=== PATIENT | female | born 1975 | race Caucasian/White ===

== ENCOUNTER 2016-10-27 16:36 | Emergency (ER) | payer OTHER ==
[~2016-10-27] VITALS: Ht 167.6 cm; Wt 119.7 kg
[~2016-10-27 16:36] MED LIST: ALBU1AER9 INH; AMPH20TA2 PO; BUSP-8 PO; FLUV100T12 PO; HYDR25TA4 PO; LAMO150T32 PO; MOXI400T2 PO; MULT1CAP3 PO; PRED20TA2 PO; TRIATAB3 PO; VENL225T27 PO
[2016-10-27 16:51] VITALS: Ht 167.6 cm; Wt 119.7 kg
[2016-10-27] MEDS ORDERED: LISI-729 PO (17:57)
[2016-10-27] MEDS ORDERED: SODIUM CHLORIDE 0.9% 1000ML 1,000 ML IV STA (18:17)
--- NOTE | 2016-10-27 18:25 | EMERGENCY ROOM VISIT NOTE ---
History First contact with patient: 18:08 Chief Complaint: ABDOMINAL PAIN Stated Complaint: SEVERE LOWER ABDOMINAL PAIN Nursing Triage Summary: Pt presents with c/o "severe abd pain that started on Mon. I thought it was a UTI. I have pain and pressure. Today I have had the pain all day. The most recent bowel movement I had was diarrhea. I have an ache in my back that normally isn't there. I feel bloated. I feel like I could vomit." History of Present Illness The patient is a 41 year old female who presents to the Emergency Room with complaints of pelvic pressure. She reports it stayed 2 days ago, and was intermittent, but today became very severe. She reports her pain is an 8/10 now. She did not try taking anything to make it better. She report she felt somewhat better when she passed stool yesterday. She has not been nauseated. She denies fevers. She reports the pain radiates somewhat towards the back. Review of Systems See HPI for pertinent positives & negatives. A total of 10 systems reviewed and were otherwise negative. Past Medical/Surgical History Medical Problems: (1) Anxiety (2) Benign hypertension (3) Chronic pelvic pain of female (4) Depression (5) Dysmenorrhea (6) Hysterectomy (7) Morbid Obesity Surgical Problems: (1) H/O section (2) H/O hysterectomy with oophorectomy (3) Hx of tonsillectomy Family History No pertinent FHx Social History Smoking Status: Current Every Day Smoker Alcohol Use: none Drug Use: none Marital Status: Housing Status: lives with family Occupation Status: employed Current/Historical Medications Scheduled Amphetamine-Dextroamphetamine 20MG (Adderall 20MG), 20 MG PO BID Buspirone Hcl (Buspirone Hcl), 10 MG PO BID Fluvoxamine Maleate (Luvox), 150 MG PO QPM Lamotrigine (Lamictal), 150 MG PO QAM Lisinopril (Zestril), 1 TAB PO QAM Multiple Vitamins W/ Minerals (Womens Multi), 1 CAPSULE PO DAILY Triamterene/Hctz (Triamterene/Hctz 37.5-25MG), 1 TABLET PO DAILY Venlafaxine Hcl (Venlafaxine Hcl Er), 225 MG PO DAILY Allergies Coded Allergies: No Known Allergies (Unverified , 10/27/16) Physical Exam Vital Signs Date Time Temp Pulse Resp B/P Pulse Ox O2 Delivery O2 Flow Rate FiO2 10/27/16 21:41 36.9 82 18 124/74 98 Room Air 10/27/16 20:15 94 20 151/90 96 Room Air 10/27/16 18:34 109 20 143/82 96 Room Air 10/27/16 18:03 111 10/27/16 16:51 37.5 132 18 180/124 98 Room Air Physical Exam GENERAL: Awake, alert, well-appearing, in no acute distress HENT: Normocephalic, atraumatic. Oropharynx unremarkable. EYES: Normal conjunctiva. Sclera non-icteric. NECK: Supple. No nuchal rigidity. FROM. No JVD. RESPIRATORY: Clear to auscultation. CARDIAC: Regular rate, normal rhythm. Extremities warm and well perfused. Pulses equal. ABDOMEN: Soft, non-distended. No tenderness to palpation. No rebound or guarding. No masses. RECTAL: Deferred. MUSCULOSKELETAL: Chest examination reveals no tenderness. The back is symmetrical on inspection without obvious abnormality. There is no CVA tenderness to palpation. No joint edema. LOWER EXTREMITIES: Calves are equal size bilaterally and non-tender. No edema. No discoloration. NEURO: Normal sensorium. No sensory or motor deficits noted. SKIN: No rash or jaundice noted. Medical Decision & Procedures ER Provider Diagnostic Interpretation: US VAGINAL: IMPRESSION: 1. Unremarkable sonographic appearance of the ovaries. 2. Status post hysterectomy. 3. No free fluid CT ABDOMEN/PELVIS: 1. Normal appendix. 2. No bowel obstruction. 3. 1.9 x 0.9 cm hypodense abnormality along the superficial aspect of the left mid anterior abdominal wall with thin peripheral enhancement. This may been present on prior exam of October 15, 2007 and could reflect a small area fat necrosis. A tiny fluid collection is considered less likely. This is of doubtful significance. 4. Fatty liver. Laboratory Results 10/27/16 18:10 Red Blood Count 4.28, Mean Corpuscular Volume 90.4, Mean Corpuscular Hemoglobin 31.3, Mean Corpuscular Hemoglobin Concent 34.6, Mean Platelet Volume 10.6, Neutrophils (%) (Auto) 60.0, Lymphocytes (%) (Auto) 32.7, Monocytes (%) (Auto) 5.2, Eosinophils (%) (Auto) 1.4, Basophils (%) (Auto) 0.3, Neutrophils # (Auto) 7.70, Lymphocytes # (Auto) 4.20, Monocytes # (Auto) 0.67, Eosinophils # (Auto) 0.18, Basophils # (Auto) 0.04 10/27/16 18:10 Test 10/27/16 18:05 10/27/16 18:10 Urine Color YELLOW Urine Appearance CLEAR (CLEAR) Urine pH 7.0 (4.5-7.5) Urine Specific [place] 1.018 (1.000-1.030) Urine Protein NEG (NEG) Urine Glucose (UA) NEG (NEG) Urine Ketones NEG (NEG) Urine Occult Blood NEG (NEG) Urine Nitrite NEG (NEG) Urine Bilirubin NEG (NEG) Urine Urobilinogen NEG (NEG) Urine Leukocyte Esterase NEG (NEG) White Blood Count 12.84 K/uL (4.8-10.8) Red Blood Count 4.28 M/uL (4.2-5.4) Hemoglobin 13.4 g/dL (12.0-16.0) Hematocrit 38.7 % (37-47) Mean Corpuscular Volume 90.4 fL (80-100) Mean Corpuscular Hemoglobin 31.3 pg (25-34) Mean Corpuscular Hemoglobin Concent 34.6 g/dl (32-36) Platelet Count 244 K/uL (130-400) Mean Platelet Volume 10.6 fL (7.4-10.4) Neutrophils (%) (Auto) 60.0 % Lymphocytes (%) (Auto) 32.7 % Monocytes (%) (Auto) 5.2 % Eosinophils (%) (Auto) 1.4 % Basophils (%) (Auto) 0.3 % Neutrophils # (Auto) 7.70 K/uL (1.4-6.5) Lymphocytes # (Auto) 4.20 K/uL (1.2-3.4) Monocytes # (Auto) 0.67 K/uL (0.11-0.59) Eosinophils # (Auto) 0.18 K/uL (0-0.5) Basophils # (Auto) 0.04 K/uL (0-0.2) RDW Standard Deviation 43.9 fL (36.4-46.3) RDW Coefficient of Variation 13.3 % (11.5-14.5) Immature Granulocyte % (Auto) 0.4 % Immature Granulocyte # (Auto) 0.05 K/uL (0.00-0.02) Red Blood Cell Morphology Unremarkable Anion Gap 9.0 mmol/L (3-11) Est Creatinine Clear Calc Drug Dose 177.7 ml/min Estimated GFR () 136.1 Estimated GFR (Non- 117.5 BUN/Creatinine Ratio 22.1 (10-20) Calcium Level 9.2 mg/dl (8.5-10.1) Total Bilirubin 0.2 mg/dl (0.2-1) Aspartate Amino Transf (AST/SGOT) 14 U/L (15-37) Alanine Aminotransferase (ALT/SGPT) 26 U/L (12-78) Alkaline Phosphatase 148 U/L (45-117) Total Protein 7.5 gm/dl (6.4-8.2) Albumin 3.6 gm/dl (3.4-5.0) Globulin 3.9 gm/dl (2.5-4.0) Albumin/Globulin Ratio 0.9 (0.9-2) Lipase 88 U/L (73-393) Medications Administered Medications (Trade) Dose Ordered Sig/Kavita Route Start Time Stop Time Status Last Admin Dose Admin Sodium Chloride (Nss 1000ml) 1,000 ml @ 999 mls/hr Q1H1M STAT IV 10/27/16 18:17 10/27/16 19:17 DC 10/27/16 18:33 999 MLS/HR Morphine Sulfate (MoRPHine SULFATE INJ) 2 mg NOW STAT IV 10/27/16 18:36 10/27/16 18:40 DC 10/27/16 18:51 2 MG Acetaminophen (Tylenol Tab) 1,000 mg NOW STAT PO 10/27/16 20:26 10/27/16 20:27 DC 10/27/16 20:29 1,000 MG ED Course 1809: The patient was evaluated in room B3. A complete history and physical was performed. 1816: I prescribed NSS 1000 ml @ 999 mls/hr. 1835: I prescribed Morphine Sulfate 2 mg IV for pain. 1851: Previous medical records were reviewed. The patient was evaluated in room B3b. A complete history and physical examination was performed. 2025: Tylenol 1000 mg PO for pain. 2200: I discussed the results and treatment plan with her. She verbalized understanding and agreement. The patient is ready for discharge. Medical Decision 41 yo F with suprapubic pain and pressure. Differential includes: UTI, renal colic, diverticulitis, bowel obstruction, hernia. Her symptoms improved somewhat with a bowel movement. She had an IV placed and labs drawn. Her labwork was unremarkable. Her urinalysis was normal. Her Pelvic US and CT scan were both normal for acute disease. She was given IV fluids, IV morphine, PO tylenol, and IV Zofran. She felt better on reassessment, and her blood pressure improved. She was deemed stable for discharge and sent home in good condition. Impression Primary Impression: Suprapubic pain Additional Impression: Constipation Departure Information Referrals Man Stovall, D.O. (PCP) Patient Instructions [facility] Resident Tracking Resident Involvement: Resident Care Provided Care Provided: Adult ED Problem Qualifiers
[2016-10-27 18:29] LABS: HEMATOCRIT 38.7 % (37-47); MEAN CELL VOLUME 90.4 fL (80-100); MEAN CORPUSCULAR HEMOGLOBIN 31.3 pg (25-34); MEAN CORPUSCULAR HGB CONC 34.6 g/dl (32-36); MEAN PLATELET VOLUME 10.6 fL (7.4-10.4); PLATELET COUNT 244 K/uL (130-400); RED BLOOD COUNT 4.28 M/uL (4.2-5.4); WHITE BLOOD COUNT 12.84 K/uL (4.8-10.8)
[2016-10-27 18:32] LABS: URINE APPEARANCE CLEAR (CLEAR); URINE BILIRUBIN NEG (NEG); URINE COLOR YELLOW; URINE NITRITE NEG (NEG); URINE SPECIFIC GRAVITY 1.018 (1.000-1.030); UROBILINOGEN NEG (NEG); ZZUR CULT IF INDIC CLEAN CATCH NO
[2016-10-27 18:34] LABS: MANUAL MICROSCOPIC REQUIRED? NO; REVIEW REQ? NO
[2016-10-27] MEDS ORDERED: MoRPHine SULFATE 2 MG/ML CARP IV STA (18:36)
[2016-10-27 18:49] LABS: BUN/CREATININE RATIO 22.1 (10-20); CALCIUM 9.2 mg/dl (8.5-10.1); CREATININE 0.56 mg/dl (0.60-1.20); POTASSIUM 3.8 mmol/L (3.5-5.1)
[2016-10-27 18:53] LABS: ALB/GLOB RATIO 0.9 (0.9-2)
[2016-10-27 19:05] LABS: BASO % 0.3 %; BASO ABS # 0.04 K/uL (0-0.2); COMPLETE YES; EOS % 1.4 %; IG% 0.4 %; LYMPH % 32.7 %; MONO % 5.2 %
--- NOTE | 2016-10-27 20:19 | DIAGNOSTIC IMAGING REPORT ---
PELVIC ULTRASOUND CLINICAL HISTORY: Suprapubic pain and pressure. COMPARISON STUDY: Pelvic ultrasound October 11, 2007. TECHNIQUE: Transabdominal and transvaginal sonography of the pelvis was performed. FINDINGS: By report, the uterus is surgically absent. The ovaries were not visualized transvaginally but were shown transabdominally. The right measures 2.6 x 2.2 x 2.1 cm and the left measures 3.1 x 2.2 x 2.6 cm. Color flow is identified within each ovary. IMPRESSION: 1. Unremarkable sonographic appearance of the ovaries. 2. Status post hysterectomy. 3. No free fluid Electronically signed by: Daren Paredes M.D. 10/27/2016 8:17 PM Dictated Date/Time: 10/27/2016 8:16 PM
[2016-10-27] MEDS ORDERED: ACETAMINOPHEN 500 MG TAB PO STA (20:26)
[2016-10-27] MEDS ORDERED: OPTIRAY 320 IV PRN (21:30)
[2016-10-27 21:41] VITALS: BP 124/74; PULSE 82; TEMP 36.9; O2SAT 98
--- NOTE | 2016-10-27 21:57 | DIAGNOSTIC IMAGING REPORT ---
CT OF THE ABDOMEN AND PELVIS WITH CONTRAST CLINICAL HISTORY: Lower abdominal pain. COMPARISON STUDY: CT of the abdomen and pelvis October 15, 2007 and pelvic ultrasound performed earlier today. TECHNIQUE: Following IV administration of 116 mL of Optiray-320, axial images of the abdomen and pelvis were obtained from the lung bases to the proximal femurs. Images were reviewed in the axial, sagittal, and coronal planes. IV contrast was administered without complication. Oral contrast was administered. CT DOSE: 1944.63 mGy.cm FINDINGS: Fatty infiltration of the liver is noted. There is no biliary or pancreatic ductal dilatation. No peripancreatic or pericholecystic infiltration is present. The spleen, adrenal glands, kidneys and pancreas are normal. There is no hydronephrosis. No ureteral calculi are identified. The caliber and wall thickness of small and large bowel are normal. There is no evidence for a bowel obstruction. The appendix is normal. The uterus is surgically absent. The ovaries are not enlarged. Note is made of a small hypodense abnormality along the superficial aspect of the left mid anterior abdominal wall that measures 1.9 x 0.9 cm. This has mild peripheral enhancement and likely contains fat. No additional fluid collections are identified on this exam. There is no lymphadenopathy. No suspicious skeletal lesions are identified. IMPRESSION: 1. Normal appendix. 2. No bowel obstruction. 3. 1.9 x 0.9 cm hypodense abnormality along the superficial aspect of the left mid anterior abdominal wall with thin peripheral enhancement. This may been present on prior exam of October 15, 2007 and could reflect a small area fat necrosis. A tiny fluid collection is considered less likely. This is of doubtful significance. 4. Fatty liver. Electronically signed by: Daren Paredes M.D. 10/27/2016 9:56 PM Dictated Date/Time: 10/27/2016 9:43 PM
--- NOTE | 2016-10-27 22:16 | EMERGENCY ROOM VISIT NOTE ---
History Report prepared by [facility]: Jian Bradley Under the Supervision of: Dr. Vivek Wade D.O. First contact with patient: 18:08 Chief Complaint: ABDOMINAL PAIN Stated Complaint: SEVERE LOWER ABDOMINAL PAIN Nursing Triage Summary: Pt presents with c/o "severe abd pain that started on Mon. I thought it was a UTI. I have pain and pressure. Today I have had the pain all day. The most recent bowel movement I had was diarrhea. I have an ache in my back that normally isn't there. I feel bloated. I feel like I could vomit." History of Present Illness The patient is a 41 year old female who presents to the Emergency Room with complaints of waxing & waning suprapubic pressure for the past two days. The patient' rates her discomfort 8/10. She has felt similar pressure in the past with urinary tract infections. The patient's pain was not relieved after urinating. She does have some relief after bowel movements, but the pressure never completely resolved. She denies fevers, chills, nausea, or vomiting. She does also complain of some dull lower back pain. The patient has a history of PID. She is status-post x 2 and panniculectomy. She works at [employer] in [place]. Source of History: patient Onset: two days Position: abdomen (suprapubic) Symptom Intensity: 8/10 Quality: pressure Timing: waxes/wanes Associated Symptoms: + back pain, No chills, No fevers, No nausea, No vomiting Review of Systems See HPI for pertinent positives & negatives. A total of 10 systems reviewed and were otherwise negative. Past Medical & Surgical Medical Problems: (1) Anxiety (2) Benign hypertension (3) Chronic pelvic pain of female (4) Depression (5) Dysmenorrhea (6) Hysterectomy (7) Morbid Obesity Surgical Problems: (1) H/O section (2) H/O hysterectomy with oophorectomy (3) Hx of tonsillectomy Family History No pertinent family history Social History Smoking Status: Current Every Day Smoker Alcohol Use: none Drug Use: none Marital Status: Housing Status: lives with family Occupation Status: employed Current/Historical Medications Scheduled Amphetamine-Dextroamphetamine 20MG (Adderall 20MG), 20 MG PO BID Buspirone Hcl (Buspirone Hcl), 10 MG PO BID Fluvoxamine Maleate (Luvox), 150 MG PO QPM Lamotrigine (Lamictal), 150 MG PO QAM Lisinopril (Zestril), 1 TAB PO QAM Multiple Vitamins W/ Minerals (Womens Multi), 1 CAPSULE PO DAILY Triamterene/Hctz (Triamterene/Hctz 37.5-25MG), 1 TABLET PO DAILY Venlafaxine Hcl (Venlafaxine Hcl Er), 225 MG PO DAILY Allergies Coded Allergies: No Known Allergies (Unverified , 10/27/16) Physical Exam Vital Signs Date Time Temp Pulse Resp B/P Pulse Ox O2 Delivery O2 Flow Rate FiO2 10/27/16 21:41 36.9 82 18 124/74 98 Room Air 10/27/16 20:15 94 20 151/90 96 Room Air 10/27/16 18:34 109 20 143/82 96 Room Air 10/27/16 18:03 111 10/27/16 16:51 37.5 132 18 180/124 98 Room Air Physical Exam CONSTITUTIONAL/VITAL SIGNS: Reviewed / noted above. GENERAL: Non-toxic in appearance. INTEGUMENTARY: Warm, dry, and [place]. HEAD: Normocephalic. EYES: without scleral icterus or trauma. ENT/OROPHARYNX: clear and moist. LYMPHADENOPATHY/NECK: Is supple without lymphadenopathy or meningismus. RESPIRATORY: Lungs clear and equal. CARDIOVASCULAR: Regular rate and rhythm. GI/ABDOMEN: Soft. Some tenderness to the suprapubic area and left lower quadrant. No organomegaly or pulsatile mass. No rebound or guarding. Normal bowel sounds. EXTREMITIES: Warm and well perfused. BACK: No CVA tenderness. NEUROLOGICAL: Intact without focal deficits. PSYCHIATRIC: normal affect. MUSCULOSKELETAL: Normally developed with good muscle tone. Medical Decision & Procedures ER Provider Diagnostic Interpretation: Radiology results and stated below per my review and radiologist interpretation: PELVIC ULTRASOUND CLINICAL HISTORY: Suprapubic pain and pressure. COMPARISON STUDY: Pelvic ultrasound October 11, 2007. TECHNIQUE: Transabdominal and transvaginal sonography of the pelvis was performed. FINDINGS: By report, the uterus is surgically absent. The ovaries were not visualized transvaginally but were shown transabdominally. The right measures 2.6 x 2.2 x 2.1 cm and the left measures 3.1 x 2.2 x 2.6 cm. Color flow is identified within each ovary. IMPRESSION: 1. Unremarkable sonographic appearance of the ovaries. 2. Status post hysterectomy. 3. No free fluid Electronically signed by: Daren Paredes M.D. 10/27/2016 8:17 PM Dictated Date/Time: 10/27/2016 8:[address] OF THE ABDOMEN AND PELVIS WITH CONTRAST CLINICAL HISTORY: Lower abdominal pain. COMPARISON STUDY: CT of the abdomen and pelvis October 15, 2007 and pelvic ultrasound performed earlier today. TECHNIQUE: Following IV administration of 116 mL of Optiray-320, axial images of the abdomen and pelvis were obtained from the lung bases to the proximal femurs. Images were reviewed in the axial, sagittal, and coronal planes. IV contrast was administered without complication. Oral contrast was administered. CT DOSE: 1944.63 mGy.cm FINDINGS: Fatty infiltration of the liver is noted. There is no biliary or pancreatic ductal dilatation. No peripancreatic or pericholecystic infiltration is present. The spleen, adrenal glands, kidneys and pancreas are normal. There is no hydronephrosis. No ureteral calculi are identified. The caliber and wall thickness of small and large bowel are normal. There is no evidence for a bowel obstruction. The appendix is normal. The uterus is surgically absent. The ovaries are not enlarged. Note is made of a small hypodense abnormality along the superficial aspect of the left mid anterior abdominal wall that measures 1.9 x 0.9 cm. This has mild peripheral enhancement and likely contains fat. No additional fluid collections are identified on this exam. There is no lymphadenopathy. No suspicious skeletal lesions are identified. IMPRESSION: 1. Normal appendix. 2. No bowel obstruction. 3. 1.9 x 0.9 cm hypodense abnormality along the superficial aspect of the left mid anterior abdominal wall with thin peripheral enhancement. This may been present on prior exam of October 15, 2007 and could reflect a small area fat necrosis. A tiny fluid collection is considered less likely. This is of doubtful significance. 4. Fatty liver. Electronically signed by: Daren Paredes M.D. 10/27/2016 9:56 PM Dictated Date/Time: 10/27/2016 9:43 PM Laboratory Results 10/27/16 18:10 Red Blood Count 4.28, Mean Corpuscular Volume 90.4, Mean Corpuscular Hemoglobin 31.3, Mean Corpuscular Hemoglobin Concent 34.6, Mean Platelet Volume 10.6, Neutrophils (%) (Auto) 60.0, Lymphocytes (%) (Auto) 32.7, Monocytes (%) (Auto) 5.2, Eosinophils (%) (Auto) 1.4, Basophils (%) (Auto) 0.3, Neutrophils # (Auto) 7.70, Lymphocytes # (Auto) 4.20, Monocytes # (Auto) 0.67, Eosinophils # (Auto) 0.18, Basophils # (Auto) 0.04 10/27/16 18:10 Test 10/27/16 18:05 10/27/16 18:10 Urine Color YELLOW Urine Appearance CLEAR (CLEAR) Urine pH 7.0 (4.5-7.5) Urine Specific [employer] 1.018 (1.000-1.030) Urine Protein NEG (NEG) Urine Glucose (UA) NEG (NEG) Urine Ketones NEG (NEG) Urine Occult Blood NEG (NEG) Urine Nitrite NEG (NEG) Urine Bilirubin NEG (NEG) Urine Urobilinogen NEG (NEG) Urine Leukocyte Esterase NEG (NEG) White Blood Count 12.84 K/uL (4.8-10.8) Red Blood Count 4.28 M/uL (4.2-5.4) Hemoglobin 13.4 g/dL (12.0-16.0) Hematocrit 38.7 % (37-47) Mean Corpuscular Volume 90.4 fL (80-100) Mean Corpuscular Hemoglobin 31.3 pg (25-34) Mean Corpuscular Hemoglobin Concent 34.6 g/dl (32-36) Platelet Count 244 K/uL (130-400) Mean Platelet Volume 10.6 fL (7.4-10.4) Neutrophils (%) (Auto) 60.0 % Lymphocytes (%) (Auto) 32.7 % Monocytes (%) (Auto) 5.2 % Eosinophils (%) (Auto) 1.4 % Basophils (%) (Auto) 0.3 % Neutrophils # (Auto) 7.70 K/uL (1.4-6.5) Lymphocytes # (Auto) 4.20 K/uL (1.2-3.4) Monocytes # (Auto) 0.67 K/uL (0.11-0.59) Eosinophils # (Auto) 0.18 K/uL (0-0.5) Basophils # (Auto) 0.04 K/uL (0-0.2) RDW Standard Deviation 43.9 fL (36.4-46.3) RDW Coefficient of Variation 13.3 % (11.5-14.5) Immature Granulocyte % (Auto) 0.4 % Immature Granulocyte # (Auto) 0.05 K/uL (0.00-0.02) Red Blood Cell Morphology Unremarkable Anion Gap 9.0 mmol/L (3-11) Est Creatinine Clear Calc Drug Dose 177.7 ml/min Estimated GFR () 136.1 Estimated GFR (Non- 117.5 BUN/Creatinine Ratio 22.1 (10-20) Calcium Level 9.2 mg/dl (8.5-10.1) Total Bilirubin 0.2 mg/dl (0.2-1) Aspartate Amino Transf (AST/SGOT) 14 U/L (15-37) Alanine Aminotransferase (ALT/SGPT) 26 U/L (12-78) Alkaline Phosphatase 148 U/L (45-117) Total Protein 7.5 gm/dl (6.4-8.2) Albumin 3.6 gm/dl (3.4-5.0) Globulin 3.9 gm/dl (2.5-4.0) Albumin/Globulin Ratio 0.9 (0.9-2) Lipase 88 U/L (73-393) Laboratory results as stated above per my review. Medications Administered Medications (Trade) Dose Ordered Sig/Kavita Route Start Time Stop Time Status Last Admin Dose Admin Sodium Chloride (Nss 1000ml) 1,000 ml @ 999 mls/hr Q1H1M STAT IV 10/27/16 18:17 10/27/16 19:17 DC 10/27/16 18:33 999 MLS/HR Morphine Sulfate (MoRPHine SULFATE INJ) 2 mg NOW STAT IV 10/27/16 18:36 10/27/16 18:40 DC 10/27/16 18:51 2 MG Acetaminophen (Tylenol Tab) 1,000 mg NOW STAT PO 10/27/16 20:26 10/27/16 20:27 DC 10/27/16 20:29 1,000 MG ED Course 1810: The patient was evaluated by my resident. 1817: NSS 1000 ml @ 999 mls/hr. 1836: Morphine Sulfate 2 mg IV. 1851: Previous medical records were reviewed. The patient was evaluated in room B3b. A complete history and physical examination was performed. 2025: Tylenol 1000 mg PO. 2199: My resident discussed the results and treatment plan with her. She verbalized understanding and agreement. The patient is ready for discharge. Medical Decision Differential considered: pancreatitis, hepatitis, or acute cholecystitis, AAA, UTI, pyelonephritis, kidney stones, appendicitis, diverticulitis, shingles, bowel obstruction mesenteric ischemia, intussusception,hernia. This is a 41-year-old female who presents to the ED with a chief complaint of lower abdominal pressure for the past couple of days. The patient states that her symptoms seem to subside somewhat with bowel movement. She has no fevers or nausea or vomiting or no diarrhea. Vital signs revealed an initial tachycardia did improve. CBC and complete metabolic panel were unremarkable. Lipase is negative. Urine did not show infection. The patient reports previous hysterectomy. CT scan read and pelvis did not show acute disease. Pelvic ultrasound was negative for acute disease. She was treated with IV fluids, IV morphine, by mouth Tylenol and IV Zofran. On reassessment, she is feeling better. She was told the results. Her vital signs improved. She is felt to be stable for discharge. Impression Primary Impression: Lower abdominal pain Scribe Attestation The scribe's documentation has been prepared under my direction and personally reviewed by me in its entirety. I confirm that the note above accurately reflects all work, treatment, procedures, and medical decision making performed by me. Departure Information Dispostion Home / Self-Care Referrals Man Stovall DYonatanO. (PCP) Forms Call Back Authorization, HOME CARE DOCUMENTATION FORM, IMPORTANT VISIT INFORMATION Patient Instructions My [facility] Additional Instructions Follow up with your PCP within a week. If you develop worsening pain, shortness of breath, vomiting, diarrhea, or chest pain then please return to the ED.
== END 2016-10-27 22:10 | disposition home or self-care (01) ==
LOC: C.EDB 16:37
DX: R10.30 Lower abdominal pain, unspecified (principal); I10 Essential (primary) hypertension; F41.9 Anxiety disorder, unspecified; F32.9 Major depressive disorder, single episode, unspecified; Z90.710 Acquired absence of both cervix and uterus; Z98.890 Other specified postprocedural states; F17.200 Nicotine dependence, unspecified, uncomplicated; Z79.899 Other long term (current) drug therapy

== ENCOUNTER 2016-11-12 15:24 | Emergency (ER) | payer OTHER ==
[~2016-11-12] VITALS: Ht 170.2 cm; Wt 119.2 kg
[~2016-11-12 15:24] MED LIST changes: -ALBU1AER9 INH; -HYDR25TA4 PO; +LISI-729 PO; -MOXI400T2 PO; -PRED20TA2 PO
[2016-11-12 15:28] VITALS: TEMP 36.9; Ht 170.2 cm; Wt 119.2 kg
[2016-11-12] MEDS ORDERED: DICY10CA55 PO (15:50)
[2016-11-12] MEDS ORDERED: LSN20 PO (15:50)
[2016-11-12] MEDS ORDERED: GLC/500 PO (15:50)
[2016-11-12] MEDS ORDERED: ONDANSETRON INJ 2 MG/ML 2 ML VIAL IV STA (15:56)
[2016-11-12] MEDS ORDERED: MoRPHine SULFATE 4 MG/ML 1 ML CARP\\VIAL IV STA ×2 (15:56→18:23)
[2016-11-12] MEDS ORDERED: OPTIRAY 320 IV PRN (16:15)
[2016-11-12 16:42] LABS: URINE APPEARANCE CLEAR (CLEAR); URINE BILIRUBIN NEG (NEG); URINE COLOR DK YELLOW; URINE EPITHELIAL CELL AUTO >30 /lpf (0-5); URINE NITRITE NEG (NEG); UROBILINOGEN NEG (NEG)
[2016-11-12 16:43] LABS: MANUAL MICROSCOPIC REQUIRED? NO; REVIEW REQ? YES
[2016-11-12 17:35] LABS: BASO % 0.4 %; BASO ABS # 0.05 K/uL (0-0.2); COMPLETE YES; EOS % 1.4 %; HEMATOCRIT 41.5 % (37-47); IG% 0.2 %; LYMPH % 30.2 %; LYMPH ABS # 3.71 K/uL (1.2-3.4); MEAN CELL VOLUME 92.2 fL (80-100); MEAN CORPUSCULAR HEMOGLOBIN 31.8 pg (25-34); MEAN CORPUSCULAR HGB CONC 34.5 g/dl (32-36); MEAN PLATELET VOLUME 10.5 fL (7.4-10.4); MONO % 5.5 %; NEUT % 62.3 %; PLATELET COUNT 263 K/uL (130-400); WHITE BLOOD COUNT 12.27 K/uL (4.8-10.8)
[2016-11-12 17:52] LABS: ALT/SGPT 31 U/L (12-78); BLOOD UREA NITROGEN 13 mg/dl (7-18); BUN/CREATININE RATIO 20.5 (10-20); CALCIUM 9.5 mg/dl (8.5-10.1); CARBON DIOXIDE 28 mmol/L (21-32); CHLORIDE 103 mmol/L (98-107); CREATININE 0.61 mg/dl (0.60-1.20); GLUCOSE 103 mg/dl (70-99); POTASSIUM 4.2 mmol/L (3.5-5.1); SODIUM 138 mmol/L (136-145)
[2016-11-12 17:55] LABS: ALKALINE PHOSPHATASE 144 U/L (45-117); AST/SGOT 17 U/L (15-37)
--- NOTE | 2016-11-12 19:10 | DIAGNOSTIC IMAGING REPORT ---
ABDOMEN AND PELVIS CT WITH IV AND ORAL CONTRAST CT DOSE: 1464.25 mGy.cm HISTORY: Pain RLQ pain eval for tabby TECHNIQUE: Multiaxial CT images of the abdomen and pelvis were performed following the use of intravenous and oral contrast. COMPARISON STUDY: 10/27/2016 FINDINGS: No change in the prior study. Fatty infiltration of liver. Nonobstructive bowel pattern. Kidneys normal. Normal appendix. No free fluid within the pelvic cul-de-sac. IMPRESSION: No acute process. Fatty infiltration of liver. Normal appendix. Electronically signed by: Rufus Grady M.D. 11/12/2016 7:09 PM Dictated Date/Time: 11/12/2016 7:05 PM
[2016-11-12] MEDS ORDERED: NITROFURANTOIN MONOHYDRATE 100 MG CAP PO ONE (19:30)
[2016-11-12] MEDS ORDERED: NITR-5 PO (19:31)
[2016-11-12 19:45] VITALS: BP 152/91; PULSE 96; O2SAT 98
--- NOTE | 2016-11-12 22:20 | EMERGENCY ROOM VISIT NOTE ---
History Report prepared by Mayo: Jian Bradley Under the Supervision of: Dr. Guillermo Odom M.D. First contact with patient: 15:46 Chief Complaint: ABDOMINAL PAIN Stated Complaint: ON GOING ABDOMIN AND BACK PAIN Nursing Triage Summary: pt c/o abd/back pain for approx 3 weeks. feels nauseated. talked with pcp today , lab work done yesterday was worse than 3 weeks ago, sent here for further testing History of Present Illness The patient is a 41 year old female who presents to the Emergency Room with complaints of constant abdominal pain for the past three weeks. The pain was localized to the lower abdomen for the first two weeks. Over the past week the pain has become more diffuse. The pain also radiates to the lower back bilaterally. The pain is cramping in nature, and is worsened after eating and sometimes after going to the bathroom. The patient had a CT scan in the ED on October 27 as well as a Pelvic US, both of which were unremarkable. She was started on Bentyl by Dr. Stovall ([facility]). He did not perform a pelvic examination. The patient has been feeling nauseous. She had diarrhea for five days during the first week after the onset of her pain, and has had it intermittently since. The diarrhea does not contain blood. The patient notes that she had a low-grade fever of 99 yesterday. She denies any other fevers. She also denies vomiting, urinary symptoms, or abnormal vaginal bleeding or discharge. The patient has not been sexually active for 3 months. She does have a history of PID 9 years ago from chlamydia but notes that this pain is not similar. Source of History: patient Onset: three weeks ago Position: abdomen (diffuse) Quality: cramping Timing: constant Modifying Factors (Worsening): eating Associated Symptoms: + diarrhea, + fevers (low grade), + nausea, No hematochezia, No urinary symptoms, No vomiting Review of Systems See HPI for pertinent positives & negatives. A total of 10 systems reviewed and were otherwise negative. Past Medical & Surgical Medical Problems: (1) Anxiety (2) Benign hypertension (3) Chronic pelvic pain of female (4) Depression (5) Dysmenorrhea (6) Hysterectomy (7) Morbid Obesity Surgical Problems: (1) H/O section (2) H/O hysterectomy with oophorectomy (3) Hx of tonsillectomy Family History No pertinent family history Social History Smoking Status: Current Every Day Smoker Alcohol Use: none Drug Use: none Marital Status: Housing Status: lives with family Occupation Status: employed Current/Historical Medications Scheduled Amphetamine-Dextroamphetamine 20MG (Adderall 20MG), 20 MG PO BID Buspirone Hcl (Buspirone Hcl), 10 MG PO BID Fluvoxamine Maleate (Luvox), 150 MG PO QPM Lamotrigine (Lamictal), 150 MG PO QAM Lisinopril (Lisinopril), 20 MG PO QAM Metformin Hcl (Glucophage), 500 MG PO BID Multiple Vitamins W/ Minerals (Womens Multi), 1 CAPSULE PO DAILY Nitrofurantoin Monohyd Macrocr (Macrobid), 100 MG PO BID Triamterene/Hctz (Triamterene/Hctz 37.5-25MG), 1 TABLET PO DAILY Venlafaxine Hcl (Venlafaxine Hcl Er), 225 MG PO DAILY Scheduled PRN Dicyclomine Hcl (Bentyl), 10 MG PO QID PRN for PRN Allergies Coded Allergies: No Known Allergies (Unverified , 11/12/16) Physical Exam Vital Signs Date Time Temp Pulse Resp B/P Pulse Ox O2 Delivery O2 Flow Rate FiO2 11/12/16 19:45 96 16 152/91 98 11/12/16 18:08 95 17 141/93 97 Room Air 11/12/16 17:03 87 18 148/98 97 Room Air 11/12/16 15:28 36.9 109 18 161/96 99 Room Air Physical Exam Constitutional: Vital signs reviewed. Eyes: Pupils are equal round reactive to light. Conjunctiva are noninjected. ENT: Pharynx is clear without erythema or exudate. Mucous membranes are moist. Neck supple without meningeal signs. Respiratory: Clear to auscultation bilaterally. Breath sounds are equal bilaterally. Cardiovascular: Regular rate and rhythm. No rubs or gallops. GI: Soft, nondistended. Suprapubic and right lower quadrant tenderness, no guarding. Bowel sounds are present. : No erythema or inflammation to the vaginal vault. Cervix was not visualized. Normal vaginal discharge without purulence. No adnexal tenderness or fullness. Musculoskeletal: No peripheral edema. No CVA tenderness. Integumentary: No cyanosis. Neurological: The patient is awake and alert. No focal deficits. Psychiatric: Normal affect. Medical Decision & Procedures ER Provider Diagnostic Interpretation: CT results as stated below per my review and radiologist interpretation. ABDOMEN AND PELVIS CT WITH IV AND ORAL CONTRAST CT DOSE: 1464.25 mGy.cm HISTORY: Pain RLQ pain eval for tabby TECHNIQUE: Multiaxial CT images of the abdomen and pelvis were performed following the use of intravenous and oral contrast. COMPARISON STUDY: 10/27/2016 FINDINGS: No change in the prior study. Fatty infiltration of liver. Nonobstructive bowel pattern. Kidneys normal. Normal appendix. No free fluid within the pelvic cul-de-sac. IMPRESSION: No acute process. Fatty infiltration of liver. Normal appendix. Electronically signed by: Rufus Grady M.D. 11/12/2016 7:09 PM Dictated Date/Time: 11/12/2016 7:05 PM Laboratory Results 11/12/16 17:25 Red Blood Count 4.50, Mean Corpuscular Volume 92.2, Mean Corpuscular Hemoglobin 31.8, Mean Corpuscular Hemoglobin Concent 34.5, Mean Platelet Volume 10.5, Neutrophils (%) (Auto) 62.3, Lymphocytes (%) (Auto) 30.2, Monocytes (%) (Auto) 5.5, Eosinophils (%) (Auto) 1.4, Basophils (%) (Auto) 0.4, Neutrophils # (Auto) 7.64, Lymphocytes # (Auto) 3.71, Monocytes # (Auto) 0.68, Eosinophils # (Auto) 0.17, Basophils # (Auto) 0.05 11/12/16 17:25 Test 11/12/16 00:00 11/12/16 16:10 11/12/16 17:25 Urine Color DK YELLOW Urine Appearance CLEAR (CLEAR) Urine pH 6.0 (4.5-7.5) Urine Specific [place] 1.030 (1.000-1.030) Urine Protein NEG (NEG) Urine Glucose (UA) NEG (NEG) Urine Ketones NEG (NEG) Urine Occult Blood NEG (NEG) Urine Nitrite NEG (NEG) Urine Bilirubin NEG (NEG) Urine Urobilinogen NEG (NEG) Urine Leukocyte Esterase TRACE (NEG) Urine WBC (Auto) 5-10 /hpf (0-5) Urine RBC (Auto) 0-4 /hpf (0-4) Urine Hyaline Casts (Auto) 1-5 /lpf (0-5) Urine Epithelial Cells (Auto) >30 /lpf (0-5) Urine Bacteria (Auto) 1+ (NEG) Urine Test NEG (NEG) White Blood Count 12.27 K/uL (4.8-10.8) Red Blood Count 4.50 M/uL (4.2-5.4) Hemoglobin 14.3 g/dL (12.0-16.0) Hematocrit 41.5 % (37-47) Mean Corpuscular Volume 92.2 fL (80-100) Mean Corpuscular Hemoglobin 31.8 pg (25-34) Mean Corpuscular Hemoglobin Concent 34.5 g/dl (32-36) Platelet Count 263 K/uL (130-400) Mean Platelet Volume 10.5 fL (7.4-10.4) Neutrophils (%) (Auto) 62.3 % Lymphocytes (%) (Auto) 30.2 % Monocytes (%) (Auto) 5.5 % Eosinophils (%) (Auto) 1.4 % Basophils (%) (Auto) 0.4 % Neutrophils # (Auto) 7.64 K/uL (1.4-6.5) Lymphocytes # (Auto) 3.71 K/uL (1.2-3.4) Monocytes # (Auto) 0.68 K/uL (0.11-0.59) Eosinophils # (Auto) 0.17 K/uL (0-0.5) Basophils # (Auto) 0.05 K/uL (0-0.2) RDW Standard Deviation 45.5 fL (36.4-46.3) RDW Coefficient of Variation 13.5 % (11.5-14.5) Immature Granulocyte % (Auto) 0.2 % Immature Granulocyte # (Auto) 0.02 K/uL (0.00-0.02) Anion Gap 7.0 mmol/L (3-11) Est Creatinine Clear Calc Drug Dose 165.5 ml/min Estimated GFR () 132.4 Estimated GFR (Non- 114.2 BUN/Creatinine Ratio 20.5 (10-20) Calcium Level 9.5 mg/dl (8.5-10.1) Total Bilirubin 0.3 mg/dl (0.2-1) Direct Bilirubin < 0.1 mg/dl (0-0.2) Aspartate Amino Transf (AST/SGOT) 17 U/L (15-37) Alanine Aminotransferase (ALT/SGPT) 31 U/L (12-78) Alkaline Phosphatase 144 U/L (45-117) Total Protein 7.8 gm/dl (6.4-8.2) Albumin 3.7 gm/dl (3.4-5.0) Lipase 592 U/L (73-393) Laboratory results as reviewed by me. Medications Administered Medications (Trade) Dose Ordered Sig/Kavita Route Start Time Stop Time Status Last Admin Dose Admin Morphine Sulfate (MoRPHine SULFATE INJ) 4 mg ONE STAT IV 11/12/16 15:56 11/12/16 15:58 DC 11/12/16 16:54 4 MG Ondansetron HCl (Zofran Inj) 4 mg NOW STAT IV 11/12/16 15:56 11/12/16 15:58 DC 11/12/16 16:53 4 MG Morphine Sulfate (MoRPHine SULFATE INJ) 4 mg NOW STAT IV 11/12/16 18:23 11/12/16 18:24 DC 11/12/16 18:38 4 MG Nitrofurantoin Macrocrystals (Macrobid Cap) 100 mg ONE ONCE PO 11/12/16 19:30 11/12/16 19:31 DC 11/12/16 19:38 100 MG ED Course 1550: The patient was evaluated in room A3. A complete history and physical exam was performed. 1556: Zofran 4 mg IV, Morphine Sulfate 4 mg IV. 1700: Patient received medication (IV morphine and Zofran) pelvic exam performed. 1705: Pelvic examination performed. 1823: Morphine Sulfate 4 mg IV. 5: Discussed the results with her. I recommended a liquid diet and abstaining from alcohol. She will see her doctor early next week. 1930: Macrobid 100 mg PO. Medical Decision This is a 41-year-old female presents with abdominal pain. Differential diagnosis includes acute appendicitis, perforation, abscess, irritable bowel syndrome, inflammatory bowel disease, food intolerance, pelvic inflammatory disease. I did perform a limited focused review of portions of the patient's old chart on the electronic medical record. The patient was here on October 27 for suprapubic pain. She had a CT abdomen & pelvis which showed a 1.9 cm hypodense abnormality along the superficial aspect of the left anterior abdominal wall. The area seemed to be present on scan in 2007. She also had an unremarkable sonogram of the pelvis. [place] [address]. I did evaluate the patient as noted above. The patient is having abdominal pain for approximately 3 weeks. She states initially started in the lower abdomen and has now spread upwards. She is mostly tender in the lower abdomen. I did do a pelvic examination which was unremarkable. GC and genital cultures were sent. IV access was established. I did order and personally review the patient's urinalysis as described above. There are signs of infection. A urine culture was sent. I did order and review the patient's blood work as noted in the electronic medical record. Her white blood cell count is 12,000. Her lipase is slightly elevated. I did order a CT of the abdomen and pelvis. I did review the images myself as well as the radiology report as described above. There is no evidence of acute process. No appendicitis or pancreatitis. I did treat patient with IV morphine and Zofran. On reassessment the patient is feeling better. I did discuss the test results with her detail. There is no indication for further testing or admission to the hospital at this time. I did recommend that she stay on a liquid diet until she follows up with her doctor in 3-4 days. I did recommend that her doctor recheck her lipase level. She was given Macrobid for her UTI. She was discharged with a prescription for Macrobid. She was given return instructions as outlined below. Impression Primary Impression: Diffuse abdominal pain Additional Impressions: UTI (urinary tract infection) Elevated lipase Scribe Attestation The scribe's documentation has been prepared under my direct and personally reviewed by me in its entirety. I confirm that the note above accurately reflects all work, treatment, procedures, and medical decision making performed by me. Departure Information Dispostion Home / Self-Care Prescriptions Nitrofurantoin Monohyd Macrocr (Macrobid) 100 Mg Cap 100 MG PO BID, #14 CAP Prov: Guillermo Odom M.D. 11/12/16 Referrals No Doctor, Assigned (PCP) Forms Call Back Authorization, HOME CARE DOCUMENTATION FORM, IMPORTANT VISIT INFORMATION Patient Instructions ED Abd Pain Unkn Cause Fem, [facility] Additional Instructions You have been examined and treated today on an emergency basis only. This is not a substitute for, or an effort to provide, complete comprehensive medical care. It is impossible to recognize and treat all injuries or illnesses in a single emergency department visit. It is therefore important that you follow up closely with your physician in 3-4 days. Call as soon as possible for an appointment. Return for worsening symptoms or if you develop fever, vomiting, or any other concerning symptoms. Stay on a liquid diet for the next 3-4 days. Avoid any alcohol. Have your doctor repeat your lipase blood test to see if there is any change. Problem Qualifiers Additional Impressions: UTI (urinary tract infection) Urinary tract infection type: site unspecified Hematuria presence: without hematuria Qualified Codes: N39.0 - Urinary tract infection, site not specified
--- NOTE | 2016-11-15 12:09 | Pharmacy Progress Note ---
ED Pharmacist Culture FollowUp Date of Service: Nov 15, 2016. Gardnerella vaginalis grew in this patient's genital culture from 11/12/16. Patient had presented w/ c/o nausea and diarrhea as well as abdominal pain. This organism likely represents colonization rather than dx for bacterial vaginosis as provider's PE reportedly not consistent w/ bacterial vaginosis. Patient denied vaginal symptoms and discharge. There was no mention of fishy odor documented in the record. Gardnerella in cx by itself is not diagnostic of BV. No action required.
[2016-11-16 01:40] LABS: CHLAMYDIA TRACH RNA*** NOT DETECTED (NOT DETECTED); GC (NEIS GONORRHOEAE)RNA** NOT DETECTED (NOT DETECTED)
== END 2016-11-12 19:45 | disposition home or self-care (01) ==
LOC: C.EDB 15:25 → C.EDA 19:45
DX: R10.30 Lower abdominal pain, unspecified (principal); N39.0 Urinary tract infection, site not specified; R74.8 Abnormal levels of other serum enzymes; F41.9 Anxiety disorder, unspecified; I10 Essential (primary) hypertension; R10.2 Pelvic and perineal pain; G89.29 Other chronic pain; F32.9 Major depressive disorder, single episode, unspecified; N94.6 Dysmenorrhea, unspecified; E66.01 Morbid (severe) obesity due to excess calories; F17.210 Nicotine dependence, cigarettes, uncomplicated; Z79.899 Other long term (current) drug therapy

== ENCOUNTER 2020-05-04 10:16 | Inpatient (IN) ==
[2020-05-04] MEDS ORDERED: PIPERACILL/TAZOBAC CONSULT ACTIVE PRN (10:25)
[2020-05-04] MEDS ORDERED: PIPERACILLIN/TAZOBACTAM 4.5 GM/120 ML BAG IV ONE (10:25)
--- NOTE | 2020-05-04 11:02 | Emergency Department Note ---
Impression & Plan Gram-negative bacteremia, Pyelonephritis, Sepsis ED Provider Note NAME: BAO IRBY AGE: 45 SEX: F : 1975 ARRIVES VIA: Walk-In INFORMANT: Patient ED PROVIDER(S): Jeremiah Franco DO CHIEF COMPLAINT: Gram-negative bacteremia HPI: Patient is a 45-year-old female who presents the ER for symptoms that started this past . She notes that started with a headache, sore throat. Following this she has had diffuse myalgias and arthralgias. She has minimal abdominal discomfort. Denies any diarrhea or vomiting. Denies any dysuria urgency or frequency. She notes she notes that she has been having/feeling hot and cold at home. She was seen here in the ER and had blood work done. She was called back in for gram-negative blood cultures which came back positive. Urine also grew out gram-negative's. ROS: See above HPI for pertinent positives & negatives. A total of 10 systems reviewed and were otherwise negative. PAST MEDICAL HISTORY:See Below PAST SURGICAL HISTORY:See Below FAMILY HISTORY:See Below SOCIAL HISTORY:See Below HOME MEDICATIONS:See Below ALLERGIES:See Below VITALS:See Below PHYSICAL EXAMINATION: GENERAL: Sitting up in bed, alert, tearful, no acute distress EYE EXAM: normal conjunctiva. OROPHARYNX: no exudate, no erythema, lips, buccal mucosa, and tongue normal and mucous membranes are moist NECK: supple, no nuchal rigidity, no adenopathy, non-tender LUNGS: Clear to auscultation. Normal chest wall mechanics HEART: no murmurs, S1 normal and S2 normal ABDOMEN: abdomen soft, non-tender, normo-active bowel sounds, no masses, no rebound or guarding. BACK: Back is symmetrical on inspection and there is no deformity, no midline tenderness, no CVA tenderness. SKIN: no rashes and no bruising UPPER EXTREMITIES: upper extremities are grossly normal. LOWER EXTREMITIES: No pitting edema. NEURO EXAM: Normal sensorium, cranial nerves II-XII grossly intact, normal speech, no gross weakness of arms, no gross weakness of legs. MEDICAL DECISION MAKING: Patient is a 45-year-old female who presents the ER for diffuse myalgias and arthralgias. She was seen here within the past 48 hours had blood work done as well as blood cultures. Blood cultures resulted today with gram-negative's growing out in the urine was consistent with this. Based on this the patient was called back and I evaluated her. On presentation she was found to be tachycardic and borderline febrile. Sepsis work-up did ensue. Labs show leukocytosis 16,000. No significant anemia. INR was unremarkable. BMP was unremarkable as well as LFTs and bilirubin. Procalcitonin was 0.3. Urine did have nitrates white cells and leukocytes and bacteria. Patient was given IV Zosyn initially in case this was caused by other intra-abdominal pathology. I did CT her abdomen pelvis which showed/suggested pyelonephritis. Patient was updated at bedside and given IV fluids and IV Toradol. She was admitted to the hospital for gram-negative bacteremia likely secondary to UTI Triage Nursing notes reviewed. Prior medical records reviewed Vital Signs: reviewed and remarkable for tachycardia Differential diagnosis: Differential diagnosis includes etiologies such as sepsis, UTI, pneumonia, metabolic, electrolyte abnormalities, cardiac sources, intracerebral event, toxicologic, neurological, as well as others were entertained. ER treatment provided: See below Diagnostics interpreted by me: ECG: Sinus tachycardia rate of [address] wave changes in the high lateral leads No PVCs Normal QTC Cardiac Monitoring: An order was placed for continuous cardiac monitoring. The monitor shows a rate of 98 with sinus rhythm. Laboratory studies: As stated above and show below. Imaging studies: CT abdomen pelvis confirms pyelonephritis Consultation(s): Discussed with hospitalist for admission ED COURSE: Procedures: none Past Med/Surg History Medical History ADD (attention deficit disorder) Constipation Depression with anxiety Diabetes mellitus, type II Dyslipidemia HTN (hypertension) Tobacco use Surgical History (Updated 05/04/20 @ 13:15 by Kaitlin Harris PA-C) History of hysterectomy Hx of tonsillectomy Family History (Updated 05/04/20 @ 13:15 by Kaitlin Harris PA-C) Other Hypertension Social History (Updated 05/04/20 @ 13:16 by Kaitlin Harris PA-C) Smoking Status: Heavy tobacco smoker Cigarettes Per Day: 1/2-1 pdd; Do You Dip or Chew Tobacco: No; Hx Alcohol Use: No Hx Substance Use: No Preferred Language: Sami Communication Ability: Effective Beliefs That Will Affect Care: None Current Living Situation: Family Other Information That Helps Us Care for You: No Feels Safe at Home: Yes Safety Concerns: Feels Safe At This Time Allergies Allergies Allergy/AdvReac Type Severity Reaction Status Date / Time No Known Allergies Allergy Unverified 05/04/20 11:31 Home Meds Home Medications Medication Instructions Recorded Confirmed acetaminophen [Tylenol Extra 1,000 mg PO Q4 PRN 05/03/20 05/04/20 Strength] atorvastatin 20 mg PO DAILY 05/03/20 05/04/20 dextroamphetamine-amphetamine 10 mg PO QAM 05/03/20 05/04/20 docusate sodium [Stool Softener] 100 mg PO BID 05/03/20 05/04/20 empagliflozin [Jardiance] 25 mg PO QAM 05/03/20 05/04/20 ibuprofen [Motrin IB] 400 mg PO Q6H PRN 05/03/20 05/04/20 lamotrigine [Lamictal] 225 mg PO QAM 05/03/20 05/04/20 lisinopril 20 mg PO QAM 05/03/20 05/04/20 meloxicam 15 mg PO HS 05/03/20 05/04/20 metformin 500 mg PO BID 05/03/20 05/04/20 triamterene-hydrochlorothiazid 1 tab PO QAM 05/03/20 05/04/20 venlafaxine 75 mg PO QAM 05/03/20 05/04/20 venlafaxine 150 mg PO QAM 05/03/20 05/04/20 Results & Data (ED) Vital Signs Vital Signs - 24 hr 05/04/20 10:45 05/04/20 12:00 05/04/20 12:06 Temperature 37.7 C H Temperature Source Oral Pulse Rate 110 H 99 H 96 H Pulse Rate from SpO2 Sensor 99 H 96 H Pulse Rhythm Regular Pulse Strength Normal Respiratory Rate 20 18 24 Respiratory Effort / Characteristics Non-Labored Spontaneous Respiratory Depth Normal Respiratory Pattern Regular Blood Pressure 139/81 127/80 Blood Pressure Mean 100 100 Blood Pressure Position Sitting Pulse Oximetry 99 97 95 Oxygen Delivery Method Room Air Sepsis Recent Fever Within 48 Hours No Sepsis New/Unexplained Change in Mental Status N/A Sepsis Action Taken by Nursing No Action Required 05/04/20 12:30 05/04/20 12:31 Temperature Temperature Source Pulse Rate 98 H 97 H Pulse Rate from SpO2 Sensor 98 H 97 H Pulse Rhythm Pulse Strength Respiratory Rate 16 25 H Respiratory Effort / Characteristics Respiratory Depth Respiratory Pattern Blood Pressure 149/78 H Blood Pressure Mean 102 Blood Pressure Position Pulse Oximetry 96 94 Oxygen Delivery Method Sepsis Recent Fever Within 48 Hours Sepsis New/Unexplained Change in Mental Status Sepsis Action Taken by Nursing Laboratory Data Result diagrams: 05/04/20 11:10 05/04/20 11:10 Lab Results 05/04/20 05/04/20 05/04/20 Range/Units 11:10 11:10 11:10 WBC 16.25 H (4.8-10.8) K/uL RBC 4.47 (4.2-5.4) M/uL Hgb 14.1 (12.0-16.0) g/dL POC Hgb (12.0-16.0) g/dl Hct 41.5 (37-47) % POC Hct (37-47) % MCV 92.8 (80-100) fL MCH 31.5 (25-34) pg MCHC 34.0 (32-36) g/dL RDW Std Deviation 47.8 H (36.4-46.3) fL RDW Coeff of Daryl 14.1 (11.5-14.5) % Plt Count 210 (130-400) K/uL MPV 10.7 H (7.4-10.4) fL Immature Gran % (Auto) 0.2 % Neut % (Auto) 78.1 % Lymph % (Auto) 10.2 % [place] % (Auto) 10.7 % Eos % (Auto) 0.6 % Baso % (Auto) 0.2 % Neut # (Auto) 12.69 H (1.4-6.5) K/uL Lymph # (Auto) 1.65 (1.2-3.4) K/uL [place] # (Auto) 1.74 H (0.11-0.59) K/uL Eos # (Auto) 0.10 (0-0.5) K/uL Baso # (Auto) 0.03 (0-0.2) K/uL Immature Gran # (Auto) 0.04 H (0.00-0.02) K/uL PT 10.9 (9.0-12.0) Seconds INR 1.0 (0.9-1.1) APTT 34.5 H (21.0-31.0) Seconds PTT Ratio 1.2 POC Sodium (135-144) mmol/L Sodium 135 L (136-145) mmol/L POC Potassium (3.3-5.0) mmol/L Potassium 3.9 (3.5-5.1) mmol/L POC Chloride (101-112) mmol/L Chloride 101 (98-107) mmol/L Carbon Dioxide 25 (21-32) mmol/L POC Total CO2 (24-31) mmol/L Anion Gap 9.0 (3-11) POC Anion Gap (16-25) mmol/L POC BUN (7-18) mg/dl BUN 14 (7-18) mg/dl Creatinine 0.59 L (0.6-1.2) mg/dl POC Creatinine (0.6-1.3) mg/dl Est Cr Clr Drug Dosing 154.8 ml/min Est GFR ( Amer) 130.1 Est GFR (Non-Af Amer) 112.3 BUN/Creatinine Ratio 23.2 H (10-20) Glucose 133 H (70-99) mg/dl POC Glucose (other) (70-99) mg/dl Lactate (0.4-2.0) mmol/L Calcium 9.5 (8.5-10.1) mg/dl POC Ioniz Calcium Brandyn (1.12-1.32) mmol/l Magnesium 2.3 (1.8-2.4) mg/dl Total Bilirubin 0.6 (0.2-1) mg/dl AST 15 (15-37) U/L ALT 24 (12-78) U/L Alkaline Phosphatase 133 H (45-117) U/L Total Creatine Kinase (26-192) U/L Total Protein 7.9 (6.4-8.2) gm/dl Albumin 3.3 L (3.4-5.0) gm/dl Globulin 4.6 H (2.5-4.0) gm/dl Albumin/Globulin Ratio 0.7 L (0.9-2) Procalcitonin (0-0.5) ng/ml Urine Color Urine Appearance (Clear) Urine pH (4.5-7.5) Ur Specific [place] (1.000-1.030) Urine Protein (Negative) Urine Glucose (UA) (Negative) Urine Ketones (Negative) Urine Blood (Negative) Urine Nitrite (Negative) Urine Bilirubin (Negative) Urine Urobilinogen (Negative) Ur Leukocyte Esterase (Negative) Urine WBC (Auto) (0-5) /hpf Urine RBC (Auto) (0-4) /hpf U Hyaline Cast (Auto) (0-5) /lpf U Epithel Cells (Auto) (0-5) /lpf Urine Bacteria (Auto) (Negative) Urine Yeast 05/04/20 05/04/20 05/04/20 Range/Units 11:10 11:10 11:15 WBC (4.8-10.8) K/uL RBC (4.2-5.4) M/uL Hgb (12.0-16.0) g/dL POC Hgb 14.6 (12.0-16.0) g/dl Hct (37-47) % POC Hct 43 (37-47) % MCV (80-100) fL MCH (25-34) pg MCHC (32-36) g/dL RDW Std Deviation (36.4-46.3) fL RDW Coeff of Daryl (11.5-14.5) % Plt Count (130-400) K/uL MPV (7.4-10.4) fL Immature Gran % (Auto) % Neut % (Auto) % Lymph % (Auto) % [place] % (Auto) % Eos % (Auto) % Baso % (Auto) % Neut # (Auto) (1.4-6.5) K/uL Lymph # (Auto) (1.2-3.4) K/uL [place] # (Auto) (0.11-0.59) K/uL Eos # (Auto) (0-0.5) K/uL Baso # (Auto) (0-0.2) K/uL Immature Gran # (Auto) (0.00-0.02) K/uL PT (9.0-12.0) Seconds INR (0.9-1.1) APTT (21.0-31.0) Seconds PTT Ratio POC Sodium 135 (135-144) mmol/L Sodium (136-145) mmol/L POC Potassium 4.0 (3.3-5.0) mmol/L Potassium (3.5-5.1) mmol/L POC Chloride 100 L (101-112) mmol/L Chloride (98-107) mmol/L Carbon Dioxide (21-32) mmol/L POC Total CO2 25 (24-31) mmol/L Anion Gap (3-11) POC Anion Gap 16.0 (16-25) mmol/L POC BUN 13 (7-18) mg/dl BUN (7-18) mg/dl Creatinine (0.6-1.2) mg/dl POC Creatinine 0.6 (0.6-1.3) mg/dl Est Cr Clr Drug Dosing ml/min Est GFR ( Amer) Est GFR (Non-Af Amer) BUN/Creatinine Ratio (10-20) Glucose (70-99) mg/dl POC Glucose (other) 138 H (70-99) mg/dl Lactate (0.4-2.0) mmol/L Calcium (8.5-10.1) mg/dl POC Ioniz Calcium Brandyn 1.16 (1.12-1.32) mmol/l Magnesium (1.8-2.4) mg/dl Total Bilirubin (0.2-1) mg/dl AST (15-37) U/L ALT (12-78) U/L Alkaline Phosphatase (45-117) U/L Total Creatine Kinase 52 (26-192) U/L Total Protein (6.4-8.2) gm/dl Albumin (3.4-5.0) gm/dl Globulin (2.5-4.0) gm/dl Albumin/Globulin Ratio (0.9-2) Procalcitonin 0.31 (0-0.5) ng/ml Urine Color Urine Appearance (Clear) Urine pH (4.5-7.5) Ur Specific [place] (1.000-1.030) Urine Protein (Negative) Urine Glucose (UA) (Negative) Urine Ketones (Negative) Urine Blood (Negative) Urine Nitrite (Negative) Urine Bilirubin (Negative) Urine Urobilinogen (Negative) Ur Leukocyte Esterase (Negative) Urine WBC (Auto) (0-5) /hpf Urine RBC (Auto) (0-4) /hpf U Hyaline Cast (Auto) (0-5) /lpf U Epithel Cells (Auto) (0-5) /lpf Urine Bacteria (Auto) (Negative) Urine Yeast 05/04/20 05/04/20 Range/Units 11:23 11:46 WBC (4.8-10.8) K/uL RBC (4.2-5.4) M/uL Hgb (12.0-16.0) g/dL POC Hgb (12.0-16.0) g/dl Hct (37-47) % POC Hct (37-47) % MCV (80-100) fL MCH (25-34) pg MCHC (32-36) g/dL RDW Std Deviation (36.4-46.3) fL RDW Coeff of Daryl (11.5-14.5) % Plt Count (130-400) K/uL MPV (7.4-10.4) fL Immature Gran % (Auto) % Neut % (Auto) % Lymph % (Auto) % [place] % (Auto) % Eos % (Auto) % Baso % (Auto) % Neut # (Auto) (1.4-6.5) K/uL Lymph # (Auto) (1.2-3.4) K/uL [place] # (Auto) (0.11-0.59) K/uL Eos # (Auto) (0-0.5) K/uL Baso # (Auto) (0-0.2) K/uL Immature Gran # (Auto) (0.00-0.02) K/uL PT (9.0-12.0) Seconds INR (0.9-1.1) APTT (21.0-31.0) Seconds PTT Ratio POC Sodium (135-144) mmol/L Sodium (136-145) mmol/L POC Potassium (3.3-5.0) mmol/L Potassium (3.5-5.1) mmol/L POC Chloride (101-112) mmol/L Chloride (98-107) mmol/L Carbon Dioxide (21-32) mmol/L POC Total CO2 (24-31) mmol/L Anion Gap (3-11) POC Anion Gap (16-25) mmol/L POC BUN (7-18) mg/dl BUN (7-18) mg/dl Creatinine (0.6-1.2) mg/dl POC Creatinine (0.6-1.3) mg/dl Est Cr Clr Drug Dosing ml/min Est GFR ( Amer) Est GFR (Non-Af Amer) BUN/Creatinine Ratio (10-20) Glucose (70-99) mg/dl POC Glucose (other) (70-99) mg/dl Lactate 0.9 (0.4-2.0) mmol/L Calcium (8.5-10.1) mg/dl POC Ioniz Calcium Brandyn (1.12-1.32) mmol/l Magnesium (1.8-2.4) mg/dl Total Bilirubin (0.2-1) mg/dl AST (15-37) U/L ALT (12-78) U/L Alkaline Phosphatase (45-117) U/L Total Creatine Kinase (26-192) U/L Total Protein (6.4-8.2) gm/dl Albumin (3.4-5.0) gm/dl Globulin (2.5-4.0) gm/dl Albumin/Globulin Ratio (0.9-2) Procalcitonin (0-0.5) ng/ml Urine Color Yellow Urine Appearance Cloudy A (Clear) Urine pH 5.5 (4.5-7.5) Ur Specific [place] 1.029 (1.000-1.030) Urine Protein Negative (Negative) Urine Glucose (UA) 3+ H (Negative) Urine Ketones 1+ H (Negative) Urine Blood Trace H (Negative) Urine Nitrite Positive A (Negative) Urine Bilirubin Negative (Negative) Urine Urobilinogen Negative (Negative) Ur Leukocyte Esterase 1+ H (Negative) Urine WBC (Auto) >30 H (0-5) /hpf Urine RBC (Auto) 0-4 (0-4) /hpf U Hyaline Cast (Auto) 1-5 (0-5) /lpf U Epithel Cells (Auto) >30 H (0-5) /lpf Urine Bacteria (Auto) 4+ H (Negative) Urine Yeast Not Reportable Administered Medications Sodium Chloride (Nss 1000ml) 1,000 mls @ 100 mls/hr IV .Q10H [place] Stop: 05/05/20 10:59 Last Admin: 05/04/20 14:38 Dose: 100 mls/hr Documented by: [id number] Piperacillin Sod/Tazobactam (Sod 3.375 gm/ Dextrose) 115 mls @ 28.75 mls/hr IV Q8H [facility]; Protocol Stop: 05/18/20 15:59 Last Admin: 05/04/20 16:54 Dose: 28.8 mls/hr Documented by: [id number] Oxycodone HCl (Oxycodone Hcl Ir 5 Mg Tab (Immediate Release)) 5 mg PO Q6H PRN PRN Reason: Moderate Pain Stop: 05/18/20 14:12 Last Admin: 05/04/20 14:37 Dose: 5 mg Documented by: [id number] Discontinued Medications Piperacillin Sod/Tazobactam Sod (Zosyn) 4.5 gm in 120 mls @ 240 mls/hr IV NOW ONE Stop: 05/04/20 10:54 Last Infusion: 05/04/20 12:06 Dose: 0 mls/hr Documented by: [id number] Admin: 05/04/20 11:35 Dose: 240 mls/hr Documented by: [id number] Sodium Chloride (Nss 1000ml) 1,000 mls @ 999 mls/hr IV .Q1H1M ONE Stop: 05/04/20 14:15 Last Infusion: 05/04/20 16:46 Dose: 0 mls/hr Documented by: [id number] Admin: 05/04/20 13:15 Dose: 999 mls/hr Documented by: [id number] Ioversol (Ioversol 100ml) 94 ml IV ONCE ONE Stop: 05/04/20 11:42 Last Admin: 05/04/20 11:41 Dose: 94 ml Documented by: [id number] Ketorolac Tromethamine (Ketorolac Tromethamine 15 Mg/Ml Vial) 15 mg IV NOW ONE Stop: 05/04/20 12:00 Last Admin: 05/04/20 12:05 Dose: 15 mg Documented by: [id number] Discharge Plan Visit Data Chief Complaint: Fever Stated Complaint: BODYACHES,FEVER,POSSIBLE BLOOD INFECTION ED Provider: Jeremiah Franco Discharge Problem: Gram-negative bacteremia, Pyelonephritis, Sepsis Patient Disposition: Admitted As Inpatient Discharge Instructions Interventions: ED Discharge Assessment Last Done: 05/04/20 13:30 Discharge Problem: Sepsis Qualifiers: Sepsis type: sepsis due to unspecified organism Sepsis acute organ dysfunction status: unspecified Qualified Code(s): A41.9 - Sepsis, unspecified organism
[2020-05-04 11:27] LABS: iSTAT Creatinine 0.6 mg/dl (0.6-1.3); iSTAT Hemoglobin 14.6 g/dl (12.0-16.0); iSTAT Ionized Calcium 1.16 mmol/l (1.12-1.32)
[2020-05-04 11:34] LABS: Basophils # (auto) 0.03 K/uL (0-0.2); Basophils % (auto) 0.2 %; Eosinophils % (auto) 0.6 %; Hematocrit (blood only) 41.5 % (37-47); Hemoglobin 14.1 g/dL (12.0-16.0); Immature Granulocytes # (auto) 0.04 K/uL (0.00-0.02); Immature Granulocytes % (auto) 0.2 %; Lymphocytes # (auto) 1.65 K/uL (1.2-3.4); Lymphocytes % (auto) 10.2 %; Mean Corpuscular Hemoglobin 31.5 pg (25-34); Mean Corpuscular Volume 92.8 fL (80-100); Mean Platelet Volume 10.7 fL (7.4-10.4); Monocytes # (auto) 1.74 K/uL (0.11-0.59); Monocytes % (auto) 10.7 %; Neutrophils # (auto) 12.69 K/uL (1.4-6.5); Neutrophils % (auto) 78.1 %; Platelet Count 210 K/uL (130-400); RDW Coefficient of Variation 14.1 % (11.5-14.5); RDW Standard Deviation 47.8 fL (36.4-46.3); Red Blood Count 4.47 M/uL (4.2-5.4); White Blood Count 16.25 K/uL (4.8-10.8)
--- NOTE | 2020-05-04 11:40 | XRay Report ---
XR chest 1V portable HISTORY: 45 years-old Female SEPSIS acute sepsis COMPARISON: Chest radiograph 05/03/2020 TECHNIQUE: Portable AP view of the chest FINDINGS: Cardiomediastinal and hilar silhouettes are within normal limits. No pneumothorax, pleural effusion, airspace consolidation or overt pulmonary edema. Bones appear grossly intact. Probable right shoulder rotator cuff calcific tendinosis. IMPRESSION: No acute process. ACT 112: Negative or not required by law. The above report was generated using voice recognition software. It may contain grammatical, syntax o r spelling errors. Electronically signed by: Ori Childress M.D. 05/04/2020 11:39 AM
[2020-05-04] MEDS ORDERED: IOVERSOL 100ml IV ONE (11:41)
[2020-05-04 11:46] LABS: Partial Thromboplastin Ratio 1.2; Partial Thromboplastin Time 34.5 Seconds (21.0-31.0); Prothrombin Time 10.9 Seconds (9.0-12.0)
[2020-05-04 11:52] LABS: Albumin Level 3.3 gm/dl (3.4-5.0); BUN Creatinine Ratio 23.2 (10-20); Calcium 9.5 mg/dl (8.5-10.1); Creatinine Clr Calc Pharmacy 154.8 ml/min; Est GFR (African American) 130.1; Est GFR (Non-African American) 112.3; Magnesium 2.3 mg/dl (1.8-2.4); Potassium 3.9 mmol/L (3.5-5.1)
[2020-05-04 11:55] LABS: Albumin Globulin Ratio 0.7 (0.9-2); Bilirubin,Total 0.6 mg/dl (0.2-1); Globulin 4.6 gm/dl (2.5-4.0); Total Protein 7.9 gm/dl (6.4-8.2)
[2020-05-04] MEDS ORDERED: KETOROLAC TROMETHAMINE 15 MG/ML VIAL IV ONE (11:59)
[2020-05-04 12:00] LABS: Appearance Urine Cloudy (Clear); Bacteria Urine Automated 4+ (Negative); Bilirubin Urine Negative (Negative); Blood Urine Trace (Negative); Color Urine Yellow; Epithelial Cell Urine Auto >30 /lpf (0-5); Glucose Urine UA 3+ (Negative); Ketones Urine 1+ (Negative); Leukocyte Esterase Urine 1+ (Negative); Nitrite Urine Positive (Negative); Protein Urine Negative (Negative); RBC Urine Automated 0-4 /hpf (0-4); Specific Gravity Urine 1.029 (1.000-1.030); Urobilinogen Urine Negative (Negative); WBC Urine Automated >30 /hpf (0-5); pH Urine 5.5 (4.5-7.5)
--- NOTE | 2020-05-04 12:08 | CT Scan Report ---
ABDOMEN AND PELVIS CT WITH IV CONTRAST CT DOSE: 1503.38 mGy.cm HISTORY: Acute generalized abdominal pain with bacteremia abd pain gram neg bacteremia TECHNIQUE: Multiaxial CT images of the abdomen and pelvis were performed following the IV administrat ion of 94 cc of Optiray 320, A dose lowering technique was utilized adhering to the principles of [place]. COMPARISON STUDY: CT abdomen and pelvis 11/12/2016 FINDINGS: Clear lung bases. Mild right hemidiaphragmatic elevation. No pneumatosis or pneumoperitoneum. The dilia ged inferior cardiac chambers are unremarkable. The spleen is enlarged, 15.5 cm. Unremarkable pancrea s, adrenal glands and gallbladder. Hepatic steatosis. Patency of the hepatic and portal veins. No low iary ductal dilation. Mildly enlarged nonspecific periportal lymph nodes measure up to 1.2 cm. There is a focal ill-defined area of decreased enhancement involving the superior pole left kidney. M inimal perinephric inflammatory stranding on the left. No ureteral calculi or obstructive uropathy. N ormal right kidney. Unremarkable urinary bladder. Hysterectomy. Trace free pelvic fluid is likely phy siologic. Follicular changes of the ovaries. Aorta and IVC are unremarkable. No adenopathy. There is no bowel obstruction or bowel wall thickening. Moderate fecal retention. Noninflamed appendi x. Fluid-filled nondilated loops of small bowel, likely physiologic. Peripherally enhancing 1.9 x 1.3 cm fluid attenuating structure involves the deep subcutaneous anterior abdominal wall on image 344 s eries 3, previously measuring 1.8 x 0.7 cm. Unchanged sclerotic focus of the right iliac bone just of a benign etiology. Moderate disc space narrowing with posterior disc osteophyte complex at L5-S1. Misha tara appear intact. IMPRESSION: 1. No bowel obstruction or bowel wall thickening. Normal appendix. 2. Ill-defined decreased enhancement involving the superior pole left kidney is suggestive of pyelone phritis. Correlate with urinalysis. 3. Hepatic steatosis. 4. Splenomegaly. 5. Nonspecific peripherally enhancing fluid attenuating structure of the deep subcutaneous anterior a bdominal wall has slightly increased in size from 2017. ACT 112: Negative or not required by law. The above report was generated using voice recognition software. It may contain grammatical, syntax o r spelling errors. Electronically signed by: Ori Childress M.D. 05/04/2020 12:07 PM
--- NOTE | 2020-05-04 13:03 | History & Physical Report ---
Date of Service May 04, 2020 Assessment & Plan (1) Bacteremia: (2) Pyelonephritis: Pt is 45 y/o F with PMH DM II, HTN, depression, anxiety, ADD, h/o migraine headache presented to ER for fever/chills, nausea, myalgias, BARBOSA, low back pain, slight sore throat, nausea. No vomiting or diarrhea or abdominal pain. 05/02/2020: Negative COVID 19 testing 05/03/2020: [facility] ER. Today preliminary urine culture positive gram-negative bacilli and preliminary blood culture positive for gram-negative bacilli Today 05/04/2020 returned to ER. IN ER T: 37.7, P: 110, R: 20, BP: 139/81, 99% on RA. WBC: 16, BUN: 14, Cr: 0.59, GFR: 112, Lactate: 0.9. UA: +nitrite, 1+leuk est, >30 WBC, 4+bacteria CT ABD/PELVIS: No bowel obstruction or bowel wall thickening. Normal appendix. Ill-defined decreased enhancement involving the superior pole left kidney is suggestive of pyelonephritis. Correlate with urinalysis. CXR: no acute process In ER given Zosyn, Toradol Will give 1L NSS followed maintance IVF Continue Zosyn Repeat blood cultures pending Tylenol prn fever/pain. Oxycodone prn pain CBC, BMP in am (3) Abnormal CT scan: CT ABD/PELVIS: Hepatic steatosis. Splenomegaly. Nonspecific peripherally enhancing fluid attenuating structure of the deep subcutaneous anterior abdominal wall has slightly increased in size from 2017. (4) HTN (hypertension): Stable Continue lisinopril Hold Maxzide (5) Diabetes mellitus, type II: A1c: 7.0 on 03/11/2020 Hold metformin, Jardiance Follow-up sliding scale per protocol (6) Depression with anxiety: (7) ADD (attention deficit disorder): Continue lamotrigine, Effexor Hold Adderall for now. Patient states only usually needs 1 day she works (8) Tobacco use: Smoking cessation advised Nicotine patch as needed DVT Prophylaxis -SCDs Full Code as per discussion with pt Follows with Dr Man Stovall for routine care Pt was seen and care coordinated with Dr Red. See addendum History of Present Illness Chief Complaint: Fever Primary Care Provider: Man Stovall DO Pt is 45 y/o F with PMH DM II, HTN, depression, anxiety, ADD, h/o migraine headache presented to ER for fever. Patient reports several days ago started with fatigue. 05/02/2020 with diffuse myalgias, fever, BARBOSA, low back pain, slight sore throat. She called outpatient clinic and had COVID testing which was negative per outpatient chart review. Patient reports symptoms continued with addition of nausea without vomiting. Patient reports has chronic urinary incontinence. Denies any dysuria, hematuria, diarrhea, abdominal pain, cough, rhinorrhea, neck pain. She was seen in ER 05/03/2020 and was given IVF, Zofran, Dilaudid. Today preliminary urine culture positive gram-negative bacilli and preliminary blood culture positive for gram-negative bacilli and patient was called to return to ER as had continued symptoms. Denies ill contacts, denies recent travel. Denies dizziness, syncope, vision changes, neck pain, CP, SOB, orthopnea, palpitations, paresthesias, extremity weakness, extremity edema, rashes. Allergies Allergy/AdvReac Type Severity Reaction Status Date / Time No Known Allergies Allergy Unverified 05/04/20 11:31 Home Medications Home Medications Medication Instructions Recorded Confirmed Type acetaminophen [Tylenol Extra 1,000 mg PO Q4 PRN 05/03/20 05/04/20 History Strength] atorvastatin 20 mg PO DAILY 05/03/20 05/04/20 History dextroamphetamine-amphetamine 10 mg PO QAM 05/03/20 05/04/20 History docusate sodium [Stool Softener] 100 mg PO BID 05/03/20 05/04/20 History empagliflozin [Jardiance] 25 mg PO QAM 05/03/20 05/04/20 History ibuprofen [Motrin IB] 400 mg PO Q6H PRN 05/03/20 05/04/20 History lamotrigine [Lamictal] 225 mg PO QAM 05/03/20 05/04/20 History lisinopril 20 mg PO QAM 05/03/20 05/04/20 History meloxicam 15 mg PO HS 05/03/20 05/04/20 History metformin 500 mg PO BID 05/03/20 05/04/20 History triamterene-hydrochlorothiazid 1 tab PO QAM 05/03/20 05/04/20 History venlafaxine 75 mg PO QAM 05/03/20 05/04/20 History venlafaxine 150 mg PO QAM 05/03/20 05/04/20 History Past Med/Surg History Medical History ADD (attention deficit disorder) Constipation Depression with anxiety Diabetes mellitus, type II Dyslipidemia HTN (hypertension) Tobacco use Surgical History (Updated 05/04/20 @ 13:15 by Kaitlin Harris PA-C) History of hysterectomy Hx of tonsillectomy Family History (Updated 05/04/20 @ 13:15 by Kaitlin Harris PA-C) Other Hypertension Social History (Updated 05/04/20 @ 13:16 by Kaitlin Harris PA-C) Smoking Status: Heavy tobacco smoker Cigarettes Per Day: 1/2-1 pdd; Do You Dip or Chew Tobacco: No; Hx Alcohol Use: No Hx Substance Use: No Preferred Language: [place] Communication Ability: Effective Beliefs That Will Affect Care: None Current Living Situation: Family Other Information That Helps Us Care for You: No Feels Safe at Home: Yes Safety Concerns: Feels Safe At This Time Review of Systems Review of Systems: All systems reviewed & are unremarkable except as noted in HPI & below Physical Exam Physical Exam: General: no distress, ill but non-toxic appearing, obese female Head: normocephalic, atraumatic Eyes: PERRL, EOM's intact, conjunctiva non-injected, anicteric ENT: normal inspection external ears, nose, mucous membranes mild-moderately dry Neck: supple, trachea midline Lungs: clear, no respiratory distress, no wheezing/rhonchi/rales CV: RRR, no murmur, no JVD, no pretibial edema Abd: normal BS, soft, mild tenderness left lower abdomen/flank; no CVA tenderness to percussion Ext: no cyanosis, no calf tenderness Neuro: A&O x 3, no focal deficits noted, normal affect Skin: warm, dry Results & Data Results & Data ([facility]) Vital Signs (Past 12 Hours) Vital Signs Temp Pulse Resp BP Pulse Ox 05/04/20 12:31 97 H 25 H 94 05/04/20 12:30 98 H 16 149/78 H 96 05/04/20 12:06 96 H 24 95 05/04/20 12:00 99 H 18 127/80 97 05/04/20 10:45 37.7 C H 110 H 20 139/81 99 Laboratory Results Short CBC 05/04/20 Range/Units 11:10 WBC 16.25 H (4.8-10.8) K/uL Hgb 14.1 (12.0-16.0) g/dL Hct 41.5 (37-47) % Plt Count 210 (130-400) K/uL BMP 05/04/20 11:10 Sodium 135 L Potassium 3.9 Chloride 101 Carbon Dioxide 25 BUN 14 Creatinine 0.59 L Glucose 133 H Calcium 9.5 Cardiac Enzymes 05/04/20 Range/Units 11:10 Total Creatine Kinase 52 (26-192) U/L Liver Function 05/04/20 Range/Units 11:10 Total Bilirubin 0.6 (0.2-1) mg/dl AST 15 (15-37) U/L ALT 24 (12-78) U/L Alkaline Phosphatase 133 H (45-117) U/L Albumin 3.3 L (3.4-5.0) gm/dl Urine 05/04/20 Range/Units 11:46 Urine Color Yellow Urine Appearance Cloudy A (Clear) Urine pH 5.5 (4.5-7.5) Ur Specific [place] 1.029 (1.000-1.030) Urine Protein Negative (Negative) Urine Glucose (UA) 3+ H (Negative) Diagnostic Findings CT ABD/PELVIS: IMPRESSION: 1. No bowel obstruction or bowel wall thickening. Normal appendix. 2. Ill-defined decreased enhancement involving the superior pole left kidney is suggestive of pyelonephritis. Correlate with urinalysis. 3. Hepatic steatosis. 4. Splenomegaly. 5. Nonspecific peripherally enhancing fluid attenuating structure of the deep subcutaneous anterior abdominal wall has slightly increased in size from 2017. CXR: IMPRESSION: No acute process. Code Status & VTE Plan VTE Prophylaxis Plan VTE Prophylaxis will be ordered: Yes Supervising Physician Co-Signing Physician Notes I, Dr. Gilles Red, have seen and examined the patient Kathryn Evans with physician assistant softball coach On Physical Exam General: patient feels muscle aches but able to sit up for physical exam HEENT: EOMI, oral exam appears normal Heart: regular rate Lungs: clear to auscultation bilaterally Abdomen: soft, nontender, positive bowel sounds Extremities: no edema -patient has had negative COVID 19 screening as outpatient on 05/02/2020, initial presentation to [facility] on 05/03/2020, was discharged from ED in the same day but was told to return on 05/04/2020 because of the 05/03/2020 growing gram negative blood cultures. On this 05/04/[address] imaging concerning for Ill-defined decreased enhancement involving the superior pole left kidney is suggestive of pyelonephritis -other incidental findings of Hepatic steatosis, Splenomegaly, Nonspecific peripherally enhancing fluid attenuating structure of the deep subcutaneous anterior abdominal wall has slightly increased in size from 2017. -patient started on IV Zosyn in the ED. Continue the IV Zosyn. Follow the blood and urine cultures -give IV fluids, check CK levels -patient denies recent tick exposure or being in wooded areas -prn pain and anti-pyretic and nausea medications -management of blood pressure medications and statin as above -Type 2 diabetes mellitus without inside solar sales consultant current use of insulin. Hold home dose metformin and give sliding insulin as needed based on blood sugars -continue home medications for depression, anxiety, attention deficits disorder as above -agree with other assessment and plans as documented by physician assistant softball coach -My colleague hospitalist Dr. Maurer will be following the patient starting on 05/05/2020
[2020-05-04] MEDS ORDERED: SODIUM CHLORIDE 0.9% 1000ML 1,000 ML IV ONE (13:15)
[2020-05-04] MEDS ORDERED: ONDANSETRON INJ 2 MG/ML 2 ML VIAL IV PRN (14:13)
[2020-05-04] MEDS: OXYCODONE HCL IR 5 MG TAB (IMMEDIATE RELEASE) PO PRN ×2 (14:37→20:21)
[2020-05-04] MEDS ORDERED: GLUCAGON FOR INJ 1 MG VIAL SQ PRN (14:38)
[2020-05-04] MEDS: SODIUM CHLORIDE 0.9% 1000ML 1,000 ML IV SCH ×2 (14:38→23:21)
[2020-05-04] MEDS ORDERED: DEXTROSE 50% 50 ML SYRINGE IV PRN (14:38)
[2020-05-04] MEDS ORDERED: CARBOHYDRATES FOR HYPOGLYCEMIA PO PRN (14:38)
[2020-05-04] MEDS ORDERED: GLUCOSE 40% GEL 15 GM TUBE PO PRN (14:38)
[2020-05-04] MEDS ORDERED: GLUCOSE 10 TABS/TUBE PO PRN (14:38)
[2020-05-04] MEDS: PIPERACILLIN/TAZOBACTAM 3.375 GM in DEXTROSE 5% 100 ML IV SCH ×2 (16:54→23:18)
[2020-05-04] MEDS: INSULIN ASPART 100 UNITS/ML 3 ML PEN SC SCH ×2 (17:48→20:21)
[2020-05-04] MEDS: DOCUSATE SODIUM 100 MG CAP PO SCH (20:21)
[2020-05-04] MEDS: ACETAMINOPHEN 325 MG TAB PO PRN (22:01)
[2020-05-05] MEDS ORDERED: MELATONIN 3 MG TAB PO STA (02:45)
[2020-05-05] MEDS: OXYCODONE HCL IR 5 MG TAB (IMMEDIATE RELEASE) PO PRN ×2 (03:18→15:38)
[2020-05-05] MEDS ORDERED: KETOROLAC 30 MG/ML VIAL IV ONE (03:40)
[2020-05-05 06:33] LABS: Basophils # (auto) 0.03 K/uL (0-0.2); Basophils % (auto) 0.3 %; Eosinophils # (auto) 0.13 K/uL (0-0.5); Eosinophils % (auto) 1.3 %; Hematocrit (blood only) 36.8 % (37-47); Immature Granulocytes # (auto) 0.02 K/uL (0.00-0.02); Immature Granulocytes % (auto) 0.2 %; Lymphocytes # (auto) 2.41 K/uL (1.2-3.4); Lymphocytes % (auto) 23.2 %; Mean Corpuscular Hemoglobin 30.6 pg (25-34); Mean Corpuscular Hgb Conc 32.6 g/dL (32-36); Mean Corpuscular Volume 93.9 fL (80-100); Mean Platelet Volume 10.5 fL (7.4-10.4); Monocytes # (auto) 1.19 K/uL (0.11-0.59); Monocytes % (auto) 11.5 %; Neutrophils # (auto) 6.61 K/uL (1.4-6.5); Neutrophils % (auto) 63.5 %; Platelet Count 194 K/uL (130-400); RDW Coefficient of Variation 14.3 % (11.5-14.5); RDW Standard Deviation 48.8 fL (36.4-46.3); Red Blood Count 3.92 M/uL (4.2-5.4); White Blood Count 10.39 K/uL (4.8-10.8)
--- NOTE | 2020-05-05 06:49 | Electrocardiogram Report ---
Test Reason : Blood Pressure : / mmHG Vent. Rate : 101 BPM Atrial Rate : 101 BPM P-R Int : 192 ms QRS Dur : 092 ms QT Int : 352 ms P-R-T Axes : 031 -17 047 degrees QTc Int : 456 ms Sinus tachycardia Voltage criteria for left ventricular hypertrophy Abnormal ECG When compared with ECG of 03-MAY-2020 02:30, No significant change was found Confirmed by Reggie Boucher ([id number]) on 05/05/2020 6:48:58 AM Referred By: REFERRED SELF Confirmed By:Reggie Boucher
[2020-05-05 07:09] LABS: BUN Creatinine Ratio 26.3 (10-20); Calcium 8.2 mg/dl (8.5-10.1); Creatinine Clr Calc Pharmacy 159.9 ml/min; Est GFR (African American) 130.8; Est GFR (Non-African American) 112.9; Potassium 3.5 mmol/L (3.5-5.1)
[2020-05-05 07:13] LABS: RBC Morphology Unremarkable
[2020-05-05] MEDS ORDERED: SODIUM CHLORIDE 0.9% 1000ML 250 ML IV ONE (07:39)
--- NOTE | 2020-05-05 07:48 | Communication Note ---
Date of Service: May 05, 2020 AM LABS REVIEWED : 45 yo F admitted yesterday for gram negative bacteremia blood culture 05/03/20 , due to complicated UTI /left kidney pyelonephritis no evidence of sepsis on admission urine culture 05/03/20 ; E coli Pansenstive change IV abx to Rocephin per sensitivity follow repeat blood culture report BORDERLINE HYPOTENSION : SBP 97/62 m HR 65 possible due to dehydration , infection pt does not meet criteria for sepsis hold BP meds ( lisinopril ) ordered for NSS 250 ml bolus increase IVF to 125 ml/hr monitor in tele Hermila Ramirez MD
[2020-05-05] MEDS: VENLAFAXINE HCL XR 150 MG CAPXR PO SCH (08:16)
[2020-05-05] MEDS: NICOTINE 14 MG/24 HR PATCH TD SCH (08:16)
[2020-05-05] MEDS: cefTRIAXone SODIUM 2,000 MG in DEXTROSE 5% 50 ML IV SCH (08:16)
[2020-05-05] MEDS: ATORVASTATIN 20 MG TAB PO SCH (08:17)
[2020-05-05] MEDS: lamoTRIgine 100 MG TAB PO SCH (08:17)
[2020-05-05] MEDS: lamoTRIgine 25 MG TAB PO SCH (08:17)
[2020-05-05] MEDS: VENLAFAXINE HCL XR 75 MG CAPXR PO SCH (08:18)
[2020-05-05] MEDS: DOCUSATE SODIUM 100 MG CAP PO SCH ×2 (08:18→21:06)
[2020-05-05] MEDS: INSULIN ASPART 100 UNITS/ML 3 ML PEN SC SCH ×4 (08:22→20:58)
[2020-05-05] MEDS ORDERED: lisinopriL 20 MG TAB PO SCH (09:00)
[2020-05-05] MEDS ORDERED: LAMOTRIGINE PO SCH (09:00)
[2020-05-05] MEDS: KETOROLAC 30 MG/ML VIAL IV PRN ×3 (10:27→23:20)
--- NOTE | 2020-05-05 12:33 | Hospitalist Progress Note ---
Date of Service May 05, 2020 Assessment & Plan (1) Bacteremia: 45 yo F admitted for gram negative bacteremia blood culture 05/03/20 , due to complicated UTI /left kidney pyelonephritis no evidence of sepsis on admission urine culture 05/03/20 ; E coli Pansenstive change IV abx to Rocephin per sensitivity follow repeat blood culture report (2) Pyelonephritis: CT ABD/PELVIS: No bowel obstruction or bowel wall thickening. Normal appendix. I ll-defined decreased enhancement involving the superior pole left kidney is suggestive of pyelonephritis. Correlate with urinalysis. cont IV rocephin follow cultures (3) HTN (hypertension): BORDERLINE HYPOTENSION : SBP 97/62 m HR 65 possible due to dehydration , infection pt does not meet criteria for sepsis hold BP meds ( lisinopril ) ordered for NSS 250 ml bolus increase IVF to 125 ml/hr monitor in tele (4) Diabetes mellitus, type II: A1c: 7.0 on 03/11/2020 Hold metformin, Jardiance Follow-up sliding scale per protocol (5) Depression with anxiety: (6) ADD (attention deficit disorder): Continue lamotrigine, Effexor Hold Adderall for now. Patient states only usually needs 1 day she works (7) Tobacco use: Smoking cessation advised Nicotine patch as needed DVT Prophylaxis -SCDs Full Code as per discussion with pt Follows with Dr Man Stovall for routine care Admission and Anticipated Discharge Date Admission Date: May 04, 2020 Subjective pt had continued rt flank pain improved with pain meds no fever or chills no nausea or vomiting , no abdominal pain Review of Systems Review of Systems: All systems reviewed & are unremarkable except as noted in HPI & below Physical Exam Constitutional: WD/WN, vitals as above Eyes: PERRL, conjunctivae normal, anicteric sclerae ENMT: external ear and nose normal, oropharynx normal Neck: trachea midline, no thyromegaly Respiratory: normal respiratory effort, lungs clear to auscultation Cardiovascular: RRR, no murmur, no edema Gastrointestinal (Abdomen): Inspection/Auscultation: normal bowel sounds Percussion/Palpation: + abdomen tender (rt flanl pain ) and abdomen soft rt flank pain Musculoskeletal: no cyanosis or clubbing, extremities motor strength 5/5 Skin: no rashes, warm and dry Neurologic: PERRL, EOMI, accommodation nl, no face palsy, no dysarthria Psychiatric: A+Ox3, euthymic affect Results & Data Results & Data ([facility]) Vital Signs (Past 12 Hours) Vital Signs Temp Pulse Pulse Resp BP Pulse Ox 05/05/20 11:22 36.8 C 69 18 124/71 96 05/05/20 07:00 65 05/05/20 06:50 36.7 C 68 18 97/62 L 91 05/05/20 03:13 36.6 C 82 16 119/76 96
[2020-05-05] MEDS: SODIUM CHLORIDE 0.9% 1000ML 1,000 ML IV SCH ×2 (13:33→21:07)
[2020-05-05] MEDS: POLYETHYLENE (MIRALAX) 17 GM PACK PO PRN (21:06)
[2020-05-05] MEDS ORDERED: bisacodyL 10 MG SUPP PR STA (23:48)
[2020-05-05] MEDS ORDERED: LACTULOSE SYRUP 30 GM/45 ML UDP PO STA (23:48)
[2020-05-05] MEDS ORDERED: HYDROmorphone INJ 0.5 MG/0.5 ML SYR IV STA (23:48)
[2020-05-06] MEDS: SODIUM CHLORIDE 0.9% 1000ML 1,000 ML IV SCH ×2 (04:58→12:55)
[2020-05-06 06:59] LABS: Hematocrit (blood only) 34.6 % (37-47); Hemoglobin 11.2 g/dL (12.0-16.0); Mean Corpuscular Hemoglobin 30.9 pg (25-34); Mean Corpuscular Hgb Conc 32.4 g/dL (32-36); Mean Corpuscular Volume 95.6 fL (80-100); Mean Platelet Volume 10.5 fL (7.4-10.4); Platelet Count 200 K/uL (130-400); RDW Coefficient of Variation 14.1 % (11.5-14.5); RDW Standard Deviation 49.5 fL (36.4-46.3); Red Blood Count 3.62 M/uL (4.2-5.4); White Blood Count 9.34 K/uL (4.8-10.8)
[2020-05-06 07:08] LABS: Calcium 8.3 mg/dl (8.5-10.1); Creatinine Clr Calc Pharmacy 173.9 ml/min; Est GFR (Non-African American) 115.6
[2020-05-06] MEDS: lamoTRIgine 100 MG TAB PO SCH (08:19)
[2020-05-06] MEDS: lamoTRIgine 25 MG TAB PO SCH (08:19)
[2020-05-06] MEDS: VENLAFAXINE HCL XR 150 MG CAPXR PO SCH (08:19)
[2020-05-06] MEDS: DOCUSATE SODIUM 100 MG CAP PO SCH ×2 (08:19→20:45)
[2020-05-06] MEDS: ATORVASTATIN 20 MG TAB PO SCH (08:20)
[2020-05-06] MEDS: NICOTINE 14 MG/24 HR PATCH TD SCH (08:20)
[2020-05-06] MEDS: VENLAFAXINE HCL XR 75 MG CAPXR PO SCH (08:20)
[2020-05-06] MEDS: INSULIN ASPART 100 UNITS/ML 3 ML PEN SC SCH ×4 (08:22→20:32)
[2020-05-06] MEDS: POLYETHYLENE (MIRALAX) 17 GM PACK PO PRN (08:29)
[2020-05-06] MEDS: cefTRIAXone SODIUM 2,000 MG in DEXTROSE 5% 50 ML IV SCH (09:06)
[2020-05-06] MEDS: ACETAMINOPHEN 325 MG TAB PO PRN (10:39)
[2020-05-06] MEDS ORDERED: bisacodyL 10 MG SUPP PR PRN (12:45)
[2020-05-06] MEDS ORDERED: SOD PHOSPHATE/SOD BIPHOSPHATE ENEMA 132 ML BTL PR STA (16:25)
[2020-05-06] MEDS ORDERED: ACETAMINOPHEN 1,000 MG/100 ML VIAL IV STA (16:25)
--- NOTE | 2020-05-06 16:27 | Hospitalist Progress Note ---
Date of Service May 06, 2020 Assessment & Plan (1) Abdominal pain: Complains of abdominal distention, generalized pain, cramps, Possible secondary to constipation narcotic pain medication induced, P.o. oxycodone discontinued, Patient was given bowel regimen with p.o. MiraLAX, lactulose, Dulcolax with no improvement Ordered for Fleet enema if no result soapsuds enema can be tried History of KUB to rule out any obstruction Patient does not have any symptoms of nausea vomiting Able to pass gas (2) Bacteremia: Resolved, repeat blood culture shows no growth so far gram negative bacteremia noted in 1 bottle of blood culture 05/03/20 Source was thought to be from due to complicated UTI /left kidney pyelonephritis no evidence of sepsis on admission urine culture 05/03/20 ; E coli Pansensitive On IV Rocephin repeat urine culture no growth, patient was already on antibiotic Can be changed to p.o. Keflex on discharge, total 7 days of treatment should be adequate (3) Pyelonephritis: CT ABD/PELVIS: No bowel obstruction or bowel wall thickening. Normal appendix. Ill-defined decreased enhancement involving the superior pole left kidney is suggestive of pyelonephritis. Correlate with urinalysis. Treatment as outlined (4) HTN (hypertension): BP stable, continue on lisinopril Will DC IV fluids as patient noted on positive balance of 2.5 L, Lasix 20 mg 1 dose today (5) Diabetes mellitus, type II: A1c: 7.0 on 03/11/2020 Hold metformin, Jardiance Follow-up sliding scale per protocol (6) Depression with anxiety: Continue outpatient meds (7) ADD (attention deficit disorder): Continue lamotrigine, Effexor Hold Adderall for now. Patient states only uses it as needed, She usually takes it on day she works (8) Tobacco use: Smoking cessation advised Nicotine patch as needed DVT Prophylaxis -SCDs pt is encouraged to ambulate Full Code Follows with Dr Man Stovall for routine care Disposition: Discharge home in next 1 to 2 days with p.o. antibiotic for UTI when medically stable Admission and Anticipated Discharge Date Admission Date: May 04, 2020 Subjective Patient complains of abdominal pain and distention, Not had any bowel movement for the past 2-3 days No nausea or vomiting Was given p.o. Dulcolax, Colace, MiraLAX, feels ongoing cramps, able to pass gas, no bowel movement yet has throbbing headache, which has been since , Has improved but still feels uncomfortable, no visual change, no photophobia No fever or chills Flank pain has improved Review of Systems Review of Systems: All systems reviewed & are unremarkable except as noted in HPI & below Gastrointestinal: + abdominal pain and + constipation; no nausea and no vomiting Constipation Neurologic: + headache(s) Physical Exam Constitutional: WD/WN, vitals as above (Distress due to abdominal pain, discomfort) Eyes: PERRL, conjunctivae normal, anicteric sclerae ENMT: external ear and nose normal, oropharynx normal Neck: trachea midline, no thyromegaly Respiratory: normal respiratory effort, lungs clear to auscultation Cardiovascular: RRR, no murmur, no edema Gastrointestinal (Abdomen): Inspection/Auscultation: + abdomen distended and normal bowel sounds Percussion/Palpation: + abdomen tender (Generalized tenderness) and abdomen soft Musculoskeletal: no cyanosis or clubbing, extremities motor strength 5/5 Skin: no rashes, warm and dry Neurologic: PERRL, EOMI, accommodation nl, no face palsy, no dysarthria Psychiatric: A+Ox3, euthymic affect Results & Data Results & Data ([facility]) Vital Signs (Past 12 Hours) Vital Signs Temp Pulse Pulse Resp BP BP Pulse Ox 05/06/20 15:00 36.8 C 66 18 124/79 95 05/06/20 11:16 36.8 C 73 16 122/80 97 05/06/20 07:01 37.2 C 83 18 144/90 H 90 05/06/20 07:00 68
[2020-05-06] MEDS ORDERED: ACETAMINOPHEN 500 MG TAB PO PRN (16:47)
--- NOTE | 2020-05-06 16:51 | XRay Report ---
[facility] CLINICAL HISTORY: abdominal pain /eval for obstruction COMPARISON STUDY: CT of the abdomen and pelvis May 04, 2020. FINDINGS: There is a moderate to large amount of stool within the colon. There is no stool within the rectum. There is no evidence for a bowel obstruction. IMPRESSION: 1. No evidence for a bowel obstruction. 2. Moderate to large amount stool within the colon. ACT 112: Negative or not required by law. Electronically signed by: Daren Paredes M.D. 05/06/2020 4:50 PM
[2020-05-06] MEDS ORDERED: FUROSEMIDE 20 MG in SYRINGE 0 ML IV ONE (17:00)
--- NOTE | 2020-05-06 17:25 | Communication Note ---
Date of Service: May 06, 2020 X-ray of KUB reviewed: No evidence of bowel obstruction, moderate large amount of stool within the colon Ordered for bowel prep with GoLYTELY and MiraLAX Report of KUB updated patient Hermila Ramirez MD
[2020-05-06] MEDS ORDERED: POLYETHYLENE (MIRALAX) 17 GM PACK PO ONE (17:45)
[2020-05-06] MEDS ORDERED: MELOXICAM 7.5 MG TAB PO SCH (21:00)
[2020-05-06] MEDS ORDERED: POLYETHYLENE (MIRALAX) 17 GM PACK PO SCH (21:00)
[2020-05-06] MEDS: IBUPROFEN 200 MG TAB PO PRN (23:44)
[2020-05-07] MEDS: IBUPROFEN 200 MG TAB PO PRN (07:36)
[2020-05-07] MEDS: lamoTRIgine 25 MG TAB PO SCH (08:38)
[2020-05-07] MEDS: lamoTRIgine 100 MG TAB PO SCH (08:38)
[2020-05-07] MEDS: ATORVASTATIN 20 MG TAB PO SCH (08:38)
[2020-05-07] MEDS: VENLAFAXINE HCL XR 150 MG CAPXR PO SCH (08:38)
[2020-05-07] MEDS: VENLAFAXINE HCL XR 75 MG CAPXR PO SCH (08:38)
[2020-05-07] MEDS: DOCUSATE SODIUM 100 MG CAP PO SCH (08:38)
[2020-05-07] MEDS: NICOTINE 14 MG/24 HR PATCH TD SCH (08:39)
[2020-05-07] MEDS: INSULIN ASPART 100 UNITS/ML 3 ML PEN SC SCH ×2 (08:41→12:24)
[2020-05-07] MEDS: cefTRIAXone SODIUM 2,000 MG in DEXTROSE 5% 50 ML IV SCH (08:48)
[2020-05-07] MEDS ORDERED: TRIAMTERENE/HCTZ 37.5/25MG TAB PO SCH (09:00)
[2020-05-07] MEDS ORDERED: LAVAGE SOLUTION 4000ML PO ONE (09:00)
[2020-05-07] MEDS ORDERED: POLYETHYLENE (MIRALAX) 17 GM PACK PO SCH (09:00)
[2020-05-07] MEDS ORDERED: LAMOTRIGINE PO SCH (09:00)
--- NOTE | 2020-05-07 14:55 | Discharge Summary ---
Date of Service May 07, 2020 Admission HPI Per Admitting Provider Pt is 45 y/o F with PMH DM II, HTN, depression, anxiety, ADD, h/o migraine headache presented to ER for fever. Patient reports several days ago started with fatigue. 05/02/2020 with diffuse myalgias, fever, BARBOSA, low back pain, slight sore throat. She called outpatient clinic and had COVID testing which was negative per outpatient chart review. Patient reports symptoms continued with addition of nausea without vomiting. Patient reports has chronic urinary incontinence. Denies any dysuria, hematuria, diarrhea, abdominal pain, cough, rhinorrhea, neck pain. She was seen in ER 05/03/2020 and was given IVF, Zofran, Dilaudid. Today preliminary urine culture positive gram-negative bacilli and preliminary blood culture positive for gram-negative bacilli and patient was called to return to ER as had continued symptoms. Denies ill contacts, denies recent travel. Denies dizziness, syncope, vision changes, neck pain, CP, SOB, orthopnea, palpitations, paresthesias, extremity weakness, extremity edema, rashes. Admission Exam Per Admitting Provider General: no distress, ill but non-toxic appearing, obese female Head: normocephalic, atraumatic Eyes: PERRL, EOM's intact, conjunctiva non-injected, anicteric ENT: normal inspection external ears, nose, mucous membranes mild-moderately dry Neck: supple, trachea midline Lungs: clear, no respiratory distress, no wheezing/rhonchi/rales CV: RRR, no murmur, no JVD, no pretibial edema Abd: normal BS, soft, mild tenderness left lower abdomen/flank; no CVA tenderness to percussion Ext: no cyanosis, no calf tenderness Neuro: A&O x 3, no focal deficits noted, normal affect Skin: warm, dry Principal Diagnosis Urinary tract infection Pyelonephritis Tobacco Smoker Discharge Exam CONSTITUTIONAL: WNWD, vitals as above, generally well-appearing EYES: normal conjunctivae, no scleral icterus ENT: external ear and nose normal, MMM RESPIRATORY: clear to auscultation bilaterally, no crackles, rales or wheezes, normal respiratory effort CARDIOVASCULAR: regular rate and rhythm, S1 and 2 heard without murmurs, gallops or rubs, no JVD, no peripheral edema GASTROINTESTINAL: normal bowel sounds, soft, nontender, nondistended, no CVA tenderness. MUSCULOSKELETAL: strength 5/5 throughout, head is normocephalic and atraumatic SKIN: warm and dry NEUROLOGIC: no facial palsy, no dysarthria. CN 2-12 grossly intact, normal cognition, normal speech PSYCHIATRIC: alert cooperative and oriented to person, place and time. Discharge Data Allergies Allergy/AdvReac Type Severity Reaction Status Date / Time No Known Allergies Allergy Unverified 05/04/20 11:31 Consultations 05/04/20 12:11 ED Decision to Admit Stat 05/07/20 09:44 Consult Infectious Diseases Routine Ordered Studies 05/04/20 10:59 CT abd pelvis IV con only Stat Hospital Course (1) Bacteremia: (2) Pyelonephritis: (3) Tobacco use: Patient is a 45-year-old female began having upper respiratory tract symptoms approximately 5 days prior to arrival. She reported body aches and urinary urgency for weeks. She was seen in the ER on 05/03 and had a preliminary urine culture positive for gram-negative bacilli and a preliminary blood culture positive for gram-negative bacilli. On 05/04 she returned to the ER and a urinalysis revealed positive nitrates 1+ leuk esterase greater than 30 white blood cells and 4+ bacteria. A CT abdomen pelvis revealed no bowel obstruction or bowel wall thickening and she had a normal appendix. She had ill-defined decreased enhancement involving the superior left pole of the kidney suggestive of pyelonephritis. Chest x-ray revealed no acute process. In the ER she was given Zosyn and Toradol followed by IV fluids and there was no evidence of sepsis on admission. She was admitted to the hospitalist team for continued treatment of acute pyelonephritis. IV antibiotics was changed to Rocephin and based on updated culture results (E coli). The repeat blood culture, however, revealed Pantoea (entero) agglomerans that was pansensitive. [facility] infectious disease was consulted and recommended to continue the 14-day course with Cipro 500 twice daily. At time of discharge she was hemodynamically stable and afebrile and tolerating p.o. She was mentating and ambulating at baseline and was stable for discharge home. Of note, she did report significant constipation patient despite multiple treatments given. We discussed increasing her ambulation and using [id number] medications such as glycerin suppositories and MiraLAX as needed at home. Close follow-up with primary care doctor was recommended. Total Time Total Time Spent Total Time Spent (In Minutes): 60 Total Time Includes: Examination of the Patient, Discharge Planning, Medication Reconciliation and Communication With Other Providers Discharge Plan Discharge Items Patient Disposition: Home - Self-Care Reason For Visit: BACTEREMIA, PYELO Discharge Diagnosis: Urinary tract infection Pyelonephritis Tobacco Smoker Condition on Discharge: Good Health Concerns: Quit Smoking! Activity: Resume your previous activity Non-emergency contact: Primary Care Provider Call non-emergency contact if: you have any medication questions Follow-up/Referrals: Man Stovall DO [Primary Care Provider] - 05/09/20 2:00 pm (Date & Time 05/09/2020 2:00 PM Provider Luke Najera III, MD [facility] ) Diet: Carb Consistent or DM2 and Heart Healthy Addtl Attending Provider Instructions: Please take all medications as instructed on discharge list below. You have a hospital follow-up with your primary care physician (PCP) yesenia one week. See date/time above. For constipation, continue walking regularly. If this doesn't work, please use the Glycerin suppository. You may also use the over the counter (OTC) Miralax as we discussed. Please continue the prescribed antibiotics for the entire length of time given. If you have issues with this medication please notify your PCP immediately to receive a replacement medication. You have been given Nicotine patches to help you quit smoking altogether as this is very bad for your health! Please continue to work with your PCP regarding this effort to stay quit. It was a pleasure taking care of you! Please call if you have any questions or problems. You can reach a [facility] hospitalist on duty at [facility] 24 hours a day by calling [phone]. Take care of yourself. Makeda Michael DO [facility] Hospitalist Pending Studies at Discharge: No Stand-Alone Forms: My [facility], Smoking Cessation Medications and DC Order Prescriptions: New nicotine 7 mg/24 hr Patch 24 Hour 14 mg transdermal QAM Qty: 14 RF: 1 ciprofloxacin HCl [Cipro] 500 mg tablet 500 mg PO Q12H Qty: 18 RF: 0 glycerin (adult) Suppository 1 supp [place] DAILY PRN (Reason: constipation) Qty: 12 RF: 0 Continued atorvastatin 20 mg tablet 20 mg PO DAILY RF: 0 dextroamphetamine-amphetamine 10 mg capsule,extended release 24hr 10 mg PO QAM RF: 0 Jardiance 25 mg tablet 25 mg PO QAM RF: 0 lamotrigine [Lamictal] 150 mg tablet 225 mg PO QAM RF: 0 meloxicam 15 mg tablet 15 mg PO HS RF: 0 lisinopril 20 mg tablet 20 mg PO QAM RF: 0 venlafaxine 75 mg capsule,extended release 24hr 75 mg PO QAM RF: 0 venlafaxine 150 mg capsule,extended release 24hr 150 mg PO QAM RF: 0 docusate sodium [Stool Softener] 100 mg capsule 100 mg PO BID RF: 0 triamterene-hydrochlorothiazid 37.5-25 mg tablet 1 tab PO QAM RF: 0 metformin 500 mg tablet extended release 24 hr 500 mg PO BID RF: 0 acetaminophen [Tylenol Extra Strength] 500 mg Tablet 1,000 mg PO Q4 PRN (Reason: Fever Or Pain) RF: 0 ibuprofen [Motrin IB] 200 mg Tablet 400 mg PO Q6H PRN (Reason: Fever Or Pain) RF: 0 Discharge Orders: Discharge Order (Routine); Ordered 05/07/20 Ordered By: Makeda Michael Admission Data Admit Date/Time: 05/04/20 12:32 Attending Provider: Makeda Michael Admit Provider: Gilles Red Primary Care Provider: Man Stovall Other Providers: Gilles Red ; Brad Luong ; Ron Baldwin ; Jonh Curry I. ; Pawan Choudhury II ; Crystal Valentin ; Rufus Cleary
== END 2020-05-07 16:10 | disposition home or self-care (01) | DRG 690 ==
LOC: ED 10:16 → SUATTDRO 12:32 → 2N 12:32

== ENCOUNTER 2023-09-04 04:31 | Inpatient (IN) ==
--- OUTSIDE RECORDS SUMMARY | 2023-09-04 04:36 | External Medical Summary | Summary of Care ---
Author Name Unknown Organization [facility] Address [address] [place] [address] Phone [phone] Care Team Providers Care Motion Picture Equipment Machinist Name Role Phone Man Stovall DO Primary Care Provider [phone] Reason for Visit * Reason Onset Date Comments Hospital Follow-Up Hospital Follow-Up 08/30/2023 Encounter Details Date Type Department Care Team (Late st Contact Info) Description 08/30/2023 11:00 AM EST Office Visit Family Practice [facility] [address] [facility] [place] [address] Man Stovall DO [address] [place] [address] HTN, goal below 140/90*; Type 2 diabetes mellitus with hemoglobin A1c goal of less than 7.0% ([facility]); Hospital discharge follow-up; Pure hypercholesterolemia; Morbid obesity with BMI of 50.0-59.9, adult ([facility]) Allergies No known active allergiesdocumented as of this encounter (statuses as of 08/30/2023) Medications Medication Sig Dispensed Refills Start Date End Date Status EFFEXOR XR 150 MG PO [id number]:Depressi ve disorder, not elsewhere classified TAKE (1) CAPSULE BY MOUTH ONCE DAILY. 90 Cap 3 3 Active EFFEXOR XR 75 MG PO CP24 One pill by mouth once a day, do not cut, crush or chew- take along with 150 30 Cap 5 3 Active lamoTRIgine 150 MG Oral Tablet Take 1.5 Tablets by mouth in the morning. 0 7 Active amphetamine-dextroamphet ER (ADDERALL XR) 10 MG CP24 Take 1 Capsule by mouth in the morning. 0 8 Active Blood Glucose Monitoring Suppl (GLUCOCOM MONITOR) w/Device KITIndications:Type 2 diabetes mellitus with hemoglobin A1c goal of less than 7.0% ([facility]) Check blood sugar once daily 1 Kit 0 0 Active Lancets MISCIndications:Type 2 diabetes mellitus with hemoglobin A1c goal of less than 7.0% ([facility]) Check blood sugar once daily 100 Each 11 0 Active Glucose Blood STRPIndications:Type 2 diabetes mellitus with hemoglobin A1c goal of less than 7.0% ([facility]) Check blood sugar once daily 100 Strip 11 0 Active Urea 40 % External Cream Apply topically to affected area 2 times a day. Apply to toes 85 g 0 1 Active Sodium Hyaluronate 60 MG/3ML Intra-articular Prefilled Syringe (Durolane) Inject 1 syringe(3ml) intra-articul amarilis into right knee for 1 dose. 3 mL 0 3 Active Docusate Sodium 100 MG Oral Capsule (Stool Softener) Take 1 Capsule by mouth in the morning and 1 Capsule before bedtime. 180 Capsule 1 3 Active Rexulti 0.5 MG Oral Tablet 1 Tablet in the morning. 0 3 Active Omeprazole 40 MG Oral Capsule Delayed Release (PriLOSEC) Take 1 Capsule by mouth in the morning. 30 Capsule 0 3 Active Famotidine 20 MG Oral Tablet (Pepcid) Take 1 Tablet by mouth at bedtime. 30 Tablet 11 3 Active Ondansetron HCl 4 MG Oral Tablet Take 1 Tablet by mouth every 8 hours as needed for Nausea. 20 Tablet 0 3 Active Lisinopril 20 MG Oral Tablet (Prinivil)Indications:HT N, goal below 140/90 Take 1 Tablet by mouth in the morning. 90 Tablet 3 4 Active Atorvastatin Calcium 20 MG Oral Tablet (Lipitor)Indications:Pur e hypercholesterolemia Take 1 Tablet by mouth in the morning. 90 Tablet 3 4 Active Diclofenac Sodium 75 MG Oral Tablet Delayed Release (Voltaren) Take 1 Tablet by mouth in the morning. With food.. 90 Tablet 3 4 Active Dulaglutide 1.5 MG/0.5ML Subcutaneous Solution Pen-injector (Trulicity)Indications:T ype 2 diabetes mellitus with hemoglobin A1c goal of less than 7.0% (HCC),Morbid obesity with BMI of 50.0-59.9, adult (HCC) Inject 1.5 mg under the skin once a week. 6 mL 5 4 Active metFORMIN HCl ER 500 MG Oral Tablet Extended Release 24 Hour (Glucophage XR)Indications:Type 2 diabetes mellitus with hemoglobin A1c goal of less than 7.0% (HCC) Take 2 Tablets by mouth in the morning. 180 Tablet 4 Active Triamterene-HCTZ 37.5-25 MG Oral Tablet ((Maxzide-25))Indication s:HTN, goal below 140/90 Take 0.5 Tablets by mouth in the morning. 45 Tablet 3 4 Active Atorvastatin Calcium 20 MG Oral Tablet (Lipitor)Indications:Pur e hypercholesterolemia Take 1 Tablet by mouth in the morning. 90 Tablet 3 3 08/30/19 24 Discontinu ed(Refill) Diclofenac Sodium 75 MG Oral Tablet Delayed Release (Voltaren) Take 1 Tablet by mouth in the morning and 1 Tablet before bedtime. With food.. 60 Tablet 3 3 08/30/19 24 Discontinu ed(Refill) Dulaglutide 1.5 MG/0.5ML Subcutaneous Solution Pen-injector (Trulicity)Indications:T ype 2 diabetes mellitus with hemoglobin A1c goal of less than 7.0% (HCC),Morbid obesity with BMI of 50.0-59.9, adult (HCC) Inject 1.5 mg under the skin once a week. 2 mL 5 3 08/30/19 24 Discontinu ed(Refill) metFORMIN HCl ER 500 MG Oral Tablet Extended Release 24 Hour (Glucophage XR)Indications:Type 2 diabetes mellitus with hemoglobin A1c goal of less than 7.0% (HCC) Take 2 Tablets by mouth in the morning. 180 Tablet 3 3 08/30/19 24 Discontinu ed(Refill) Triamterene-HCTZ 37.5-25 MG Oral Tablet ((Maxzide-25))Indication s:HTN, goal below 140/90 Take 0.5 Tablet by mouth in the morning. 90 Tablet 3 3 08/30/19 24 Discontinu ed(Refill) Lisinopril 20 MG Oral Tablet (Prinivil)Indications:HT N, goal below 140/90 Take 0.5 Tablet by mouth in the morning. 90 Tablet 3 3 08/30/19 24 Discontinu ed(Refill) Lisinopril 20 MG Oral Tablet (Prinivil)Indications:HT N, goal below 140/90 Take 1 Tablet by mouth in the morning. 90 Tablet 3 4 08/30/19 24 Discontinu ed(Refill) documented as of this encounter (statuses as of 08/30/2023) Active Problems Problem Noted Date Diagnosed Date Partial small bowel obstruction 08/15/2023 DDD (degenerative disc disease), lumbar 01/01/20 Primary osteoarthritis of both knees 12/31/2022 Bilateral hip pain 12/31/2022 Diabetic polyneuropathy asso ciated with type 2 diabetes mellitus 12/01/2021 Attention-deficit hyperactivity disorder, unspec ified type 11/25/2020 Type 2 diabetes mellitus wit h hemoglobin A1c goal of less than 7.0% 03/30/2017 Morbid obesity with BMI of 50.0-59.9, adult 11/2012 HTN, goal below 140/90 03/21/2006 Migraine without aura, intractable 03/07/2006 No advance directive on file 04/30/2005 Overview: No, Advance Directive brochure offered , patient declined. Major depressive disorder, recurrent episode, mi ld 12/05/2003 documented as of this encounter (statuses as of 08/30/2023) Resolved Problems Problem Noted Date Diagnosed Date Resolved Date BMI 39.0-39.9,adult 05/24/2022 01/01/20 23 Overview: 249 Controlled substance agreement signed 01/25/2016 01/29/2019 Obesity, morbid (more than 1 00 lbs over ideal weight or BMI > 40) 02/10/2010 01/30/2013 Overview: Per Obesity Protocol, #19 ICD-10 update of inactive term ABDOMINAL PAIN, OTHER SPECIFIED SITE 10/17/2007 12/15/2015 PRESCRIP-ORAL CONTRACEPT 01/08/2004 documented as of this encounter (statuses as of 08/30/2023) Immunizations Name Administration Dates Next Due COVID-19 mRNA, LNP-s, No Pre serve, 2-Dose Series (Startpack) 10/18/2020,09/27/2020 Hepatitis B, 20+ yrs 12/01/2021,08/14/2019,07/13 Pneumococcal Conjugate Vacci ne, 20-valent (Iqlcaes25) 05/24/2022 Pneumococcal Polysaccharide PPV23 (Pneumovax) 01/13/2018 Seasonal Influenza, PF, 6 M & above, IM , (FluLaval or Fluzone) 05/24/2022,05/29/2021,09/17/2020,07/15 Seasonal Influenza, Quadriva lent, No Preserve, IM 07/07/2016,06/10/2015 Seasonal Influenza, Split, I IV3, With Preserve, Inj 06/22/2014,06/06/2012,06/27/2010,06/05 TD, Preservative Free 12/01/2021 TDAP (age 11 and older)(Adacel) 12/28/2010 documented as of this encounter Social History Tobacco Use Types Packs/Day Years Used Date Smoking Tobacco: Every Day Cigarettes 0.5 7 Smokeless Tobacco: Never Comments:had restarted in 18 05 Alcohol Use Standard Drinks/Week Comments Yes 0 (1 standard drink = 0.6 oz pure alcohol) occ wine when goes out twice a month PHQ-2 Answer Date Recorded PHQ-2 Score -1 06/29/2020 Hunger Vital Sign Answer Date Recorded Within the past 12 months, y ou worried that your food would run out before you got the money to buy more. Never true 11/27/19 23 Within the past 12 months, t he food you bought just didn't last and you didn't have money to get more. Never true 11/26/2022 Sex and Gender Information Value Date Recorded Sex Assigned at Female 06/02/2022 1:17 AM EDT Gender Identity Female 06/02/2022 1:17 AM EDT Sexual Orientation Straight 06/02/2022 1: 17 AM EDT Job Start Date Occupation Industry Not on file Not on file Not on file documented as of this encounter Last Filed Vital Signs Vital Sign Reading Time Taken Comments Blood Pressure 140/90 08/30/2023 11:10 AM EST Pulse 81 08/30/2023 11:10 AM EST Temperature 35.7 C (96.3 F) 08/30/2023 1 1:10 AM EST Respiratory Rate 16 08/30/2023 11:1 0 AM EST Oxygen Saturation 98% 08/30/2023 11: 10 AM EST Inhaled Oxygen Concentration - - Weight 119.4 kg (263 lb 3.2 oz) 024 11:10 AM EST Height - - Body Mass Index 41.22 08/15/2023 7:22 PM EST documented in this encounter Functional Status Functional Status Response Date of Assess ment Are you deaf or do you have serious difficulty h earing? No 08/15/2023 Are you blind or do you have serious difficulty seeing, even when wearing glasses? No 08/15/2023 Do you have serious difficul ty walking or climbing stairs? (5 years old or older) No 08/15/2023 Do you have difficulty dress ing or bathing? (5 years old or older) No 08/15/2023 Because of a physical, menta l, or emotional condition, do you have difficulty doing errands alone such as visiting a doctor s office or shopping? (15 years old or older) No 08/15/20 23 Cognitive Status Response Date of Assessm ent Because of a physical, menta l, or emotional condition, do you have serious difficulty concentrating, remembering, or making decisions? (5 years old or older) Yes 08/15/2023 documented as of this encounter Progress Notes * Man Stovall, - 08/30/2023 11:17 AM EST Subjective: Kathryn Evans is a 48 year old female. Chief Complaint Patient presents with Hospital Follow-Up Hospital Follow-Up HPI: Pt to [facility] ER on 08/15 with N/V/D and abdominal pain. She had been in [facility] Er and was given medications to help with symptoms earlier in the month. Ct scan showed a partial SBO. NG Tube was placed and surgery was consulted but did not recommend surgery. She was put on Fluids and over time improved. She was enentually able to tolerate a diet. She was sent home on 08/18 with Pepcid Omeprazole and Zofran. They cut both her HARSH and maxzide in half while in the hospital. NG Tube was miserable. She was able to get back to more of a normal diet afterwards. She still doesnot have regular BMs. She feels bloated and maybe a little constpated She has had 3 BMs since discharge. Stomach can hurt and low back hurts. She does feel a little better after a BM. Stools are stllall liquid. If she does not use it she does not go. Last BM was August 27. She has less belshing with sulfir feeling. She is taking Pepcid and Omeprazole. No throwing. Not needing zofran beyond once. We had changed her Trulicity in summer. PMHx, meds, and allergies reviewed Patient Active Problem List Diagnosis Code Major depressive disorder, recurrent episode, mild ([facility]) F33.0 No advance directive on file Z78.9 Migraine without aura, intractable G43.019 HTN, goal below 140/90 I10 Morbid obesity with BMI of 50.0-59.9, adult ([facility]) E66.01, Z68.43 Type 2 diabetes mellitus with hemoglobin A1c goal of less than 7.0% ([facility]) E11.9 Attention-deficit hyperactivity disorder, unspecified type F90.9 Diabetic polyneuropathy associated with type 2 diabetes mellitus ([facility]) E11.42 DDD (degenerative disc disease), lumbar M51.36 Primary osteoarthritis of both knees M17.0 Bilateral hip pain M25.551, M25.552 Partial small bowel obstruction ([facility]) K56.600 Current Outpatient Medications Medication Sig Dispense Refill EFFEXOR XR 150 MG PO CP24 TAKE (1) CAPSULE BY MOUTH ONCE DAILY. 90 Cap 3 EFFEXOR XR 75 MG PO CP24 One pill by mouth once a day, do not cut, crush or chew- take along with 150 30 Cap 5 lamoTRIgine 150 MG Oral Tablet Take 1.5 Tablets by mouth in the morning. amphetamine-dextroamphet ER (ADDERALL XR) 10 MG CP24 Take 1 Capsule by mouth in the morning. Blood Glucose Monitoring Suppl (GLUCOCOM MONITOR) w/Device KIT Check blood sugar once daily 1 Kit 0 Lancets MISC Check blood sugar once daily 100 Each 11 Glucose Blood STRP Check blood sugar once daily 100 Strip 11 Urea 40 % External Cream Apply topically to affected area 2 times a day. Apply to toes 85 g 0 Atorvastatin Calcium 20 MG Oral Tablet (Lipitor) Take 1 Tablet by mouth in the morning. 90 Tablet 3 Diclofenac Sodium 75 MG Oral Tablet Delayed Release (Voltaren) Take 1 Tablet by mouth in the morning and 1 Tablet before bedtime. With food.. 60 Tablet 3 Sodium Hyaluronate 60 MG/3ML Intra-articular Prefilled Syringe (TuneCore) Inject 1 syringe(3ml) intra-articularly into right knee for 1 dose. 3 mL 0 Dulaglutide 1.5 MG/0.5ML Subcutaneous Solution Pen-injector (HERCAMOSHOP) Inject 1.5 mg under the skin once a week. 2 mL 5 metFORMIN HCl ER 500 MG Oral Tablet Extended Release 24 Hour (Glucophage XR) Take 2 Tablets by mouth in the morning. 180 Tablet 3 Docusate Sodium 100 MG Oral Capsule (Stool Softener) Take 1 Capsule by mouth in the morning and 1 Capsule before bedtime. 180 Capsule 1 Rexulti 0.5 MG Oral Tablet 1 Tablet in the morning. Triamterene-HCTZ 37.5-25 MG Oral Tablet ((Maxzide-25)) Take 0.5 Tablet by mouth in the morning. 90 Tablet 3 Lisinopril 20 MG Oral Tablet (Prinivil) Take 0.5 Tablet by mouth in the morning. 90 Tablet 3 Omeprazole 40 MG Oral Capsule Delayed Release (PriLOSEC) Take 1 Capsule by mouth in the morning. 30Capsule 0 Famotidine 20 MG Oral Tablet (Pepcid) Take 1 Tablet by mouth at bedtime. 30 Tablet 11 Ondansetron HCl 4 MG Oral Tablet Take 1 Tablet by mouth every 8 hours as needed for Nausea. 20 Tablet 0 No current facility-administered medications for this visit. Review of patient's allergies indicates: No Known Allergies OBJECTIVE: BP 140/90 | Pulse 81 | Temp 35.7 C (96.3 F) (Tympanic) | Resp 16 | Wt 119.4 kg (263 lb 3.2 oz) | LMP 10/23/2010 | SpO2 98% | BMI 41.22 kg/m | BSA 2.38 m Estimated body mass index is 41.22 kg/m as calculated from the following: Height as of 08/15/23: 1.702 m (5' 7"). Weight as of this encounter: 119.4 kg (263 lb 3.2 oz). BP Readings from Last 3 Encounters: 08/30/23 140/90 08/18/23 146/86 12/31/22 130/79 Wt Readings from Last 3 Encounters: 08/30/23 119.4 kg (263 lb 3.2 oz) 08/18/23 117.4 kg (258 lb 12.8 oz) 12/31/22 113.9 kg (251 lb) ROS: Negative except for above PHYSICAL EXAM: General: alert, healthy, and no distress Head: Normocephalic, No masses, lesions, tenderness or abnormalities Heart: regular rate & rhythm, no murmur, and no gallops Lungs: chest symmetric with normal AP diameter, no chest deformities noted, no chest wall tenderness, lungs clear to auscultation Abdomen: abdomen soft, non-tender, normal bowel sounds, no masses or organomegaly, and lightly distended ASSESSMENT/Plan HTN, goal below 140/90 (Primary) - DISCH MED RECON CUR MED LIS - Lisinopril 20 MG Oral Tablet (Prinivil); Take 1 Tablet by mouth in the morning. - Triamterene-HCTZ 37.5-25 MG Oral Tablet ((Maxzide-25)); Take 0.5 Tablets by mouth in the morning. Type 2 diabetes mellitus with hemoglobin A1c goal of less than 7.0% (HCC) - DISCH MED RECON CUR MED LIS - Dulaglutide 1.5 MG/0.5ML Subcutaneous Solution Pen-injector ([employer]); Inject 1.5 mg under the skin once a week. - metFORMIN HCl ER 500 MG Oral Tablet Extended Release 24 Hour (Glucophage XR); Take 2 Tablets by mouth in the morning. Hospital discharge follow-up - DISCH MED RECON CUR MED LIS Pure hypercholesterolemia - Atorvastatin Calcium 20 MG Oral Tablet (Lipitor); Take 1 Tablet by mouth in the morning. Morbid obesity with BMI of 50.0-59.9, adult (HCC) - Dulaglutide 1.5 MG/0.5ML Subcutaneous Solution Pen-injector (Trulicity); Inject 1.5 mg under the skin once a week. Other orders - Diclofenac Sodium 75 MG Oral Tablet Delayed Release (Voltaren); Take 1 Tablet by mouth in the morning. With food.. Take Dulcolax 2 pills daily for the next 3 days. Will go back to former dose of Lisinopril but holdMaxzide where it is. If this issue becomes persistent we may want to cut back on Trulicity. The above was discussed and understanding was expressed. Man Stovall DO documented in this encounter Nursing Notes * Candida Low LPN - 08/30/2023 11:05 AM EST Kathryn Evans presents for hospital recheck. Medications & HM reviewed. Discuss hospital stay documented in this encounter Plan of Treatment Upcoming Encounters Date Type Department Care Team (Late st Contact Info) Description 02/28/2024 1:40 PM EDT Office Visit Family Practice [facility] [address] [facility] [place] [address] Man Stovall DO [address] [place] [address] Health Maintenance Due Date Last Done Comments DISCUSS TOBACCO CESSATION (REFER TO SMARTSET #5505) 1977 Hepatitis C Screening 1995 Depression Screening 06/29/2021 06/29/2020 Diabetic Eye Exam 12/22/2021 12/22/2020, , 04/06/2018 Fecal Occult Blood Test 2022 Sigmoidoscopy 2022 Diabetic Foot Exam 12/01/2022 12/01/2021, 0 03/11/2020, 07/25/2018, Additional history exists COVID-19 Vaccine (24 season) 2023 10/18/2020, 09/27/2020 Influenza Vaccine (FLU shot) (#1) 2023 05/24/2022, 05/29/2021, 09/17/2020, Additional history exists Mammogram 06/18/2023 06/18/2022, 11/2020, 03/14/2020, Additional history exists Albumin/Creatinine Ratio 09/23/2023 023, 05/24/2022, 05/29/2021, Additional history exists B-12 11/24/2023 11/23/2022, 1008/2020, 03/11/2020, Additional history exists HbA1c 01/03/2024 07/05/2023, 10/28, 05/24/2022, Additional history exists GFR 08/18/2024 08/18/2023, 07/30, 08/16/2023, Additional history exists Cologuard 12/27/2025 12/27/2022, 11/28, 12/17/2022 Lipid Panel 05/24/2027 05/24/2022, 02/26, 07/25/2018, Additional history exists DTaP,Tdap,and Td Vaccines (10 - Td or Tdap) 12/02/2031 12/01/2021, 12/28/2010, 03/05/2004, Additional history exists Colonoscopy 11/12/2032 11/12/2022, 10/27, 10/15/2022, Additional history exists Colorectal Cancer Screening 11/12/2032 Hepatitis B Completed 12/01/2021, 07/29, 07/13/2019 Pneumococcal Vaccine: Pediatrics (0 to 5 Years) and At-Risk Patients (6 to 64 Years) Completed 05/24/2022, 01/13/2018 GARDASIL-HPV IMMUNIZATION SERIES Aged Out No longer eligible based on patient's age to complete this topic MENINGOCOCCAL (MENACTRA/MENVEO) Aged Out No longer eligible based on patient's age to complete this topic documented as of this encounter Medical Devices Not on filedocumented as of this encounter Visit Diagnoses Diagnosis HTN, goal below 140/90- Primary Unspecified essential hypertension Type 2 diabetes mellitus with hemoglobin A1c goal of less than 7.0% (HCC) Hospital discharge follow-up Other follow-up examination Pure hypercholesterolemia Morbid obesity with BMI of 50.0-59.9, adult (HCC) Morbid obesity documented in this encounter Advance Directives Latest Code Status on File Code Status Date Activated Date Inactivated Comments Full Code 08/15/2023 6:48 PM 08/18/2023 5:31 PM Thi s order reflects the patients wishes and were consensually agreed upon. Question Answer Comments Discussion of Advance Directives occurred with: Patient Care Teams Motion Picture Equipment Machinist Relationship Specialty Start Date End Date Man Stovall DO [address] [place] [address] PCP - General Family Medicine 10/14/18 documented as of this encounter
--- OUTSIDE RECORDS SUMMARY | 2023-09-04 04:37 | External Medical Summary | Summary of Care ---
Author Name Unknown Organization [facility] Address [address] [place] [address] Phone [phone] Care Team Providers Care Sizing Sponger Name Role Phone Man Stovall DO Primary Care Provider Encounter Details Date Type Department Care Team (Late st Contact Info) Description 08/16/2023 Population Health External Data Unspecified Department Allergies No known active allergiesdocumented as of this encounter (statuses as of 08/16/2023) Medications Medication Sig Dispensed Refills Start Date End Date Status EFFEXOR XR 150 MG PO [id number]:Depressi ve disorder, not elsewhere classified TAKE (1) CAPSULE BY MOUTH ONCE DAILY. 90 Cap 3 10/18/19 13 Suspended Additional Information EFFEXOR XR 75 MG PO CP24 One pill by mouth once a day, do not cut, crush or chew- take along with 150 30 Cap 5 08/23/20 13 Suspended lamoTRIgine 150 MG Oral Tablet Take 1.5 Tablets by mouth in the morning. 0 08/04/20 17 Suspended amphetamine-dextroamphet ER (ADDERALL XR) 10 MG CP24 Take 1 Capsule by mouth in the morning. 0 01/12/20 18 Suspended Blood Glucose Monitoring Suppl (GLUCOCOM MONITOR) w/Device KITIndications:Type 2 diabetes mellitus with hemoglobin A1c goal of less than 7.0% ([facility]) Check blood sugar once daily 1 Kit 0 05/13/20 Suspended Additional Information Lancets MISCIndications:Type 2 diabetes mellitus with hemoglobin A1c goal of less than 7.0% ([facility]) Check blood sugar once daily 100 Each 05/13/20 Suspended Additional Information Glucose Blood STRPIndications:Type 2 diabetes mellitus with hemoglobin A1c goal of less than 7.0% ([facility]) Check blood sugar once daily 100 Strip 05/13/20 Suspended Additional Information Urea 40 % External Cream Apply topically to affected area 2 times a day. Apply to toes 85 g 0 12/12/19 Suspended Additional Information Atorvastatin Calcium 20 MG Oral Tablet (Lipitor)Indications:Pur e hypercholesterolemia Take 1 Tablet by mouth in the morning. 90 Tablet 3 09/07/19 Suspended Additional Information Triamterene-HCTZ 37.5-25 MG Oral Tablet ((Maxzide-25))Indication s:HTN, goal below 140/90 Take 1 Tablet by mouth in the morning. 90 Tablet 3 09/29/19 Suspended Additional Information Diclofenac Sodium 75 MG Oral Tablet Delayed Release (Voltaren) Take 1 Tablet by mouth in the morning and 1 Tablet before bedtime. With food.. 60 Tablet 3 01/01/20 Suspended Additional Information Sodium Hyaluronate 60 MG/3ML Intra-articular Prefilled Syringe (Durolane) Inject 1 syringe(3ml) intra-articular ly into right knee for 1 dose. 3 mL 0 02/16/20 Suspended Additional Information Dulaglutide 1.5 MG/0.5ML Subcutaneous Solution [facility]injector ([facility])Indications:T ype 2 diabetes mellitus with hemoglobin A1c goal of less than 7.0% ([facility]),Morbid obesity with BMI of 50.0-59.9, adult ([facility]) Inject 1.5 mg under the skin once a week. 2 mL 5 03/04/20 Suspended Additional Information Lisinopril 20 MG Oral Tablet (Prinivil)Indications:HT N, goal below 140/90 Take 1 Tablet by mouth in the morning. 90 Tablet 3 03/04/20 23 Suspended Additional Information metFORMIN HCl ER 500 MG Oral Tablet Extended Release 24 Hour (Glucophage XR)Indications:Type 2 diabetes mellitus with hemoglobin A1c goal of less than 7.0% ([facility]) Take 2 Tablets by mouth in the morning. 180 Tablet 3 03/04/20 23 Suspended Additional Information Docusate Sodium 100 MG Oral Capsule (Stool Softener) Take 1 Capsule by mouth in the morning and 1 Capsule before bedtime. 180 Capsule 1 06/27/20 23 Suspended Additional Information Rexulti 0.5 MG Oral Tablet 1 Tablet in the morning. 0 07/28/20 23 Suspended documented as of this encounter (statuses as of 08/16/2023) Active Problems Problem Noted Date Diagnosed Date [...] as of this encounter (statuses as of 08/16/2023) Resolved Problems Problem Noted Date Diagnosed Date [...] as of this encounter (statuses as of 08/16/2023) Immunizations Name Administration Dates Next Due COVID-19 mRNA, LNP-s, No Pre serve, 2-Dose Series (Pfizer) 10/18/2020,09/27/2020 Hepatitis B, 20+ yrs 12/01/2021,08/14/2019,07/13 Pneumococcal Conjugate Vacci ne, 20-valent ([id number]) 05/24/2022 Pneumococcal Polysaccharide PPV23 (Pneumovax) 01/13/2018 Seasonal [...] on file documented as of this encounter Functional Status Functional Status Response [...] (15 years old or older) No 08/15/20 Cognitive Status Response Date of Assessm ent Because of a physical, menta l, or emotional condition, do you have serious difficulty concentrating, remembering, or making decisions? (5 years old or older) Yes 08/15/2023 documented as of this encounter Plan of Treatment Upcoming Encounters Date Type Department Care Team (Late st Contact Info) Description 08/16/2023 4:20 PM EST Office Visit [facility] [address] [place] [id number] Staci Grimes MD [address] [facility] [place] [id number] 09/23/2023 2:40 PM EST Office Visit [facility] [address] [place] [id number] Kristina Bryant DO [address] [place] [id number] Health Maintenance Due Date Last Done Comments DISCUSS TOBACCO CESSATION (REFER TO SMARTSET #3291) 1975 Hepatitis C Screening 1995 Depression Screening 06/29/2021 06/29/2020 Diabetic Eye Exam 12/22/2021 12/22/2020, , 04/06/2018 Fecal Occult Blood Test 2022 Sigmoidoscopy 2022 Diabetic Foot Exam 12/01/2022 12/01/2021, 0 03/11/2020, 07/25/2018, Additional history exists COVID-19 Vaccine ( season) 2023 10/18/2020, 09/27/2020 Influenza Vaccine (FLU shot) (#1) 2023 05/24/2022, 05/29/2021, 09/17/2020, Additional history exists Mammogram 06/18/2023 06/18/2022, 100 11/2020, 03/14/2020, Additional history exists Albumin/Creatinine Ratio 09/23/2023 023, 05/24/2022, 05/29/2021, Additional history exists B-12 11/24/2023 11/23/2022, 100 08/2020, 03/11/2020, Additional history exists HbA1c 01/03/2024 07/05/2023, 10/28, 05/24/2022, Additional history exists GFR 08/16/2024 08/16/2023, 07/29, 07/05/2023, Additional history exists Cologuard 12/27/2025 12/27/2022, 11/28, [...] Not on filedocumented as of this encounter Additional Health Concerns Infection Onset Date Last Indicated Resolved Time Gastrointestinal Rule-Out 08/15/2023 08/15/2023 C. difficile Rule-Out 08/15/2023 08/15/2023 documented as of this encounter Advance Directives Latest Code Status on File Code Status Date Activated Date Inactivated Comments Full Code 08/15/2023 6:48 PM This orde r reflects the patients wishes and were consensually agreed upon. Question Answer Comments Discussion of Advance Directives occurred with: Patient Care Teams Sizing Sponger Relationship Specialty Start Date End Date Man Stovall DO [address] [place] [address] PCP - General Family Medicine 10/14/18 documented as of this encounter
--- OUTSIDE RECORDS SUMMARY | 2023-09-04 04:37 | External Medical Summary ---
Author Name Unknown Address Unknown Organization K1F:LABORATORY [facility] - [address] [place] [address] Laboratory Report Ordering Provider Test Date Status DMITRY ZELAYA 08/17/2023 14:10:00 Final hCG can serve as a screening assay for . However, early may not give a positive hCG test result. In addition, some non- women may have a hCG result slightly higher than the reference limit. Careful interpretation of the hCG with clinical history is required to determine whether the patient may be .
Postmenopausal women have higher hCG than premenopausal women. The reference interval for non- premenopausal women is <= 1 mIU/mL, and for postmenopausal women is <= 7 mIU/mL. Observation Date Value Abnormality Reference (Units ) Status Choriogonadotropin.intact +Beta subunit [Units/volume] in Serum or Plasma 08/17/2023 14:10:00 <0.1 <=1.0 (mIU/mL) Final Performing Location LAB[facility]ORY [facility] - [address] [place] [address]
--- OUTSIDE RECORDS SUMMARY | 2023-09-04 04:37 | External Medical Summary ---
Author Name Unknown Address Unknown Organization K1F:LABORATORY [facility] - [address] [place] [address] Laboratory Report Ordering Provider Test Date Status DMITRY ZELAYA 08/18/2023 04:45:00 Final Observation Date Value Abnormality Reference (Units ) Status WBC, Total 08/18/2023 04:45:00 8.20 4.00-10.80 (K/uL) Final RBC 08/18/2023 04:45:00 3.52 3.85-5.15 (M/uL) Final Hemoglobin 08/18/2023 04:45:00 11.5 Below low normal 12.0-15.3 (g/dL) Final HCT 08/18/2023 04:45:00 34.4 Below low normal 36.0-45.2 (%) Final MCV 08/18/2023 04:45:00 97.7 81.5-97.5 (fL) Final MCH 08/18/2023 04:45:00 32.7 27.0-34.0 (pg) Final MCHC 08/18/2023 04:45:00 33.4 32.0-36.0 (g/dL) Final RDW 08/18/2023 04:45:00 13.5 11.5-15.5 (%) Final Platelets 08/18/2023 04:45:00 203 140-400 (K/uL) Final MPV 08/18/2023 04:45:00 10.7 6.6-11.1 (fL) Final Nucleated erythrocytes/100 leukocytes [Ratio] in Blood by Automated count 08/18/2023 04:45:00 0 <=0 (/100 WBCs) Final Performing Location LABORATORY [facility] - [address] [place] [address]
--- OUTSIDE RECORDS SUMMARY | 2023-09-04 04:37 | External Medical Summary ---
Author Name Unknown Address Unknown Organization K1F:LABORATORY [facility] - [address] [place] [address] Laboratory Report Ordering Provider Test Date Status GIOVANNA DEL REAL 08/15/2023 13:16:00 Final Observation Date Value Abnormality Reference (Units ) Status WBC, Total 08/15/2023 13:16:00 14.46 Above high normal 4.00-10.80 (K/uL) Final RBC 08/15/2023 13:16:00 4.58 3.85-5.15 (M/uL) Final Hemoglobin 08/15/2023 13:16:00 14.9 12.0-15.3 (g/dL) Final HCT 08/15/2023 13:16:00 44.2 36.0-45.2 (%) Final MCV 08/15/2023 13:16:00 96.5 81.5-97.5 (fL) Final MCH 08/15/2023 13:16:00 32.5 27.0-34.0 (pg) Final MCHC 08/15/2023 13:16:00 33.7 32.0-36.0 (g/dL) Final RDW 08/15/2023 13:16:00 13.4 11.5-15.5 (%) Final Platelets 08/15/2023 13:16:00 320 140-400 (K/uL) Final MPV 08/15/2023 13:16:00 10.6 6.6-11.1 (fL) Final Nucleated erythrocytes/100 leukocytes [Ratio] in Blood by Automated count 08/15/2023 13:16:00 0 <=0 (/100 WBCs) Final Performing Location LABORATORY [facility] - [address] [place] [address]
--- OUTSIDE RECORDS SUMMARY | 2023-09-04 04:37 | External Medical Summary ---
Author Name Unknown Address Unknown Organization K1F:LABORATORY [facility] - [address] [place] [address] Laboratory Report Ordering Provider Test Date Status ANTONIO,MELANY 08/15/2023 13:16:00 Final Observation Date Value Abnormality Reference (Units ) Status Troponin T 08/15/2023 13:16:00 7 <=14 (ng/ L) Final Performing Location LABORATORY [facility] - [address] [place] [address]
--- OUTSIDE RECORDS SUMMARY | 2023-09-04 04:37 | External Medical Summary ---
Author Name Unknown Address Unknown Organization K1F:LABORATORY [facility] - [address] [address] Laboratory Report Ordering Provider Test Date Status LYRIC KAISER 08/15/2023 19:36:00 Final Observation Date Value Abnormality Reference (Units ) Status Troponin T 08/15/2023 19:36:00 <6 <=14 (ng/ L) Final Performing Location LABORATORY [facility] - [address] [place] [address]
--- OUTSIDE RECORDS SUMMARY | 2023-09-04 04:37 | External Medical Summary ---
Author Name Unknown Address Unknown Organization K1F:LABORATORY [facility] - [address] [address] Laboratory Report Ordering Provider Test Date Status VIGNESH GARCIA 08/17/2023 05:29:00 Final Observation Date Value Abnormality Reference (Units ) Status BUN 08/17/2023 05:29:00 10 6-20 (mg/dL) Final Creatinine 08/17/2023 05:29:00 0.5 0.5-1.0 (mg/dL) Final Glomerular filtration rate/1.73 sq M.predicted [Volume Rate/Area] in Serum, Plasma or Blood by Creatinine-based formula (CKD-EPI) 08/17/2023 05:29:00 >90 >=60 (mL/min) Final eGFR is calculated based on the CKD-EPI 2020 equation SODIUM 08/17/2023 05:29:00 139 135-146 (m mol/L) Final Potassium 08/17/2023 05:29:00 3.4 Below low normal 3.5 -5.1 (mmol/L) Final Cl 08/17/2023 05:29:00 105 98-107 (mm ol/L) Final CO2 08/17/2023 05:29:00 26 22-32 (mmo l/L) Final Anion gap 08/17/2023 05:29:00 8 7-15 (mmol /L) Final Glucose 08/17/2023 05:29:00 130 Above high normal 70 -120 (mg/dL) Final Calcium 08/17/2023 05:29:00 7.9 Below low normal 8.4 -10.2 (mg/dL) Final Performing Location LABORATORY [facility] - [address] [place] [id number]
--- OUTSIDE RECORDS SUMMARY | 2023-09-04 04:37 | External Medical Summary | Summary of Care ---
Author Name Unknown Organization [facility] Address [address] [place] [address] Phone [phone] Care Team Providers Care Lodging Facilities Manager Name Role Phone MackenzieMan fletcher Santa DIAS Primary Care Provider [phone] Reason for Visit * Reason Comments Abdominal Pain * Auth/Cert Specialty Diagnoses / Procedures Referred By Marques t Referred To Contact Referral ID Status Reason Start Date Expiration Date Visits Re quested Visits Authorized [id number] Encounter Details Date Type Department Care Team (Latest Contact Info) Description 08/15/2023 1:12 PM EST - 08/18/2023 1:31 PM EST Hospital Encounter 4B [facility] 4th Floor [address] [place] [address] Ze Castro MD [address], [place] [id number] Derek Meek MD [address] [place] [address]ist [place] [address] Arturo Mckeon MD [address] [place], [place] [address], [place] [address] Krystian Dukes MD [address] [place] [address] [place] [address] Various: EKG,KRAVS Discharge Disposition: Home - Self Care Allergies No known active allergiesdocumented as of this encounter (statuses as of 08/19/2023) Medications Medication Sig Dispensed Refills Start Date End Date Status EFFEXOR XR 150 MG PO [id number]:Depressi ve disorder, not elsewhere classified TAKE (1) [...] hemoglobin A1c goal of less than 7.0% ([facility]) Check blood sugar once daily 1 Kit 0 0 Active Lancets MISCIndications:Type 2 diabetes mellitus with hemoglobin A1c goal of less than 7.0% ([facility]) Check blood sugar once daily 100 Each 11 0 Active Glucose Blood STRPIndications:Type 2 diabetes mellitus with hemoglobin A1c goal of less than 7.0% ([facility]) Check blood sugar once daily 100 Strip 11 0 Active Urea 40 % External Cream Apply topically to affected area 2 times a day. Apply to toes 85 g 0 1 Active Atorvastatin Calcium 20 MG Oral Tablet (Lipitor)Indications:Pur e hypercholesterolemia Take 1 Tablet by mouth in the morning. 90 Tablet 3 3 Active Diclofenac Sodium 75 MG Oral Tablet Delayed Release (Voltaren) Take 1 Tablet by mouth in the morning and 1 Tablet before bedtime. With food.. 60 Tablet 3 3 Active Sodium Hyaluronate 60 MG/3ML Intra-articular Prefilled Syringe (Durolane) Inject 1 syringe(3ml) intra-articul amarilis into right knee for 1 dose. 3 mL 0 3 Active Dulaglutide 1.5 MG/0.5ML Subcutaneous Solution Pen-injector (Trulicity)Indications:T ype 2 diabetes mellitus with hemoglobin A1c goal of less than 7.0% ([facility]),Morbid obesity with BMI of 50.0-59.9, adult ([facility]) Inject 1.5 mg under the skin once a week. 2 mL 5 3 Active metFORMIN HCl ER 500 MG Oral Tablet Extended Release 24 Hour (Glucophage XR)Indications:Type 2 diabetes mellitus with hemoglobin A1c goal of less than 7.0% ([facility]) Take 2 Tablets by mouth in the morning. 180 Tablet 3 3 Active Docusate Sodium 100 MG Oral Capsule (Stool Softener) Take 1 Capsule by mouth in the morning and 1 Capsule before bedtime. 180 Capsule 1 3 Active Rexulti 0.5 MG Oral Tablet 1 Tablet in the morning. 0 3 Active Triamterene-HCTZ 37.5-25 MG Oral Tablet ((Maxzide-25))Indication s:HTN, goal below 140/90 Take 0.5 Tablet by mouth in the morning. 90 Tablet 3 3 Active Lisinopril 20 MG Oral Tablet (Prinivil)Indications:HT N, goal below 140/90 Take 0.5 Tablet by mouth in the morning. 90 Tablet 3 3 Active Omeprazole 40 MG Oral Capsule [...] for Nausea. 20 Tablet 0 3 Active Triamterene-HCTZ 37.5-25 MG Oral Tablet ((Maxzide-25))Indication s:HTN, goal below 140/90 Take 1 Tablet by mouth in the morning. 90 Tablet 3 3 08/18/20 23 Discontinu ed(Refill) Lisinopril 20 MG Oral Tablet (Prinivil)Indications:HT N, goal below 140/90 Take 1 Tablet by mouth in the morning. 90 Tablet 3 3 08/18/20 23 Discontinu ed(Refill) documented as of this encounter (statuses as of 08/19/2023) Active Problems Problem Noted Date Diagnosed Date [...] as of this encounter (statuses as of 08/19/2023) Resolved Problems Problem Noted Date Diagnosed Date [...] as of this encounter (statuses as of 08/19/2023) Immunizations Name Administration Dates Next Due COVID-19 mRNA, LNP-s, No Pre serve, 2-Dose Series (XOS Digital) 10/18/2020,09/27/2020 Hepatitis B, 20+ yrs 12/01/2021,08/14/2019,07/13 Pneumococcal Conjugate Vacci ne, 20-valent ([id number]) 05/24/2022 Pneumococcal Polysaccharide PPV23 (Pneumovax) 01/13/2018 Seasonal [...] Day Cigarettes 0.5 7 Smokeless Tobacco: Never Tobacco Cessation:Ready to Q uit: Not Asked; Counseling Given: Not Answered Comments:had restarted in 2008 Alcohol Use Standard Drinks/Week Comments Yes 0 [...] Sign Reading Time Taken Comments Blood Pressure 146/86 08/18/2023 10:43 AM EST Pulse 78 08/18/2023 10:43 AM EST Temperature 36.7 C (98.1 F) 08/18/2023 1 0:43 AM EST Respiratory Rate 16 08/18/2023 10:4 3 AM EST Oxygen Saturation 95% 08/18/2023 10: 43 AM EST Inhaled Oxygen Concentration - - Weight 117.4 kg (258 lb 12.8 oz) 08/18/2023 6:00 AM EST Height 170.2 cm (5' 7") 08/15/2023 7:22 PM EST Body Mass Index 40.53 08/15/2023 7:22 PM EST documented in this [...] Yes 08/15/2023 documented as of this encounter Discharge Summaries * Krystian Dukes MD - 08/18/2023 11:53 AM EST Images from the original note were not included. [facility] [address] Admission Date: 08/15/2023 Discharge Date: 08/18/2023 RECOMMENDED TO DO FOR NEXT PROVIDER(S): Reduce Lisinopril to 10 mg daily (half tablet) Reduce Maxzide to half tablet Follow up blood pressure control and adjust medications as needed Start Omeprazole daily on empty stomach Start Famotidine at bedtime Take Zofran as needed for nausea for the next 5 days REASON(S) FOR MEDICATION CHANGE(S): Per Dx below DISPOSITION ON DISCHARGE: home Active Hospital Problems Diagnosis *Principal Diagnosis - Partial small bowel obstruction (HCC) Type 2 diabetes mellitus with hemoglobin A1c goal of less than 7.0% (HCC) HTN, goal below 140/90 Migraine without aura, intractable Resolved Hospital Problems No resolved problems to display. ADMISSION HISTORY & PHYSICAL EXAM (focused): Per admission team PRESENTING PROBLEM: abdominal pain, N/V/D HPI: Patient with PMHX: HTN/HLD, DM2, obesity, migraines and as listed who presents to [facility] for ongoing, worsening abdominal pain, N/V/D since 08/10. On 08/10, when her symptoms started she presented [facility] and d/c from ED. She was given 3 different medications, not sure what they were-- upon chart chart looks like she was given Compazine and Zofran. She was feeling better and then after eating last night she started to feel nauseated. Today, having worsening abdominal pain. She vomited a few times. Having large volume diarrheal stools. She denies fever. + chills. Denies cough/cold sx.No sick contacts. States she had a similar episode of abdominal pain, N/V about one month ago but subsided without intervention. Hx of Csections x 3 and abdominoplasty in ? 2006 She smokes 1/2 ppd. Denies ETOH or illicit drug use. In the ED, she had CT abd/pelvis- read as mild gastric and small bowel distention with no transition point. Findings suggest partial small bowel obstruction vs ileus. Hepatic steatosis. Simple appearing 4 cm right ovarian cyst. She had NGT placed with clear, brownish tinged fluid. ED provider spoke with general surgery who advised no surgical intervention and admit to medicine. Labs remarkable for WBC 14-- appears chronically elevated. UA - appears contaminated with numerous squamous cells. Shewas given Pepcid, Morphine 4 mg IV x 2, and Dilaudid 0.5 mg IV, Zofran 4 mg IV. Patient admitted toHospital Medicine for further evaluation and management. Physical Exam Most Recent Vital Signs: BP: 158 mmHg/91 mmHg (08/15/23 1747) Pulse: 91 (08/15/23 1747) Temp: 36.22 C (08/15/23 1237) Resp: 16 (08/15/23 1747) SpO2: 99 % (08/15/23 1237) General: Pt in bed, alert, moderate distress. Head: Normocephalic, No masses, lesions, tenderness or abnormalities Eye Exam: PERRLA, EOMI, Conjunctiva are pink and non-injected, sclera clear Ears: External ears normal Oropharynx: mucous membranes moist without erythema or exudates Neck: supple, nontender, no cervical adenopathy palpable Heart: regular rate & rhythm and no murmur appreciated Lungs: no respiratory distress, CTA, without wheeze, rhonchi or crackles Abdomen: NGT in left nare. Patent and draining, clear, brownish tinged fluid. + hypoactive BS, soft, + slight generalized tenderness, nondistended, no rebound tenderness or guarding Lower Extremities: without pitting edema, no calf tenderness, no stasis changes noted HOSPITAL COURSE (focused): Kathryn Evans came to the hospital with: complaint of abdominal pain, nausea, vomit Her main diagnosis at discharge was: Partial small bowel obstruction She was rehydrated and monitored Her diet was advanced until tolerating Her blood pressure will need to be monitored. Her BP dose was decreased. She improved and was deemed stable enough for discharge Operations & Procedures performed: none Complications: none significant Inpatient test results that are pending at discharge: Stool Panel Significant Lab and Imaging Results: As mentioned above Results Pending at Discharge: Lab Results Pending at Discharge: None MEDICATION UPDATES AT DISCHARGE START taking these medications INSTRUCTIONS Famotidine 20 MG Tablet Commonly known as: Pepcid Notes to patient: For reflux Take 1 Tablet by mouth at bedtime. omeprazole 40 MG Cpdr Commonly known as: PriLOSEC Notes to patient: Used to treat or prevent GI (gastrointestinal) ulcers, gastroesophageal reflux (GERD, acid reflux), and heartburn Take 1 Capsule by mouth in the morning. ondansetron 4 MG Tablet Commonly known as: Zofran Notes to patient: Used to treat or prevent nausea/vomiting Take 1 Tablet by mouth every 8 hours as needed for Nausea. CHANGE how you take these medications INSTRUCTIONS Lisinopril 20 MG Tablet Commonly known as: Prinivil What changed: how much to take Take 0.5 Tablet by mouth in the morning. triamterene-hctz 37.5-25 mg per tab 37.5-25 MG per tablet Commonly known as: (Maxzide-25) What changed: how much to take Take 0.5 Tablet by mouth in the morning. CONTINUE taking these medications INSTRUCTIONS amphetamine-dextroamphet ER 10 MG Cp24 Commonly known as: Adderall XR Notes to patient: Used to treat attention deficit problems with hyperactivity and narcolepsy Take 1 Capsule by mouth in the morning. atorvaSTATin 20 MG Tablet Commonly known as: Lipitor Notes to patient: Used to lower bad cholesterol, lower triglycerides, raise good cholesterol (HDL),and slow the progression of heart disease Take 1 Tablet by mouth in the morning. Diclofenac Sodium 75 MG Tbec Commonly known as: Voltaren Notes to patient: Used to ease pain and treat some types of arthritis Take 1 Tablet by mouth in the morning and 1 Tablet before bedtime. With food.. Docusate Sodium 100 MG Capsule Commonly known as: Stool Softener Notes to patient: Used to ease constipation Take 1 Capsule by mouth in the morning and 1 Capsule before bedtime. Dulaglutide 1.5 MG/0.5ML Sopn Commonly known as: Trulicity Notes to patient: Used to lower blood sugar in patients with high blood sugar (diabetes) Inject 1.5 mg under the skin once a week. Durolane 60 MG/3ML Prsy Generic drug: Sodium Hyaluronate Notes to patient: hyaluronic acid injection therapy for hoxu-eq-qjyqcwxq osteoarthritis designed toprovide powerful and long-lasting pain relief. Inject 1 syringe(3ml) intra-articularly into right knee for 1 dose. * Effexor XR 150 MG Cp24 Generic drug: venlafaxine XR Notes to patient: Used to treat depression, anxiety, and panic attacks TAKE (1) CAPSULE BY MOUTH ONCE DAILY. * Effexor XR 75 MG Cp24 Generic drug: venlafaxine XR Notes to patient: Used to treat depression, anxiety, and panic attacks One pill by mouth once a day, do not cut, crush or chew- take along with 150 GlucoCom Monitor w/Device Kit Check blood sugar once daily Glucose Blood Strp Check blood sugar once daily lamoTRIgine 150 MG Tablet Commonly known as: LaMICtal Notes to patient: Used to help control certain kinds of seizures and treat bipolar disorder Take 1.5 Tablets by mouth in the morning. Lancets Misc Check blood sugar once daily metFORMIN ER 500 MG Tb24 Commonly known as: Glucophage XR Notes to patient: Used to lower blood sugar in patients with high blood sugar (diabetes) Take 2 Tablets by mouth in the morning. Rexulti 0.5 MG Tabs Generic drug: Brexpiprazole Notes to patient: Used to treat schizoprenia, depression, and agitation caused by dementia from Alzheimer's disease 1 Tablet in the morning. urea 40 % cream Notes to patient: Used to treat skin conditions Apply topically to affected area 2 times a day. Apply to toes * This list has 2 medication(s) that are the same as other medications prescribed for you. Read thedirections carefully, and ask your doctor or other care provider to review them with you. SCHEDULED FOLLOW-UP: Future Appointments Appt Date/Time Provider Department 08/30/2023 11:00 AM Man Stovall, [facility] 09/23/2023 2:40 PM Kristina Bryant, [facility] Other Information Indwelling Devices: LINES None Vital Signs (last recorded): Most Recent Systolic BP: 146 mmHg (08/18/23 1043) Most Recent Diastolic BP: 86 mmHg (08/18/23 1043) Pulse: 78 (08/18/23 1043) Resp: 16 (08/18/23 1043) Most Recent Temperature: 36.72 C (08/18/23 1043) Weight: 117.4 kg (258 lb 12.8 oz) (08/18/23 0600) SpO2: 95 % (08/18/23 1043) Allergies: Patient has no known allergies. Activity: as tolerated Diet: Soft diet on day of discharge. Advance diet to prior as tolerated Code status (this admission): Full Code Discussion of adv directives occurred with - adult: Patient Condition on Discharge: stable Isolation status: Contact Cognition: normal HOSPITAL CONSULTS ORDERED: GENERAL SURGERY CONSULT IP REFERRING PHYSICIAN: Ref: [id number]] NO STREET ADDRESS AVAILABLE None (office) None (fax) PRIMARY CARE PROVIDER: PCP: Man Stovall DO [address] [place] [address] / [place] [address] (office) [phone] (fax) Note: To contact a physician responsible for this patients hospital care, please call [facility] [phone]. I spent a total of 45 minutes coordinating, documenting, and providing care for this patient excluding time spent in the performance of separately billed services. documented in this encounter Discharge Instructions * Discharge Instr - AVS* Krystian Dukes MD - 08/18/2023 11:34 AM EST Discharge Date: 08/18/2023 The information below provides you with the instructions and the list of medications you need to betaking following discharge from the hospital. If you have any questions, please ask before leaving. If you have questions after leaving, you can reach us at the numbers below. YOUR HOSPITAL PROVIDERS: Discharging Provider: Krystian Dukes MD Provider Department: Hospital Medicine To reach this Provider Tuesday through Tuesday (8:00 AM to 4:30 PM) for any questions or test results: Call [phone] For after-hours concerns: Call [phone] and have your provider paged, or the provider mainframe consultant for the Department of Hospital Medicine paged. Please note, the discharging provider will not be able to provide you with any medications refills.Please discuss these with your primary care provider. Worsening Symptoms: If you have new symptoms, or your symptoms get worse, please contact your Discharge Provider or Primary Care Provider (PCP). If these providers are not available, you can go to your local [facility] or [facility] Clinic during their business hours. In an EMERGENCY situation: Call [phone] or go to the nearest emergency room. A BRIEF SUMMARY OF YOUR HOSPITAL STAY: You came to the hospital with: complaint of abdominal pain, nausea, vomit Your main diagnosis at discharge was: Partial small bowel obstruction Operations & Procedures performed: none Complications: none significant Inpatient test results that are pending at discharge: Stool Panel Advance Directive Documented: Advance Directive Does the Patient have an Advance Directive? No YOUR FOLLOW UP APPOINTMENTS: Primary Care Provider Information: PCP: Man Stovall DO [address] / [place] [id number] (office) [phone] (fax) An appointment was requested with your PCP (Man Stovall DO) within 7 days. (Please take this form to this visit with your primary care physician.) You need the following studies in the future: CBC, CMP, Follow up stool panel results INSTRUCTIONS: Diet: Soft diet on day of discharge. Advance diet to prior as tolerated Activity: As tolerated Reduce Lisinopril to 10 mg daily (half tablet) Reduce Maxzide to half tablet Follow with primary care provider to see blood pressure medications need to be adjusted Start Omeprazole daily on empty stomach Start Famotidine at bedtime Take Zofran as needed for nausea for the next 5 days documented in this encounter Progress Notes * Viral Cantrell [facility] - 08/18/2023 11:59 AM EST PHARMACY DISCHARGE MEDICATION RECONCILIATION REVIEW [address] [address] Name: Kathryn Evans Location: [facility] W Date: 08/18/2023 Time: 11:59 AM This discharge medication reconciliation was reviewed by a pharmacist and no corrections or interventions were required. * Krystian Dukes MD - 08/17/2023 1:48 PM EST Images from the original note were not included. [facility] -4[facility]/W 48 y/o M patient with hx of , abdominoplasty, DM 2, HTN, HLD, obesity, ADHD who was admitted with abdominal pain , nausea, vomiting; high volume diarrhea and CT abd pelvis findings concerning for partial SBO vs ileus and or enteritis. INTERVAL HISTORY: Over all feels better; however today with a headache. She usually takes caffeine and has not done so in here. She also has some slight epigastric discomfort. She was to get stool studies yet her diarrhea stopped since she was admitted to the hospital. Objective Physical Exam Most Recent Vital Signs: BP: 153 mmHg/88 mmHg (08/17/23 1105) Pulse: 71 (08/17/23 1105) Temp: 37.22 C (08/17/23 1105) Resp: 16 (08/17/23 1105) SpO2: 96 % (12/20/23 1105) Physical Exam Vitals reviewed. Constitutional: Appearance: She is not ill-appearing or toxic-appearing. Cardiovascular: Rate and Rhythm: Normal rate. Heart sounds: No friction rub. No gallop. Pulmonary: Effort: Pulmonary effort is normal. No respiratory distress. Breath sounds: No stridor. No wheezing or rales. Abdominal: General: There is no distension. Palpations: Abdomen is soft. Tenderness: There is abdominal tenderness. There is no guarding. Musculoskeletal: Right lower leg: No edema. Left lower leg: No edema. Neurological: Mental Status: She is alert. Peripheral Line Right Hand 22 Gauge (Active) Number of days: 1 STUDIES: Encounter Orders Labs and other studies reviewed with pertinent findings noted below: Lab results within last 7 days (see chart for full results) Units 08/17/23 0529 08/16/23 0538 08/15/23 1316 HGB g/dL 11.1* 12.1 14.9 HCT % 35.6* 38.5 44.2 WBC K/uL 7.99 8.89 14.46* PLT K/uL 210 241 320 Lab results within last 7 days (see chart for full results) Units 08/17/23 0529 08/16/23 0538 08/15/23 1316 Sodium mmol/L 139 139 137 Potassium mmol/L 3.4* 3.7 4.6 Chloride mmol/L 105 103 101 CO2 mmol/L 26 27 24 BUN mg/dL 10 14 13 Creatinine mg/dL 0.5 0.5 0.5 Lab results within last 7 days (see chart for full results) Units 08/16/23 0538 Magnesium mg/dL 1.7 ] Lab results within last 7 days (see chart for full results) Units 08/16/23 0538 08/15/23 1316 Protein g/dL 5.2* 7.0 Bilirubin, Total mg/dL 0.2 0.2 Alkaline Phosphatase U/L 86 116 AST U/L 13 16 ALT U/L 17 24 Lab results within last 7 days (see chart for full results) Units 08/15/23 1936 08/15/23 1316 Troponin T, High Sensitivity ng/L <6 7 Recent Cultures (2 Weeks) 08/15/2023 10/09/2021 04/01/2018 07/12/2012 5:50 PM 7:15 PM 9:49 AM 3:30 PM SPECIMEN DESCRIPTION -- -- CLEAN CATCH URINE URINE CULTURE -- -- LESS THAN 10,000 COLONIES/ML MIXED NORMAL OKSANA LESS THAN 10,000 COLONIES/ML MIXED OKSANA QUANT URINE CULTURE GROWTH No significant growth 10,000 to 100,000 colonies/mL Beta Streptococcus group B -- -- XR ABDOMEN OBSTRUCT SERIES W CHEST 1 VIEW Result Date: 08/16/2023 IMPRESSION: 1. The NG tube tip is in the stomach. 2. No acute cardiopulmonary process. 3. Nonspecific bowel gas pattern. No dilated loops of small bowel are visualized. THIS DOCUMENT HAS BEEN ELECTRONICALLY SIGNED BY ONDINA RUIZ, XR ABDOMEN 1 VIEW Result Date: 08/15/2023 IMPRESSION: Satisfactory placement of nasogastric tube. THIS DOCUMENT HAS BEEN ELECTRONICALLY SIGNED BY DANIELLE MUELLER MD CT ABD/PELVIS W IV CONTRAST - WO ORAL CONTRAST Result Date: 08/15/2023 IMPRESSION: 1. Mild gastric and small bowel distention with no transition point identified. Findings suggest partial small bowel obstruction versus ileus. Consider continued radiographic monitoring as clinically warranted. 2. Hepatic steatosis. 3. Simple appearing 4 cm right ovarian cyst. No further imaging is recommended. (Reference: Pritesh) REFERENCES: Jonas et al. Management of Incidental Adnexal Findings on CT and MRI: A White Paper of the ACR Incidental Findings Committee, J Am Silvio Radiol.2019;17(2):248-254. THIS DOCUMENT HAS BEEN ELECTRONICALLY SIGNED BY DONAL PENA MD US ABDOMEN LIMITED Result Date: 08/15/2023 IMPRESSION: 1. No acute findings. 2. Echogenic liver suggestive of hepatic steatosis. THIS DOCUMENTHAS BEEN ELECTRONICALLY SIGNED BY DONAL PENA MD XR CHEST 1 VIEW Result Date: 08/15/2023 IMPRESSION: No acute findings. THIS DOCUMENT HAS BEEN ELECTRONICALLY SIGNED BY DONAL PENA MD Assessment and Plan IMPRESSION : Principal Problem: Partial small bowel obstruction (HCC) Active Problems: Migraine without aura, intractable HTN, goal below 140/90 Type 2 diabetes mellitus with hemoglobin A1c goal of less than 7.0% (HCC) Resolved Problems: * No resolved hospital problems. * DIFFERENTIAL AND PLAN: Appreciate surgery input. Will advance diet. Gen surgery consult appreciated Follow stool studies if possible to obtain today. R/o bacterial enteritis UNIT SUPERVISOR meds Follow AM labs. Monitor hgb drop and electrolytes. Will get beta Hcg Replenish electrolytes as needed Transition to PO PPI/H2i tomorrow Tylenol for headache Orders Placed This Encounter Procedures Adult Complex Diet : Easy to Chew --- Heart Healthy PHARMACOLOGIC VTE PROPHYLAXIS: Enoxaparin CODE STATUS: Full Code EXPECTED DISCHARGE DATE: 08/18/2023 I spent a total of 35 minutes coordinating, documenting, and providing care for this patient excluding time spent in the performance of separately billed services. * Meron Ontiveros MD - 08/17/2023 7:49 AM EST Images from the original note were not included. GENERAL SURGERY PROGRESS NOTE [facility]-[address] [address] Date: 08/17/2023 Time: 7:49 AM DIAGNOSIS: Ileus, ?Enteritis INTERVAL HISTORY: No events overnight. Afebrile, HDS, on room air. Tolerated clamp trial last night. NGT removed and clears started. She tolerated PO intake without nausea or vomiting. Abdominal pain resolved. Main complaint is a headache. Physical Exam Most Recent Vital Signs: BP: 123 mmHg/78 mmHg (08/17/23726) Pulse: 65 (08/17/[address]26) Temp: 36.5 C (08/17/[address]26) Resp: 16 (08/17/23726) SpO2: 93 % (08/17/23726) CONSTITUTIONAL: no acute distress CV: distally perfused, normal heart rate RESP/CHEST: normal respiratory effort ABDOMEN: soft, non-tender, non-distended EXTREMITIES: no edema SKIN: warm, dry NEURO: awake, alert, oriented LABS: Lab results within last 7 days (see chart for full results) Units 08/17/23 0529 08/16/23 0538 08/15/23 1316 WBC K/uL 7.99 8.89 14.46* HGB g/dL 11.1* 12.1 14.9 PLT K/uL 210 241 320 Lab results within last 7 days (see chart for full results) Units 08/17/23 0529 08/16/23 0538 08/15/23 1316 Sodium mmol/L 139 139 137 Potassium mmol/L 3.4* 3.7 4.6 Chloride mmol/L 105 103 101 CO2 mmol/L 26 27 24 BUN mg/dL 10 14 13 Creatinine mg/dL 0.5 0.5 0.5 Glucose mg/dL 130* 145* 149* Calcium mg/dL 7.9* 8.0* 9.9 Magnesium mg/dL -- 1.7 -- Phosphorus mg/dL -- 3.2 -- Lab results within last 7 days (see chart for full results) Units 08/16/23 0538 08/15/23 1316 Protein g/dL 5.2* 7.0 Bilirubin, Total mg/dL 0.2 0.2 Alkaline Phosphatase U/L 86 116 AST U/L 13 16 ALT U/L 17 24 No results in the last 7 days - inpatent use only Lab results within last 7 days (see chart for full results) Units 08/16/23 0538 INR 1.1 IMAGING: None new Assessment and Plan IMPRESSION: Principal Problem: Partial small bowel obstruction (HCC) Active Problems: Migraine without aura, intractable HTN, goal below 140/90 Type 2 diabetes mellitus with hemoglobin A1c goal of less than 7.0% (HCC) Resolved Problems: * No resolved hospital problems. * Kathryn Evans is a 48 year old female presenting with abdominal pain, N/V/D and imaging concerning for SBO v ileus. Presentation more consistent with an enteritis which can mimic these on imaging. PLAN: Advance diet as tolerated Surgery service will sign off, call with questions or concerns. Can f/u with PCP after discharge. Discussed with Dr. Hernandez. Meron Ontiveros MD General Surgery PGY-5 Associated attestation - Jacinta Hernandez DO - 08/17/2023 8:55 AM EST I saw and evaluated the patient today. I have reviewed the trainee note and agree. * Arturo Mckeon MD - 08/16/2023 3:52 PM EST PROGRESS NOTE - Hospitalist [facility] Name:Kathryn Evans SEX: female AGE: [id number] year old Date: 08/16/2023 48 y/o M patient with hx of , abdominoplasty, DM 2, HTN, HLD, obesity, ADHD presented to the ER with abdominal pain , nausea, vomiting; high volume diarrhea CT abd pelvis concerning for partial SBO vs ileus Labs showed leukocytosis SUBJECTIVE: Patient feels uncomfortable having the NG tube in. She denies nausea this morning. She denies abdoinal pain. She passed gas earlier this morning . No BM today OBJECTIVE: VITALS: BP 157/93 | Pulse 75 | Temp 36.4 C (97.5 F) (Tympanic) | Resp 16 | Ht 1.702 m (5' 7") | Wt 116.1 kg (255 lb 15.3 oz) | LMP 10/23/2010 | SpO2 93% | BMI 40.09 kg/m | BSA 2.34 m Intake/Output Summary (Last 24 hours) at 08/16/2023 1552 Last data filed at 08/16/2023 1200 Gross per 24 hour Intake 0 ml Output 200 ml Net -200 ml PHYSICAL EXAMINATION: Constitutional: Alert, awake, no acute distress. HEENT: normocephalic, atraumatic; no masses, tenderness, or adenopathy ; ng tube in place Eyes: PERRLA, conjunctiva no pallor, sclera anicteric. Neck: supple, no mass, JVD or thyromegaly CV: normal rate and rhythm, no murmur, gallops or rub. Peripheral pulses normal. Lungs: Clear to auscultate bilateral, no wheezing, rhonchi, crackles. Abdomen: Soft, non tender + distended, BS- sluggish No organomegaly. Extremities: no edema, otherwise grossly normal, warm, and dry. Skin: warm, dry, No rash or Ulcer. Neuro: alert, oriented x3, cranial nerves intact, sensory/motor within normal range. Psych: normal mood and affect. LABS: Recent Results (from the past 24 hour(s)) URINALYSIS, REFLEX TO MICROSCOPIC Collection Time: 08/15/23 4:05 PM Result Value Ref Range Color, Urine Yellow Light Yellow, Yellow, Dark Yellow Clarity, Urine Clear Clear Glucose, Urine Negative Negative mg/dL Bilirubin, Urine Negative Negative Ketone, Urine Negative Negative mg/dL Specific [place], Urine 1.014 1.003 - 1.030 Blood, Urine Negative Negative pH, Urine 6.0 5.0 - 7.5 Units Protein, Urine Negative Negative mg/dL Urobilinogen, Urine 0.2 0.2, 1.0 mg/dL Nitrite, Urine Negative Negative Esterase, Urine Moderate (A) Negative MICROSCOPIC EXAM, URINE Collection Time: 08/15/23 4:05 PM Result Value Ref Range RBC, Urine 0-2 0 - 2 /HPF WBC, Urine 20-29 (A) 0 - 2 /HPF Bacteria, Urine >200 (A) 0 - 25 /HPF Squamous Epithelial Cells, Urine Many (A) None /HPF CULTURE, URINE, QUANTITATIVE Collection Time: 08/15/23 5:50 PM Specimen: Urine, Clean Catch Result Value Ref Range Culture Growth No significant growth TROPONIN T, HIGH SENSITIVITY Collection Time: 08/15/23 7:36 PM Result Value Ref Range Troponin T, High Sensitivity <6 <=14 ng/L GLUCOSE METER, POINT OF CARE Collection Time: 08/15/23 8:02 PM Result Value Ref Range Glucose Meter 170 (H) 70 - 120 mg/dL GLUCOSE METER, POINT OF CARE Collection Time: 08/16/23 12:02 AM Result Value Ref Range Glucose Meter 153 (H) 70 - 120 mg/dL CBC Collection Time: 08/16/23 5:38 AM Result Value Ref Range WBC 8.89 4.00 - 10.80 K/uL RBC 3.92 3.85 - 5.15 M/uL HGB 12.1 12.0 - 15.3 g/dL HCT 38.5 36.0 - 45.2 % MCV 98.2 81.5 - 97.5 fL MCH 30.9 27.0 - 34.0 pg MCHC 31.4 32.0 - 36.0 g/dL RDW 13.6 11.5 - 15.5 % PLT 241 140 - 400 K/uL MPV 10.9 6.6 - 11.1 fL nRBCs 0 <=0 /100 WBCs MAGNESIUM Collection Time: 08/16/23 5:38 AM Result Value Ref Range Magnesium 1.7 1.5 - 2.6 mg/dL PHOSPHORUS Collection Time: 08/16/23 5:38 AM Result Value Ref Range Phosphorus 3.2 2.5 - 4.8 mg/dL PT INR Collection Time: 08/16/23 5:38 AM Result Value Ref Range Prothrombin Time 14.5 11.6 - 15.2 seconds INR 1.1 0.8 - 1.2 COMPREHENSIVE METABOLIC PANEL Collection Time: 08/16/23 5:38 AM Result Value Ref Range BUN 14 6 - 20 mg/dL Creatinine 0.5 0.5 - 1.0 mg/dL Estimated Glomerular Filtration Rate >90 >=60 mL/min Sodium 139 135 - 146 mmol/L Potassium 3.7 3.5 - 5.1 mmol/L Chloride 103 98 - 107 mmol/L CO2 27 22 - 32 mmol/L Anion Gap 9 7 - 15 mmol/L Glucose 145 (H) 70 - 120 mg/dL Albumin 3.0 (L) 3.8 - 5.0 g/dL AST 13 10 - 35 U/L Alkaline Phosphatase 86 35 - 130 U/L Bilirubin, Total 0.2 <=1.2 mg/dL Calcium 8.0 (L) 8.4 - 10.2 mg/dL Protein 5.2 (L) 6.0 - 8.3 g/dL ALT 17 10 - 35 U/L GLUCOSE METER, POINT OF CARE Collection Time: 08/16/23 6:22 AM Result Value Ref Range Glucose Meter 133 (H) 70 - 120 mg/dL GLUCOSE METER, POINT OF CARE Collection Time: 08/16/23 11:33 AM Result Value Ref Range Glucose Meter 154 (H) 70 - 120 mg/dL IMPRESSION AND PLAN: Principal Problem: Partial small bowel obstruction (HCC) Active Problems: Migraine without aura, intractable HTN, goal below 140/90 Type 2 diabetes mellitus with hemoglobin A1c goal of less than 7.0% (HCC) Resolved Problems: * No resolved hospital problems. * Plan: - Gen surgery consult appreciated - Plan to clamp NGT for 4 hours. If tolerates without nausea, pain NG tube can be removed - Follow stool studies - Continue iv fluids - Encourage ambulation Diet : NPO Activity :OOB DVT Prophylaxis: heparin 55 minutes were spent in the care of this patient. More than half of my time was spent counseling the patient or family, coordinating care for the patient on the floor, and chart review . This chart was completed in part utilizing [employer] Voice [employer]ognition Software. Grammatical errors, random word insertions, prounoun erros, and incomplete sentences are an occasional consequence of this system due to software limitations, ambient noise, and hardware issues. Any formal questions or concerns about the content, text, or information contained within the body of this dictation should be directly addressed to the provider for clarification. Note: To contact a physician responsible for this patients hospital care, please call [employer] [phone]. documented in this encounter H&P Notes * Lola Gambino CRNP - 08/15/2023 6:53 PM EST Images from the original note were not included. [facility] PRESENTING PROBLEM: abdominal pain, N/V/D HPI: Patient with PMHX: HTN/HLD, DM2, obesity, migraines and as listed who presents to [facility]ED for ongoing, worsening abdominal pain, N/V/D since 08/10. On 08/10, when her symptoms started she presented [facility] and d/c from ED. She was given 3 different medications, not sure what they were-- upon chart chart looks like she was given Compazine and Zofran. She was feeling better and then after eating last night she started to feel nauseated. Today, having worsening abdominal pain. She vomited a few times. Having large volume diarrheal stools. She denies fever. + chills. Denies cough/cold sx.No sick contacts. States she had a similar episode of abdominal pain, N/V about one month ago but subsided without intervention. Hx of Csections x 3 and abdominoplasty in ? 2006 She smokes 1/2 ppd. Denies ETOH or illicit drug use. In the ED, she had CT abd/pelvis- read as mild gastric and small bowel distention with no transition point. Findings suggest partial small bowel obstruction vs ileus. Hepatic steatosis. Simple appearing 4 cm right ovarian cyst. She had NGT placed with clear, brownish tinged fluid. ED provider spoke with general surgery who advised no surgical intervention and admit to medicine. Labs remarkable for WBC 14-- appears chronically elevated. UA - appears contaminated with numerous squamous cells. Shewas given Pepcid, Morphine 4 mg IV x 2, and Dilaudid 0.5 mg IV, Zofran 4 mg IV. [facility] Subjective Patient's past history, medications, and allergies were reviewed. Objective Physical Exam Most Recent Vital Signs: BP: 158 mmHg/91 mmHg (08/15/231746) Pulse: 91 (08/15/231746) Temp: 36.22 C (08/15/23 1237) Resp: 16 (08/15/231746) SpO2: 99 % (08/15/23 123) General: Pt in bed, alert, moderate distress. Head: Normocephalic, No masses, lesions, tenderness or abnormalities Eye Exam: PERRLA, EOMI, Conjunctiva are pink and non-injected, sclera clear Ears: External ears normal Oropharynx: mucous membranes moist without erythema or exudates Neck: supple, nontender, no cervical adenopathy palpable Heart: regular rate & rhythm and no murmur appreciated Lungs: no respiratory distress, CTA, without wheeze, rhonchi or crackles Abdomen: NGT in left nare. Patent and draining, clear, brownish tinged fluid. + hypoactive BS, soft, + slight generalized tenderness, nondistended, no rebound tenderness or guarding Lower Extremities: without pitting edema, no calf tenderness, no stasis changes noted STUDIES: Encounter Orders Labs and other studies reviewed with pertinent findings noted below: XR ABDOMEN 1 VIEW Final Result PROCEDURE INFORMATION: Exam: XR Abdomen Exam date and time: 08/15/2023 6:26 PM Age: 48 years old Clinical indication: Other: Ng tube placement; Additional info: Gastric tube placement verification TECHNIQUE: Imaging protocol: Radiologic exam of the abdomen. Views: Frontal supine view of the abdomen. 1 View. COMPARISON: CT ABD/PELVIS W IV CONTRAST - WO ORAL CONTRAST 08/15/2023 5:20 PM FINDINGS: Tubes, catheters and devices: Nasogastric tube is placed with the side hole overlying the body of the stomach. Gastrointestinal tract: Normal. No bowel dilation. Bones/joints: Unremarkable. IMPRESSION IMPRESSION: Satisfactory placement of nasogastric tube. THIS DOCUMENT HAS BEEN ELECTRONICALLY SIGNED BY DANIELLE MUELLER MD CT ABD/PELVIS W IV CONTRAST - WO ORAL CONTRAST Final Result PROCEDURE INFORMATION: Exam: CT Abdomen And Pelvis With Contrast Exam date and time: 08/15/2023 5:20 PM Age: 48 years old Clinical indication: Nausea and vomiting; Additional info: Abdominal discomfort with nausea and vomiting. TECHNIQUE: Imaging protocol: Computed tomography of the abdomen and pelvis with contrast. Radiation optimization: All CT scans at this facility use at least one of these dose optimization techniques: automated exposure control; mA and/or kV adjustment per patient size (includes targeted exams where dose is matched to clinical indication); or iterative reconstruction. Contrast material: OPTIRAY 320; Contrast volume: 100 ml; Contrast route: INTRAVENOUS (IV); REPORTING DATA: Count of CT and Cardiac NM exams in prior 12 months: This patient has received 0 known CTs and 0 known cardiac nuclear medicine studies in the 12 months prior to the current study. COMPARISON: CT ABDOMEN /PELVIS WITH IV CONTRAST WITHOUT ORAL 11/15/2016 12:10 AM FINDINGS: Liver: There is a diffuse decrease in hepatic parenchymal density, suggestive of fatty infiltration. Gallbladder and bile ducts: Normal. No calcified stones. No ductal dilation. Pancreas: Normal. No ductal dilation. Spleen: Normal. No splenomegaly. Adrenal glands: Normal. No mass. Kidneys and ureters: Normal. No hydronephrosis. Stomach and bowel: The stomach is mildly distended with air and fluid. Mildly distended scattered loops of small bowel with no discrete transition point. Some small bowel feces are seen suggesting slowed intestinal transit. Distal small bowel is not completely decompressed. The proximal and mid colon are filled with air, stool and fluid. Decompressed distal colon. Appendix: No evidence of appendicitis. Intraperitoneal space: Unremarkable. No free air. No significant fluid collection. Vasculature: Mild atherosclerotic calcification of the aorta. Lymph nodes: Unremarkable. No enlarged lymph nodes. Urinary bladder: Unremarkable as visualized. Reproductive: The uterus is surgically absent. 4 cm right ovarian cyst. No left adnexal mass. Bones/joints: Severe L5-S1 disc degeneration with endplate sclerosis. Soft tissues: 1.8 cm fluid attenuating density along the lower anterior abdominal wall, similar to prior in 2017. IMPRESSION IMPRESSION: 1. Mild gastric and small bowel distention with no transition point identified. Findings suggest partial small bowel obstruction versus ileus. Consider continued radiographic monitoring as clinically warranted. 2. Hepatic steatosis. 3. Simple appearing 4 cm right ovarian cyst. No further imaging is recommended. (Reference: Pritesh) REFERENCES: Pritesh et al. Management of Incidental Adnexal Findings on CT and MRI: A White Paper of the ACR Incidental Findings Committee, J Am Silvio Radiol. 2020 Feb;17(2):248-254. THIS DOCUMENT HAS BEEN ELECTRONICALLY SIGNED BY DONAL PENA MD US ABDOMEN LIMITED Final Result PROCEDURE INFORMATION: Exam: US Abdomen, Limited; Right Upper Quadrant Exam date and time: 08/15/2023 1:49 PM Age: 48 years old Clinical indication: Abdominal pain; Localized; Right upper quadrant (ruq); Additional info: Epigastric and ruq pain TECHNIQUE: Imaging protocol: Real time ultrasound of the abdomen with image documentation. Limited exam focused on the right upper quadrant. COMPARISON: US ABDOMEN LIMITED 08/01/2018 9:40 AM FINDINGS: Liver: Diffusely echogenic liver. No mass identified. Patent main portal vein. Gallbladder: Normal. No gallstones. There is no gallbladder wall thickening. Biliary ducts: Normal. No stones. No dilation. Pancreas: Visualized pancreas is unremarkable. Right kidney: Normal. No mass. No hydronephrosis. IMPRESSION IMPRESSION: 1. No acute findings. 2. Echogenic liver suggestive of hepatic steatosis. THIS DOCUMENT HAS BEEN ELECTRONICALLY SIGNED BY DONAL PENA MD XR CHEST 1 VIEW Final Result PROCEDURE INFORMATION: Exam: XR Chest Exam date and time: 08/15/2023 1:44 PM Age: 48 years old Clinical indication: Other: Abdominal cramping and burning with nausea, diarrhea and belching; Additional info: Epigastric pain TECHNIQUE: Imaging protocol: Radiologic exam of the chest. Views: 1 view. COMPARISON: DX ABDOMEN SINGLE AP VIEW 11/22/2016 11:26 AM FINDINGS: Lungs: Unremarkable. No consolidation. Pleural spaces: Unremarkable. No pleural effusion. No pneumothorax. Heart/Mediastinum: Unremarkable. No cardiomegaly. Bones/joints: Unremarkable. IMPRESSION IMPRESSION: No acute findings. THIS DOCUMENT HAS BEEN ELECTRONICALLY SIGNED BY DONAL PENA MD XR ABDOMEN OBSTRUCT SERIES W CHEST 1 VIEW (Results Pending) Results for orders placed or performed during the hospital encounter of 08/15/23 COMPREHENSIVE METABOLIC PANEL Result Value Ref Range BUN 13 6 - 20 mg/dL Creatinine 0.5 0.5 - 1.0 mg/dL Estimated Glomerular Filtration Rate >90 >=60 mL/min Sodium 137 135 - 146 mmol/L Potassium 4.6 3.5 - 5.1 mmol/L Chloride 101 98 - 107 mmol/L CO2 24 22 - 32 mmol/L Anion Gap 12 7 - 15 mmol/L Glucose 149 (H) 70 - 120 mg/dL Albumin 4.0 3.8 - 5.0 g/dL AST 16 10 - 35 U/L Alkaline Phosphatase 116 35 - 130 U/L Bilirubin, Total 0.2 <=1.2 mg/dL Calcium 9.9 8.4 - 10.2 mg/dL Protein 7.0 6.0 - 8.3 g/dL ALT 24 10 - 35 U/L LIPASE Result Value Ref Range Lipase 17 13 - 60 U/L URINALYSIS, REFLEX TO MICROSCOPIC Result Value Ref Range Color, Urine Yellow Light Yellow, Yellow, Dark Yellow Clarity, Urine Clear Clear Glucose, Urine Negative Negative mg/dL Bilirubin, Urine Negative Negative Ketone, Urine Negative Negative mg/dL Specific [place], Urine 1.014 1.003 - 1.030 Blood, Urine Negative Negative pH, Urine 6.0 5.0 - 7.5 Units Protein, Urine Negative Negative mg/dL Urobilinogen, Urine 0.2 0.2, 1.0 mg/dL Nitrite, Urine Negative Negative Esterase, Urine Moderate (A) Negative CBC Result Value Ref Range WBC 14.46 (H) 4.00 - 10.80 K/uL RBC 4.58 3.85 - 5.15 M/uL HGB 14.9 12.0 - 15.3 g/dL HCT 44.2 36.0 - 45.2 % MCV 96.5 81.5 - 97.5 fL MCH 32.5 27.0 - 34.0 pg MCHC 33.7 32.0 - 36.0 g/dL RDW 13.4 11.5 - 15.5 % PLT 320 140 - 400 K/uL MPV 10.6 6.6 - 11.1 fL nRBCs 0 <=0 /100 WBCs DIFFERENTIAL, AUTOMATED Result Value Ref Range WBC 14.46 (H) 4.00 - 10.80 K/uL Neutrophils % 67.2 40.0 - 75.0 % Lymphocytes % 25.2 18.0 - 42.0 % Monocytes % 6.4 1.0 - 11.0 % Eosinophils % 0.6 0.0 - 6.0 % Basophils % 0.3 0.0 - 2.0 % Immature Granulocytes % 0.3 0.0 - 2.0 % Absolute Neutrophils 9.72 (H) 1.80 - 7.70 K/uL Absolute Lymphocytes 3.64 1.00 - 4.80 K/ul Absolute Monocytes 0.92 0.00 - 1.10 K/uL Absolute Eosinophils 0.09 0.00 - 0.70 K/uL Absolute Basophils 0.04 0.00 - 0.20 K/uL Absolute Immature Granulocytes 0.05 0.00 - 0.20 K/uL TROPONIN T, HIGH SENSITIVITY Result Value Ref Range Troponin T, High Sensitivity 7 <=14 ng/L MICROSCOPIC EXAM, URINE Result Value Ref Range RBC, Urine 0-2 0 - 2 /HPF WBC, Urine 20-29 (A) 0 - 2 /HPF Bacteria, Urine >200 (A) 0 - 25 /HPF Squamous Epithelial Cells, Urine Many (A) None /HPF Assessment and Plan IMPRESSION: Principal Problem: Partial small bowel obstruction (HCC) Active Problems: Migraine without aura, intractable HTN, goal below 140/90 Type 2 diabetes mellitus with hemoglobin A1c goal of less than 7.0% (HCC) Resolved Problems: * No resolved hospital problems. * Patient with PMHX: HTN/HLD, DM2, obesity, migraines and as listed p/w ongoing, worsening abdominal pain, N/V/D since 08/10. Found to have partial SBO vs ileus on CT abd/pelvis imaging. Patient admitted for the above. IVF IV PPI Pain control NGT to suction I&O's Morning abd xray General Surgery consult Hold [employer] medications and re-evaluate need in AM Q6 hr glucose monitoring. Insulin SS PHARMACOLOGIC VTE PROPHYLAXIS:Enoxaparin CODE STATUS: Full Code EXPECTED DISCHARGE DATE: 2-3 days I spent a total of 75 minutes coordinating, documenting, and providing care for this patient excluding time spent in the performance of separately billed services. Patient seen and examined along with my attending, Dr. Meek. Associated attestation - Derek Meek MD - 08/15/2023 7:22 PM EST I have reviewed the advanced practitioner documentation and agree. I saw and evaluated the patient on date of service referenced in note and have performed the following medically appropriate historyand/or exam: 48 yo F hx of , hysterectomy, DM 2, HTN, HLD, obesity, ADHD , smoking half a pack a day p/w N/V/abdominal pain , diarrhea since 08/10 and worsening last night. Imaging showed SBO Vs.ileus NG tube was placed in ED with LIS . No evidence of coffee ground liquid in suction. Abdominal exam is soft, mildly distended, mild tender on palpation, no BS Keep NPO and will hold off PO med's PPI, H2 jeancarlos to reduce acid secretion. Send for stools studies to rule out infectious diarrhea. Do not start antibiotics at this time. General surgeon consult documented in this encounter Procedure Notes * Abdi Robbins DO - 08/15/2023 12:42 PM ESTAssociated Order(s): EKG REASON FOR STUDY: ABD PAIN CONCLUSIONS: Normal sinus rhythm Left ventricular hypertrophy Abnormal ECG When compared with ECG of 14-OCT-2018 11:54, No significant change was found Ventricular Rate: 90 Atrial Rate: 90 SD Interval: 194 QRS Duration: 84 QT/QTc: 350/429 ms P-R-T [place]: 28 : -18 : 59 degrees documented in this encounter Consult Notes * Meron Ontiveros MD - 08/16/2023 3:22 PM EST CONSULTATION - General Surgery [facility] [id number] Name: Kathryn Evans Location: [facility] [id number] Date: 08/16/2023 Time: 3:22 PM CONSULTING SERVICE: Hospitalists REASON FOR CONSULT: "Ileus v SBO" HISTORY OF PRESENT ILLNESS: Kathryn Evans is a 48 year old female who presents for evaluation of ileus vs partial SBO. Patient was admitted to [facility] yesterday after presenting to the ED with abdominal pain, nausea/vomiting, and diarrhea. She has had these symptoms since 08/10. She went to the ED at [facility] and was discharged. Patient endorses chills but denies fever. She describes th pain as cramping and says it is diffuse. Patient's last BM was in the ED but has not had one since. An NGT was placed - no output recorded. She denies nausea at this time. Pain is overall improved but it comes and goes. She has continued to pass flatus since admission. PMH: Depression, HTN, Obesity, DM PSH: x3, Partial hysterectomy (2011), Abdominoplasty Pertinent Medications: None Patient's past history, medications, and allergies were reviewed. PHYSICAL EXAMINATION: Most Recent Vital Signs: BP: 157 mmHg/93 mmHg (08/16/23 1446) Pulse: 75 (08/16/23 1446) Temp: 36.39 C (08/16/23 1446) Resp: 16 (08/16/23 1446) SpO2: 93 % (08/16/23 1446) CONSTITUTIONAL: no acute distress CV: distally perfused, normal heart rate RESP/CHEST: normal respiratory effort ABDOMEN: soft, non-distended, mildly tender diffusely without rebound or guarding EXTREMITIES: no edema SKIN: warm, dry NEURO: awake, alert, oriented LABS: Lab results within last 7 days (see chart for full results) Units 08/16/23 0538 08/15/23 1316 WBC K/uL 8.89 14.46* HGB g/dL 12.1 14.9 PLT K/uL 241 320 Lab results within last 7 days (see chart for full results) Units 08/16/23 0538 08/15/23 1316 Sodium mmol/L 139 137 Potassium mmol/L 3.7 4.6 Chloride mmol/L 103 101 CO2 mmol/L 27 24 BUN mg/dL 14 13 Creatinine mg/dL 0.5 0.5 Glucose mg/dL 145* 149* Calcium mg/dL 8.0* 9.9 Magnesium mg/dL 1.7 -- Phosphorus mg/dL 3.2 -- Lab results within last 7 days (see chart for full results) Units 08/16/23 0538 08/15/23 1316 Protein g/dL 5.2* 7.0 Bilirubin, Total mg/dL 0.2 0.2 Alkaline Phosphatase U/L 86 116 AST U/L 13 16 ALT U/L 17 24 Lab results within last 7 days (see chart for full results) Units 08/16/23 0538 INR 1.1 IMAGING: CT A/P, 08/15/23: 1. Mild gastric and small bowel distention with no transition point identified. Findings suggest partial small bowel obstruction versus ileus. Consider continued radiographic monitoring as clinically warranted. 2. Hepatic steatosis. 3. Simple appearing 4 cm right ovarian cyst. No further imaging is recommended. (Reference: Pritesh) US ABD, 08/15/23: 1. No acute findings. 2. Echogenic liver suggestive of hepatic steatosis. XR OBSTRUCTIVE SERIES, 08/16/23: 1. The NG tube tip is in the stomach. 2. No acute cardiopulmonary process. 3. Nonspecific bowel gas pattern. No dilated loops of small bowel are visualized. ASSESSMENT & PLAN: Kathryn Evans is a 48 year old female presenting with abdominal pain, N/V/D and imaging concerning for SBO v ileus. Presentation more consistent with an enteritis which can mimic these on imaging. - Supportive care - Agree with stool pathogen panel - NGT to LCS. Consider clamp trial x 4-6 hours. If tolerates without nausea, worsening pain can remove - Remainder of care per primary team Discussed with Dr. Hernandez. Meron Ontiveros MD General Surgery PGY-5 Associated attestation - Jacinta Hernandez DO - 08/17/2023 8:55 AM EST I saw and evaluated the patient 08/16/23. I have reviewed the trainee note and agree. documented in this encounter Nursing Notes * Arie Pittman RN - 08/18/2023 1:30 PM EST 1300 PT DC with all belongings. * Sruthi Newman RN - 08/17/2023 9:32 PM EST 2042- Pt AOx4. Denies pain. No N/V. Pt denies having BM since 08/15, passing gas, abd soft, nontender. Assessment completed. Medicated per OCT. Call cornelius within reach. 0005- Pt c/o 03/07 headache, tylenol given per OCT. * Nubia Grover RN - 08/17/2023 11:32 AM EST 0930: Assessment completed by this RN. Pt is AOx4 laying in bed. Pt stated that she has a headache and felt nauseous after walking in the hallway. No emesis. Pt stated she does drink caffeine daily. See flowsheets for additional info. Call cornelius within reach. Bed at low level. 0937: Fluids stopped per verbal order from Dr. Dukes. Pt switched to ACHS now that she is eating. 1139: Dr. Dukes made aware that the pt still has a headache and is asking if she could have her diet advanced. PRN tylenol administered for headache. Coffee provided. 1341: Pt ambulated multiple laps independently in the hallway without difficulties. * Marily Valentin RN - 08/16/2023 8:35 PM EST Pt voiced to this RN a headache rated 6/10 that tylenol administered earlier did not help. IV site red and warm to touch and IV fluids stopped. No blood return noted and new access retrieved. Will administer PRN pain medication and monitor pain. Assessment charted by this RN. Pt notes no nausea andhas positive hypoactive bowel sounds. Pt notes she is passing gas. No further needs voiced. Call cornelius in reach 2100 Pt voices nausea after pain medication and PRN nausea medication administered. Ice pack also given for headache. IV fluids restarted after new IV site started. 0300 Pt continues to voice a headache 7/10. [place] text sent to Vivek Hedrick requesting a tylenol order to attempt to avoid administering too many narcotics and further affect motility. Tylenol administered and ice pack also given to pt. Will monitor. * Leonor Fischer RN - 08/16/2023 7:30 AM EST 0730 Pt resting in bed. Complaining of abdominal cramping. NT remains to LIS. Brown drainage noted.Placement checked with auscultation. Remains at 60.5cm at nare. No nausea at this time. IVF continues D5NSS at 100/hour. Assessment complete. See flow sheet for documentation. 1714 Pt tolerated NGT being clamped for 5 hours. NGT removed with out difficulty. Dr Mckeon updated.Pt advanced to clear liquid diet. * Ilana Ayoub RN - 08/15/2023 10:21 PM EST 1913: pt arrived to the floor via ED stretcher. Pt oriented to room, call cornelius within reach. Nursing assessment complete. Pt AAO x4, pt reports being drowsy. +1 edema noted to BLE. Lungs clearon RA. 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 Pt c/o abdominal pain / at this time. PRN morphine IVP administered at 2008. Bowel sounds hypoactive. NGT intact, measuring at 60.5 cm externally, hooked up to LIS. Draining yellow/brown drainage. 20g PIV in right arm, flushes. D5NSS initiated at 100 mL/hr at this time. Pt resting in bed, call cornelius within reach at this time. Dual Licensed Skin Assessment completed by CK Preciado and LISA Schumacher. The patient is/has a N/A Skin Breakdown (includes non blanchable erythema): No documented in this encounter ED Notes * Ze Castro MD - 08/15/2023 1:22 PM EST HISTORY OF PRESENT ILLNESS Kathryn Evans is a 48 year old female who presents to the ED for evaluation of Abdominal Pain. The patient was seen at 08/15/23 1320. 48-year-old female with past medical history significant for ADD, dyslipidemia, diabetes, tobacco use disorder, migraine headaches presents to the ER complaining of abdominal pain that began on 08/09/23 Location: epigastric and RUQ Onset: 08/09/23. Resolved and started again yesterday after eating dinner Treatments rendered prior to ER visit: Seen at [facility]. Negative CT on 08/10/23 Quality: cramping Severity: 7/10 Timing: constant Context: patient retains her GB and appendix Modifying factors: eating, drinking Associated Signs and Symptoms: Pain, nausea, vomiting, diarrhea. Denies chest pain, shortness for breath, fever, chills. No associated melena, hematochezia, hematemesis, coffee-ground emesis. Review of Systems Constitutional: Positive for appetite change, chills and diaphoresis. Negative for activity change,fatigue and fever. Respiratory: Negative for cough and shortness of breath. Cardiovascular: Negative for chest pain and palpitations. Gastrointestinal: Positive for abdominal pain, diarrhea, nausea and vomiting. Skin: Negative for rash. Neurological: Negative for dizziness, light-headedness and headaches. All other systems reviewed and are negative. The patient's allergies, past history, and medications were reviewed. PHYSICAL EXAM Initial Vitals (see all): BP 158/99 | Pulse 104 | Resp 18 | Temp 97.2 | O2 99 %, Room Air, None | Weight 116.1 kg | Height 170.2 cm | BMI 40.09 kg/m2 Initial Pain Assessment (see all): 7 (severe pain)/10, Cramps, location: abdomen ([facility] Adult Scale 0-10) Physical Exam Vitals and nursing note reviewed. Constitutional: General: She is awake. She is in acute distress (visibly uncomfortable female.). Appearance: Normal appearance. She is well-developed. She is obese. She is not ill-appearing, toxic-appearing or diaphoretic. HENT: Head: Normocephalic and atraumatic. Jaw: There is normal jaw occlusion. Mouth/Throat: Lips: [place]. Mouth: Mucous membranes are moist. Pharynx: Oropharynx is clear. Uvula midline. Cardiovascular: Rate and Rhythm: Normal rate and regular rhythm. Heart sounds: Normal heart sounds. Pulmonary: Effort: Pulmonary effort is normal. Breath sounds: Normal breath sounds and air entry. Abdominal: General: Bowel sounds are decreased. Palpations: Abdomen is soft. Tenderness: There is abdominal tenderness in the right upper quadrant, epigastric area and left upper quadrant. There is guarding. There is no right CVA tenderness, left CVA tenderness or rebound. Positive signs include Coto's sign. Skin: General: Skin is warm and dry. Capillary Refill: Capillary refill takes less than 2 seconds. Neurological: Mental Status: She is alert and oriented to person, place, and time. Psychiatric: Behavior: Behavior is cooperative. PROCEDURES AND TREATMENTS ED Orders | ED Results MEDICAL DECISION MAKING Nursing notes and vital signs were reviewed. ED consults were placed. ED Course as of 08/16/23 1239 Mon Aug 15, 2023 1331 Episodic RUQ pain [RO] 1332 Adult female with right upper quadrant pain, so degree episodic, had recent CT scan of abdomenat outside hospital ([facility]), I can not find that result at this time. Plan is to get ultrasound of gallbladder and other testing to clarify situation and control symptoms and make a determination regarding next steps [RO] 1403 EKG: NSR Rate: 90 bpm SD interval: 194 ms QRS duration: 84 ms QT/QTC: 390/477 ms Interpretation: no signs of acute ischemia/STEMI reviewed with attedning [JT] 1440 US: IMPRESSION: 1. No acute findings. 2. Echogenic liver suggestive of hepatic steatosis. [JT] 1442 Reviewed results with the patient. Will allow for IV fluids to infused reassess patient. Agreeable to a dose of Pepcid and Maalox while in the ER. [JT] 1526 Findings this visit included evidence of a degree of hepatic steatosis. Patient is notified ofboth the presence and intensity of the hepatic steatosis changes, and to what degree the liver function tests are currently elevated, and the degree to which those lab values could be related to the hepatic steatosis issue. I discussed with patient that suppression of dietary risks, particularly sugars, alcohol and fats, and avoidance of certain medications where possible, would likely at least significantly delay the progression of the hepatic steatosis toward cirrhosis, hopefully avoiding theendpoint of cirrhosis completely. Patient is considering making these dietary changes and is going to discuss this issue with their doctor and whether any of their medications could be part of the problem and if any medication changes could help prevent the progression of this disease process. [RO] 1551 Patient states that her pain is increasing again. Agreeable to a CT scan. [JT] 1632 Report given to attending who will assume full care of the patient at this time. [JT] 1643 Patient requesting additional medication for pain. Second dose of Morphine ordered [JT] 1648 Not much improvement p meds, CT pending [RO] 1649 Getting repeat troponin [RO] 1810 CT suggests small bowel obstruction versus ileus, stomach is very large, I feel NG tube is indicated in short term [RO] 1828 Dr. Hernandez: likely nonoperative, please discuss with hospitalist. Dr. Meek: after review, accepts for further care in the hospital. [RO] ED Course User Index [JT] Rufina Junior PA-C [RO] Ze Castro MD Differential Diagnoses Based on my history, physical exam, and evaluation, the differential includes, but is not limited, to the following diagnoses: Cholecystitis, choledocholithiasis, pancreatitis, cholelithiasis, ACS, GERD, peptic ulcer. Amount and/or Complexity of Data Reviewed Labs: ordered. Radiology: ordered. ECG/medicine tests: ordered. Risk OTC drugs. Prescription drug management. Decision regarding hospitalization. Clinical Impressions Hepatic steatosis Ileus (HCC) - vs partial small bowel obstruction Chest pain Disposition Admitted. I discussed the management of this patient with the admitting provider and I made a decision to admit the patient. Admission Order Ordered Status . 08/15/23 1831 Admit for Inpatient Services (incl ZPO) ONCE Completed Ze Castro was the attending physician who supervised the care of this patient. Rufina Junior PA-C Supervisory Addendum-PA I participated in the following activities of this patients care: the medical history, the physicalexam, medical decision making. Results interpretation: I agree with the study interpretation in this patient's care. Notes: Patient personally interviewed and examined and care coordinated in conjunction with Physician Knock Up Assembler. I agree with the assessment, treatment plan and disposition of the patient as recordedby the Physician Knock Up Assembler. My independent Hx/Exam/MDM includes the following: See my supervising attending physician attestation in the ED course section above. * Ariel, Sruthi Blue RN - 08/15/2023 12:37 PM EST Abdominal cramping and burning with nausea, diarrhea and belching. States she was seen at [facility] on August 10 for the same, did have improvement but woke this morning with similar symptoms. Reports sulfur taste with belching. Does retain appendix and gall bladder. Denies urinary symptoms. documented in this encounter Miscellaneous Notes * Pt Handout (on AVS) - Jaz Greene RN - 08/18/2023 12:04 PM EST Images from the original note were not included. [address]00 Small Bowel Obstruction A small bowel obstruction occurs when part or all of the small intestine (bowel) is blocked. As a result, digestive contents can?t move through the bowel and out of the body correctly. Treatment is needed right away to remove the blockage. This can ease painful symptoms. It can also prevent seriousproblems, such as tissue or bursting (rupture) of the small bowel. Without treatment, a smallbowel obstruction can be fatal. Small bowel obstruction can lead to tissue damage and even tissue . Causes of small bowel obstruction A small bowel obstruction can be caused by: Scar tissue (adhesions). These may form after belly (abdominal) surgery or an infection. Hernia. A hernia is when an organ pushes through a weak spot or tear in the abdomen wall. Part of the small bowel can push out and be seen as a bulge under the belly. Hernias can also occur internally. Certain health problems. These include when part of the bowel slides inside another part (intussusception). Other causes include irritable bowel disease such as Crohn?s disease, and inflammation and sores in the intestine (ulcerative colitis). Abnormal tissue growths (tumors). These can form on the inside or outside of the small bowel. They are usually due to cancer. Symptoms of small bowel obstruction Common symptoms include: Belly cramping and pain Belly swelling and bloating Upset stomach (nausea) and vomiting Can't pass gas Can't pass stool (constipation) Diarrhea Diagnosing small bowel obstruction Your provider will ask about your symptoms and health history. You?ll also have a physical exam. Tests may also be done to confirm the problem. These can include: Imaging tests. These provide pictures of the small bowel. Common tests include X-rays and a CT scan. Blood tests. These check for infection and other problems, such as excess fluid loss (dehydration). Upper GI (gastrointestinal) series with a small bowel follow-through. This test takes X-rays of the upper digestive tract from the mouth through the small bowel. An X-ray dye (contrast fluid) is used. The dye coats the inside of your upper digestive tract so it will show up clearly on X-rays. Treating small bowel obstruction Treatment takes place in a hospital. As part of your care, the following may be done: No food or drink is given by mouth. This allows your bowels to rest. An IV (intravenous) line is placed in a vein in your arm or hand. The IV line is used to give fluids and medicines. These may be needed to ease pain, nausea, and other symptoms. They may also be needed to treat or prevent infections. A soft, thin, flexible tube (nasogastric tube) is inserted through your nose and into your stomach. The tube is used to remove extra gas and fluid in your stomach so that the bowels can rest. Thishelps ease symptoms such as pain and swelling. In some cases, surgery is done. This may be needed if the small bowel is almost or totally blocked, if symptoms continue even after treatment, or if there is a hole in the bowel (bowel perforation). During surgery, the blockage is removed. Parts of the bowel may also be removed if there is tissue . Other repair may be done as well, depending on what caused the blockage. Your healthcare provider will give you more information about surgery, if needed. You?ll be watched closely in the hospital until your symptoms improve. Your provider will tell you when you can go home. Long-term concerns After treatment, most people recover with no lasting effects. If a long part of the bowel is removed, there is a greater chance for lifelong digestive problems. Bowel movements may become irregular. Work with your provider to learn the best ways to manage any symptoms you may have, and to protect your health. When to call your healthcare provider Call your provider right away or seek immediate medical care if you have any of the following: Severe pain (call 911) Belly swelling or cramping that won?t go away Can?t pass stool or gas Nausea or vomiting (especially if the vomit looks or smells like stool) Last Reviewed Date: 10/27/202119993728-6861 [employer]. All rights reserved. This information is not intended as a substitute for professional medical care. Always follow your healthcare professional's instructions. * Pt Handout (on AVS) - Jaz Greene RN - 08/18/2023 12:02 PM EST Images from the original note were not included. [id number] Ondansetron Oral Tablet Brands: Zofran Uses For nausea or vomiting. Instructions Keep the medicine at room temperature. Avoid heat and direct light. Tell your doctor if you have severe or persistent sweating, diarrhea or vomiting. These can increase your risk of a serious side effect. If you are using this medicine regularly, it is important to take each dose of medicine on time. Keep taking the medicine even if you feel well. If you forget to take a dose on time, take it as soon as you remember. If it is almost time for thenext dose, do not take the missed dose. Return to your normal schedule. Do not take 2 doses at one time. Drug interactions can change how medicines work or increase risk for side effects. Tell your healthcare providers about all medicines taken. Include prescription and brnj-uca-fngxyoa medicines, vitamins, and herbal medicines. Speak with your doctor or pharmacist before starting or stopping any medicine. Tell your doctor if symptoms do not get better or if they get worse. Keep all appointments for medical exams and tests while on this medicine. Cautions Tell your doctor and pharmacist if you ever had an allergic reaction to a medicine. Some patients taking this medicine have experienced serious side effects. Please speak with your doctor to understand the risks and benefits associated with this medicine. Do not use the medication any more than instructed. This medicine may cause dizziness or fainting. Do not stand or sit up quickly. Your ability to stay alert or to react quickly may be impaired by this medicine. Do not drive or operate machinery until you know how this medicine will affect you. Please check with your doctor before drinking alcohol while on this medicine. Call the doctor if there are any signs of confusion or unusual changes in behavior. It is unknown if this medicine passes into breast milk. Ask your doctor before . During , this medicine should be used only when clearly needed. Talk to your doctor about the risks and benefits. Do not take Vantage's wort while on this medicine. Do not share this medicine with anyone who has not been prescribed this medicine. Side Effects The following is a list of some common side effects from this medicine. Please speak with your doctor about what you should do if you experience these or other side effects. constipation dizziness or drowsiness lack of energy and tiredness headaches lightheadedness Call your doctor or get medical help right away if you notice any of these more serious side effects: agitated feeling or trouble sleeping loss of balance chest pain diarrhea fainting hallucinations (unusual thoughts, seeing or hearing things that are not real) fast, irregular, or slow heartbeat muscle aches, spasms or abnormal movements muscle trembling restlessness stomach pain blurring or changes of vision severe or persistent vomiting A few people may have an allergic reaction to this medicine. Symptoms can include difficulty breathing, skin rash, itching, swelling, or severe dizziness. If you notice any of these symptoms, seek medical help quickly. Extra Please speak with your doctor, nurse, or pharmacist if you have any questions about this medicine. [email or web address] IMPORTANT NOTE: This document tells you briefly how to take your medicine, but it does not tell youall there is to know about it. Your doctor or pharmacist may give you other documents about your medicine. Please talk to them if you have any questions. Always follow their advice. There is a more complete description of this medicine available in [place]. Scan this code on your smartphone or tablet or use the web address below. You can also ask your pharmacist for a printout. If you have any questions, please ask your pharmacist. The display and use of this drug information is subject to Terms of Use. Copyright(c) 2022 [employer]. 4451-0145 [employer]. All rights reserved. This information is not intended as a substitute for professional medical care. Always follow your healthcare professional's instructions. * Pt Handout (on AVS) - Jaz Greene RN - 08/18/2023 12:02 PM EST Images from the original note were not included. [id number] Omeprazole Delayed Release Oral Capsule Brands: Prilosec Uses This medicine is used for the following purposes: indigestion inflammation of stomach inflammation of the esophagus stomach acid stomach acid reflux ulcers in stomach or intestines ulcers in stomach or intestines Instructions Swallow the medicine without crushing or chewing it. Take the medicine before eating. This medicine will work best if you take it at about the same time every day. Store at room temperature away from heat, light, and moisture. Do not keep in the bathroom. This medicine can reduce the absorption of other medicines. Talk to your doctor or pharmacist aboutthe best times to use this product. If you forget to take a dose on time, take it as soon as you remember. If it is almost time for thenext dose, do not take the missed dose. Return to your normal schedule. Do not take 2 doses at one time. Drug interactions can change how medicines work or increase risk for side effects. Tell your healthcare providers about all medicines taken. Include prescription and auew-doj-cctycnc medicines, vitamins, and herbal medicines. Speak with your doctor or pharmacist before starting or stopping any medicine. Tell your doctor if symptoms do not get better or if they get worse. This medicine may affect the strength of your bones. If you have or are at increased risk for osteoporosis (weakening of the bones), your doctor may recommend foods with calcium and vitamin D. Cautions Tell your doctor and pharmacist if you ever had an allergic reaction to a medicine. Do not use the medication any more than instructed. Please tell your doctor if you have moderate to severe diarrhea while on this medicine. Do not treat the diarrhea with [id number]-gcj-[id number] diarrhea medicine. This medicine passes into breast milk. Ask your doctor before . During , this medicine should be used only when clearly needed. Talk to your doctor about the risks and benefits. Do not share this medicine with anyone who has not been prescribed this medicine. Some patients have serious side effects from this medicine. Ask your pharmacist to show you the information from the Food and Drug Administration (FDA) and discuss it with you. Side Effects The following is a list of some common side effects from this medicine. Please speak with your doctor about what you should do if you experience these or other side effects. headaches stomach upset or abdominal pain Call your doctor or get medical help right away if you notice any of these more serious side effects: severe or persistent abdominal pain severe, watery or bloody diarrhea fever swelling in the neck or throat numbness or tingling in hands and feet fast or irregular heart beats pain in the joints signs of kidney damage (such as change in urine color or bubbly urine) muscle aches, spasms or abnormal movements butterfly-shaped rash on nose and cheeks seizures blood in stool A few people may have an allergic reaction to this medicine. Symptoms can include difficulty breathing, skin rash, itching, swelling, or severe dizziness. If you notice any of these symptoms, seek medical help quickly. Extra Please speak with your doctor, nurse, or pharmacist if you have any questions about this medicine. [email or web address] IMPORTANT NOTE: This document tells you briefly how to take your medicine, but it does not tell youall there is to know about it. Your doctor or pharmacist may give you other documents about your medicine. Please talk to them if you have any questions. Always follow their advice. There is a more complete description of this medicine available in [place]i. Scan this code on your smartphone or tablet or use the web address below. You can also ask your pharmacist for a printout. If you have any questions, please ask your pharmacist. The display and use of this drug information is subject to Terms of Use. Copyright(c) 2022 [employer]. [employer]. All rights reserved. This information is not intended as a substitute for professional medical care. Always follow your healthcare professional's instructions. * Care Plan - Marily Valentin RN - 08/17/2023 6:52 AM EST Clinical Goal(s): Pt will have no emesis this shift (08/16/23 2300) Possible barriers to meeting goal(s)/advancing plan of care: SBO Stability of the patient: Moderately stable - low risk of patient condition declining or worsening Summary regarding today's goal(s): Met: Recommendations: Monitor for nausea, encourage ambulation * Care Plan - Saranya Figueroa RN - 08/16/2023 5:06 AM EST Clinical Goal(s): pt will have no vomiting this shift (08/15/23 2300) Possible barriers to meeting goal(s)/advancing plan of care: SBO Stability of the patient: Moderately stable - low risk of patient condition declining or worsening Summary regarding today's goal(s): Met: Pt remained free of vomiting through the night Recommendations: continue with current POC * ED Aboriginal Ceremonial Celebrant Note - Sonia Muhammad RN - 08/15/2023 6:35 PM EST NG tube successfully placed. 600 mL of light brown output into canister. Xray @ the bedside to confirm the placement. * Medical Necessity - Jame Pathak, Utilization Review Staff - 08/15/2023 6:13 PM EST AdmissionCare Guideline: Abdominal Pain, Undiagnosed, Inpatient Based on the indications selected for the patient, the bed status of Admit to Inpatient was determined to be MET The following indications were selected as present at the time of evaluation of the patient: Hemodynamic instability, as indicated by 1 or more of the following: - Vital sign abnormality not readily corrected by appropriate treatment, as indicated by 1 or more ofthe following: - Tachycardia that persists despite appropriate treatment (eg, volume repletion, treatment of pain, treatment of underlying cause) - - Identification of etiology or finding that requires inpatient care (eg, aortic dissection, bowel perforation, bowel ischemia, visceral organ torsion, intestinal obstruction) Additional Information: Epigastric pain Hepatic steatosis moderate esterase AdmissionCare documentation entered by: Jame Pathak [facility] CME, 27th edition, Copyright 2022 [facility] [employer] All Rights Reserved. [id number] Solely for purpose of utilization review and payment; not a diagnostic tool * ED Aboriginal Ceremonial Celebrant Note - Sonia Muhammad RN - 08/15/2023 5:54 PM EST Pt pulse ox dropped to 88 % after dilaudid administration. 2 L NC applied to patient @ this time. * ED Aboriginal Ceremonial Celebrant Note - Sonia Muhammad RN - 08/15/2023 3:56 PM EST Patient up and walking to the ed bathroom @ this time. Strong and steady independent gait. * ED Aboriginal Ceremonial Celebrant Note - Prisca Silvestre RN - 08/15/2023 1:44 PM EST Pt taken to US at this time. documented in this encounter Plan of Treatment Upcoming Encounters Date Type Department Care Team (Late st Contact Info) Description 08/30/2023 11:00 AM EST Office Visit [facility] [address] [place], [place] [address] Man Stovall, DO [address] [place], [place] [address] 09/23/2023 2:40 PM EST Office Visit [facility] [address] [place], [place] [address] Kristina Bryant, DO [address] [place] [address] Health Maintenance Due Date Last Done Comments [...] Not on filedocumented as of this encounter Procedures Procedure Name Priority Date/Time Associated Diagnosis Comments GLUCOSE METER, POINT OF CARE DELVIS 08/18/2023 11:09 AM EST GLUCOSE METER, POINT OF CARE DELVIS 08/18/2023 7:35 AM EST BASIC METABOLIC PANEL Routine 08/18/2023 4:45 AM EST CBC Routine 08/18/2023 4:45 AM EST GLUCOSE METER, POINT OF CARE DELVIS 08/17/2023 9:35 PM EST GLUCOSE METER, POINT OF CARE DELVIS 08/17/2023 4:56 PM EST BETA-HCG, QUANTITATIVE Routine 2:10 PM EST GLUCOSE METER, POINT OF CARE DELVIS 08/17/2023 11:08 AM EST BASIC METABOLIC PANEL Routine 08/17/2023 5:29 AM EST CBC Routine 08/17/2023 5:29 AM EST GLUCOSE METER, POINT OF CARE DELVIS 08/17/2023 12:06 AM EST GLUCOSE METER, POINT OF CARE DELVIS 08/16/2023 6:12 PM EST GLUCOSE METER, POINT OF CARE DELVIS 08/16/2023 11:33 AM EST XR ABDOMEN OBSTRUCT SERIES W CHEST 1 VIEW Routine 08/16/2023 6:58 AM EST GLUCOSE METER, POINT OF CARE DELVIS 08/16/2023 6:22 AM EST COMPREHENSIVE METABOLIC PANEL Routine 08/16/2023 5:38 AM EST PT INR Routine 08/16/2023 5:38 AM EST PHOSPHORUS Routine 08/16/2023 5:38 AM EST CBC Routine 08/16/2023 5:38 AM EST MAGNESIUM Routine 08/16/2023 5:38 AM EST GLUCOSE METER, POINT OF CARE DELVIS 08/16/2023 12:02 AM EST GLUCOSE METER, POINT OF CARE DELVIS 08/15/2023 8:02 PM EST TROPONIN T, HIGH SENSITIVITY STAT 08/15/2023 7:36 PM EST XR ABDOMEN 1 VIEW STAT 08/15/2023 6:3 4 PM EST CULTURE, URINE, QUANTITATIVE STAT 08/15/2023 5:[address] ABD/PELVIS W IV CONTRAST - WO ORAL CONTRAST STAT 08/15/2023 5:25 PM EST MICROSCOPIC EXAM, URINE STAT 08/15/2023 4:05 PM EST URINALYSIS, REFLEX TO MICROSCOPIC STAT 08/15/2023 4:05 PM EST US ABDOMEN LIMITED STAT 08/15/2023 2: 21 PM EST XR CHEST 1 VIEW STAT 08/15/2023 2:01 PM EST EXTRA LIGHT BLUE TOP STAT 08/15/2023 1:16 PM EST DIFFERENTIAL, AUTOMATED STAT 08/15/2023 1:16 PM EST TROPONIN T, HIGH SENSITIVITY Add-on 08/15/2023 1:16 PM EST COMPREHENSIVE METABOLIC PANEL STAT 08/15/2023 1:16 PM EST CBC STAT 08/15/2023 1:16 PM EST LIPASE STAT 08/15/2023 1:16 PM EST CBC STAT 08/15/2023 1:16 PM EST HC ECG TRACING ONLY STAT 08/15/2023 1 2:42 PM EST Abdominal pain documented in this encounter Results * (ABNORMAL) GLUCOSE METER, POINT OF CARE (08/18/2023 11:09 AM EST) Glucose Meter 150(H) 70 - 120 mg/dL 08/18/2023 12:09 PM EST [facility] Blood Whole blood specimen / Unknown 08/18/2023 11:09 AM EST 08/18/2023 12:09 PM EST Krystian Dukes MD LAB POINT OF CARE TE ST DOCKED DEVICE UNSOLICITED RESULTS [facility] [address] [place] [address] * (ABNORMAL) GLUCOSE METER, POINT OF CARE (08/18/2023 7:35 AM EST) Glucose Meter 121(H) 70 - 120 mg/dL 08/18/2023 7:38 AM EST [facility] Blood Whole blood specimen / Unknown 08/18/2023 7:35 AM EST 08/18/2023 7:38 AM EST Krystian Dukes MD LAB POINT OF CARE TE ST DOCKED DEVICE UNSOLICITED RESULTS [facility] [address] [place] [address] * (ABNORMAL) BASIC METABOLIC PANEL (08/18/2023 4:45 AM EST) BUN 10 6 - 20 mg/dL 08/18/2023 5:40 AM EST LABORATORY [facility] Creatinine 0.5 0.5 - 1.0 mg/dL 08/18/2023 5:40 AM EST LABORATORY [facility] Estimated Glomerular Filtration Rate >90 >=60 mL/min 08/18/2023 5:40 AM EST LABORATORY [facility] Comment:eGFR is calculated b ased on the CKD-EPI 2020 equation Sodium 139 135 - 146 mmol/L 08/18/2023 5:40 AM EST LABORATORY [facility] Potassium 3.4(L) 3.5 - 5.1 mmol/L 08/18/2023 5:40 AM EST LABORATORY [facility] Chloride 106 98 - 107 mmol/L 08/18/2023 5:40 AM EST LAB[facility]ATORY [facility] CO2 26 22 - 32 mmol/L 08/18/2023 5:40 AM EST LABORATORY [facility] Anion Gap 7 7 - 15 mmol/L 08/18/2023 5:40 AM EST LAB[facility]ATORY [facility] Glucose 113 70 - 120 mg/dL 08/18/2023 5:40 AM EST LAB[facility]ATORY [facility] Calcium 8.4 8.4 - 10.2 mg/dL 08/18/2023 5:40 AM EST LAB[facility]ATORY [facility] Blood Venous blood specimen / Unknown Venipuncture / Unknown 08/18/2023 4:45 AM EST 08/18/2023 5:17 AM EST Krystian Dukes MD LAB BLOOD ORDERABLES LABORATORY [address] [address] * (ABNORMAL) CBC (08/18/2023 4:45 AM EST) WBC 8.20 4.00 - 10.80 K/uL 08/18/2023 5:24 AM EST LABORATORY [facility] RBC 3.52 3.85 - 5.15 M/uL 08/18/2023 5:24 AM EST LAB[facility]ATORY [facility] HGB 11.5(L) 12.0 - 15.3 g/dL 08/18/2023 5:24 AM EST LABORATORY [facility] HCT 34.4(L) 36.0 - 45.2 % 08/18/2023 5:24 AM EST LABORATORY [facility] MCV 97.7 81.5 - 97.5 fL 08/18/2023 5:24 AM EST LABORATORY [facility] MCH 32.7 27.0 - 34.0 pg 08/18/2023 5:24 AM EST LABORATORY [facility] MCHC 33.4 32.0 - 36.0 g/dL 08/18/2023 5:24 AM EST LABORATORY [facility] RDW 13.5 11.5 - 15.5 % 08/18/2023 5:24 AM EST LABORATORY [facility] PLT 203 140 - 400 K/uL 08/18/2023 5:24 AM EST LABORATORY [facility] MPV 10.7 6.6 - 11.1 fL 08/18/2023 5:24 AM EST LABORATORY [facility] nRBCs 0 <=0 /100 WBCs 08/18/2023 5:24 AM EST LABORATORY [facility] Blood Venous blood specimen / Unknown Venipuncture / Unknown 08/18/2023 4:45 AM EST 08/18/2023 5:17 AM EST Krystian Dukes MD LAB BLOOD ORDERABLES LABORATORY [address] [address] * GLUCOSE METER, POINT OF CARE (08/17/2023 9:35 PM EST) Glucose Meter 102 70 - 120 mg/dL 08/17/2023 9:44 PM EST [facility] Blood Whole blood specimen / Unknown 08/17/2023 9:35 PM EST 08/17/2023 9:44 PM EST Krystian Dukes MD LAB POINT OF CARE TE ST DOCKED DEVICE UNSOLICITED RESULTS Performing Organization Address City/[facility]/ZIP Co de Phone Number [facility] [address] [place] [phone] * GLUCOSE METER, POINT OF CARE (08/17/2023 4:56 PM EST) Glucose Meter 104 70 - 120 mg/dL 08/17/2023 4:58 PM EST [facility] Blood Whole blood specimen / Unknown 08/17/2023 4:56 PM EST 08/17/2023 4:58 PM EST Krystian Dukes MD LAB POINT OF CARE TE ST DOCKED DEVICE UNSOLICITED RESULTS Performing Organization Address [facility]/ZIP Co de Phone Number [facility] [address] [place] [address] * BETA-HCG, QUANTITATIVE (08/17/2023 2:10 PM EST) Beta-HCG, Quantitative <0.1 <=1.0 mIU/mL 08/17/2023 2:59 PM EST LABORATORY [facility] Blood Venous blood specimen / Unknown Venipuncture / Unknown 08/17/2023 2:10 PM EST 08/17/2023 2:14 PM EST Narrative LABORATORY [facility] - 08/17/2023 2:59 PM EST hCG can serve as a screening assay [...] for postmenopausal women is <= 7 mIU/mL. Krystian Dukes MD LAB BLOOD ORDERABLES Performing Organization Address [facility] Co de Phone Number LABORATORY [address] [phone] * GLUCOSE METER, POINT OF CARE (08/17/2023 11:08 AM EST) Glucose Meter 117 70 - 120 mg/dL 08/17/2023 12:35 PM EST [facility] Blood Whole blood specimen / Unknown 08/17/2023 11:08 AM EST 08/17/2023 12:35 PM EST Krystian Dukes MD LAB POINT OF CARE TE ST DOCKED DEVICE UNSOLICITED RESULTS Performing Organization Address City/[facility]/ZIP Co de Phone Number [facility] [address] [facility] [place] [address] * (ABNORMAL) BASIC METABOLIC PANEL (08/17/2023 5:29 AM EST) BUN 10 6 - 20 mg/dL 08/17/2023 6:13 AM EST LABORATORY [facility] Creatinine 0.5 0.5 - 1.0 mg/dL 08/17/2023 6:13 AM EST LABORATORY [facility] Estimated Glomerular Filtration Rate >90 >=60 mL/min 08/17/2023 6:13 AM EST LABORATORY [facility] Comment:eGFR is calculated b ased on the CKD-EPI 2020 equation Sodium 139 135 - 146 mmol/L 08/17/2023 6:13 AM EST LABORATORY [facility] Potassium 3.4(L) 3.5 - 5.1 mmol/L 08/17/2023 6:13 AM EST LABORATORY [facility] Chloride 105 98 - 107 mmol/L 08/17/2023 6:13 AM EST LAB[facility]ATORY [facility] CO2 26 22 - 32 mmol/L 08/17/2023 6:13 AM EST LAB[facility]ATORY [facility] Anion Gap 8 7 - 15 mmol/L 08/17/2023 6:13 AM EST LAB[facility]ATORY [facility] Glucose 130(H) 70 - 120 mg/dL 08/17/2023 6:13 AM EST LAB[facility]ATORY [facility] Calcium 7.9(L) 8.4 - 10.2 mg/dL 08/17/2023 6:13 AM EST LAB[facility]ATORY [facility] Blood Venous blood specimen / Unknown Venipuncture / Unknown 08/17/2023 5:29 AM EST 08/17/2023 5:52 AM EST Arturo Mckeon MD LAB BLOOD ORDERABLE S LABORATORY GL [address] [facility] [place] [address] * (ABNORMAL) CBC (08/17/2023 5:29 AM EST) WBC 7.99 4.00 - 10.80 K/uL 08/17/2023 6:03 AM EST LABORATORY [facility] RBC 3.58 3.85 - 5.15 M/uL 08/17/2023 6:03 AM EST LABORATORY [facility] HGB 11.1(L) 12.0 - 15.3 g/dL 08/17/2023 6:03 AM EST LABORATORY [facility] HCT 35.6(L) 36.0 - 45.2 % 08/17/2023 6:03 AM EST LABORATORY [facility] MCV 99.4 81.5 - 97.5 fL 08/17/2023 6:03 AM EST LABORATORY [facility] MCH 31.0 27.0 - 34.0 pg 08/17/2023 6:03 AM EST LABORATORY [facility] MCHC 31.2 32.0 - 36.0 g/dL 08/17/2023 6:03 AM EST LABORATORY [facility] RDW 13.6 11.5 - 15.5 % 08/17/2023 6:03 AM EST LABORATORY [facility] PLT 210 140 - 400 K/uL 08/17/2023 6:03 AM EST LABORATORY [facility] MPV 10.5 6.6 - 11.1 fL 08/17/2023 6:03 AM EST LABORATORY [facility] nRBCs 0 <=0 /100 WBCs 08/17/2023 6:03 AM EST LABORATORY [facility] Blood Venous blood specimen / Unknown Venipuncture / Unknown 08/17/2023 5:29 AM EST 08/17/2023 5:52 AM EST Arturo Mckeon MD LAB BLOOD ORDERABLE S LABORATORY [address] [address] * (ABNORMAL) GLUCOSE METER, POINT OF CARE (08/17/2023 12:06 AM EST) Glucose Meter 124(H) 70 - 120 mg/dL 08/17/2023 8:00 AM EST [facility] Blood Whole blood specimen / Unknown 08/17/2023 12:06 AM EST 08/17/2023 8:00 AM EST Krystian Dukes MD LAB POINT OF CARE TE ST DOCKED DEVICE UNSOLICITED RESULTS [facility] [address] [place] [address] * (ABNORMAL) GLUCOSE METER, POINT OF CARE (08/16/2023 6:12 PM EST) Glucose Meter 139(H) 70 - 120 mg/dL 08/16/2023 6:17 PM EST [facility] Blood Whole blood specimen / Unknown 08/16/2023 6:12 PM EST 08/16/2023 6:17 PM EST Arturo Mckeon MD LAB POINT OF CARE T EST DOCKED DEVICE UNSOLICITED RESULTS Performing Organization Address City/[facility] Co de Phone Number [facility] [address] [place] [address] * (ABNORMAL) GLUCOSE METER, POINT OF CARE (08/16/2023 11:33 AM EST) Glucose Meter 154(H) 70 - 120 mg/dL 08/16/2023 12:15 PM EST [facility] Blood Whole blood specimen / Unknown 08/16/2023 11:33 AM EST 08/16/2023 12:15 PM EST Arturo Mckeon MD LAB POINT OF CARE T EST DOCKED DEVICE UNSOLICITED RESULTS Performing Organization Address City/[facility] Co de Phone Number [facility] [address] [place] [address] * XR ABDOMEN OBSTRUCT SERIES W CHEST 1 VIEW (08/16/2023 6:58 AM EST) Anatomical Region Laterality Modality Abdomen, Pelvis Digital Radiogra phy 08/16/2023 6:45 AM EST Impressions 08/16/2023 8:32 AM EST IMPRESSION: 1. The NG tube tip is in the stomach. 2. No acute cardiopulmonary process. 3. Nonspecific bowel gas pattern. No dilated loops of small bowel are visualized. THIS DOCUMENT HAS BEEN ELECTRONICALLY SIGNED BY ONDINA RUIZ, Narrative 08/16/2023 8:32 AM EST PROCEDURE INFORMATION: Exam: XR Complete Acute Abdomen Series Including Chest Exam date and time: 08/16/2023 6:45 AM Age: 48 years old Clinical indication: Other: Partial sbo vs ileus, has ngt TECHNIQUE: Imaging protocol: Radiologic exam. Complete acute abdomen series, including 2 or more views of the abdomen and a single view chest. COMPARISON: DX XR ABDOMEN 1 VIEW 08/15/2023 6:26 PM FINDINGS: Lines, tubes, and devices: The NG tube tip and side hole are within the stomach. Lungs: No focal consolidation. A horizontal streaky density in the left lung bases compatible with atelectasis. Pleural spaces: No significant effusion or pneumothorax. Heart/Mediastinum: No cardiomegaly. Gastrointestinal tract: The bowel gas pattern is nonspecific. No dilated loops of small bowel are visualized. Intraperitoneal space: No free intraperitoneal air. Bones/joints: Unremarkable. Soft tissues: Normal. Procedure Note Ondina Ruiz DO - 08/16/2023 PROCEDURE INFORMATION: Exam: XR Complete Acute Abdomen Series Including Chest Exam date and time: 08/16/2023 6:45 AM Age: 48 years old Clinical indication: Other: Partial sbo vs ileus, has ngt TECHNIQUE: Imaging protocol: Radiologic exam. Complete acute abdomen series,including 2 or more views of the abdomen and a single view chest. COMPARISON: DX XR ABDOMEN 1 VIEW 08/15/2023 6:26 PM FINDINGS: Lines, tubes, and devices: The NG tube tip and side hole are within the stomach. Lungs: No focal consolidation. A horizontal streaky density in the leftlung bases compatible with atelectasis. Pleural spaces: No significant effusion or pneumothorax. Heart/Mediastinum: No cardiomegaly. Gastrointestinal tract: The bowel gas pattern is nonspecific. No dilated loops of small bowel are visualized. Intraperitoneal space: No free intraperitoneal air. Bones/joints: Unremarkable. Soft tissues: Normal. IMPRESSION IMPRESSION: 1. The NG tube tip is in the stomach. 2. No acute cardiopulmonary process. 3. Nonspecific bowel gas pattern. No dilated loops of small bowel are visualized. THIS DOCUMENT HAS BEEN ELECTRONICALLY SIGNED BY ONDINA RUIZ DO [facility] ([facility]) * (ABNORMAL) GLUCOSE METER, POINT OF CARE (08/16/2023 6:22 AM EST) Glucose Meter 133(H) 70 - 120 mg/dL 08/16/2023 7:12 AM EST [facility] Blood Whole blood specimen / Unknown 08/16/2023 6:22 AM EST 08/16/2023 7:12 AM EST Arturo Mckeon MD LAB POINT OF CARE T EST DOCKED DEVICE UNSOLICITED RESULTS [facility] [address] [place] [address] * (ABNORMAL) COMPREHENSIVE METABOLIC PANEL (08/16/2023 5:38 AM EST) BUN 14 6 - 20 mg/dL 08/16/2023 6:59 AM EST LABORATORY [facility] Creatinine 0.5 0.5 - 1.0 mg/dL 08/16/2023 6:59 AM EST LABORATORY [facility] Estimated Glomerular Filtration Rate >90 >=60 mL/min 08/16/2023 6:59 AM EST LABORATORY [facility] Comment:eGFR is calculated b ased on the CKD-EPI 2020 equation Sodium 139 135 - 146 mmol/L 08/16/2023 6:59 AM EST LABORATORY [facility] Potassium 3.7 3.5 - 5.1 mmol/L 08/16/2023 6:59 AM EST LAB[facility]ATORY [facility] Chloride 103 98 - 107 mmol/L 08/16/2023 6:59 AM EST LABORATORY [facility] CO2 27 22 - 32 mmol/L 08/16/2023 6:59 AM EST LABORATORY [facility] Anion Gap 9 7 - 15 mmol/L 08/16/2023 6:59 AM EST LABORATORY [facility] Glucose 145(H) 70 - 120 mg/dL 08/16/2023 6:59 AM EST LABORATORY [facility] Albumin 3.0(L) 3.8 - 5.0 g/dL 08/16/2023 6:59 AM EST LABORATORY [facility] AST 13 10 - 35 U/L 08/16/2023 6:59 AM EST LABORATORY [facility] Alkaline Phosphatase 86 35 - 130 U/L 08/16/2023 6:59 AM EST LABORATORY [facility] Bilirubin, Total 0.2 <=1.2 mg/dL 08/16/2023 6:59 AM EST LABORATORY [facility] Calcium 8.0(L) 8.4 - 10.2 mg/dL 08/16/2023 6:59 AM EST LABORATORY [facility] Protein 5.2(L) 6.0 - 8.3 g/dL 08/16/2023 6:59 AM EST LABORATORY [facility] ALT 17 10 - 35 U/L 08/16/2023 6:59 AM EST LABORATORY [facility] Blood Venous blood specimen / Unknown Venipuncture / Unknown 08/16/2023 5:38 AM EST 08/16/2023 6:35 AM EST [facility] LAB BLOOD OR DERABLES Performing Organization Address City/[facility] Co de Phone Number LABORATORY [address] [address] * PT INR (08/16/2023 5:38 AM EST) Prothrombin Time 14.5 11.6 - 15.2 seconds 08/16/2023 6:35 AM EST LABORATORY GL INR 1.1 0.8 - 1.2 08/16/2023 6:35 AM EST LABORATORY GL Blood Venous blood specimen / Unknown Venipuncture / Unknown 08/16/2023 5:38 AM EST 08/16/2023 6:09 AM EST Narrative LABORATORY [facility] - 08/16/2023 6:35 AM EST Warfarin Therapy INR: 2.0-3.0 conventional anticoagulation INR: 2.5-3.5 high intensity anticoagulation [facility] LAB BLOOD OR DERABLES LABORATORY [address] [address] * PHOSPHORUS (08/16/2023 5:38 AM EST) Phosphorus 3.2 2.5 - 4.8 mg/dL 08/16/2023 6:59 AM EST LABORATORY GL Blood Venous blood specimen / Unknown Venipuncture / Unknown 08/16/2023 5:38 AM EST 08/16/2023 6:35 AM EST Lola Gambino [facility] LAB BLOOD OR DERABLES Performing Organization Address City/[facility]/ZIP Co de Phone Number LABORATORY [facility] [address] [place], [place] [phone] * MAGNESIUM (08/16/2023 5:38 AM EST) Magnesium 1.7 1.5 - 2.6 mg/dL 08/16/2023 6:59 AM EST LABORATORY GL Blood Venous blood specimen / Unknown Venipuncture / Unknown 08/16/2023 5:38 AM EST 08/16/2023 6:35 AM EST [facility] Performing Organization Address [facility] Co de Phone Number LABORATORY [facility] [address] [place], [place] [phone] * CBC (08/16/2023 5:38 AM EST) WBC 8.89 4.00 - 10.80 K/uL 08/16/2023 6:25 AM EST LABORATORY GL RBC 3.92 3.85 - 5.15 M/uL 08/16/2023 6:25 AM EST LABORATORY GL HGB 12.1 12.0 - 15.3 g/dL 08/16/2023 6:25 AM EST LABORATORY GL HCT 38.5 36.0 - 45.2 % 08/16/2023 6:25 AM EST LABORATORY GL MCV 98.2 81.5 - 97.5 fL 08/16/2023 6:25 AM EST LABORATORY GL MCH 30.9 27.0 - 34.0 pg 08/16/2023 6:25 AM EST LABORATORY GL MCHC 31.4 32.0 - 36.0 g/dL 08/16/2023 6:25 AM EST LABORATORY GL RDW 13.6 11.5 - 15.5 % 08/16/2023 6:25 AM EST LABORATORY GL PLT 241 140 - 400 K/uL 08/16/2023 6:25 AM EST LABORATORY [facility] MPV 10.9 6.6 - 11.1 fL 08/16/2023 6:25 AM EST LABORATORY [facility] nRBCs 0 <=0 /100 WBCs 08/16/2023 6:25 AM EST LABORATORY [facility] Blood Venous blood specimen / Unknown Venipuncture / Unknown 08/16/2023 5:38 AM EST 08/16/2023 6:09 AM EST [facility] LAB BLOOD OR DERABLES LABORATORY [facility] [address] [place] [address] * (ABNORMAL) GLUCOSE METER, POINT OF CARE (08/16/2023 12:02 AM EST) Glucose Meter 153(H) 70 - 120 mg/dL 08/16/2023 7:11 AM EST [facility] Blood Whole blood specimen / Unknown 08/16/2023 12:02 AM EST 08/16/2023 7:11 AM EST Arturo Mckeon MD LAB POINT OF CARE T EST DOCKED DEVICE UNSOLICITED RESULTS Performing Organization Address [facility] de Phone Number [facility] [address] [place] [id number] * (ABNORMAL) GLUCOSE METER, POINT OF CARE (08/15/2023 8:02 PM EST) Glucose Meter 170(H) 70 - 120 mg/dL 08/16/2023 7:11 AM EST [facility] Blood Whole blood specimen / Unknown 08/15/2023 8:02 PM EST 08/16/2023 7:11 AM EST Arturo Mckeon MD LAB POINT OF CARE T EST DOCKED DEVICE UNSOLICITED RESULTS Performing Organization Address City/[facility] Co de Phone Number [facility] [address] [place] [address] * TROPONIN T, HIGH SENSITIVITY (08/15/2023 7:36 PM EST) Troponin T, High Sensitivity <6 <=14 ng/L 08/15/2023 8:20 PM EST LABORATORY GL Blood Venous blood specimen / Unknown Venipuncture / Unknown 08/15/2023 7:36 PM EST 08/15/2023 7:58 PM EST Ze Castro MD LAB BLOOD ORDER OMAR LABORATORY [facility] [address] [facility] [place] [address] * XR ABDOMEN 1 VIEW (08/15/2023 6:34 PM EST) Anatomical Region Laterality Modality Abdomen, Pelvis Digital Radiogra phy 08/15/2023 6:26 PM EST Impressions 08/15/2023 6:48 PM EST IMPRESSION: Satisfactory placement of nasogastric tube. THIS DOCUMENT HAS BEEN ELECTRONICALLY SIGNED BY DANIELLE MUELLER MD Narrative 08/15/2023 6:48 PM EST PROCEDURE INFORMATION: Exam: XR Abdomen Exam date and time: 08/15/2023 6:26 PM Age: 48 years old Clinical indication: Other: Ng tube placement; Additional info: Gastric tube placement verification TECHNIQUE: Imaging protocol: Radiologic exam of the abdomen. Views: Frontal supine view of the abdomen. 1 View. COMPARISON: CT ABD/PELVIS W IV CONTRAST - WO ORAL CONTRAST 08/15/2023 5:20 PM FINDINGS: Tubes, catheters and devices: Nasogastric tube is placed with the side hole overlying the body of the stomach. Gastrointestinal tract: Normal. No bowel dilation. Bones/joints: Unremarkable. Procedure Note Danielle Mueller MD - 08/15/2023 PROCEDURE INFORMATION: Exam: XR Abdomen Exam date and time: 08/15/2023 6:26 PM Age: 48 years old Clinical indication: Other: Ng tube placement; Additional info: Gastrictube placement verification TECHNIQUE: Imaging protocol: Radiologic exam of the abdomen. Views: Frontal supine view of the abdomen. 1 View. COMPARISON: CT ABD/PELVIS W IV CONTRAST - WO ORAL CONTRAST 08/15/2023 5:20 PM FINDINGS: Tubes, catheters and devices: Nasogastric tube is placed with the sidehole overlying the body of the stomach. Gastrointestinal tract: Normal. No bowel dilation. Bones/joints: Unremarkable. IMPRESSION IMPRESSION: Satisfactory placement of nasogastric tube. THIS DOCUMENT HAS BEEN ELECTRONICALLY SIGNED BY DANIELLE MUELLER MD Ze Castro MD RADIOLOGY ([facility]) * CULTURE, URINE, QUANTITATIVE (08/15/2023 5:50 PM EST) Culture Growth No significant growth 08/16/2023 3:33 PM EST [facility] [place]rine Urine specimen obtained by clean catch procedure / Unknown Non-blood Collection / Unknown 08/15/2023 5:50 PM EST 08/15/2023 5:58 PM EST Ze Castro MD LAB MICRO - GEN ERAL ORDERABLES [facility] [place] [address] [place] [address] * CT ABD/PELVIS W IV CONTRAST - WO ORAL CONTRAST (08/15/2023 5:25 PM EST) Anatomical Region Laterality Modality Body, Abdomen, Pelvis Computed T omography 08/15/2023 5:20 PM EST Impressions 08/15/2023 5:55 PM EST IMPRESSION: 1. Mild gastric and small bowel distention with no transition point identified. Findings suggest partial small bowel obstruction versus ileus. Consider continued radiographic monitoring as clinically warranted. 2. Hepatic steatosis. 3. Simple appearing 4 cm right ovarian cyst. No further imaging is recommended. (Reference: Pritesh) REFERENCES: Jonas et al. Management of Incidental Adnexal Findings on CT and MRI: A White Paper of the ACR Incidental Findings Committee, J Am Silvio Radiol. 2020 Sep;17(2):248-254. THIS DOCUMENT HAS BEEN ELECTRONICALLY SIGNED BY DONAL PENA MD Narrative 08/15/2023 5:55 PM EST PROCEDURE INFORMATION: Exam: CT Abdomen And Pelvis With Contrast Exam date and time: 08/15/2023 5:20 PM Age: 48 years old Clinical indication: Nausea and vomiting; Additional info: Abdominal discomfort with nausea and vomiting. TECHNIQUE: Imaging protocol: Computed tomography of the abdomen and pelvis with contrast. Radiation optimization: All CT scans at this facility use at least one of these dose optimization techniques: automated exposure control; mA and/or kV adjustment per patient size (includes targeted exams where dose is matched to clinical indication); or iterative reconstruction. Contrast material: OPTIRAY 320; Contrast volume: 100 ml; Contrast route: INTRAVENOUS (IV); REPORTING DATA: Count of CT and Cardiac NM exams in prior 12 months: This patient has received 0 known CTs and 0 known cardiac nuclear medicine studies in the 12 months prior to the current study. COMPARISON: CT ABDOMEN /PELVIS WITH IV CONTRAST WITHOUT ORAL 11/15/2016 12:10 AM FINDINGS: Liver: There is a diffuse decrease in hepatic parenchymal density, suggestive of fatty infiltration. Gallbladder and bile ducts: Normal. No calcified stones. No ductal dilation. Pancreas: Normal. No ductal dilation. Spleen: Normal. No splenomegaly. Adrenal glands: Normal. No mass. Kidneys and ureters: Normal. No hydronephrosis. Stomach and bowel: The stomach is mildly distended with air and fluid. Mildly distended scattered loops of small bowel with no discrete transition point. Some small bowel feces are seen suggesting slowed intestinal transit. Distal small bowel is not completely decompressed. The proximal and mid colon are filled with air, stool and fluid. Decompressed distal colon. Appendix: No evidence of appendicitis. Intraperitoneal space: Unremarkable. No free air. No significant fluid collection. Vasculature: Mild atherosclerotic calcification of the aorta. Lymph nodes: Unremarkable. No enlarged lymph nodes. Urinary bladder: Unremarkable as visualized. Reproductive: The uterus is surgically absent. 4 cm right ovarian cyst. No left adnexal mass. Bones/joints: Severe L5-S1 disc degeneration with endplate sclerosis. Soft tissues: 1.8 cm fluid attenuating density along the lower anterior abdominal wall, similar to prior in 2017. Procedure Note Donal Pena MD - 08/15/2023 PROCEDURE INFORMATION: Exam: CT Abdomen And Pelvis With Contrast Exam date and time: 08/15/2023 5:20 PM Age: 48 years old Clinical indication: Nausea and vomiting; Additional info: Abdominaldiscomfort with nausea and vomiting. TECHNIQUE: Imaging protocol: Computed tomography of the abdomen and pelvis withcontrast. Radiation optimization: All CT scans at this facility use at least one ofthese dose optimization techniques: automated exposure control; mA and/or kV adjustment per patient size (includes targeted exams where dose is matchedto clinical indication); or iterative reconstruction. Contrast material: OPTIRAY 320; Contrast volume: 100 ml; Contrast route: INTRAVENOUS (IV); REPORTING DATA: Count of CT and Cardiac NM exams in prior 12 months: This patient hasreceived 0 known CTs and 0 known cardiac nuclear medicine studies in the 12 monthsprior to the current study. COMPARISON: CT ABDOMEN /PELVIS WITH IV CONTRAST WITHOUT ORAL 11/15/2016 12:10 AM FINDINGS: Liver: There is a diffuse decrease in hepatic parenchymal density,suggestive of fatty infiltration. Gallbladder and bile ducts: Normal. No calcified stones. No ductaldilation. Pancreas: Normal. No ductal dilation. Spleen: Normal. No splenomegaly. Adrenal glands: Normal. No mass. Kidneys and ureters: Normal. No hydronephrosis. Stomach and bowel: The stomach is mildly distended with air and fluid.Mildly distended scattered loops of small bowel with no discrete transitionpoint. Some small bowel feces are seen suggesting slowed intestinal transit.Distal small bowel is not completely decompressed. The proximal and mid colon are filled with air, stool and fluid. Decompressed distal colon. Appendix: No evidence of appendicitis. Intraperitoneal space: Unremarkable. No free air. No significant fluid collection. Vasculature: Mild atherosclerotic calcification of the aorta. Lymph nodes: Unremarkable. No enlarged lymph nodes. Urinary bladder: Unremarkable as visualized. Reproductive: The uterus is surgically absent. 4 cm right ovarian cyst. Noleft adnexal mass. Bones/joints: Severe L5-S1 disc degeneration with endplate sclerosis. Soft tissues: 1.8 cm fluid attenuating density along the lower anterior abdominal wall, similar to prior in 2017. IMPRESSION IMPRESSION: 1. Mild gastric and small bowel distention with no transition point identified. Findings suggest partial small bowel obstruction versus ileus. Consider continued radiographic monitoring as clinically warranted. 2. Hepatic steatosis. 3. Simple appearing 4 cm right ovarian cyst. No further imaging is recommended. (Reference: Pritesh) REFERENCES: Pritesh et al. Management of Incidental Adnexal Findings on CT and MRI: AWhite Paper of the ACR Incidental Findings Committee, J Am Silvio Radiol. 2019;17(2):248-254. THIS DOCUMENT HAS BEEN ELECTRONICALLY SIGNED BY DONAL PENA MD Rufina Dayna Sandi PAEdinsonC RAD CT * (ABNORMAL) MICROSCOPIC EXAM, URINE (08/15/2023 4:05 PM EST) RBC, Urine 0-2 0 - 2 /HPF 08/15/2023 5:03 PM EST LABORATORY GL WBC, Urine 20-29(A) 0 - 2 /HPF 08/15/2023 5:03 PM EST LABORATORY GL Bacteria, Urine >200(A) 0 - 25 /HPF 08/15/2023 5:03 PM EST LABORATORY GL Squamous Epithelial Cells, Urine Many(A) None /HPF 08/15/2023 5:03 PM EST LABORATORY GL Urine Urine specimen obtained by clean catch procedure / Unknown Non-blood Collection / Unknown 08/15/2023 4:05 PM EST 08/15/2023 4:10 PM EST Shmuel Lion MD LAB URINE ORDERABLES Performing Organization Address City/State/[facility] Co de Phone Number LABORATORY [address] [address] * (ABNORMAL) URINALYSIS, REFLEX TO MICROSCOPIC (08/15/2023 4:05 PM EST) Color, Urine Yellow Light Yellow, Yellow, Dark Yellow 08/15/2023 4:22 PM EST LABORATORY GL Clarity, Urine Clear Clear 08/15/2023 4:22 PM EST LABORATORY GL Glucose, Urine Negative Negative mg/dL 08/15/2023 4:22 PM EST LABORATORY GL Bilirubin, Urine Negative Negative 08/15/2023 4:22 PM EST LABORATORY GL Ketone, Urine Negative Negative mg/dL 08/15/2023 4:22 PM EST LABORATORY GL Specific [place], Urine 1.014 1.003 - 1.030 08/15/2023 4:22 PM EST LABORATORY GL Blood, Urine Negative Negative 08/15/2023 4:22 PM EST LABORATORY GL pH, Urine 6.0 5.0 - 7.5 Units 08/15/2023 4:22 PM EST LABORATORY GL Protein, Urine Negative Negative mg/dL 08/15/2023 4:22 PM EST LABORATORY GL Urobilinogen, Urine 0.2 0.2, 1.0 mg/dL 08/15/2023 4:22 PM EST LABORATORY [facility] Nitrite, Urine Negative Negative 08/15/2023 4:22 PM EST LABORATORY [facility] Esterase, Urine Moderate(A) Negative 08/15/2023 4:22 PM EST LABORATORY GL[facility] Urine Urine specimen obtained by clean catch procedure / Unknown Non-blood Collection / Unknown 08/15/2023 4:05 PM EST 08/15/2023 4:10 PM EST Shmuel Lion MD LAB URINE ORDERABLES LABORATORY GL [address] [place] [address] * US ABDOMEN LIMITED (08/15/2023 2:21 PM EST) Anatomical Region Laterality Modality Abdomen, Body Ultrasound 08/15/2023 1:49 PM EST Impressions 08/15/2023 2:37 PM EST IMPRESSION: 1. No acute findings. 2. Echogenic liver suggestive of hepatic steatosis. THIS DOCUMENT HAS BEEN ELECTRONICALLY SIGNED BY DONAL PENA MD Narrative 08/15/2023 2:37 PM EST PROCEDURE INFORMATION: Exam: US Abdomen, Limited; Right Upper Quadrant Exam date and time: 08/15/2023 1:49 PM Age: 48 years old Clinical indication: Abdominal pain; Localized; Right upper quadrant (ruq); Additional info: Epigastric and ruq pain TECHNIQUE: Imaging protocol: Real time ultrasound of the abdomen with image documentation. Limited exam focused on the right upper quadrant. COMPARISON: US ABDOMEN LIMITED 08/01/2018 9:40 AM FINDINGS: Liver: Diffusely echogenic liver. No mass identified. Patent main portal vein. Gallbladder: Normal. No gallstones. There is no gallbladder wall thickening. Biliary ducts: Normal. No stones. No dilation. Pancreas: Visualized pancreas is unremarkable. Right kidney: Normal. No mass. No hydronephrosis. Procedure Note Donal Pena MD - 08/15/2023 PROCEDURE INFORMATION: Exam: US Abdomen, Limited; Right Upper Quadrant Exam date and time: 08/15/2023 1:49 PM Age: 48 years old Clinical indication: Abdominal pain; Localized; Right upper quadrant(ruq); Additional info: Epigastric and ruq pain TECHNIQUE: Imaging protocol: Real time ultrasound of the abdomen with imagedocumentation. Limited exam focused on the right upper quadrant. COMPARISON: US ABDOMEN LIMITED 08/01/2018 9:40 AM FINDINGS: Liver: Diffusely echogenic liver. No mass identified. Patent main portalvein. Gallbladder: Normal. No gallstones. There is no gallbladder wallthickening. Biliary ducts: Normal. No stones. No dilation. Pancreas: Visualized pancreas is unremarkable. Right kidney: Normal. No mass. No hydronephrosis. IMPRESSION IMPRESSION: 1. No acute findings. 2. Echogenic liver suggestive of hepatic steatosis. THIS DOCUMENT HAS BEEN ELECTRONICALLY SIGNED BY DONAL PENA MD Rufina Junior PA-C RAD ULTRASOUND * XR CHEST 1 VIEW (08/15/2023 2:01 PM EST) Anatomical Region Laterality Modality Chest Digital Radiogra phy 08/15/2023 1:44 PM EST Impressions 08/15/2023 2:35 PM EST IMPRESSION: No acute findings. THIS DOCUMENT HAS BEEN ELECTRONICALLY SIGNED BY DONAL PENA MD Narrative 08/15/2023 2:35 PM EST PROCEDURE INFORMATION: Exam: XR Chest Exam date and time: 08/15/2023 1:44 PM Age: 48 years old Clinical indication: Other: Abdominal cramping and burning with nausea, diarrhea and belching; Additional info: Epigastric pain TECHNIQUE: Imaging protocol: Radiologic exam of the chest. Views: 1 view. COMPARISON: DX ABDOMEN SINGLE AP VIEW 11/22/2016 11:26 AM FINDINGS: Lungs: Unremarkable. No consolidation. Pleural spaces: Unremarkable. No pleural effusion. No pneumothorax. Heart/Mediastinum: Unremarkable. No cardiomegaly. Bones/joints: Unremarkable. Procedure Note Donal Pena MD - 08/15/2023 PROCEDURE INFORMATION: Exam: XR Chest Exam date and time: 08/15/2023 1:44 PM Age: 48 years old Clinical indication: Other: Abdominal cramping and burning with nausea, diarrhea and belching; Additional info: Epigastric pain TECHNIQUE: Imaging protocol: Radiologic exam of the chest. Views: 1 view. COMPARISON: DX ABDOMEN SINGLE AP VIEW 11/22/2016 11:26 AM FINDINGS: Lungs: Unremarkable. No consolidation. Pleural spaces: Unremarkable. No pleural effusion. No pneumothorax. Heart/Mediastinum: Unremarkable. No cardiomegaly. Bones/joints: Unremarkable. IMPRESSION IMPRESSION: No acute findings. THIS DOCUMENT HAS BEEN ELECTRONICALLY SIGNED BY DONAL PENA MD Rufina Junior PA-C RADIOLOGY (RAD GENERAL) * TROPONIN T, HIGH SENSITIVITY (08/15/2023 1:16 PM EST) Troponin T, High Sensitivity 7 <=14 ng/L 08/15/2023 2:32 PM EST LABORATORY [facility] Blood Venous blood specimen / Unknown Venipuncture / Unknown 08/15/2023 1:16 PM EST 08/15/2023 1:21 PM EST Rufina Junior PA-C LAB BLOOD ORDER OMAR Performing Organization Address City/State/[facility] Co de Phone Number LABORATORY [address] [address] * (ABNORMAL) DIFFERENTIAL, AUTOMATED (08/15/2023 1:16 PM EST) WBC 14.46(H) 4.00 - 10.80 K/uL 08/15/2023 1:25 PM EST LABORATORY GL Neutrophils % 67.2 40.0 - 75.0 % 08/15/2023 1:25 PM EST LABORATORY GL[facility] Lymphocytes % 25.2 18.0 - 42.0 % 08/15/2023 1:25 PM EST LABORATORY [facility] Monocytes % 6.4 1.0 - 11.0 % 08/15/2023 1:25 PM EST LABORATORY [facility] Eosinophils % 0.6 0.0 - 6.0 % 08/15/2023 1:25 PM EST LABORATORY [facility] Basophils % 0.3 0.0 - 2.0 % 08/15/2023 1:25 PM EST LABORATORY [facility] Immature Granulocytes % 0.3 0.0 - 2.0 % 08/15/2023 1:25 PM EST LABORATORY GL Absolute Neutrophils 9.72(H) 1.80 - 7.70 K/uL 08/15/2023 1:25 PM EST LABORATORY GL Absolute Lymphocytes 3.64 1.00 - 4.80 K/ul 08/15/2023 1:25 PM EST LABORATORY [facility] Absolute Monocytes 0.92 0.00 - 1.10 K/uL 08/15/2023 1:25 PM EST LABORATORY [facility] Absolute Eosinophils 0.09 0.00 - 0.70 K/uL 08/15/2023 1:25 PM EST LABORATORY [facility] Absolute Basophils 0.04 0.00 - 0.20 K/uL 08/15/2023 1:25 PM EST LABORATORY GL[facility] Absolute Immature Granulocytes 0.05 0.00 - 0.20 K/uL 08/15/2023 1:25 PM EST LABORATORY GL Blood Venous blood specimen / Unknown Venipuncture / Unknown 08/15/2023 1:16 PM EST 08/15/2023 1:20 PM EST Shmuel Lion MD LAB BLOOD ORDERABLES Performing Organization Address City/State/[facility] Co de Phone Number LABORATORY [address] [address] * (ABNORMAL) CBC (08/15/2023 1:16 PM EST) WBC 14.46(H) 4.00 - 10.80 K/uL 08/15/2023 1:25 PM EST LABORATORY GL RBC 4.58 3.85 - 5.15 M/uL 08/15/2023 1:25 PM EST LABORATORY GL HGB 14.9 12.0 - 15.3 g/dL 08/15/2023 1:25 PM EST LABORATORY GL HCT 44.2 36.0 - 45.2 % 08/15/2023 1:25 PM EST LABORATORY GL MCV 96.5 81.5 - 97.5 fL 08/15/2023 1:25 PM EST LABORATORY GL MCH 32.5 27.0 - 34.0 pg 08/15/2023 1:25 PM EST LABORATORY GL MCHC 33.7 32.0 - 36.0 g/dL 08/15/2023 1:25 PM EST LABORATORY GL RDW 13.4 11.5 - 15.5 % 08/15/2023 1:25 PM EST LABORATORY [facility] PLT 320 140 - 400 K/uL 08/15/2023 1:25 PM EST LABORATORY [facility] MPV 10.6 6.6 - 11.1 fL 08/15/2023 1:25 PM EST LABORATORY [facility] nRBCs 0 <=0 /100 WBCs 08/15/2023 1:25 PM EST LABORATORY [facility] Blood Venous blood specimen / Unknown Venipuncture / Unknown 08/15/2023 1:16 PM EST 08/15/2023 1:20 PM EST Shmuel Lion MD LAB BLOOD ORDERABLES Performing Organization Address City/[facility]/ZIP Co de Phone Number LABORATORY [address] [address] * EXTRA LIGHT BLUE TOP (08/15/2023 1:16 PM EST) Blood Venous blood specimen / Unknown Venipuncture / Unknown 08/15/2023 1:16 PM EST 08/15/2023 1:20 PM EST Shmuel Lion MD LAB BLOOD ORDERABLES Performing Organization Address City/[facility]/ZIP Co de Phone Number LABORATORY [address] [address] * LIPASE (08/15/2023 1:16 PM EST) Lipase 17 13 - 60 U/L 08/15/2023 1:41 PM EST LABORATORY [facility] Blood Venous blood specimen / Unknown Venipuncture / Unknown 08/15/2023 1:16 PM EST 08/15/2023 1:21 PM EST Shmuel Lion MD LAB BLOOD ORDERABLES Performing Organization Address [facility] Co de Phone Number LABORATORY [address] [address] * (ABNORMAL) COMPREHENSIVE METABOLIC PANEL (08/15/2023 1:16 PM EST) BUN 13 6 - 20 mg/dL 08/15/2023 1:41 PM EST LABORATORY GL[facility] Creatinine 0.5 0.5 - 1.0 mg/dL 08/15/2023 1:41 PM EST LABORATORY [facility] Estimated Glomerular Filtration Rate >90 >=60 mL/min 08/15/2023 1:41 PM EST LABORATORY GL[facility] Comment:eGFR is calculated b ased on the CKD-EPI 2020 equation Sodium 137 135 - 146 mmol/L 08/15/2023 1:41 PM EST LABORATORY GL[facility] Potassium 4.6 3.5 - 5.1 mmol/L 08/15/2023 1:41 PM EST LABORATORY [facility] Chloride 101 98 - 107 mmol/L 08/15/2023 1:41 PM EST LABORATORY GL[facility] CO2 24 22 - 32 mmol/L 08/15/2023 1:41 PM EST LABORATORY GL[facility] Anion Gap 12 7 - 15 mmol/L 08/15/2023 1:41 PM EST LABORATORY GL[facility] Glucose 149(H) 70 - 120 mg/dL 08/15/2023 1:41 PM EST LABORATORY [facility] Albumin 4.0 3.8 - 5.0 g/dL 08/15/2023 1:41 PM EST LABORATORY GL[facility] AST 16 10 - 35 U/L 08/15/2023 1:41 PM EST LABORATORY GL[facility] Alkaline Phosphatase 116 35 - 130 U/L 08/15/2023 1:41 PM EST LABORATORY GL[facility] Bilirubin, Total 0.2 <=1.2 mg/dL 08/15/2023 1:41 PM EST LABORATORY GL[facility] Calcium 9.9 8.4 - 10.2 mg/dL 08/15/2023 1:41 PM EST LABORATORY GL[facility] Protein 7.0 6.0 - 8.3 g/dL 08/15/2023 1:41 PM EST LABORATORY GL[facility] ALT 24 10 - 35 U/L 08/15/2023 1:41 PM EST LABORATORY GL[facility] Blood Venous blood specimen / Unknown Venipuncture / Unknown 08/15/2023 1:16 PM EST 08/15/2023 1:21 PM EST Shmuel Lion MD LAB BLOOD ORDERABLES LABORATORY [facility] [address] [place] [address] * EKG (08/15/2023 12:42 PM EST) 08/15/2023 12:4 2 PM EST Narrative Procedure Note Abdi Robbins DO - 08/15/2023 12:42 PM EST REASON FOR STUDY: ABD PAIN CONCLUSIONS: Normal sinus rhythm Left ventricular hypertrophy Abnormal ECG When compared with ECG of 14-OCT-2018 11:54, No significant change was found Ventricular Rate: 90 Atrial Rate: 90 SD Interval: 194 QRS Duration: 84 QT/QTc: 350/429 ms P-R-T [place]: 28 : -18 : 59 degrees Shmuel Lion MD EKG [facility] documented in this encounter Visit Diagnoses Diagnosis Partial small bowel obstruction (HCC)- Primary Unspecified intestinal obstruction Abdominal pain Abdominal pain, unspecified site Hepatic steatosis Other chronic nonalcoholic liver disease Ileus (HCC) Paralytic ileus Chest pain Chest pain, unspecified HTN, goal below 140/90 Unspecified essential hypertension Type 2 diabetes mellitus with hemoglobin A1c goal of less than 7.0% (HCC) HTN, goal below 140/90 Unspecified essential hypertension Migraine without aura, intractable Migraine without aura, with intractable migraine, so stated, without mention of status migrainosus documented in this encounter Administered Medications Inactive Administered Medications - up to 3 most recent administrations Medication Order MAR Action Action Date Dose Rate Site Acetaminophen (Ofirmev) inj 1,000 mg 1,000 mg, Intravenous, Q6H PRN, Starting on 08/15/23 at 1849, Until Tu08/16/23 at 1848, Administer over 15 Minutes, Administer undiluted over 15 minutes! NOTE: Maximum of 4000 mg per 24 hours of acetaminophen from all acetaminophen containing products., Indication: Patient is strictly NPO New Bag 08/16/2023 3:46 PM EST 1,000 mg 400 mL/hr Acetaminophen (Tylenol) tab 650 mg 650 mg, Oral, Q6H PRN Pain, Mild, Fever >38C(100.5F), Starting on 08/17/23 at 0256, Until Liz 08/18/23 at 1731, Maximum of 4 grams (4000 mg) per day. Given 08/18/2023 12:05 AM EST 650 mg Given 08/17/2023 11:43 AM EST 650 mg Given 08/17/2023 3:01 AM EST 650 mg [id number] infusion Intravenous, at 100 mL/hr, CONTINUOUS, Starting on Tue08/15/23 at 1930, Until Tue08/17/23 at 0938 Rate Verify 08/17/2023 6:51 AM EST 100 mL/hr New Bag 08/17/2023 5:39 AM EST 100 mL/hr Rate Change 08/17/2023 4:56 AM EST 5 mL/hr dextrose 50 % inj 25 mL 25 mL, IV Push, PRN Hypoglycemia, Other, For blood glucose 54 - 69 mg/dL or 70 - 100 mg/dL with symptoms AND patient is unresponsive, NPO, OR unable to swallow, Starting on Tue08/15/23 at 1846, Until Liz 08/18/23 at 1731, Administer IV. Recheck blood glucose after 15 minutes. Notify provider. dextrose 50 % inj 50 mL 50 mL, IV Push, PRN Hypoglycemia, Other, For blood glucose below 54 mg/dL AND patient unresponsive, NPO, OR unable to swallow, Starting on Tue08/15/23 at 1846, Until Liz 08/18/23 at 1731, Administer IV. Recheck blood glucose in 15 minutes. Notify provider. Enoxaparin (Lovenox) inj 40 mg 40 mg, Subcutaneous, Q12H (1000,2200), First dose on Tue08/16/23 at 1000, Until Discontinued, If patient is on warfarin, inform provider if daily INR value is 2 or greater! Given 08/18/2023 9:09 AM EST 40 mg Abdom en Left Lower Given 08/17/2023 8:35 PM EST 40 mg Ab domen Left Upper Given 08/17/2023 9:28 AM EST 40 mg Ab domen Right Lower Famotidine (Pepcid) inj 20 mg 20 mg, IV Push, Q12H, First dose on Tue08/15/23 at 2100, Until Discontinued, Give IV push over 2 minutes. Given 08/17/2023 8:35 PM EST 20 mg Given 08/17/2023 9:28 AM EST 20 mg Given 08/16/2023 8:53 PM EST 20 mg Famotidine (Pepcid) tab 20 mg 20 mg, Oral, ONCE, On Tue08/15/23 at 1515, For 1 dose Given 08/15/2023 3:28 PM EST 20 mg glucagon (Glucagen) inj 1 mg 1 mg, Intramuscular, PRN Hypoglycemia, Other, If patient is unresponsive, or NPO and has no IV access, Starting on Tue08/15/23 at 1846, Until Liz 08/18/23 at 1731, NPO and no IV access with either 1) blood glucose less than 100 mg/dL and symptomatic OR 2) blood glucose less than 70 mg/dL and asymptomatic Glucose (Glutose 15) 40 % gel 15 g of glucose 15 g of glucose, Oral, PRN Hypoglycemia (low sugar), Other, For blood glucose 54 - 69 mg/dL or 70 - 100 mg/dL with symptoms AND patient alert WITH difficulty chewing/swallowing, Starting on Tue08/15/23 at 1846, Until Tue08/18/23 at 1731, Administer gel. Recheck blood glucose after 15 minutes. Notify provider. 37.5 gram tube = 15 grams glucose = 1 each Glucose (Glutose 15) 40 % gel 30 g of glucose 30 g of glucose, Oral, PRN Hypoglycemia (low sugar), Other, For blood glucose below 54 mg/dL AND patient alert WITH difficulty chewing/swallowing, Starting on Tue08/15/23 at 1846, Until Tue08/18/23 at 1731, Administer gel. Recheck blood glucose after 15 minutes. Notify provider. 37.5 gram tube = 15 grams glucose = 1 each glucose chew tab 16 g 16 g, Oral, PRN Hypoglycemia, Other, For blood glucose 54 - 69 mg/dL or 70 - 100 mg/dL with symptoms and patient alert without difficulty chewing/swallowing., Starting on Tue08/15/23 at 1846, Until Tue08/18/23 at 1731 house antacid (Mi-Acid II) oral susp 30 mL 30 mL, Oral, ONCE, On Tue08/15/23 at 1515, For 1 dose, SHAKE WELL Given 08/15/2023 3:29 PM EST 30 mL HYDROmorphone (Dilaudid) inj 0.5 mg 0.5 mg, IV Push, ONCE, On Tue08/15/23 at 1815, For 1 dose Given 08/15/2023 5:46 PM EST 0.5 mg insulin aspart (NovoLOG) inj Subcutaneous, Q6H, First dose (after last modification) on Tue08/15/23 at 1930, Until Discontinued, LOW DOSE, Insulin sensitivity factor (ISF) = 50 (Elderly insulin sensitive patient) Serum blood sugar less than 70 mg/dl or symptomatic (obtain lab blood sugar and notify provider); 151 - 200 mg/dl (1 units); 201 - 250 mg/dl (2 units); 251 - 300 mg/dl (3 units); 301 - 350 mg/dl (4 units); 351 - 400 mg/dl (5 units); greater than 400 mg/dl (call provider) Correctional insulin may be given if the patient is NPO. Given 08/16/2023 12:29 PM EST 2 Units Deltoid Right Upper Given 08/16/2023 12:14 AM EST 1 Units A rm Left Upper Given 08/15/2023 8:35 PM EST 1 Units Ar m Right Upper insulin aspart (NovoLOG) inj Subcutaneous, W/MEALS AND HS, First dose (after last modification) on Tue08/18/23 at 0800, Until Discontinued, LOW DOSE, Insulin sensitivity factor (ISF) = 50 (Elderly insulin sensitive patient) Serum blood sugar less than 70 mg/dl or symptomatic (obtain lab blood sugar and notify provider); 151 - 200 mg/dl (1 units); 201 - 250 mg/dl (2 units); 251 - 300 mg/dl (3 units); 301 - 350 mg/dl (4 units); 351 - 400 mg/dl (5 units); greater than 400 mg/dl (call provider) Correctional insulin may be given if the patient is NPO. Ioversol (Optiray 320) inj 100 mL 100 mL, Intravenous, ONCE, On Tue08/15/23 at 1800, For 1 dose, Radiology Medication Routing (Non-IR) Given 08/15/2023 6:00 PM EST 100 mL labetalol (Trandate) inj 10 mg 10 mg, Intravenous, QID PRN Hypertension, SBP >180 mmHg and or DBP >110 mmHg, Starting on Tue08/15/23 at 1853, Until Liz 08/18/23 at 1731 Morphine Sulfate (PF) inj 4 mg 4 mg, Intravenous, ONCE, On Tue08/15/23 at 1415, For 1 dose Given 08/15/2023 2:36 PM EST 4 mg Morphine Sulfate (PF) inj 4 mg 4 mg, Intravenous, ONCE, On Tue08/15/23 at 1715, For 1 dose Given 08/15/2023 5:06 PM EST 4 mg morphine sulfate inj 2 mg 2 mg, IV Push, Q3H PRN Pain, Moderate, Starting on Tue08/15/23 at 1849, Until Liz 08/18/23 at 1731 Given 08/17/2023 5:42 AM EST 2 mg Given 08/16/2023 8:53 PM EST 2 mg Given 08/15/2023 8:09 PM EST 2 mg NSS 0.9% 1,000 mL bolus infusion IV Piggyback, at 1,000 mL/hr Administer over 60 Minutes, Administer entire volume within 60 minutes or less., ONCE, 1 dose, On Tue08/15/23 at 1415 New Bag 08/15/2023 2:31 PM EST 1,000 mL 1000 mL/hr ondansetron (Zofran) inj 4 mg 4 mg, IV Push, ONCE, On Tue08/15/23 at 1415, For 1 dose Given 08/15/2023 2:34 PM EST 4 mg ondansetron (Zofran) inj 4 mg 4 mg, IV Push, Q6H PRN Nausea, Starting on Tue08/15/23 at 1848, Until Liz 08/18/23 at 1731 Given 08/16/2023 8:59 PM EST 4 mg Pantoprazole (Protonix) inj 40 mg 40 mg, IV Push, Daily(AM), First dose on Tue08/15/23 at 1915, Until Discontinued, IV push instructions: Flush I.V. Line before and after administration. In-line filter not required. 2-minute infusion: The volume of reconstituted solution (4mg/ml) to be injected may be administered intravenously over at least 2 minutes. ( Dilute each vial with 10 ml of 0.9% saline PF) Given 08/17/2023 9:28 AM EST 40 mg Given 08/16/2023 8:46 AM EST 40 mg Given 08/15/2023 8:09 PM EST 40 mg phenol (chlorASEPTIC) spray 3 Garfield 3 Garfield, Oral, Q4H PRN Sore throat, Starting on Tue08/16/23 at 1125, Until Liz 21/23 at 1731, See nursing care plan Given 08/16/2023 3:14 PM EST 3 Sp rays sodium chloride 0.9 % flush/inj 3 mL 3 mL, IV Push, PRN Other, Line Patency, Starting on Tue08/15/23 at 1847, Until Tue08/18/23 at 1731, Do not flush if lock, PICC, or central line not in place, IV infusing or unable to flush documented in this encounter Active and Recently Administered Medications Times are shown in EST. Scheduled Medication Order 08/16/2023 08/17/2023 08/18/2023 Enoxaparin (Lovenox) inj 40 mg 40 mg, Subcutaneous, Q12H (1000,2200), First dose on Tue08/16/23 at 1000, Until Discontinued, If patient is on warfarin, inform provider if daily INR value is 2 or greater! 1102 (Given - Provider: Leonor Fischer, CK)2053 (Given - Provider: Marily Valentin, CK) 0928 (Given - Provider: Nubia Grover, CK)2034 (Given - Provider: Sruthi Newman, RN) 0909 (Given - Provider: Arie Pittman, CK) Famotidine (Pepcid) inj 20 mg 20 mg, IV Push, Q12H, First dose on Tue08/15/23 at 2100, Until Discontinued, Give IV push over 2 minutes. 0846 (Given - Provider: Leonor Fischer RN)2052 (Given - Provider: Marily Valentin RN) 0928 (Given - Provider: Nubia Grover, CK)2034 (Given - Provider: Sruthi Newman, RN) 0900 (Not Given - Provider: Arie Pittman, CK - Reason: Clinician Judgement-Notify Provider - Comment: switching to PO today per Ernst Hernandez) insulin aspart (NovoLOG) inj (CANCELED) Subcutaneous, Q6H, First dose (after last modification) on Tue08/15/23 at 1930, Until Discontinued, LOW DOSE, Insulin sensitivity factor (ISF) = 50 (Elderly insulin sensitive patient) Serum blood sugar less than 70 mg/dl or symptomatic (obtain lab blood sugar and notify provider); 151 - 200 mg/dl (1 units); 201 - 250 mg/dl (2 units); 251 - 300 mg/dl (3 units); 301 - 350 mg/dl (4 units); 351 - 400 mg/dl (5 units); greater than 400 mg/dl (call provider) Correctional insulin may be given if the patient is NPO. 0014 (Given - Provider: Saranya Figueroa RN)0600 (Not Given - Provider: Saranya Figueroa RN - Reason: Parameter(s) Not Met)1229 (Given - Provider: Leonor Fischer, CK)1800 (Not Given - Provider: Leonor Fischer RN - Reason: Parameter(s) Not Met) 0000 (Not Given - Provider: Marily Valentin RN - Reason: Parameter(s) Not Met)0600 (Not Given - Provider: Marily Valentin RN - Reason: Parameter(s) Not Met)1200 (No Insulin - Provider: Nubia Grover RN - Reason: Parameter(s) Not Met)1800 (No Insulin - Provider: Nubia Grover RN - Reason: Parameter(s) Not Met)2145 (No Insulin - Provider: Sruthi Newman RN - Reason: Parameter(s) Not Met) insulin aspart (NovoLOG) inj Subcutaneous, W/MEALS AND HS, First dose (after last modification) on Tue08/18/23 at 0800, Until Discontinued, LOW DOSE, Insulin sensitivity factor (ISF) = 50 (Elderly insulin sensitive patient) Serum blood sugar less than 70 mg/dl or symptomatic (obtain lab blood sugar and notify provider); 151 - 200 mg/dl (1 units); 201 - 250 mg/dl (2 units); 251 - 300 mg/dl (3 units); 301 - 350 mg/dl (4 units); 351 - 400 mg/dl (5 units); greater than 400 mg/dl (call provider) Correctional insulin may be given if the patient is NPO. 0800 (Not Given - Provider: Arie Pittman RN - Reason: Parameter(s) Not Met)1200 (Not Given - Provider: Arie Pittman RN - Reason: Parameter(s) Not Met) Pantoprazole (Protonix) inj 40 mg 40 mg, IV Push, Daily(AM), First dose on Tue08/15/23 at 1915, Until Discontinued, IV push instructions: Flush I.V. Line before and after administration. In-line filter not required. 2-minute infusion: The volume of reconstituted solution (4mg/ml) to be injected may be administered intravenously over at least 2 minutes. ( Dilute each vial with 10 ml of 0.9% saline PF) 0846 (Given - Provider: Leonor Fischer RN) 0928 (Given - Provider: Nubia Grover RN) 0900 (Not Given - Provider: Arie Pittman RN - Reason: Clinician Judgement-Notify Provider - Comment: switching to PO today per Ernst Hernandez) Continuous Medication Order 08/16/2023 08/17/2023 08/18/2023 D5NSS infusion (CANCELED) Intravenous, at 100 mL/hr, CONTINUOUS, Starting on Tue08/15/23 at 1930, Until Tue08/17/23 at 0938 0636 (Rate Change - Provider: Leonor Fischer RN)0646 (Stopped - Provider: Leonor Fischer RN)0752 (New Bag - Provider: Leonor Fischer RN)1546 (Paused - Provider: Leonor Fischer RN)1602 (Restarted - Provider: Leonor Fischer RN)1735 (New Bag - Provider: Leonor Fischer RN)1736 (Rate Verify - Provider: Leonor Fischer RN)1939 (Paused - Provider: Marily Valentin RN)2024 (Restarted - Provider: Marily Valentin RN)2025 (Rate Verify - Provider: Marily Valentin RN)2026 (Paused - Provider: Marily Valentin RN)2101 (Restarted - Provider: Marily Valentin RN) 0456 (Rate Change - Provider: Marily Valentin RN)0535 (Stopped - Provider: Marily Valentin RN)0539 (New Bag - Provider: Marily Valentin RN)0651 (Rate Verify - Provider: Marily Valentin RN)0937 (Stopped - Provider: Nubia Grover RN - Comment: verbal order to stop by Dr. Dukes.) PRN Medication Order 08/16/2023 08/17/2023 08/18/2023 Acetaminophen (Ofirmev) inj 1,000 mg () 1,000 mg, Intravenous, Q6H PRN, Starting on Tue08/15/23 at 1849, Until Tu08/16/23 at 1848, Administer over 15 Minutes, Administer undiluted over 15 minutes! NOTE: Maximum of 4000 mg per 24 hours of acetaminophen from all acetaminophen containing products., Indication: Patient is strictly NPO 1546 (New Bag - Provider: Leonor Fischer, RN)1601 (Stopped - Provider: Leonor Fischer, RN) Acetaminophen (Tylenol) tab 650 mg 650 mg, Oral, Q6H PRN Pain, Mild, Fever >38C(100.5F), Starting on Tue08/17/23 at 0256, Until Liz 08/18/23 at 1731, Maximum of 4 grams (4000 mg) per day. 0301 (Given - Provider: Marily Valentin RN)1143 (Given - Provider: Nubia Grover, CK) 0005 (Given - Provider: Sruthi Newman, CK) dextrose 50 % inj 25 mL 25 mL, IV Push, PRN Hypoglycemia, Other, For blood glucose 54 - 69 mg/dL or 70 - 100 mg/dL with symptoms AND patient is unresponsive, NPO, OR unable to swallow, Starting on Tue08/15/23 at 1846, Until Liz 08/18/23 at 1731, Administer IV. Recheck blood glucose after 15 minutes. Notify provider. dextrose 50 % inj 50 mL 50 mL, IV Push, PRN Hypoglycemia, Other, For blood glucose below 54 mg/dL AND patient unresponsive, NPO, OR unable to swallow, Starting on Tue08/15/23 at 1846, Until Liz 08/18/23 at 1731, Administer IV. Recheck blood glucose in 15 minutes. Notify provider. glucagon (Glucagen) inj 1 mg 1 mg, Intramuscular, PRN Hypoglycemia, Other, If patient is unresponsive, or NPO and has no IV access, Starting on Tue08/15/23 at 1846, Until Liz 08/18/23 at 1731, NPO and no IV access with either 1) blood glucose less than 100 mg/dL and symptomatic OR 2) blood glucose less than 70 mg/dL and asymptomatic Glucose (Glutose 15) 40 % gel 15 g of glucose 15 g of glucose, Oral, PRN Hypoglycemia (low sugar), Other, For blood glucose 54 - 69 mg/dL or 70 - 100 mg/dL with symptoms AND patient alert WITH difficulty chewing/swallowing, Starting on Tue08/15/23 at 1846, Until Liz 08/18/23 at 173, Administer gel. Recheck blood glucose after 15 minutes. Notify provider. 37.5 gram tube = 15 grams glucose = 1 each Glucose (Glutose 15) 40 % gel 30 g of glucose 30 g of glucose, Oral, PRN Hypoglycemia (low sugar), Other, For blood glucose below 54 mg/dL AND patient alert WITH difficulty chewing/swallowing, Starting on Tue08/15/23 at 1846, Until Tue08/18/23 at 173, Administer gel. Recheck blood glucose after 15 minutes. Notify provider. 37.5 gram tube = 15 grams glucose = 1 each glucose chew tab 16 g 16 g, Oral, PRN Hypoglycemia, Other, For blood glucose 54 - 69 mg/dL or 70 - 100 mg/dL with symptoms and patient alert without difficulty chewing/swallowing., Starting on Tue08/15/23 at 1846, Until Liz 08/18/23 at 173 labetalol (Trandate) inj 10 mg 10 mg, Intravenous, QID PRN Hypertension, SBP >180 mmHg and or DBP >110 mmHg, Starting on Tue08/15/23 at 1853, Until Liz 08/18/23 at 173 morphine sulfate inj 2 mg 2 mg, IV Push, Q3H PRN Pain, Moderate, Starting on Tue08/15/23 at 1849, Until Liz 08/18/23 at [id number] (Given - Provider: Marily Valentin RN) 0542 (Given - Provider: Marily Valentin RN) ondansetron (Zofran) inj 4 mg 4 mg, IV Push, Q6H PRN Nausea, Starting on Tue08/15/23 at 1848, Until Liz 08/18/23 at [id number] (Given - Provider: Marily Valentin, CK) phenol (chlorASEPTIC) spray 3 Garfield 3 Garfield, Oral, Q4H PRN Sore throat, Starting on 08/16/23 at 1125, Until Liz 08/18/23 at 1731, See nursing care plan 1514 (Given - Provider: Leonor Fischer, RN) sodium chloride 0.9 % flush/inj 3 mL 3 mL, IV Push, PRN Other, Line Patency, Starting on 08/15/23 at 1847, Until Liz 08/18/23 at 1731, Do not flush if lock, PICC, or central line not in place, IV infusing or unable to flush documented in this encounter Additional Health Concerns Infection Onset Date Last Indicated Resolved Time Gastrointestinal Rule-Out 08/15/2023 08/15/2023 9:31 AM EST C. difficile Rule-Out 08/15/2023 08/15/20232022 9:31 AM EST documented as of this encounter Advance Directives Latest Code Status on File Code Status Date Activated Date Inactivated Comments Full Code 08/15/2023 6:48 PM 08/18/2023 5:31 PM Thi s order reflects the patients wishes and were consensually agreed upon. Question Answer Comments Discussion of Advance Directives occurred with: Patient Care Teams Lodging Facilities Manager Relationship Specialty Start Date End Date Man Stovall DO [address] [place] [address] PCP - General Family Medicine 10/14/18 documented as of this encounter
--- OUTSIDE RECORDS SUMMARY | 2023-09-04 04:37 | External Medical Summary ---
Author Name Unknown Address Unknown Organization : Laboratory Report Ordering Provider Test Date Status DMITRY ZELAYA 08/17/2023 21:35:08 Final Observation Date Value Abnormality Reference (Units ) Status Glucose Point of Care 08/17/2023 21:35:08 102 70-120 (mg/dL) Final Performing Location
--- OUTSIDE RECORDS SUMMARY | 2023-09-04 04:37 | External Medical Summary ---
Author Name Unknown Address Unknown Organization : Laboratory Report Ordering Provider Test Date Status VIGNESH GARCIA 08/15/2023 20:02:39 Final Observation Date Value Abnormality Reference (Units ) Status Glucose Point of Care 08/15/2023 20:02:39 170 Above high normal 70-120 (mg/dL) Final Performing Location
--- OUTSIDE RECORDS SUMMARY | 2023-09-04 04:37 | External Medical Summary ---
Author Name Unknown Address Unknown Organization K1F:LABORATORY [facility] - [address] [place] [address] Laboratory Report Ordering Provider Test Date Status GIOVANNA DEL REAL 08/15/2023 13:16:00 Final Observation Date Value Abnormality Reference (Units ) Status Lipase 08/15/2023 13:16:00 17 13-60 (U/L ) Final Performing Location LABORATORY [facility] - [address] [place] [address]
--- OUTSIDE RECORDS SUMMARY | 2023-09-04 04:37 | External Medical Summary ---
Author Name Unknown Address Unknown Organization K01:LABORATORY [facility] - [address] [place] [id number] Laboratory Report Ordering Provider Test Date Status AWILDALYRIC 08/15/2023 17:50:38 Final May use existing specimen Observation Date Value Abnormality Reference (Units) Status Bacteria identified in Specimen by Culture 08/15/2023 17:50:38 No significant growth Final Test: Culture, Urine, Quanti tative
Specimen Source: Urine, Clean Catch
Specimen Type: Urine
Specimen Date: 08/15/2023 5:50 PM
Result Date: 08/16/2023 3:33 PM
Result Status: Final result
Resulting Lab: LABORATORY [facility]
[address]
[facility] [address]

CULTURE

No significant growth

null Performing Location LABORATORY [facility] - [address] [facility] [address]
--- OUTSIDE RECORDS SUMMARY | 2023-09-04 04:37 | External Medical Summary ---
Author Name Unknown Address Unknown Organization : Laboratory Report Ordering Provider Test Date Status VIGNESH GARCIA 08/16/2023 00:02:41 Final Observation Date Value Abnormality Reference (Units ) Status Glucose Point of Care 08/16/2023 00:02:41 153 Above high normal 70-120 (mg/dL) Final Performing Location
--- OUTSIDE RECORDS SUMMARY | 2023-09-04 04:37 | External Medical Summary ---
Author Name Unknown Address Unknown Organization : Laboratory Report Ordering Provider Test Date Status VIGNESH GARCIA 08/16/2023 11:33:51 Final Observation Date Value Abnormality Reference (Units ) Status Glucose Point of Care 08/16/2023 11:33:51 154 Above high normal 70-120 (mg/dL) Final Performing Location
--- OUTSIDE RECORDS SUMMARY | 2023-09-04 04:37 | External Medical Summary ---
Author Name Unknown Address Unknown Organization K1F:LABORATORY [facility] - [address] [place] [address] Laboratory Report Ordering Provider Test Date Status JEAN PIERRE REILLY 08/16/2023 05:38:00 Final Observation Date Value Abnormality Reference (Units ) Status Magnesium 08/16/2023 05:38:00 1.7 1.5-2.6 (m g/dL) Final Performing Location LABORATORY [facility] - [address] [place] [address]
--- OUTSIDE RECORDS SUMMARY | 2023-09-04 04:37 | External Medical Summary ---
Author Name Unknown Address Unknown Organization : Laboratory Report Ordering Provider Test Date Status DMITRY ZELAYA 08/17/2023 00:06:32 Final Observation Date Value Abnormality Reference (Units ) Status Glucose Point of Care 08/17/2023 00:06:32 124 Above high normal 70-120 (mg/dL) Final Performing Location
--- OUTSIDE RECORDS SUMMARY | 2023-09-04 04:37 | External Medical Summary ---
Author Name Unknown Address Unknown Organization : Laboratory Report Ordering Provider Test Date Status DMITRY ZELAYA 08/17/2023 11:08:42 Final Observation Date Value Abnormality Reference (Units ) Status Glucose Point of Care 08/17/2023 11:08:42 117 70-120 (mg/dL) Final Performing Location
--- OUTSIDE RECORDS SUMMARY | 2023-09-04 04:37 | External Medical Summary ---
Author Name Unknown Address Unknown Organization K1F:LABORATORY [facility] - [address] [place] [address] Laboratory Report Ordering Provider Test Date Status GIOVANNA DEL REAL 08/15/2023 13:16:00 Final Observation Date Value Abnormality Reference (Units ) Status BUN 08/15/2023 13:16:00 13 6-20 (mg/dL) Final Creatinine 08/15/2023 13:16:00 0.5 0.5-1.0 (mg/dL) Final Glomerular filtration rate/1.73 sq M.predicted [Volume Rate/Area] in Serum, Plasma or Blood by Creatinine-based formula (CKD-EPI) 08/15/2023 13:16:00 >90 >=60 (mL/min) Final eGFR is calculated based on the CKD-EPI 2020 equation SODIUM 08/15/2023 13:16:00 137 135-146 (m mol/L) Final Potassium 08/15/2023 13:16:00 4.6 3.5-5.1 (m mol/L) Final Cl 08/15/2023 13:16:00 101 98-107 (mm ol/L) Final CO2 08/15/2023 13:16:00 24 22-32 (mmo l/L) Final Anion gap 08/15/2023 13:16:00 12 7-15 (mmol /L) Final Glucose 08/15/2023 13:16:00 149 Above high normal 70 -120 (mg/dL) Final Albumin 08/15/2023 13:16:00 4.0 3.8-5.0 (g /dL) Final AST (Aspartate aminotransferase) 08/15/2023 13:16:00 16 10-35 (U/L) Fin al Alk Phos 08/15/2023 13:16:00 116 35-130 (U/ L) Final Bilirubin, Total 08/15/2023 13:16:00 0.2 <=1 .2 (mg/dL) Final Calcium 08/15/2023 13:16:00 9.9 8.4-10.2 ( mg/dL) Final Protein 08/15/2023 13:16:00 7.0 6.0-8.3 (g /dL) Final ALT (Alanine aminotransferase) 08/15/2023 13:16:00 24 10-35 (U/L) Don johnson Performing Location LABORATORY [facility] - [address] [place], [place] [address] [place] [address]
--- OUTSIDE RECORDS SUMMARY | 2023-09-04 04:37 | External Medical Summary ---
Author Name Unknown Address Unknown Organization K1F:LABORATORY [facility] - [address] [place] [address] Laboratory Report Ordering Provider Test Date Status JEAN PIERRE REILLY 08/16/2023 05:38:00 Final Observation Date Value Abnormality Reference (Units ) Status Phosphate 08/16/2023 05:38:00 3.2 2.5-4.8 (m g/dL) Final Performing Location LABORATORY [facility] - [address] [place] [address]
--- OUTSIDE RECORDS SUMMARY | 2023-09-04 04:37 | External Medical Summary ---
Author Name Unknown Address Unknown Organization : Laboratory Report Ordering Provider Test Date Status VIGNESH GARCIA 08/16/2023 18:12:14 Final Observation Date Value Abnormality Reference (Units ) Status Glucose Point of Care 08/16/2023 18:12:14 139 Above high normal 70-120 (mg/dL) Final Performing Location
--- OUTSIDE RECORDS SUMMARY | 2023-09-04 04:37 | External Medical Summary ---
Author Name Unknown Address Unknown Organization : Laboratory Report Ordering Provider Test Date Status DMITRY ZELAYA 08/18/2023 07:35:21 Final Observation Date Value Abnormality Reference (Units ) Status Glucose Point of Care 08/18/2023 07:35:21 121 Above high normal 70-120 (mg/dL) Final Performing Location
--- OUTSIDE RECORDS SUMMARY | 2023-09-04 04:37 | External Medical Summary ---
Author Name Unknown Address Unknown Organization : Laboratory Report Ordering Provider Test Date Status DMITRY ZELAYA 08/17/2023 16:56:25 Final Observation Date Value Abnormality Reference (Units ) Status Glucose Point of Care 08/17/2023 16:56:25 104 70-120 (mg/dL) Final Performing Location
--- OUTSIDE RECORDS SUMMARY | 2023-09-04 04:37 | External Medical Summary ---
Author Name Unknown Address Unknown Organization K1F:LABORATORY [facility] - [address] [place] [address] Laboratory Report Ordering Provider Test Date Status JEAN PIERRE REILLY 08/16/2023 05:38:00 Final Warfarin Therapy
INR: 2 .0-3.0 conventional anticoagulation
INR: 2.5- 3.5 high intensity anticoagulation Observation Date Value Abnormality Reference (Units ) Status PT 08/16/2023 05:38:00 14.5 11.6-15.2 (seconds) Final INR 08/16/2023 05:38:00 1.1 0.8-1.2 Final Performing Location LABORATORY [facility] - [address] [place] [address]
--- OUTSIDE RECORDS SUMMARY | 2023-09-04 04:37 | External Medical Summary ---
Author Name Unknown Address Unknown Organization K1F:LABORATORY [facility] - [address] [place] [address] Laboratory Report Ordering Provider Test Date Status GIOVANNA DEL REAL 08/15/2023 16:05:18 Final Observation Date Value Abnormality Reference (Units ) Status Color of Urine by Auto 08/15/2023 16:05:18 Yellow Light Yellow, Yellow, Dark Yellow Final Clarity, Urine 08/15/2023 16:05:18 Clear Clear Final Glucose [Mass/volume] in Urine by Automated test strip 08/15/2023 16:05:18 Negative Negative (mg/dL) Final Bilirubin.total [Presence] in Urine by Automated test strip 08/15/2023 16:05:18 Negative Negative Final Ketones [Mass/volume] in Urine by Automated test strip 08/15/2023 16:05:18 Negative Negative (mg/dL) Final Specific gravity, Urine 08/15/2023 16:05:18 1.014 1.003-1.030 Final Hemoglobin [Presence] in Urine by Automated test strip 08/15/2023 16:05:18 Negative Negative Final pH, Urine 08/15/2023 16:05:18 6.0 5.0-7.5 (Units) Final Protein [Mass/volume] in Urine by Automated test strip 08/15/2023 16:05:18 Negative Negative (mg/dL) Final Urobilinogen [Mass/volume] in Urine by Automated test strip 08/15/2023 16:05:18 0.2 0.2, 1.0 (mg/dL) Final Nitrite [Presence] in Urine by Automated test strip 08/15/2023 16:05:18 Negative Negative Final Leukocyte esterase [Presence] in Urine by Automated test strip 08/15/2023 16:05:18 Moderate Abnormal Negative Final Performing Location LABORATORY [facility] - [address] [place] [address]
--- OUTSIDE RECORDS SUMMARY | 2023-09-04 04:37 | External Medical Summary ---
Author Name Unknown Address Unknown Organization : Laboratory Report Ordering Provider Test Date Status DMITRY ZELAYA 08/18/2023 11:09:02 Final Observation Date Value Abnormality Reference (Units ) Status Glucose Point of Care 08/18/2023 11:09:02 150 Above high normal 70-120 (mg/dL) Final Performing Location
--- OUTSIDE RECORDS SUMMARY | 2023-09-04 04:37 | External Medical Summary ---
Author Name Unknown Address Unknown Organization K1F:LAB[facility]ORY [facility] - [address] [facility] [place] [address] Laboratory Report Ordering Provider Test Date Status GIOVANNA DEL REAL 08/15/2023 13:16:00 Final Observation Date Value Abnormality Reference (Units ) Status SYNC LEUKOCYTES IN BLOOD BY AUTOMATED COUNT 08/15/2023 13:16:00 14.46 Above high normal 4.00-10.80 (K/uL) Final Segs 08/15/2023 13:16:00 67.2 40.0-75.0 (%) Final Lymphs % 08/15/2023 13:16:00 25.2 18.0-42.0 (%) Final Monos 08/15/2023 13:16:00 6.4 1.0-11.0 (%) Final Eosinophils 08/15/2023 13:16:00 0.6 0.0-6.0 (%) Final Basos 08/15/2023 13:16:00 0.3 0.0-2.0 (%) Final Immature Granulocyte, Percent 08/15/2023 13:16:00 0.3 0.0-2.0 (%) Final Absolute Segs 08/15/2023 13:16:00 9.72 Above high normal 1.80-7.70 (K/uL) Final Lymphs, absolute 08/15/2023 13:16:00 3.64 1.00-4.80 (K/ul) Final Monos, Abs 08/15/2023 13:16:00 0.92 0.00-1.10 (K/uL) Final Eos, Abs 08/15/2023 13:16:00 0.09 0.00-0.70 (K/uL) Final Basos, Abs 08/15/2023 13:16:00 0.04 0.00-0.20 (K/uL) Final Immature Granulocytes, Number 08/15/2023 13:16:00 0.05 0.00-0.20 (K/uL) Final Performing Location LABORATORY [facility] [address] [facility] [place] [address]
[2023-09-04] MEDS ORDERED: ONDANSETRON INJ 2 MG/ML 2 ML VIAL IV STA (04:58)
[2023-09-04] MEDS ORDERED: KETOROLAC 30 MG/ML VIAL IV STA (04:58)
[2023-09-04] MEDS ORDERED: ACETAMINOPHEN 1,000 MG/100 ML VIAL IV STA (04:58)
[2023-09-04 05:11] LABS: Basophils # (auto) 0.15 K/uL (0.00-0.20); Basophils % (auto) 0.6 %; Eosinophils # (auto) 0.34 K/uL (0.00-0.50); Eosinophils % (auto) 1.4 %; Hematocrit (blood only) 46.1 % (37.0-47.0); Hemoglobin 15.1 g/dl (12.0-16.0); Immature Granulocytes # (auto) 0.16 K/uL (0.01-0.20); Immature Granulocytes % (auto) 0.7 %; Lymphocytes # (auto) 3.37 K/uL (1.20-3.40); Lymphocytes % (auto) 14.3 %; Mean Corpuscular Hemoglobin 31.5 pg (25.0-34.0); Mean Corpuscular Hgb Conc 32.8 g/dL (32.0-36.0); Mean Corpuscular Volume 96.2 fL (80.0-100.0); Mean Platelet Volume 10.8 fL (9.4-12.4); Monocytes # (auto) 1.57 K/uL (0.11-0.59); Monocytes % (auto) 6.7 %; Neutrophils # (auto) 17.99 K/uL (1.40-6.50); Neutrophils % (auto) 76.3 %; Platelet Count 311 K/uL (130-400); RDW Coefficient of Variation 13.1 % (11.5-14.5); RDW Standard Deviation 46.4 fL (36.4-46.3); Red Blood Count 4.79 M/uL (4.20-5.40); White Blood Count 23.58 K/ul (4.8-10.8)
[2023-09-04 05:20] LABS: Pregnancy Test, Serum Negative (Negative)
[2023-09-04 05:23] LABS: Alanine Aminotransferase 26 U/L (7-52); Albumin Globulin Ratio 1.4 (0.9-2); Albumin Level 4.4 gm/dl (3.4-5.0); Alkaline Phosphatase 109 U/L (34-104); Anion Gap 11 (3-11); Aspartate Aminotransferase 14 U/L (13-39); BUN Creatinine Ratio 37.5 (10-20); Bilirubin,Total 0.4 mg/dl (0.2-1.0); Blood Urea Nitrogen 21 mg/dl (6-23); Calcium 9.6 mg/dl (8.6-10.3); Carbon Dioxide 22 mmol/L (21-32); Chloride 101 mmol/L (98-107); Est GFR (African American) 129.6 ml/min; Est GFR (Non-African American) 111.8 ml/min; Globulin 3.1 gm/dl (2.5-4.0); Glucose 225 mg/dl (70-99(Fasting)); Lipase 32 U/L (11-82); Potassium 3.8 mmol/L (3.5-5.1); Sodium 134 mmol/L (136-145); Total Protein 7.5 gm/dl (6.0-8.3)
[2023-09-04] MEDS: SODIUM CHLORIDE 0.9% 1,000 ML IV SCH ×6 (05:23→21:57)
[2023-09-04 05:29] LABS: Troponin I High Sensitivity 7.1 pg/ml (0-14)
[2023-09-04] MEDS ORDERED: OPTIRAY 320 500ml IV ONE (06:02)
--- NOTE | 2023-09-04 06:18 | Emergency Department Note ---
History of Present Illness General Chief complaint: Illness Stated complaint: CONSTIPATION/VOMITING Time Seen by Provider: 09/04/23 04:41 History of Present Illness Maximum Pain Intensity: 8 This is a 48-year-old female presenting to the emergency department for evaluation of lower abdominal pain, nausea, vomiting, and constipation. Patient has had abdominal discomfort for several days. The patient reached out to her family doctor and was instructed to take laxatives, which she did, and now she has diarrhea. Patient continues with lower abdominal discomfort. Her nausea and vomiting symptoms began about 2 hours prior to arrival, around 2 AM. She has not had fevers or chills. Patient was admitted to [facility] 3 weeks ago for partial small bowel obstruction. She does not believe that she is . She rates her discomfort an 8/10 and has not taken anything [id number] for symptoms. Home Medications Medication Instructions Recorded Confirmed Type acetaminophen 500 mg tablet 1,000 mg PO Q6H PRN Fever Or Pain 05/03/20 09/04/23 History (Tylenol Extra Strength) atorvastatin 20 mg tablet 20 mg PO QAM 05/03/20 09/04/23 History dextroamphetamine-amphetamine ER 10 mg PO QAM 05/03/20 09/04/23 History 10 mg 24hr capsule,extend release docusate sodium 100 mg capsule 100 mg PO BID PRN Constipation 05/03/20 09/04/23 History (Stool Softener) lamotrigine 150 mg tablet 225 mg PO QAM 05/03/20 09/04/23 History (Lamictal) lisinopril 20 mg tablet 20 mg PO QAM 05/03/20 09/04/23 History metformin 500 mg tablet,extended 500 mg PO BID 05/03/20 09/04/23 History release 24 hr venlafaxine 150 mg 150 mg PO DAILY 05/03/20 09/04/23 History capsule,extended release 24 hr venlafaxine 75 mg capsule,extended 75 mg PO DAILY 05/03/20 09/04/23 History release 24 hr ondansetron 4 mg disintegrating 4 mg PO Q6H PRN nausea and 06/23/23 09/04/23 Rx tablet vomiting #10 tabs brexpiprazole 0.5 mg tablet 0.5 mg PO QAM 08/10/23 09/04/23 History (Rexulti) diclofenac sodium 75 mg 75 mg PO QAM 08/10/23 09/04/23 History tablet,delayed release dulaglutide 1.5 mg/0.5 mL 1.5 mg subcut WK 08/10/23 09/04/23 History subcutaneous pen injector (Trulicity) triamterene 37.5 0.5 tab PO QAM 08/10/23 09/04/23 History mg-hydrochlorothiazide 25 mg tablet famotidine 20 mg tablet 20 mg PO DAILY 09/04/23 09/04/23 History omeprazole 40 mg capsule,delayed 40 mg PO DAILY 09/04/23 09/04/23 History release Allergies Allergy/AdvReac Type Severity Reaction Status Date / Time No Known Allergies Allergy Verified 08/10/23 16:04 Past Med/Surg History Medical History (Updated 09/04/23 @ 21:48 by Emanuel Swenson PA-C) Tobacco use ADD (attention deficit disorder) Depression with anxiety Diabetes mellitus, type II Dyslipidemia HTN (hypertension) Constipation Surgical History Hx of tonsillectomy History of hysterectomy Family History Other Depression Hypertension Social History Smoking Status: Current every day smoker Tobacco Type: Cigarettes Cigarettes Per Day: 1/2-1 pdd; Do You Dip or Chew Tobacco: No; Hx Alcohol Use: No Hx Substance Use: No Preferred Language: Polish Communication Ability: Effective Food Service Order Clerk Required: No Beliefs That Will Affect Care: None Current Living Situation: Family Current Living Situation Comment: lives with adolescent children Feels Safe at Home: Yes Safety Concerns: Feels Safe At This Time Assistive Devices: Glasses Review of Systems A total of 10 systems reviewed and were otherwise negative Physical Exam Vital Signs Vital Signs - 24 hr 09/04/23 04:34 09/04/23 04:34 09/04/23 06:31 Temperature Temperature Source Pulse Rate 106 H 89 Pulse Rate [Right Finger] 106 H Pulse Rate from SpO2 Sensor Pulse Rhythm [Right Finger] Regular Pulse Strength [Right Finger] Normal Respiratory Rate 20 16 Respiratory Effort / Characteristics Non-Labored Spontaneous Non-Labored Spontaneous Respiratory Depth Normal Normal Respiratory Pattern Regular Regular Blood Pressure 153/97 H Blood Pressure [Right Arm] 153/97 H Blood Pressure Mean 115 Blood Pressure Mean [Right Arm] 115 Blood Pressure Position Lying Blood Pressure Position [Right Arm] Lying Pulse Oximetry 94 94 Oxygen Delivery Method Room Air Room Air Sepsis Recent Fever Within 48 Hours No Sepsis New/Unexplained Change in Mental Status No Sepsis Action Taken by Nursing No Action Required 09/04/23 06:34 09/04/23 07:24 09/04/23 08:00 Temperature 36.7 C Temperature Source Oral Pulse Rate 79 Pulse Rate [Right Finger] 94 H Pulse Rate from SpO2 Sensor 79 Pulse Rhythm [Right Finger] Regular Pulse Strength [Right Finger] Normal Respiratory Rate 17 21 Respiratory Effort / Characteristics Non-Labored Spontaneous Respiratory Depth Normal Respiratory Pattern Regular Blood Pressure 132/78 Blood Pressure [Right Arm] 134/83 Blood Pressure Mean 96 Blood Pressure Mean [Right Arm] 100 Blood Pressure Position Blood Pressure Position [Right Arm] Lying Pulse Oximetry 91 94 Oxygen Delivery Method Room Air Sepsis Recent Fever Within 48 Hours Sepsis New/Unexplained Change in Mental Status Sepsis Action Taken by Nursing VITALS: Vitals are noted on the nurse's note and reviewed by myself. Vital signs with tachycardia GENERAL: Well-developed, well-nourished, white female, who is in no acute distress and resting comfortably. Patient is cooperative with the examination. HEAD: Normocephalic atraumatic. NECK: Supple without nuchal rigidity. No lymphadenopathy. No thyromegaly. Cervical spine is nontender. HEART: Tachycardic rate with regular rhythm LUNGS: Clear to auscultation bilaterally without wheezes, rales or rhonchi. No retractions or accessory muscle use. ABDOMEN: Positive normal bowel sounds x 4. Soft, nontender, without masses or organomegaly. No guarding or rebound tenderness. MUSCULOSKELETAL: No muscle atrophy, erythema, or edema noted. Full range of motion in all extremities. Course Administered Medications Enoxaparin Sodium (Enoxaparin Inj 40 Mg/0.4 Ml Syr) 40 mg SQ Q24H [facility] Stop: 10/04/23 13:59 Last Admin: 09/04/23 14:47 Dose: 40 mg Documented By: SAMRA Sodium Chloride (Nss) 1,000 mls @ 100 mls/hr IV .Q10H [facility] Stop: 09/05/23 09:41 Last Admin: 09/04/23 14:47 Dose: 100 mls/hr Documented By: SAMRA Piperacillin Sod/Tazobactam (Sod 4.5 gm/ Dextrose) 100 mls @ 25 mls/hr IV Q8H [facility]; Protocol Stop: 09/06/23 15:29 Last Admin: 09/04/23 17:43 Dose: 25 mls/hr Documented By: SOTO Insulin Aspart (Insulin Aspart Per Unit Charge) 0 units SC ACHS [facility] Stop: 10/04/23 13:41 Last Admin: 09/04/23 16:56 Dose: Not Given Documented By: Admin: 09/04/23 14:38 Dose: Not Given Documented By: SAMRA Co-signed By: GERMAINE Discontinued Medications Sodium Chloride (Nss) 1,000 mls @ 999 mls/hr IV .Q1H1M [facility] Stop: 09/04/23 06:00 Last Infusion: 09/04/23 09:12 Dose: Infused Documented By: Admin: 09/04/23 07:30 Dose: 999 mls/hr Documented By: SAMRA Acetaminophen (Ofirmev) 1,000 mg in 100 mls @ 400 mls/hr IV NOW STA Stop: 09/04/23 05:12 Last Infusion: 09/04/23 06:00 Dose: Infused Documented By: Admin: 09/04/23 05:26 Dose: 400 mls/hr Documented By: CAROLYN Sodium Chloride (Nss) 1,000 mls @ 999 mls/hr IV .Q1H1M [facility] Stop: 09/04/23 06:30 Last Infusion: 09/04/23 09:13 Dose: Infused Documented By: Admin: 09/04/23 07:30 Dose: 999 mls/hr Documented By: SAMRA Piperacillin Sod/Tazobactam Sod (Zosyn) 4.5 gm in 100 mls @ 200 mls/hr IV NOW ONE Stop: 09/04/23 10:03 Last Infusion: 09/04/23 11:08 Dose: Infused Documented By: Admin: 09/04/23 10:28 Dose: 200 mls/hr Documented By: SAMRA Sodium Chloride (Nss) 1,000 mls @ 999 mls/hr IV .Q1H1M ONE Stop: 09/04/23 11:04 Last Infusion: 09/04/23 12:05 Dose: Infused Documented By: Admin: 09/04/23 10:28 Dose: 999 mls/hr Documented By: SAMRA Ioversol (Optiray 320 500ml) 88 ml IV ONCE ONE Stop: 09/04/23 06:03 Last Admin: 09/04/23 06:03 Dose: 88 ml Documented By: RAYMUNDO Ketorolac Tromethamine (Ketorolac 30 Mg/Ml Vial) 30 mg IV NOW STA Stop: 09/04/23 04:59 Last Admin: 09/04/23 05:24 Dose: 30 mg Documented By: CAROLYN Metoclopramide HCl (Metoclopramide Hcl Inj 5 Mg/Ml 2 Ml Vial) 10 mg IV NOW STA Stop: 09/04/23 10:13 Last Admin: 09/04/23 10:28 Dose: 10 mg Documented By: SAMRA Morphine Sulfate (Morphine Sulfate 4 Mg/Ml 1 Ml Carp\Vial) 3 mg IV NOW STA Stop: 09/04/23 13:16 Last Admin: 09/04/23 13:49 Dose: 3 mg Documented By: SAMRA Ondansetron HCl (Ondansetron Inj 2 Mg/Ml 2 Ml Vial) 4 mg IV NOW STA Stop: 09/04/23 04:59 Last Admin: 09/04/23 05:23 Dose: 4 mg Documented By: CAROLYN Medical Decision Making Differential Diagnosis Differential diagnosis: Etiologies such as biliary colic, cholecystitis, hepatitis, pancreatitis, cardiac disease, pancreatitis, gastritis, peptic ulcer disease, appendicitis, cystitis, diverticulitis, mesenteric ischemia, inflammatory bowel disease, ileus, bowel obstruction, testicular/adnexal torsion, aortic pathology, shingles, as well as others were considered Laboratory Data 09/04/23 04:50 09/04/23 04:50 Lab Results 09/04/23 09/04/23 09/04/23 Range/Units 04:50 05:30 05:35 WBC 23.58 H (4.8-10.8) K/ul RBC 4.79 (4.20-5.40) M/uL Hgb 15.1 (12.0-16.0) g/dl Hct 46.1 (37.0-47.0) % MCV 96.2 (80.0-100.0) fL MCH 31.5 (25.0-34.0) pg MCHC 32.8 (32.0-36.0) g/dL RDW Std Deviation 46.4 H (36.4-46.3) fL RDW Coeff of Daryl 13.1 (11.5-14.5) % Plt Count 311 (130-400) K/uL MPV 10.8 (9.4-12.4) fL Immature Gran % (Auto) 0.7 % Neut % (Auto) 76.3 % Lymph % (Auto) 14.3 % Ida % (Auto) 6.7 % Eos % (Auto) 1.4 % Baso % (Auto) 0.6 % Neut # (Auto) 17.99 H (1.40-6.50) K/uL Lymph # (Auto) 3.37 (1.20-3.40) K/uL Ida # (Auto) 1.57 H (0.11-0.59) K/uL Eos # (Auto) 0.34 (0.00-0.50) K/uL Baso # (Auto) 0.15 (0.00-0.20) K/uL Immature Gran # (Auto) 0.16 (0.01-0.20) K/uL Sodium 134 L (136-145) mmol/L Potassium 3.8 (3.5-5.1) mmol/L Chloride 101 (98-107) mmol/L Carbon Dioxide 22 (21-32) mmol/L Anion Gap 11 (3-11) BUN 21 (6-23) mg/dl Creatinine 0.56 L (0.6-1.2) mg/dl Est Cr Clr Drug Dosing Not Reportable Est GFR ( Amer) 129.6 ml/min Est GFR (Non-Af Amer) 111.8 ml/min BUN/Creatinine Ratio 37.5 H (10-20) Glucose 225 H (70-99(Fasting)) mg/dl Lactate 2.1 H* (0.4-2.0) mmol/L Calcium 9.6 (8.6-10.3) mg/dl Total Bilirubin 0.4 (0.2-1.0) mg/dl AST 14 (13-39) U/L ALT 26 (7-52) U/L Alkaline Phosphatase 109 H (34-104) U/L Troponin I High Sens 7.1 (0-14) pg/ml Total Protein 7.5 (6.0-8.3) gm/dl Albumin 4.4 (3.4-5.0) gm/dl Globulin 3.1 (2.5-4.0) gm/dl Albumin/Globulin Ratio 1.4 (0.9-2) Lipase 32 (11-82) U/L HCG, Qual Negative (Negative) Urine Color Urine Appearance (Clear) Urine pH (4.5-7.5) Ur Specific [place] (1.000-1.030) Urine Protein (Negative) Urine Glucose (UA) (Negative) Urine Ketones (Negative) Urine Blood (Negative) Urine Nitrite (Negative) Urine Bilirubin (Negative) Urine Urobilinogen (Negative) Ur Leukocyte Esterase (Negative) Urine Opiates Screen (Neg) Ur Methadone, Qual (Neg) Urine Barbiturates (Neg) Ur Phencyclidine (PCP) (Neg) U Amphetamin/Meth Scrn (Neg) MDMA (Ecstasy) Screen (Neg) U Benzodiazepines Scrn (Neg) Ur Cocaine Metabolite (Neg) U Marijuana (THC) Screen (Neg) Ethyl Alcohol mg/dL < 10.0 (<10.0) mg/dl Adenovirus (PCR) Not Detected (NotDetected) B. pertussis DNA (PCR) Not Detected (NotDetected) B.parapertussis DNA PCR Not Detected (NotDetected) C. pneumoniae DNA (PCR) Not Detected (NotDetected) Coronavirus OC43 (PCR) Not Detected (NotDetected) Coronavirus HKU1 (PCR) Not Detected (NotDetected) Coronavirus 229E (PCR) Not Detected (NotDetected) SARS-CoV-2 (PCR) Not Detected (NotDetected) Coronavirus NL63 (PCR) Not Detected (NotDetected) Human Metapneumovir PCR Not Detected (NotDetected) Influenza Type A (PCR) Not Detected (NotDetected) Influenza Type B (PCR) Not Detected (NotDetected) M. pneumoniae (PCR) Not Detected (NotDetected) Parainfluenza 1 (PCR) Not Detected (NotDetected) Parainfluenza 2 (PCR) Not Detected (NotDetected) Parainfluenza 3 (PCR) Not Detected (NotDetected) Parainfluenza 4 (PCR) Not Detected (NotDetected) RSV (PCR) Not Detected (NotDetected) Entero/Rhino (PCR) Not Detected (NotDetected) 09/04/23 09/04/23 Range/Units 07:30 09:00 WBC (4.8-10.8) K/ul RBC (4.20-5.40) M/uL Hgb (12.0-16.0) g/dl Hct (37.0-47.0) % MCV (80.0-100.0) fL MCH (25.0-34.0) pg MCHC (32.0-36.0) g/dL RDW Std Deviation (36.4-46.3) fL RDW Coeff of Daryl (11.5-14.5) % Plt Count (130-400) K/uL MPV (9.4-12.4) fL Immature Gran % (Auto) % Neut % (Auto) % Lymph % (Auto) % Ida % (Auto) % Eos % (Auto) % Baso % (Auto) % Neut # (Auto) (1.40-6.50) K/uL Lymph # (Auto) (1.20-3.40) K/uL Ida # (Auto) (0.11-0.59) K/uL Eos # (Auto) (0.00-0.50) K/uL Baso # (Auto) (0.00-0.20) K/uL Immature Gran # (Auto) (0.01-0.20) K/uL Sodium (136-145) mmol/L Potassium (3.5-5.1) mmol/L Chloride (98-107) mmol/L Carbon Dioxide (21-32) mmol/L Anion Gap (3-11) BUN (6-23) mg/dl Creatinine (0.6-1.2) mg/dl Est Cr Clr Drug Dosing Est GFR ( Amer) ml/min Est GFR (Non-Af Amer) ml/min BUN/Creatinine Ratio (10-20) Glucose (70-99(Fasting)) mg/dl Lactate 2.6 H* (0.4-2.0) mmol/L Calcium (8.6-10.3) mg/dl Total Bilirubin (0.2-1.0) mg/dl AST (13-39) U/L ALT (7-52) U/L Alkaline Phosphatase (34-104) U/L Troponin I High Sens (0-14) pg/ml Total Protein (6.0-8.3) gm/dl Albumin (3.4-5.0) gm/dl Globulin (2.5-4.0) gm/dl Albumin/Globulin Ratio (0.9-2) Lipase (11-82) U/L HCG, Qual (Negative) Urine Color Yellow Urine Appearance Clear (Clear) Urine pH 5.0 (4.5-7.5) Ur Specific [place] > 1.045 H (1.000-1.030) Urine Protein Negative (Negative) Urine Glucose (UA) Negative (Negative) Urine Ketones Negative (Negative) Urine Blood Negative (Negative) Urine Nitrite Negative (Negative) Urine Bilirubin Negative (Negative) Urine Urobilinogen Negative (Negative) Ur Leukocyte Esterase Negative (Negative) Urine Opiates Screen Neg (Neg) Ur Methadone, Qual Neg (Neg) Urine Barbiturates Neg (Neg) Ur Phencyclidine (PCP) Neg (Neg) U Amphetamin/Meth Scrn Neg (Neg) MDMA (Ecstasy) Screen Neg (Neg) U Benzodiazepines Scrn Neg (Neg) Ur Cocaine Metabolite Neg (Neg) U Marijuana (THC) Screen Neg (Neg) Ethyl Alcohol mg/dL (<10.0) mg/dl Adenovirus (PCR) (NotDetected) B. pertussis DNA (PCR) (NotDetected) B.parapertussis DNA PCR (NotDetected) C. pneumoniae DNA (PCR) (NotDetected) Coronavirus OC43 (PCR) (NotDetected) Coronavirus HKU1 (PCR) (NotDetected) Coronavirus 229E (PCR) (NotDetected) SARS-CoV-2 (PCR) (NotDetected) Coronavirus NL63 (PCR) (NotDetected) Human Metapneumovir PCR (NotDetected) Influenza Type A (PCR) (NotDetected) Influenza Type B (PCR) (NotDetected) M. pneumoniae (PCR) (NotDetected) Parainfluenza 1 (PCR) (NotDetected) Parainfluenza 2 (PCR) (NotDetected) Parainfluenza 3 (PCR) (NotDetected) Parainfluenza 4 (PCR) (NotDetected) RSV (PCR) (NotDetected) Entero/Rhino (PCR) (NotDetected) Imaging Data Radiologist's Impression: KUB X-Ray 09/04/23 10:25 KUB HISTORY: Assess NG tube placement COMPARISON: [facility] 05/06/2020. Abdomen and pelvis CT 09/04/2023. FINDINGS: A nasogastric tube terminates in the stomach. A few borderline gas- filled loops of small and large bowel seen throughout the abdomen. This suggests a borderline ileus. No evidence for a bowel obstruction. Contrast within the bladder from the recent CT examination. No renal calculi. No ureteral calculi. No pneumoperitoneum or pneumatosis. IMPRESSION: 1. A nasogastric tube terminates in the stomach. 2. Borderline ileus. ACT 112: Negative or not required by law. Electronically signed by: Nuno León M.D. 09/04/2023 11:29 AM Abdomen/Pelvis CT 09/04/23 04:[address] WITH IV CONTRAST CT DOSE: 1479.25 mGy.cm HISTORY: Lower abdominal pain. TECHNIQUE: Multiaxial CT images of the abdomen and pelvis were performed following the use of intravenous contrast. A dose lowering technique was utilized adhering to the principles of ALARA. COMPARISON STUDY: Abdomen and pelvis CT 08/10/2023. FINDINGS: The lung bases are clear. No pneumoperitoneum. No pneumatosis. No acute fractures identified. Stable 2 cm ovoid cystic focus with the ventral abdominal wall superficial to the abdominal wall musculature on image 265 remains unchanged. This may represent a small seroma. Hepatic steatosis again noted. The gallbladder, pancreas, spleen, adrenal glands, and kidneys are unremarkable. No hydronephrosis. The main portal vein is patent. Mild calcified plaque within the normal caliber abdominal aorta. No retroperitoneal or pelvic lymphadenopathy. No pelvic free fluid. Normal bladder. Prior hysterectomy. Fluid-filled nondilated loops of large and small bowel seen throughout the abdomen. This likely corresponds to the patient's history of a diarrheal state. No bowel wall thickening or obstruction. Normal appendix. IMPRESSION: 1. No bowel wall thickening or obstruction. 2. Hepatic steatosis. 3. Fluid-filled nondilated loops of large and small bowel likely corresponding to the patient's history of a diarrheal state. ACT 112: Negative or not required by law. Electronically signed by: Nuno León M.D. 09/04/2023 7:48 AM KUB X-Ray 09/04/23 10:25 KUB HISTORY: Assess NG tube placement COMPARISON: [facility] 05/06/2020. Abdomen and pelvis CT 09/04/2023. FINDINGS: A nasogastric tube terminates in the stomach. A few borderline gas- filled loops of small and large bowel seen throughout the abdomen. This suggests a borderline ileus. No evidence for a bowel obstruction. Contrast within the bladder from the recent CT examination. No renal calculi. No ureteral calculi. No pneumoperitoneum or pneumatosis. IMPRESSION: 1. A nasogastric tube terminates in the stomach. 2. Borderline ileus. ACT 112: Negative or not required by law. Electronically signed by: Nuno León M.D. 09/04/2023 11:29 AM MDM Narrative Physical exam and history were performed. Nursing notes, EMR, and Medication List were personally reviewed. No social concerns were identified as barriers to patients care. Patient appears to have multiple symptoms bringing her to the ER. She does have abdominal pain and was recently admitted to another facility for a partial small bowel obstruction. She is now with vomiting for about 2 hours. IV access was established and labs were obtained. She was hydrated and medicated as above. She was sent to CT scan for imaging of her abdomen and pelvis. Patient's blood work is as above and was reviewed. Her white blood cell count is significantly elevated at 23,000. She does not have significant anemia or gross electrolyte imbalance. Glucose is elevated at 225. Initial lactic is elevated at 2.1, and she was given 2 L normal saline based on ideal body weight. Troponin x 1 is negative. She is not . Patient remained in stable condition until the time of shift change. At the time of shift change we are awaiting repeat lactic acid, urinalysis, and results of CT scan of her abdomen and pelvis. She does not appear in severe sepsis, and urinalysis/CT scan may affect treatment. Case was discussed with Dr. Berrios who will assume care at this time. Please see Dr. Berrios's dictation for further patient course, plan, and disposition. The chart was completed utilizing [employer] Speech Voice Recognition Software. Grammatical errors, random word insertions, pronoun errors, and incomplete sentences are an occasional consequence of this system due to software limitations, ambient noise, and hardware issues. Any formal questions or concerns about the content, text, or information contained within the body of this dictation should be directly addressed to the provider for clarification. . Impression & Plan Abdominal discomfort, Elevated lactic acid level, Diarrhea Discharge Plan Visit Data Chief Complaint: Illness Stated Complaint: CONSTIPATION/VOMITING ED Provider: Rick Berrios ED Midlevel Provider: Noel Stanton Discharge Problem: Abdominal discomfort, Elevated lactic acid level, Diarrhea Patient Disposition: Admitted As Inpatient Discharge Instructions Interventions: ED Discharge Assessment Last Done: 09/04/23 13:45
[2023-09-04 06:25] LABS: Adenovirus PCR Not Detected (NotDetected); Bordetella parapertussis PCR Not Detected (NotDetected); Bordetella pertussis PCR Not Detected (NotDetected); Chlamydia pneumoniae PCR Not Detected (NotDetected); Coronavirus 229E PCR Not Detected (NotDetected); Coronavirus CoV-2 (COVID19)PCR Not Detected (NotDetected); Coronavirus HKU1 PCR Not Detected (NotDetected); Coronavirus NL63 PCR Not Detected (NotDetected); Coronavirus OC43PCR Not Detected (NotDetected); Human Metapneumovirus PCR Not Detected (NotDetected); Influenza A PCR Not Detected (NotDetected); Influenza B PCR Not Detected (NotDetected); Mycoplasma pneumoniae PCR Not Detected (NotDetected); Parainfluenza Virus 1 PCR Not Detected (NotDetected); Parainfluenza Virus 2 PCR Not Detected (NotDetected); Parainfluenza Virus 3 PCR Not Detected (NotDetected); Parainfluenza Virus 4 PCR Not Detected (NotDetected); Respiratory Syncytial VirusPCR Not Detected (NotDetected); Rhinovirus/Enterovirus PCR Not Detected (NotDetected)
--- NOTE | 2023-09-04 07:50 | CT Scan Report ---
ABDOMEN AND PELVIS CT WITH IV CONTRAST CT DOSE: 1479.25 mGy.cm HISTORY: Lower abdominal pain. TECHNIQUE: Multiaxial CT images of the abdomen and pelvis were performed following the use of intrave nous contrast. A dose lowering technique was utilized adhering to the principles of ALARA. COMPARISON STUDY: Abdomen and pelvis CT 08/10/2023. FINDINGS: The lung bases are clear. No pneumoperitoneum. No pneumatosis. No acute fractures identifie d. Stable 2 cm ovoid cystic focus with the ventral abdominal wall superficial to the abdominal wall m usculature on image 265 remains unchanged. This may represent a small seroma. Hepatic steatosis again noted. The gallbladder, pancreas, spleen, adrenal glands, and kidneys are unremarkable. No hydroneph rosis. The main portal vein is patent. Mild calcified plaque within the normal caliber abdominal aort a. No retroperitoneal or pelvic lymphadenopathy. No pelvic free fluid. Normal bladder. Prior hysterec fazal. Fluid-filled nondilated loops of large and small bowel seen throughout the abdomen. This likely corresponds to the patient's history of a diarrheal state. No bowel wall thickening or obstruction. Normal appendix. IMPRESSION: 1. No bowel wall thickening or obstruction. 2. Hepatic steatosis. 3. Fluid-filled nondilated loops of large and small bowel likely corresponding to the patient's histo ry of a diarrheal state. ACT 112: Negative or not required by law. Electronically signed by: Nuno León M.D. 09/04/2023 7:48 AM
[2023-09-04 09:23] LABS: Appearance Urine Clear (Clear); Bilirubin Urine Negative (Negative); Blood Urine Negative (Negative); Color Urine Yellow; Glucose Urine UA Negative (Negative); Ketones Urine Negative (Negative); Leukocyte Esterase Urine Negative (Negative); Nitrite Urine Negative (Negative); Protein Urine Negative (Negative); Specific Gravity Urine > 1.045 (1.000-1.030); Urobilinogen Urine Negative (Negative)
[2023-09-04] MEDS ORDERED: PIPERACILLIN/TAZOBACTAM 4.5 GM/100 ML BAG IV ONE (09:34)
--- NOTE | 2023-09-04 09:35 | Emergency Department Note ---
ED Visit Note ED Physician Sign Out Note: 48-year-old female signed out to me by overnight team. She has been awaiting repeat lactate. Lactate reported elevated. Patient evaluated. She is denying any significant abdominal pain other than just some bloating and discomfort. States mildly nauseous still but not actively vomiting last few hours. Patient with a history of hysterectomy 10 years ago as well as panniculectomy. No previous bowel obstructions until about a week ago at which point she was admitted in [facility] for a bowel obstruction without need for surgical intervention. States she is really not had much bowel movement since then has had gradual worsening of her nausea. Periodic vomiting in the last few days. On examination she has a distended somewhat tympanic abdomen though it is not peritonitic. She is denying any severe pain. Vital signs relatively stable with heart rate in the 90s. Of note she has received 2 L normal saline bolus already yet lactate remains elevated. She furthermore has a significantly elevated white blood cell count. Will proceed with some IV antibiotics given the elevated white count elevated lactate could persist. That said I do not find any clear evidence of sepsis. Suspect lactic acidosis and white count elevation are more dehydration & stress response at this point. Urinalysis is unremarkable and other labs are relatively benign. At time of hospitalization at 10:05 AM I do not feel patient is in severe sepsis or septic shock. Consultants Dr. Andrade of general surgery has evaluated patient agrees with plan for NG tube & Monitoring as inpatient. Did review CT findings with Dr. León as well. [facility] for further management. Rick Berrios MD
[2023-09-04 09:41] LABS: Amphetamines+Metham, Urine Neg (Neg); Barbiturates, Urine Neg (Neg); Benzodiazepine, Urine Neg (Neg); Cocaine, Urine Neg (Neg); MDMA (Ecstacy), Urine Neg (Neg); Marijuana, Urine Neg (Neg); Methadone, Urine Neg (Neg); Opiate, Urine Neg (Neg); Phencyclidine, Urine Neg (Neg)
[2023-09-04] MEDS ORDERED: SODIUM CHLORIDE 0.9% 1,000 ML IV ONE (10:04)
--- NOTE | 2023-09-04 10:09 | Surgery Consultation ---
Date of Consultation September 04, 2023 Assessment & Plan (1) Diabetes mellitus, type II: (2) Abdominal bloating: (3) Gaseous abdominal distention: (4) Diarrhea: Plan 48 y/o F with abdominal bloating, N/V gaseous distention, intermittent diarrhea. HD stable and afebrile. No peritonitis on exam. CT findings nonspecific for etiology causing patient's acute symptoms. With personal review of CT images, notable change in caliber of small bowel with fluid-filled loops present as well as collapsed small bowel loops. Stomach contains retained contents. No acute surgical intervention. Admission for conservative management and supportive care. NPO with resuscitative IVF Measure strict I/O. Record urine outputs F/U lactic acid 4 hours NG tube insertion to low intermittent wall suction Obtain stool studies if diarrhea persists Provide antiemetics and analgesics as needed The patient may have chemical DVT prophylaxis, high risk for DVT The patient may be out of bed, ambulate with assistance Surgery will follow History of Present Illness History of Present Illness Kathryn is a very pleasant 48y/o F with a PMHx DM on Trulicity, HTN, hyperlipidemia, depression and anxiety presents to the ED with mild abdominal pain and significant bloating, N/V dark bilious. She started with mild abdominal pain last night which became more severe by the middle of the night. She started vomiting early this am around 0200 then started with diarrhea as well. She denies fevers but have had sweats. In the emergency department she was found to be afebrile with mild intermittent tachycardia with a distended abdomen, active nausea and vomiting, leukocytosis to over 23,000 and an elevated lactic acid to 2.1. Fluid resuscitation was initiated and a lactic acid was repeated. Follow-up lactic acid was 2.6. CT of the abdomen pelvis with IV contrast was obtained as per radiology read revealing no evidence for bowel obstruction with fluid-filled loops of small bowel correlating to diarrheal state and hepatic steatosis which was also noted on prior imaging. No acute etiology for her current symptoms appeared evident per radiologist. Admission for conservative management to the medicine service has been initiated and a surgical consult is recommended. In the ED with me, the patient is feeling mildly nauseous with a bloated abdomen. Denies abdominal pain unless she is actively vomiting. She last vomited here a few hours ago dark bile. C/o recent very smelly gas with belching. Patient states she had a mild form of these same symptoms back in May with nausea and abdominal pain. She was seen in the ED an sent home with no further issues until July. She was admitted to [facility] and recently discharged on 08/15/2023 with similar symptoms that were more severe than in May. She was treated conservatively with an NGT. Since she has been home Kathryn says that she was eating and drinking without symptoms until symptoms started surrounding this presentation as described above. She states she has been on Trulicity for quite some time. Allergies Allergy/AdvReac Type Severity Reaction Status Date / Time No Known Allergies Allergy Verified 08/10/23 16:04 Home Medications Medication Instructions Recorded Confirmed Type acetaminophen 500 mg tablet 1,000 mg PO Q6H PRN Fever Or Pain 05/03/20 08/10/23 History (Tylenol Extra Strength) atorvastatin 20 mg tablet 20 mg PO QAM 05/03/20 08/10/23 History dextroamphetamine-amphetamine ER 10 mg PO QAM 05/03/20 08/10/23 History 10 mg 24hr capsule,extend release docusate sodium 100 mg capsule 100 mg PO BID PRN Constipation 05/03/20 08/10/23 History (Stool Softener) ibuprofen 200 mg tablet (Motrin IB) 400 mg PO Q6H PRN Fever Or Pain 05/03/20 08/10/23 History lamotrigine 150 mg tablet 225 mg PO QAM 05/03/20 08/10/23 History (Lamictal) lisinopril 20 mg tablet 20 mg PO QAM 05/03/20 08/10/23 History metformin 500 mg tablet,extended 500 mg PO BID 05/03/20 08/10/23 History release 24 hr venlafaxine 150 mg See Rx Instructions .Route .COMPLEX 05/03/20 08/10/23 History capsule,extended release 24 hr venlafaxine 75 mg capsule,extended See Rx Instructions .Route .COMPLEX 05/03/20 08/10/23 History release 24 hr albuterol sulfate 90 mcg/actuation 2 inh inhalation Q4H PRN shortness 06/11/21 08/10/23 Rx aerosol inhaler of breath or wheezing #6.7 grams ondansetron 4 mg disintegrating 4 mg PO Q6H PRN nausea and 10/26/23 12/13/23 Rx tablet vomiting #10 tabs brexpiprazole 0.5 mg tablet 0.5 mg PO QAM 08/10/23 08/10/23 History (Rexulti) diclofenac sodium 75 mg 75 mg PO QAM 08/10/23 08/10/23 History tablet,delayed release dicyclomine 20 mg tablet 20 mg PO TID PRN abdominal 08/10/23 Rx cramping #15 tabs dulaglutide 1.5 mg/0.5 mL 1.5 mg subcut WK 08/10/23 08/10/23 History subcutaneous pen injector (Trulicity) triamterene 37.5 1 tab PO QAM 08/10/23 08/10/23 History mg-hydrochlorothiazide 25 mg tablet Patient History Medical History Tobacco use ADD (attention deficit disorder) Depression with anxiety Diabetes mellitus, type II Dyslipidemia HTN (hypertension) Constipation Surgical History Hx of tonsillectomy History of hysterectomy Family History Other Hypertension Social History Smoking Status: Current every day smoker Tobacco Type: Cigarettes Cigarettes Per Day: 1/2-1 pdd; Do You Dip or Chew Tobacco: No; Hx Alcohol Use: No Hx Substance Use: No Preferred Language: Scottish Communication Ability: Effective Beliefs That Will Affect Care: None Current Living Situation: Family Feels Safe at Home: Yes Assistive Devices: None Review of Systems Respiratory: no cough, no chest congestion, no dyspnea and no wheezing Cardiovascular: no chest pain, no orthopnea, no palpitations and no syncope Gastrointestinal: + bloating, + nausea and + vomiting; no abdominal pain Genitourinary: no dysuria, no urinary frequency, no flank pain and no pelvic pain Physical Exam Constitutional: + obese and cooperative; not diaphoretic Afebrile, NAD Respiratory: normal respiratory effort; no respiratory distress, no labored breathing and does not use accessory muscles Cardiovascular: Rate/Rhythm: regular rate; not tachycardic Extremities well-perfused, no orthopnea Gastrointestinal (Abdomen): Abdomen is softly distended. Expresses mild diffuse discomfort to deep palpation. There is no peritonitis, rebound/guarding Results & Data Vital Signs (Past 12 Hours) Vital Signs Temp Pulse Pulse Resp BP BP Pulse Ox 09/04/23 07:24 36.7 C 09/04/23 06:34 94 H 17 134/83 91 09/04/23 06:31 89 09/04/23 04:34 106 H 16 153/97 H 94 09/04/23 04:34 106 H 20 153/97 H 94 O2 Del Method 09/04/23 07:24 09/04/23 06:34 Room Air 09/04/23 06:31 09/04/23 04:34 Room Air 09/04/23 04:34 Room Air Laboratory Results Lactic acid: 2.6 at 07 30 WBC 23.[address] A/P with IV contrast: FINDINGS: The lung bases are clear. No pneumoperitoneum. No pneumatosis. No acute fractures identified. Stable 2 cm ovoid cystic focus with the ventral abdominal wall superficial to the abdominal wall musculature on image 265 remains unchanged. This may represent a small seroma. Hepatic steatosis again noted. The gallbladder, pancreas, spleen, adrenal glands, and kidneys are unremarkable. No hydronephrosis. The main portal vein is patent. Mild calcified plaque within the normal caliber abdominal aorta. No retroperitoneal or pelvic lymphadenopathy. No pelvic free fluid. Normal bladder. Prior hysterectomy. Fluid-filled nondilated loops of large and small bowel seen throughout the abdomen. This likely corresponds to the patient's history of a diarrheal state. No bowel wall thickening or obstruction. Normal appendix. IMPRESSION: 1. No bowel wall thickening or obstruction. 2. Hepatic steatosis. 3. Fluid-filled nondilated loops of large and small bowel likely corresponding to the patient's history of a diarrheal state. ACT 112: Negative or not required by law. Electronically signed by: Nuno León M.D. 09/04/2023 7:48 AM PG Care Time/CCT Total # of Minutes Spent Total Time Spent with Patient: Total time spent is greater than 50% in coordination of care (as documented) at patient's floor/unit and/or counseling patient: [place] [address] OFFICE CONSULT LVL 40M Patient Type New History Detailed Exam Detailed Medical Decision Making Low Complexity Diagnoses Diabetes mellitus, type II E11.9 Abdominal bloating R14.0 Gaseous abdominal distention R14.0 Diarrhea R19.7
[2023-09-04] MEDS ORDERED: METOCLOPRAMIDE HCL INJ 5 MG/ML 2 ML VIAL IV STA (10:12)
--- NOTE | 2023-09-04 10:21 | History & Physical Report ---
Date of Service September 04, 2023 Assessment & Plan (1) Abdominal bloating: (2) Abdominal discomfort: (3) Elevated lactic acid level: (4) Leukocytosis: Plan: Possible ileus Patient is a 48-year-old female with PMH DM II, HTN, HLD, history migraine, depression, ADHD, obesity presented to ER with complaint of abdominal pain, abdominal distension, vomiting, loose BMs and constipation. Recent admission at [facility] on 08/15/23-08/18/22 admitted at [facility] for partial small bowel obstruction treated conservatively with NG tube, IVF. Today in ER patient afebrile, initial P: 106 down to 94, RR: 20, BP 153/97, 94% on room air Initial lactate: 2.1. WBC: 23 CT abdomen pelvis: No bowel wall thickening or obstruction. Hepatic steatosis. Fluid-filled nondilated loops of large and small bowel likely corresponding to the patient's history of a diarrheal state. In ER given 2 L NSS, IV Toradol, IV Tylenol, Zofran Repeat lactate: 2.3. Given additional 1 L NSS In ER given Zosyn Blood cultures pending Continue Zosyn empirically for now NPO Trend lactate IV PPI IV Tylenol, IV Toradol as needed pain Antiemetics as needed General surgery consult. Suggest NG tube and conservative management for now NG tube to be placed in ER Obtain KUB after NG tube placement KUB in a.m. CBC, CMP in a.m. (5) Diabetes mellitus, type II: Plan: A1c: 6.8 on 07/05/2023 Hold home metformin, Trulicity NovoLog sliding scale correction only while NPO Monitor BSG's Trulicity may be contributing to patient's GI symptoms. May need to consider discontinuing an alternative agent outpatient (6) HTN (hypertension): Plan: Stable at 134/83 Hold home lisinopril and Maxide currently while n.p.o. Monitor BP (7) Dyslipidemia: Plan: Hold atorvastatin while n.p.o. (8) Depression with anxiety: (9) ADD (attention deficit disorder): Plan: Hold home Adderall, Effexor, lamotrigine, Rexulti at this time (10) Tobacco use: Plan: Smokes half pack per day Denies nicotine patch at this time Smoking cessation encouraged (11) Obesity, morbid, BMI 40.0-49.9: Plan: BMI: 41 DVT Prophylaxis Lovenox SQ Full Code as per discussion with pt Follows with Dr Man Stovall for routine care Pt was seen and care coordinated with Dr Altamirano. See addendum History of Present Illness Chief Complaint: Abdominal pain Primary Care Provider: Man Stovall DO Patient is a 48-year-old female with PMH DM II, HTN, HLD, history migraine, depression, ADHD, obesity presented to ER with complaint of abdominal pain. History obtained from patient as well as outpatient chart review. On 08/15/23- 08/18/22 admitted at [facility] for partial small bowel obstruction treated conservatively with NG tube, IVF, her diet was advanced and was tolerating and was discharged. Upon discharge her lisinopril was decreased to 10 mg daily, Maxide to 0.5 tablet daily, omeprazole and Pepcid were started. Had follow-up with PCP on 08/30/2023 and was still reporting some bloating and decreased frequency of BMs. It was suggested patient take laxatives and lisinopril was resumed at 20 mg daily and Maxide continued at 0.5 tablet daily. Patient states has continued to have abdominal bloating. Reports constipation. States will go several days without BM then will have increased abdominal bloating, nausea and vomiting. She states only having BMs if takes laxatives. Patient states then when takes laxatives has loose stools. She reports her Trulicity was increased approximately 6 months ago and has not had any further titration of this med ication. Patient states last night had chicken and steamed vegetables for dinner. States later developed increased abdominal bloating, nausea, vomiting, multiple loose bowel movements and abdominal discomfort. Reports felt cold and had sweats however denies any fever. Denies fever/chills, diaphoresis, hematemesis, hematochezia, melena, BARBOSA, dizziness, syncope, vision changes, neck pain, CP, SOB, palpitations, cough, sore throat, rhinorrhea, weakness, increased extremity edema, rashes, urinary symptoms. Allergies Allergy/AdvReac Type Severity Reaction Status Date / Time No Known Allergies Allergy Verified 08/10/23 16:04 Home Medications Medication Instructions Recorded Confirmed Type acetaminophen 500 mg tablet 1,000 mg PO Q6H PRN Fever Or Pain 05/03/20 09/04/23 History (Tylenol Extra Strength) atorvastatin 20 mg tablet 20 mg PO QAM 05/03/20 09/04/23 History dextroamphetamine-amphetamine ER 10 mg PO QAM 05/03/20 09/04/23 History 10 mg 24hr capsule,extend release docusate sodium 100 mg capsule 100 mg PO BID PRN Constipation 05/03/20 09/04/23 History (Stool Softener) lamotrigine 150 mg tablet 225 mg PO QAM 05/03/20 09/04/23 History (Lamictal) lisinopril 20 mg tablet 20 mg PO QAM 05/03/20 09/04/23 History metformin 500 mg tablet,extended 500 mg PO BID 05/03/20 09/04/23 History release 24 hr venlafaxine 150 mg 150 mg PO DAILY 05/03/20 09/04/23 History capsule,extended release 24 hr venlafaxine 75 mg capsule,extended 75 mg PO DAILY 05/03/20 09/04/23 History release 24 hr ondansetron 4 mg disintegrating 4 mg PO Q6H PRN nausea and 06/23/23 09/04/23 Rx tablet vomiting #10 tabs brexpiprazole 0.5 mg tablet 0.5 mg PO QAM 08/10/23 09/04/23 History (Rexulti) diclofenac sodium 75 mg 75 mg PO QAM 08/10/23 09/04/23 History tablet,delayed release dulaglutide 1.5 mg/0.5 mL 1.5 mg subcut WK 08/10/23 09/04/23 History subcutaneous pen injector (Trulicity) triamterene 37.5 0.5 tab PO QAM 08/10/23 09/04/23 History mg-hydrochlorothiazide 25 mg tablet famotidine 20 mg tablet 20 mg PO DAILY 09/04/23 09/04/23 History omeprazole 40 mg capsule,delayed 40 mg PO DAILY 09/04/23 09/04/23 History release Past Med/Surg History Medical History (Updated 09/04/23 @ 11:20 by Kaitlin Harris PA-C) Tobacco use ADD (attention deficit disorder) Depression with anxiety Diabetes mellitus, type II Dyslipidemia HTN (hypertension) Constipation Surgical History Hx of tonsillectomy History of hysterectomy Family History Other Depression Hypertension Social History Smoking Status: Current every day smoker Tobacco Type: Cigarettes Cigarettes Per Day: 1/2-1 pdd; Do You Dip or Chew Tobacco: No; Hx Alcohol Use: No Hx Substance Use: No Preferred Language: Khmer Communication Ability: Effective Beliefs That Will Affect Care: None Current Living Situation: Family Feels Safe at Home: Yes Assistive Devices: None Review of Systems Review of Systems: All systems reviewed & are unremarkable except as noted in HPI & below Physical Exam Physical Exam: General: Appears uncomfortable, obese Head: normocephalic, atraumatic Eyes: conjunctiva non-injected, anicteric ENT: normal inspection external ears, nose, mucous membranes mildly dry Neck: supple, trachea midline Lungs: clear, no respiratory distress, no wheezing/rhonchi/rales CV: RRR, no murmur, no pretibial edema Abd: protuberant, +distended, normal BS, soft, slight diffuse tenderness to palpation without guarding or rebound Ext: no cyanosis, no calf tenderness Neuro: A&O x 3, no focal deficits noted, normal affect Skin: warm, dry Results & Data Results & Data Vital Signs (Past 12 Hours) Vital Signs Temp Pulse Pulse Resp BP BP Pulse Ox 09/04/23 07:24 36.7 C 09/04/23 06:34 94 H 17 134/83 91 09/04/23 06:31 89 09/04/23 04:34 106 H 16 153/97 H 94 09/04/23 04:34 106 H 20 153/97 H 94 O2 Del Method 09/04/23 07:24 09/04/23 06:34 Room Air 09/04/23 06:31 09/04/23 04:34 Room Air 09/04/23 04:34 Room Air Laboratory Results Short CBC 09/04/23 Range/Units 04:50 WBC 23.58 H (4.8-10.8) K/ul Hgb 15.1 (12.0-16.0) g/dl Hct 46.1 (37.0-47.0) % Plt Count 311 (130-400) K/uL BMP 09/04/23 04:50 Sodium 134 L Potassium 3.8 Chloride 101 Carbon Dioxide 22 BUN 21 Creatinine 0.56 L Glucose 225 H Calcium 9.6 Liver Function 09/04/23 Range/Units 04:50 Total Bilirubin 0.4 (0.2-1.0) mg/dl AST 14 (13-39) U/L ALT 26 (7-52) U/L Alkaline Phosphatase 109 H (34-104) U/L Albumin 4.4 (3.4-5.0) gm/dl Urine 09/04/23 Range/Units 09:00 Urine Color Yellow Urine Appearance Clear (Clear) Urine pH 5.0 (4.5-7.5) Ur Specific [place] > 1.045 H (1.000-1.030) Urine Protein Negative (Negative) Urine Glucose (UA) Negative (Negative) Diagnostic Findings Abdomen/Pelvis CT 09/04/23 04:[address] WITH IV CONTRAST CT DOSE: 1479.25 mGy.cm HISTORY: Lower abdominal pain. TECHNIQUE: Multiaxial CT images of the abdomen and pelvis were performed following the use of intravenous contrast. A dose lowering technique was utilized adhering to the principles of ALARA. COMPARISON STUDY: Abdomen and pelvis CT 08/10/2023. FINDINGS: The lung bases are clear. No pneumoperitoneum. No pneumatosis. No acute fractures identified. Stable 2 cm ovoid cystic focus with the ventral abdominal wall superficial to the abdominal wall musculature on image 265 remains unchanged. This may represent a small seroma. Hepatic steatosis again noted. The gallbladder, pancreas, spleen, adrenal glands, and kidneys are unremarkable. No hydronephrosis. The main portal vein is patent. Mild calcified plaque within the normal caliber abdominal aorta. No retroperitoneal or pelvic lymphadenopathy. No pelvic free fluid. Normal bladder. Prior hysterectomy. Fluid-filled nondilated loops of large and small bowel seen throughout the abdomen. This likely corresponds to the patient's history of a diarrheal state. No bowel wall thickening or obstruction. Normal appendix. IMPRESSION: 1. No bowel wall thickening or obstruction. 2. Hepatic steatosis. 3. Fluid-filled nondilated loops of large and small bowel likely corresponding to the patient's history of a diarrheal state. ACT 112: Negative or not required by law. Electronically signed by: Nuno León M.D. 09/04/2023 7:48 AM Supervising Physician Co-Signing Physician Notes 48yoF admitted with N/V, abdominal pain and possible ileus noted on imaging. Pt has Hx of DMII, uses trulicity at home. Lactic acid elevated, receiving IV fluid resuscitation. Follow until normalized. General Surgery consult-recommending conservative measures at this time. Pt NPO, continue IV fluids, IV Zosyn, antiemetics, pain control. Holding home meds at this time. Otherwise as above.
--- NOTE | 2023-09-04 11:30 | XRay Report ---
KUB HISTORY: Assess NG tube placement COMPARISON: KUB 05/06/2020. Abdomen and pelvis CT 09/04/2023. FINDINGS: A nasogastric tube terminates in the stomach. A few borderline gas-filled loops of small an d large bowel seen throughout the abdomen. This suggests a borderline ileus. No evidence for a bowel obstruction. Contrast within the bladder from the recent CT examination. No renal calculi. No ureter al calculi. No pneumoperitoneum or pneumatosis. IMPRESSION: 1. A nasogastric tube terminates in the stomach. 2. Borderline ileus. ACT 112: Negative or not required by law. Electronically signed by: Nuno León M.D. 09/04/2023 11:29 AM
[2023-09-04] MEDS ORDERED: MoRPHine SULFATE 4 MG/ML 1 ML CARP\\VIAL IV STA (13:15)
[2023-09-04] MEDS ORDERED: CARBOHYDRATES FOR HYPOGLYCEMIA PO PRN (13:42)
[2023-09-04] MEDS ORDERED: GLUCOSE 10 TAB/TUBE PO PRN (13:42)
[2023-09-04] MEDS ORDERED: GLUCOSE 40% GEL 15 GM TUBE PO PRN (13:42)
[2023-09-04] MEDS ORDERED: DEXTROSE 50% 50 ML SYRINGE IV PRN (13:42)
[2023-09-04] MEDS ORDERED: GLUCAGON FOR INJ 1 MG VIAL SQ PRN (13:42)
[2023-09-04] MEDS: INSULIN ASPART PER UNIT CHARGE SC SCH ×3 (14:38→21:56)
[2023-09-04] MEDS: ENOXAPARIN INJ 40 MG/0.4 ML SYR SQ SCH (14:47)
[2023-09-04] MEDS: PIPERACILLIN/TAZOBACTAM 4.5 GM in DEXTROSE 5% MINI-B 100 ML IV SCH ×2 (17:43→21:47)
--- NOTE | 2023-09-04 21:12 | Electrocardiogram Report ---
Test Reason : Blood Pressure : / mmHG Vent. Rate : 107 BPM Atrial Rate : 107 BPM P-R Int : 200 ms QRS Dur : 084 ms QT Int : 352 ms P-R-T Axes : 057 -21 064 degrees QTc Int : 469 ms Sinus tachycardia Possible Left atrial enlargement Left ventricular hypertrophy ( R in aVL , [place] product ) Cannot rule out Septal infarct , age undetermined Abnormal ECG When compared with ECG of 04-MAY-2020 11:29, Minimal criteria for Septal infarct are now Present Confirmed by Reggie Boucher ([id number]) on 09/04/2023 9:12:19 PM Referred By: REFERRED SELF Confirmed By:Reggie Boucher
[2023-09-04] MEDS: ACETAMINOPHEN 1,000 MG/100 ML VIAL IV PRN (21:46)
[2023-09-04] MEDS: PANTOprazole 40 MG in SYRINGE 0 ML IV SCH (21:47)
[2023-09-04] MEDS: ONDANSETRON INJ 2 MG/ML 2 ML VIAL IV PRN (21:47)
--- NOTE | 2023-09-04 21:50 | Emergency Department Note ---
History of Present Illness General Chief complaint: Illness Stated complaint: CONSTIPATION/VOMITING Time Seen by Provider: 09/04/23 04:41 History of Present Illness Maximum Pain Intensity: 6 This 48-year-old female was signed out to me by Leela ROSARIO. Please see his dictation for initial history and physical. The patient had CT scan results pending at time of shift change. Repeat lactate was also pending. She had not provided any urine sample to that point. She continued to complain of abdominal pain and bloating. She also noted nausea but denies any vomiting or diarrhea. No urinary urgency or burning. She stated that her pants at home no longer fit because of her abdominal bloating. Her symptoms initially started as constipation. She used stool softeners and laxatives for few days and developed diarrhea. She also developed bloating at that time. She denies trying any simethicone. She has a history of previous hospital admission at [facility] for partial small bowel obstruction from August 15 recent August 19. Home Medications Medication Instructions Recorded Confirmed Type acetaminophen 500 mg tablet 1,000 mg PO Q6H PRN Fever Or Pain 05/03/20 09/04/23 History (Tylenol Extra Strength) atorvastatin 20 mg tablet 20 mg PO QAM 05/03/20 09/04/23 History dextroamphetamine-amphetamine ER 10 mg PO QAM 05/03/20 09/04/23 History 10 mg 24hr capsule,extend release docusate sodium 100 mg capsule 100 mg PO BID PRN Constipation 05/03/20 09/04/23 History (Stool Softener) lamotrigine 150 mg tablet 225 mg PO QAM 05/03/20 09/04/23 History (Lamictal) lisinopril 20 mg tablet 20 mg PO QAM 05/03/20 09/04/23 History metformin 500 mg tablet,extended 500 mg PO BID 05/03/20 09/04/23 History release 24 hr venlafaxine 150 mg 150 mg PO DAILY 05/03/20 09/04/23 History capsule,extended release 24 hr venlafaxine 75 mg capsule,extended 75 mg PO DAILY 05/03/20 09/04/23 History release 24 hr ondansetron 4 mg disintegrating 4 mg PO Q6H PRN nausea and 06/23/23 09/04/23 Rx tablet vomiting #10 tabs brexpiprazole 0.5 mg tablet 0.5 mg PO QAM 08/10/23 09/04/23 History (Rexulti) diclofenac sodium 75 mg 75 mg PO QAM 08/10/23 09/04/23 History tablet,delayed release dulaglutide 1.5 mg/0.5 mL 1.5 mg subcut WK 08/10/23 09/04/23 History subcutaneous pen injector (Trulicity) triamterene 37.5 0.5 tab PO QAM 08/10/23 09/04/23 History mg-hydrochlorothiazide 25 mg tablet famotidine 20 mg tablet 20 mg PO DAILY 09/04/23 09/04/23 History omeprazole 40 mg capsule,delayed 40 mg PO DAILY 09/04/23 09/04/23 History release Allergies Allergy/AdvReac Type Severity Reaction Status Date / Time No Known Allergies Allergy Verified 08/10/23 16:04 Past Med/Surg History Medical History Tobacco use ADD (attention deficit disorder) Depression with anxiety Diabetes mellitus, type II Dyslipidemia HTN (hypertension) Constipation Surgical History Hx of tonsillectomy History of hysterectomy Family History Other Depression Hypertension Social History Smoking Status: Current every day smoker Tobacco Type: Cigarettes Cigarettes Per Day: 1/2-1 pdd; Do You Dip or Chew Tobacco: No; Hx Alcohol Use: No Hx Substance Use: No Preferred Language: Faroese Communication Ability: Effective Stock Cutter Required: No Beliefs That Will Affect Care: None Current Living Situation: Family Current Living Situation Comment: lives with adolescent children Feels Safe at Home: Yes Safety Concerns: Feels Safe At This Time Assistive Devices: None Physical Exam Vital Signs Vital Signs - 24 hr 09/04/23 04:34 09/04/23 04:34 09/04/23 06:31 Temperature Temperature Source Pulse Rate 106 H 89 Pulse Rate [Right Finger] 106 H Pulse Rate from SpO2 Sensor Pulse Rhythm [Right Finger] Regular Pulse Strength [Right Finger] Normal Respiratory Rate 20 16 Respiratory Effort / Characteristics Non-Labored Spontaneous Non-Labored Spontaneous Respiratory Depth Normal Normal Respiratory Pattern Regular Regular Blood Pressure 153/97 H Blood Pressure [Right Arm] 153/97 H Blood Pressure Mean 115 Blood Pressure Mean [Right Arm] 115 Blood Pressure Position Lying Blood Pressure Position [Right Arm] Lying Pulse Oximetry 94 94 Oxygen Delivery Method Room Air Room Air Sepsis Recent Fever Within 48 Hours No Sepsis New/Unexplained Change in Mental Status No Sepsis Action Taken by Nursing No Action Required 09/04/23 06:34 09/04/23 07:24 09/04/23 08:00 Temperature 36.7 C Temperature Source Oral Pulse Rate 79 Pulse Rate [Right Finger] 94 H Pulse Rate from SpO2 Sensor 79 Pulse Rhythm [Right Finger] Regular Pulse Strength [Right Finger] Normal Respiratory Rate 17 21 Respiratory Effort / Characteristics Non-Labored Spontaneous Respiratory Depth Normal Respiratory Pattern Regular Blood Pressure 132/78 Blood Pressure [Right Arm] 134/83 Blood Pressure Mean 96 Blood Pressure Mean [Right Arm] 100 Blood Pressure Position Blood Pressure Position [Right Arm] Lying Pulse Oximetry 91 94 Oxygen Delivery Method Room Air Sepsis Recent Fever Within 48 Hours Sepsis New/Unexplained Change in Mental Status Sepsis Action Taken by Nursing General: Well-developed, well-nourished, middle-aged female, in obvious discomfort. Laying on the bed. Alert and oriented. Skin: Warm and dry with good turgor. No rashes. No ecchymosis or erythema. Extensive stretch gee on her abdomen. Heart: Heart RRR. No MGR. Peripheral pulses are 2+. Lungs: Lungs are clear to auscultation. No crackles rhonchi or wheezing. Good air movement. The patient is able to take a deep breath. Abdomen: Abdomen was inspected, auscultated, and palpated. Obese. Visibly distended. Bowel sounds hyperactive x 4. Firm, generalized tenderness to palpation, worst in the right upper quadrant. Tympanic sounding to percussion. No hepato-splenomegaly. No masses noted. Mild rebound, negative Coto sign. Mild pain over McBurney's point. No CVA tenderness. Musculoskeletal: Gross motor function of the upper and lower extremities is intact and unremarkable. Neurologic: Gross sensation is intact across the upper and lower extremities by soft touch. Course Administered Medications Enoxaparin Sodium (Enoxaparin Inj 40 Mg/0.4 Ml Syr) 40 mg SQ Q24H VALENTINA Stop: 10/04/23 13:59 Last Admin: 09/06/23 14:59 Dose: 40 mg Documented By: Admin: 09/05/23 14:28 Dose: 40 mg Documented By: Admin: 09/04/23 14:47 Dose: 40 mg Documented By: SAMRA Acetaminophen (Ofirmev) 1,000 mg in 100 mls @ 400 mls/hr IV Q8H PRN PRN Reason: Pain or Fever Stop: 09/07/23 13:41 Last Infusion: 09/06/23 08:36 Dose: Infused Documented By: Admin: 09/06/23 07:49 Dose: 400 mls/hr Documented By: Infusion: 09/05/23 19:38 Dose: Infused Documented By: Admin: 09/05/23 19:15 Dose: 400 mls/hr Documented By: Infusion: 09/04/23 23:10 Dose: Infused Documented By: Admin: 09/04/23 21:46 Dose: 400 mls/hr Documented By: NINOSKA Pantoprazole Sodium 40 mg/ (Syringe) 10 mls @ 5 mls/min IV BID VALENTINA Stop: 10/04/23 20:59 Last Admin: 09/07/23 10:45 Dose: 5 mls/min Documented By: Admin: 09/06/23 20:39 Dose: 5 mls/min Documented By: Admin: 09/06/23 07:51 Dose: 5 mls/min Documented By: Admin: 09/05/23 21:08 Dose: 5 mls/min Documented By: Admin: 09/05/23 08:24 Dose: 5 mls/min Documented By: Admin: 09/04/23 21:47 Dose: 5 mls/min Documented By: NINOSKA Potassium Chloride/Dextrose/Sod Cl (D5w And 1/2nss + 20meq Kcl) 20 meq in 1,000 mls @ 50 mls/hr IV .Q20H VALENTINA Stop: 10/06/23 09:59 Last Admin: 09/06/23 17:27 Dose: 50 mls/hr Documented By: JENIFFER Ketorolac Tromethamine (Ketorolac Tromethamine 15 Mg/Ml Vial) 15 mg IV Q6H PRN PRN Reason: Moderate Pain (Scale 4, 5, 6) Stop: 09/09/23 13:41 Last Admin: 09/07/23 00:57 Dose: 15 mg Documented By: Admin: 09/06/23 14:42 Dose: 15 mg Documented By: Admin: 09/06/23 00:12 Dose: 15 mg Documented By: SOPHIE Morphine Sulfate (Morphine Sulfate 4 Mg/Ml 1 Ml Carp\Vial) 3 mg IV Q4H PRN PRN Reason: Severe Pain (Scale 7, 8, 9,10) Stop: 09/18/23 13:41 Last Admin: 09/07/23 04:51 Dose: 3 mg Documented By: Admin: 09/06/23 02:54 Dose: 3 mg Documented By: SOPHIE Ondansetron HCl (Ondansetron Inj 2 Mg/Ml 2 Ml Vial) 4 mg IV Q6H PRN PRN Reason: Nausea Stop: 10/04/23 13:41 Last Admin: 09/04/23 21:47 Dose: 4 mg Documented By: NINOSKA Discontinued Medications Sodium Chloride (Nss) 1,000 mls @ 999 mls/hr IV .Q1H1M VALENTINA Stop: 09/04/23 06:00 Last Infusion: 09/04/23 09:12 Dose: Infused Documented By: Admin: 09/04/23 07:30 Dose: 999 mls/hr Documented By: SAMRA Acetaminophen (Ofirmev) 1,000 mg in 100 mls @ 400 mls/hr IV NOW STA Stop: 09/04/23 05:12 Last Infusion: 09/04/23 06:00 Dose: Infused Documented By: Admin: 09/04/23 05:26 Dose: 400 mls/hr Documented By: CAROLYN Sodium Chloride (Nss) 1,000 mls @ 999 mls/hr IV .Q1H1M VALENTINA Stop: 09/04/23 06:30 Last Infusion: 09/04/23 09:13 Dose: Infused Documented By: Admin: 09/04/23 07:30 Dose: 999 mls/hr Documented By: SAMRA Piperacillin Sod/Tazobactam Sod (Zosyn) 4.5 gm in 100 mls @ 200 mls/hr IV NOW ONE Stop: 09/04/23 10:03 Last Infusion: 09/04/23 11:08 Dose: Infused Documented By: Admin: 09/04/23 10:28 Dose: 200 mls/hr Documented By: SAMRA Sodium Chloride (Nss) 1,000 mls @ 999 mls/hr IV .Q1H1M ONE Stop: 09/04/23 11:04 Last Infusion: 09/04/23 12:05 Dose: Infused Documented By: Admin: 09/04/23 10:28 Dose: 999 mls/hr Documented By: SAMRA Sodium Chloride (Nss) 1,000 mls @ 100 mls/hr IV .Q10H VALENTINA Stop: 09/05/23 09:41 Last Infusion: 09/05/23 11:28 Dose: Infused Documented By: Admin: 09/04/23 21:57 Dose: 100 mls/hr Documented By: Infusion: 09/04/23 21:57 Dose: Infused Documented By: Admin: 09/04/23 14:47 Dose: 100 mls/hr Documented By: SAMRA Piperacillin Sod/Tazobactam (Sod 4.5 gm/ Dextrose) 100 mls @ 25 mls/hr IV Q8H VALENTINA; Protocol Stop: 09/06/23 15:29 Last Infusion: 09/06/23 10:56 Dose: Infused Documented By: Admin: 09/06/23 06:43 Dose: 25 mls/hr Documented By: Infusion: 09/06/23 03:18 Dose: Infused Documented By: Admin: 09/05/23 23:17 Dose: 25 mls/hr Documented By: Infusion: 09/05/23 20:10 Dose: Infused Documented By: Admin: 09/05/23 16:05 Dose: 25 mls/hr Documented By: Infusion: 09/05/23 10:46 Dose: Infused Documented By: Admin: 09/05/23 06:37 Dose: 25 mls/hr Documented By: Infusion: 09/05/23 02:09 Dose: Infused Documented By: Admin: 09/04/23 21:47 Dose: 25 mls/hr Documented By: Infusion: 09/04/23 21:43 Dose: Infused Documented By: Admin: 09/04/23 17:43 Dose: 25 mls/hr Documented By: RRR Lactated Ringer's (Lr) 1,000 mls @ 60 mls/hr IV .[id number] VAL[facility]INA Stop: 09/07/23 20:49 Last Infusion: 09/06/23 10:11 Dose: Infused Documented By: Admin: 09/05/23 21:08 Dose: 75 mls/hr Documented By: Infusion: 09/05/23 21:08 Dose: Infused Documented By: Admin: 09/05/23 11:28 Dose: 75 mls/hr Documented By: LENA Acetaminophen (Ofirmev) 1,000 mg in 100 mls @ 400 mls/hr IV ONE ONE Stop: 09/05/23 11:46 Last Infusion: 09/05/23 12:29 Dose: Infused Documented By: Admin: 09/05/23 12:11 Dose: 400 mls/hr Documented By: LENA Lorazepam 0.5 mg/ Syringe 0.5 mls @ 2 mls/min IV ONE ONE Stop: 09/05/23 19:01 Last Admin: 09/05/23 19:14 Dose: 2 mls/min Documented By: SOPHIE Potassium Chloride (K Andry / Wtr) 10 meq in 100 mls @ 100 mls/hr IV Q1H [facility]ENTINA Stop: 09/06/23 13:59 Last Infusion: 09/06/23 16:14 Dose: Infused Documented By: Admin: 09/06/23 14:43 Dose: 100 mls/hr Documented By: Infusion: 09/06/23 14:20 Dose: Infused Documented By: Admin: 09/06/23 13:20 Dose: 100 mls/hr Documented By: Infusion: 09/06/23 12:55 Dose: Infused Documented By: Admin: 09/06/23 11:55 Dose: 100 mls/hr Documented By: Infusion: 09/06/23 11:50 Dose: Infused Documented By: Admin: 09/06/23 10:50 Dose: 100 mls/hr Documented By: JENIFFER Lorazepam 0.25 mg/ Syringe 0.25 mls @ 2 mls/min IV NOW STA Stop: 09/06/23 21:34 Last Admin: 09/06/23 21:54 Dose: 2 mls/min Documented By: MIGUELANGEL Lorazepam 0.5 mg/ Syringe 0.5 mls @ 2 mls/min IV NOW ONE Stop: 09/06/23 23:31 Last Admin: 09/06/23 23:47 Dose: 2 mls/min Documented By: MIGUELANGEL Insulin Aspart (Insulin Aspart Per Unit Charge) 0 units SC ACHS [facility] Stop: 10/04/23 13:41 Last Admin: 09/04/23 21:56 Dose: Not Given Documented By: Admin: 09/04/23 16:56 Dose: Not Given Documented By: Admin: 09/04/23 14:38 Dose: Not Given Documented By: SAMRA Co-signed By: GERMAINE Insulin Aspart (Insulin Aspart Per Unit Charge) 0 units SC Q6 [facility] Stop: 10/05/23 05:59 Last Admin: 09/07/23 06:07 Dose: Not Given Documented By: Admin: 09/06/23 23:47 Dose: Not Given Documented By: Admin: 09/06/23 18:18 Dose: Not Given Documented By: Admin: 09/06/23 13:21 Dose: Not Given Documented By: Admin: 09/06/23 06:00 Dose: Not Given Documented By: Admin: 09/06/23 00:03 Dose: Not Given Documented By: Admin: 09/05/23 19:03 Dose: Not Given Documented By: Admin: 09/05/23 12:34 Dose: Not Given Documented By: Admin: 09/05/23 06:37 Dose: Not Given Documented By: NINOSKA Ioversol (Optiray 320 500ml) 88 ml IV ONCE ONE Stop: 09/04/23 06:03 Last Admin: 09/04/23 06:03 Dose: 88 ml Documented By: RAYMNUDO Ketorolac Tromethamine (Ketorolac 30 Mg/Ml Vial) 30 mg IV NOW STA Stop: 09/04/23 04:59 Last Admin: 09/04/23 05:24 Dose: 30 mg Documented By: CAROLYN Metoclopramide HCl (Metoclopramide Hcl Inj 5 Mg/Ml 2 Ml Vial) 10 mg IV NOW STA Stop: 09/04/23 10:13 Last Admin: 09/04/23 10:28 Dose: 10 mg Documented By: SAMRA Morphine Sulfate (Morphine Sulfate 4 Mg/Ml 1 Ml Carp\Vial) 3 mg IV NOW STA Stop: 09/04/23 13:16 Last Admin: 09/04/23 13:49 Dose: 3 mg Documented By: SAMRA Ondansetron HCl (Ondansetron Inj 2 Mg/Ml 2 Ml Vial) 4 mg IV NOW STA Stop: 09/04/23 04:59 Last Admin: 09/04/23 05:23 Dose: 4 mg Documented By: CAROLYN Medical Decision Making Differential Diagnosis Bowel obstruction, ileus, appendicitis, cholecystitis, mesenteric adenitis, colitis, gas distention Medical Records Attestation: I reviewed the patient's medical records. Home Medications Current Medication List: was personally reviewed by me Laboratory Data Initial lactate was 2.1. Repeat lactate was 2.6. This is after 2 L of IV fluid. 09/07/23 06:12 09/07/23 06:12 Lab Results 09/04/23 09/04/23 09/04/23 Range/Units 04:50 05:30 05:35 WBC 23.58 H (4.8-10.8) K/ul RBC 4.79 (4.20-5.40) M/uL Hgb 15.1 (12.0-16.0) g/dl Hct 46.1 (37.0-47.0) % MCV 96.2 (80.0-100.0) fL MCH 31.5 (25.0-34.0) pg MCHC 32.8 (32.0-36.0) g/dL RDW Std Deviation 46.4 H (36.4-46.3) fL RDW Coeff of Daryl 13.1 (11.5-14.5) % Plt Count 311 (130-400) K/uL MPV 10.8 (9.4-12.4) fL Immature Gran % (Auto) 0.7 % Neut % (Auto) 76.3 % Lymph % (Auto) 14.3 % [place] % (Auto) 6.7 % Eos % (Auto) 1.4 % Baso % (Auto) 0.6 % Neut # (Auto) 17.99 H (1.40-6.50) K/uL Lymph # (Auto) 3.37 (1.20-3.40) K/uL [place] # (Auto) 1.57 H (0.11-0.59) K/uL Eos # (Auto) 0.34 (0.00-0.50) K/uL Baso # (Auto) 0.15 (0.00-0.20) K/uL Immature Gran # (Auto) 0.16 (0.01-0.20) K/uL Sodium 134 L (136-145) mmol/L Potassium 3.8 (3.5-5.1) mmol/L Chloride 101 (98-107) mmol/L Carbon Dioxide 22 (21-32) mmol/L Anion Gap 11 (3-11) BUN 21 (6-23) mg/dl Creatinine 0.56 L (0.6-1.2) mg/dl Est Cr Clr Drug Dosing Not Reportable Est GFR ( Amer) 129.6 ml/min Est GFR (Non-Af Amer) 111.8 ml/min BUN/Creatinine Ratio 37.5 H (10-20) Glucose 225 H (70-99(Fasting)) mg/dl Lactate 2.1 H* (0.4-2.0) mmol/L Calcium 9.6 (8.6-10.3) mg/dl Total Bilirubin 0.4 (0.2-1.0) mg/dl AST 14 (13-39) U/L ALT 26 (7-52) U/L Alkaline Phosphatase 109 H (34-104) U/L Troponin I High Sens 7.1 (0-14) pg/ml Total Protein 7.5 (6.0-8.3) gm/dl Albumin 4.4 (3.4-5.0) gm/dl Globulin 3.1 (2.5-4.0) gm/dl Albumin/Globulin Ratio 1.4 (0.9-2) Lipase 32 (11-82) U/L HCG, Qual Negative (Negative) Urine Color Urine Appearance (Clear) Urine pH (4.5-7.5) Ur Specific [place] (1.000-1.030) Urine Protein (Negative) Urine Glucose (UA) (Negative) Urine Ketones (Negative) Urine Blood (Negative) Urine Nitrite (Negative) Urine Bilirubin (Negative) Urine Urobilinogen (Negative) Ur Leukocyte Esterase (Negative) Urine Opiates Screen (Neg) Ur Methadone, Qual (Neg) Urine Barbiturates (Neg) Ur Phencyclidine (PCP) (Neg) U Amphetamin/Meth Scrn (Neg) MDMA (Ecstasy) Screen (Neg) U Benzodiazepines Scrn (Neg) Ur Cocaine Metabolite (Neg) U Marijuana (THC) Screen (Neg) Ethyl Alcohol mg/dL < 10.0 (<10.0) mg/dl Adenovirus (PCR) Not Detected (NotDetected) B. pertussis DNA (PCR) Not Detected (NotDetected) B.parapertussis DNA PCR Not Detected (NotDetected) C. pneumoniae DNA (PCR) Not Detected (NotDetected) Coronavirus OC43 (PCR) Not Detected (NotDetected) Coronavirus HKU1 (PCR) Not Detected (NotDetected) Coronavirus 229E (PCR) Not Detected (NotDetected) SARS-CoV-2 (PCR) Not Detected (NotDetected) Coronavirus NL63 (PCR) Not Detected (NotDetected) Human Metapneumovir PCR Not Detected (NotDetected) Influenza Type A (PCR) Not Detected (NotDetected) Influenza Type B (PCR) Not Detected (NotDetected) M. pneumoniae (PCR) Not Detected (NotDetected) Parainfluenza 1 (PCR) Not Detected (NotDetected) Parainfluenza 2 (PCR) Not Detected (NotDetected) Parainfluenza 3 (PCR) Not Detected (NotDetected) Parainfluenza 4 (PCR) Not Detected (NotDetected) RSV (PCR) Not Detected (NotDetected) Entero/Rhino (PCR) Not Detected (NotDetected) 09/04/23 09/04/23 Range/Units 07:30 09:00 WBC (4.8-10.8) K/ul RBC (4.20-5.40) M/uL Hgb (12.0-16.0) g/dl Hct (37.0-47.0) % MCV (80.0-100.0) fL MCH (25.0-34.0) pg MCHC (32.0-36.0) g/dL RDW Std Deviation (36.4-46.3) fL RDW Coeff of Daryl (11.5-14.5) % Plt Count (130-400) K/uL MPV (9.4-12.4) fL Immature Gran % (Auto) % Neut % (Auto) % Lymph % (Auto) % [place] % (Auto) % Eos % (Auto) % Baso % (Auto) % Neut # (Auto) (1.40-6.50) K/uL Lymph # (Auto) (1.20-3.40) K/uL [place] # (Auto) (0.11-0.59) K/uL Eos # (Auto) (0.00-0.50) K/uL Baso # (Auto) (0.00-0.20) K/uL Immature Gran # (Auto) (0.01-0.20) K/uL Sodium (136-145) mmol/L Potassium (3.5-5.1) mmol/L Chloride (98-107) mmol/L Carbon Dioxide (21-32) mmol/L Anion Gap (3-11) BUN (6-23) mg/dl Creatinine (0.6-1.2) mg/dl Est Cr Clr Drug Dosing Est GFR ( Amer) ml/min Est GFR (Non-Af Amer) ml/min BUN/Creatinine Ratio (10-20) Glucose (70-99(Fasting)) mg/dl Lactate 2.6 H* (0.4-2.0) mmol/L Calcium (8.6-10.3) mg/dl Total Bilirubin (0.2-1.0) mg/dl AST (13-39) U/L ALT (7-52) U/L Alkaline Phosphatase (34-104) U/L Troponin I High Sens (0-14) pg/ml Total Protein (6.0-8.3) gm/dl Albumin (3.4-5.0) gm/dl Globulin (2.5-4.0) gm/dl Albumin/Globulin Ratio (0.9-2) Lipase (11-82) U/L HCG, Qual (Negative) Urine Color Yellow Urine Appearance Clear (Clear) Urine pH 5.0 (4.5-7.5) Ur Specific [place] > 1.045 H (1.000-1.030) Urine Protein Negative (Negative) Urine Glucose (UA) Negative (Negative) Urine Ketones Negative (Negative) Urine Blood Negative (Negative) Urine Nitrite Negative (Negative) Urine Bilirubin Negative (Negative) Urine Urobilinogen Negative (Negative) Ur Leukocyte Esterase Negative (Negative) Urine Opiates Screen Neg (Neg) Ur Methadone, Qual Neg (Neg) Urine Barbiturates Neg (Neg) Ur Phencyclidine (PCP) Neg (Neg) U Amphetamin/Meth Scrn Neg (Neg) MDMA (Ecstasy) Screen Neg (Neg) U Benzodiazepines Scrn Neg (Neg) Ur Cocaine Metabolite Neg (Neg) U Marijuana (THC) Screen Neg (Neg) Ethyl Alcohol mg/dL (<10.0) mg/dl Adenovirus (PCR) (NotDetected) B. pertussis DNA (PCR) (NotDetected) B.parapertussis DNA PCR (NotDetected) C. pneumoniae DNA (PCR) (NotDetected) Coronavirus OC43 (PCR) (NotDetected) Coronavirus HKU1 (PCR) (NotDetected) Coronavirus 229E (PCR) (NotDetected) SARS-CoV-2 (PCR) (NotDetected) Coronavirus NL63 (PCR) (NotDetected) Human Metapneumovir PCR (NotDetected) Influenza Type A (PCR) (NotDetected) Influenza Type B (PCR) (NotDetected) M. pneumoniae (PCR) (NotDetected) Parainfluenza 1 (PCR) (NotDetected) Parainfluenza 2 (PCR) (NotDetected) Parainfluenza 3 (PCR) (NotDetected) Parainfluenza 4 (PCR) (NotDetected) RSV (PCR) (NotDetected) Entero/Rhino (PCR) (NotDetected) Imaging Data Radiologist's Impression: KUB X-Ray 09/04/23 10:25 KUB HISTORY: Assess NG tube placement COMPARISON: [facility] 05/06/2020. Abdomen and pelvis CT 09/04/2023. FINDINGS: A nasogastric tube terminates in the stomach. A few borderline gas- filled loops of small and large bowel seen throughout the abdomen. This suggests a borderline ileus. No evidence for a bowel obstruction. Contrast within the bladder from the recent CT examination. No renal calculi. No ureteral calculi. No pneumoperitoneum or pneumatosis. IMPRESSION: 1. A nasogastric tube terminates in the stomach. 2. Borderline ileus. ACT 112: Negative or not required by law. Electronically signed by: Nuno León M.D. 09/04/2023 11:29 AM Blood Pressure Blood Pressure Findings: Normal blood pressure MDM Narrative The patient was reevaluated in room A2. Conservative care measures were discussed. Despite her hydration, her lactate is rising. She also has a significantly elevated white count. She does not appear septic but clearly does not feel well. Her abdomen does appear to be distended. CAT scan was negative for obstruction. Possibility of ileus was considered. The case was reviewed with Dr. Berrios. He also reviewed the films and discussed them with radiology. Given her physical exam and lab values, as well as her history, there is a suspicion for ileus versus partial small bowel obstruction. The patient was given an additional liter of IV fluid. General surgery was consulted for surgical evaluation. The patient was given IV Zosyn due to her elevated WBCs. Please see Dr. Berrios's dictation for final management. Impression & Plan Abdominal discomfort, Elevated lactic acid level, Diarrhea Discharge Plan Visit Data Chief Complaint: Illness Stated Complaint: CONSTIPATION/VOMITING ED Provider: Rick Berrios ED Midlevel Provider: Noel Stanton Discharge Problem: Abdominal discomfort, Elevated lactic acid level, Diarrhea Patient Disposition: Admitted As Inpatient Discharge Instructions Interventions: ED Discharge Assessment Last Done: 09/04/23 13:45
[2023-09-05] MEDS: PIPERACILLIN/TAZOBACTAM 4.5 GM in DEXTROSE 5% MINI-B 100 ML IV SCH ×3 (06:37→23:17)
[2023-09-05] MEDS: INSULIN ASPART PER UNIT CHARGE SC SCH ×3 (06:37→19:03)
[2023-09-05 06:50] LABS: Albumin Globulin Ratio 1.4 (0.9-2); Albumin Level 3.1 gm/dl (3.4-5.0); BUN Creatinine Ratio 26.9 (10-20); Bilirubin,Total 0.4 mg/dl (0.2-1.0); Calcium 7.4 mg/dl (8.6-10.3); Creatinine Clr Calc Pharmacy 182.8 ml/min; Est GFR (African American) 132.8 ml/min; Est GFR (Non-African American) 114.6 ml/min; Globulin 2.2 gm/dl (2.5-4.0); Potassium 3.6 mmol/L (3.5-5.1); Total Protein 5.3 gm/dl (6.0-8.3)
[2023-09-05 07:01] LABS: Basophils # (auto) 0.03 K/uL (0.00-0.20); Basophils % (auto) 0.4 %; Eosinophils # (auto) 0.46 K/uL (0.00-0.50); Eosinophils % (auto) 6.8 %; Hematocrit (blood only) 34.5 % (37.0-47.0); Hemoglobin 11.2 g/dl (12.0-16.0); Immature Granulocytes # (auto) 0.01 K/uL (0.01-0.20); Immature Granulocytes % (auto) 0.1 %; Lymphocytes # (auto) 2.83 K/uL (1.20-3.40); Lymphocytes % (auto) 41.6 %; Mean Corpuscular Hemoglobin 31.4 pg (25.0-34.0); Mean Corpuscular Hgb Conc 32.5 g/dL (32.0-36.0); Mean Corpuscular Volume 96.6 fL (80.0-100.0); Mean Platelet Volume 10.5 fL (9.4-12.4); Monocytes # (auto) 0.46 K/uL (0.11-0.59); Monocytes % (auto) 6.8 %; Neutrophils # (auto) 3.01 K/uL (1.40-6.50); Neutrophils % (auto) 44.3 %; Platelet Count 229 K/uL (130-400); RDW Coefficient of Variation 13.2 % (11.5-14.5); RDW Standard Deviation 47.2 fL (36.4-46.3); Red Blood Count 3.57 M/uL (4.20-5.40)
--- NOTE | 2023-09-05 08:00 | Surgery Progress Note ---
Date of Service September 05, 2023 Assessment & Plan (1) Obesity, morbid, BMI 40.0-49.9: (2) Leukocytosis: (3) Abdominal bloating: (4) Abdominal discomfort: Plan 48 F with evidence for early partial SBO and distention of unknown etiology questionable generalized GI upset due to Trulicity. Afebrile, HD stable overnight. Leukocytosis is resolved this a.m. as well as her lactic acidosis with fluid resuscitation. S/p NGT insertion. Patient is sleeping and resting comfortably this morning. She is able to admit that she feels less bloated and distended. Continue with NGT drainage for today. Continue n.p.o. and IVF hydration. OOB to chair and ambulate with assistance as tolerated. Admission and Anticipated Discharge Date Admission Date: September 04, 2023 Subjective Patient seen and examined this a.m. She was resting quietly and comfortably when I entered the room. She complains of a headache. She denies nausea or vomiting. Admits to minimal abdominal discomfort and admits that she has less bloating since NG tube drainage initiated. Physical Exam Constitutional: + obese; not ill appearing, not in distr ess and not diaphoretic Respiratory: normal respiratory effort; no respiratory distress, no labored breathing and does not use accessory muscles Cardiovascular: Rate/Rhythm: regular rate; not tachycardic Gastrointestinal (Abdomen): Abdomen is obese, soft, minimal tenderness to palpation diffusely. Decreased distention and bloating No rebound or guarding. No evidence for peritonitis NGT in place with light brown drainage in the canister for 500 cc recorded overnight Results & Data Vital Signs (Past 12 Hours) Vital Signs Temp Pulse Pulse Resp BP Pulse Ox O2 Del Method 09/05/23 07:33 36.5 C 72 16 147/81 H 93 Room Air 09/05/23 03:09 36.9 C 70 16 129/79 95 Nasal Cannula 09/04/23 23:40 Nasal Cannula 09/04/23 23:39 76 09/04/23 23:12 36.5 C 77 16 139/76 95 Nasal Cannula Laboratory Results WBC: 6.8 today from 23.58 yesterday. Lactic acid: 1.6 from 2.6 PG Care Time/CCT Total # of Minutes Spent Total Time Spent with Patient: Total time spent is greater than 50% in coordination of care (as documented) at patient's floor/unit and/or counseling patient: Coding Level of Care Code 93978 SUB INP/OBS CARE Diagnoses Obesity, morbid, BMI 40.0-49.9 E66.01 Leukocytosis D72.829 Abdominal bloating R14.0 Abdominal discomfort R10.9
[2023-09-05] MEDS: PANTOprazole 40 MG in SYRINGE 0 ML IV SCH ×2 (08:24→21:08)
[2023-09-05] MEDS: LACTATED RINGER'S 1,000 ML IV SCH ×2 (11:28→21:08)
[2023-09-05] MEDS ORDERED: ACETAMINOPHEN 1,000 MG/100 ML VIAL IV ONE (11:32)
--- NOTE | 2023-09-05 13:53 | XRay Report ---
XR KUB/Abdomen 1 view CLINICAL HISTORY: ileus TECHNIQUE: 1 view of the abdomen was obtained. Comparison: Comparison is made to abdomen radiograph 09/04/2023 FINDINGS: Stable enteric tube. The osseous structures are grossly unremarkable. Previously noted gastric disten ded loops of small bowel are less conspicuous on today's exam. Small stool burden is seen. IMPRESSION: Previously noted gas distended loops of small bowel are less conspicuous than on the prior exam. ACT 112: Negative or not required by law. Electronically signed by: Jose Maria Reyes M.D. 09/05/2023 1:52 PM
[2023-09-05] MEDS: ENOXAPARIN INJ 40 MG/0.4 ML SYR SQ SCH (14:28)
--- NOTE | 2023-09-05 15:23 | Hospitalist Progress Note ---
Date of Service September 05, 2023 Assessment & Plan (1) Abdominal bloating: (2) Abdominal discomfort: (3) Elevated lactic acid level: (4) Leukocytosis: Plan: Patient is a 48-year-old female with PMH DM II, HTN, HLD, history migraine, depression, ADHD, obesity presented to ER with complaint of abdominal pain, abdominal distension, vomiting, loose BMs and constipation. Recent admission at [facility] on 08/15/23-08/18/22 admitted at [facility] for partial small bowel obstruction treated conservatively with NG tube, IVF. Partial small bowel obstruction --CT abdomen pelvis: No bowel wall thickening or obstruction. Hepatic steatosis. Fluid-filled nondilated loops of large and small bowel likely corresponding to the patient's history of a diarrheal state. --KUB:A nasogastric tube terminates in the stomach. Borderline ileus. --Lactic acidosis --Blood cultures negative to date -- Empirically on Zosyn Stool studies if has diarrhea Continue bowel rest, IV fluids, NG tube Appreciate surgery input Will consider to discontinue Zosyn if no signs of infection (5) Diabetes mellitus, type II: Plan: A1c: 6.8 on 07/05/2023 Hold home metformin, Trulicity NovoLog sliding scale correction only while NPO Monitor BSG's Trulicity may be contributing to patient's GI symptoms. May need to consider discontinuing an alternative agent outpatient (6) HTN (hypertension): Plan: Hold home lisinopril and Maxide Monitor BP (7) Dyslipidemia: Plan: Hold atorvastatin (8) Depression with anxiety: (9) ADD (attention deficit disorder): Plan: Hold home Adderall, Effexor, lamotrigine, Rexulti at this time (10) Tobacco use: Plan: Smokes half pack per day Denies nicotine patch at this time Smoking cessation encouraged (11) Obesity, morbid, BMI 40.0-49.9: Plan: BMI: 41 DVT Px Lovenox SQ Code Status Full Code Admission and Anticipated Discharge Date Admission Date: September 04, 2023 Subjective Patient is seen and examined at bedside States having headache associated with sore throat which she attributes to NG tube Denies any abdominal pain, nausea, vomiting No other complaints No bowel movement, flatus today Review of Systems Review of Systems: All systems reviewed & are unremarkable except as noted in Subjective Physical Exam Physical Exam: Physical Exam: Vitals signs as noted above General Appearance:Obese, no apparent distress Head: normocephalic, Atraumatic Eyes: normal inspection, EOMI Neck: supple, Trachea midline Respiratory/Chest: Normal breath sounds, CTA, No accessory muscle use Cardiovascular: S1, S2, No murmur Abdomen/GI:Soft, Non tender, +distended, absent Bowel sounds Extremities/Musculoskeletal:normal inspection, no edema Neurologic/Psych:AAOX3, grossly no focal neurological deficits Skin: normal color, warm Results & Data Results & Data Vital Signs (Past 12 Hours) Vital Signs Temp Pulse Pulse Resp BP Pulse Ox O2 Del Method 09/05/23 11:22 36.2 C L 85 16 138/69 92 Room Air 09/05/23 07:33 36.5 C 72 16 147/81 H 93 Room Air 09/05/23 05:56 70 Laboratory Results Short CBC 09/05/23 Range/Units 05:53 WBC 6.80 (4.8-10.8) K/ul Hgb 11.2 L D (12.0-16.0) g/dl Hct 34.5 L (37.0-47.0) % Plt Count 229 (130-400) K/uL BMP 09/05/23 05:53 Sodium 140 Potassium 3.6 Chloride 109 H Carbon Dioxide 26 BUN 14 Creatinine 0.52 L Glucose 138 H Calcium 7.4 L D Liver Function 09/05/23 Range/Units 05:53 Total Bilirubin 0.4 (0.2-1.0) mg/dl AST 10 L (13-39) U/L ALT 16 (7-52) U/L Alkaline Phosphatase 70 (34-104) U/L Albumin 3.1 L (3.4-5.0) gm/dl
[2023-09-05] MEDS ORDERED: LORazepam 0.5 MG in SYRINGE 0.25 ML IV ONE (19:00)
[2023-09-05] MEDS: ACETAMINOPHEN 1,000 MG/100 ML VIAL IV PRN (19:15)
[2023-09-06] MEDS: INSULIN ASPART PER UNIT CHARGE SC SCH ×5 (00:03→23:47)
[2023-09-06] MEDS: KETOROLAC TROMETHAMINE 15 MG/ML VIAL IV PRN ×2 (00:12→14:42)
[2023-09-06] MEDS: MoRPHine SULFATE 4 MG/ML 1 ML CARP\\VIAL IV PRN (02:54)
[2023-09-06 06:12] LABS: Hematocrit (blood only) 33.1 % (37.0-47.0); Hemoglobin 10.7 g/dl (12.0-16.0); Mean Corpuscular Hemoglobin 31.4 pg (25.0-34.0); Mean Corpuscular Hgb Conc 32.3 g/dL (32.0-36.0); Mean Corpuscular Volume 97.1 fL (80.0-100.0); Mean Platelet Volume 10.6 fL (9.4-12.4); Platelet Count 208 K/uL (130-400); RDW Standard Deviation 46.4 fL (36.4-46.3); Red Blood Count 3.41 M/uL (4.20-5.40); White Blood Count 6.98 K/ul (4.8-10.8)
[2023-09-06 06:43] LABS: BUN Creatinine Ratio 27.3 (10-20); Calcium 7.8 mg/dl (8.6-10.3); Creatinine Clr Calc Pharmacy 217.9 ml/min; Est GFR (African American) 140.3 ml/min; Est GFR (Non-African American) 121.1 ml/min; Magnesium 1.7 mg/dl (1.7-2.4); Potassium 3.1 mmol/L (3.5-5.1)
[2023-09-06] MEDS: PIPERACILLIN/TAZOBACTAM 4.5 GM in DEXTROSE 5% MINI-B 100 ML IV SCH (06:43)
--- NOTE | 2023-09-06 07:11 | Surgery Progress Note ---
Date of Service September 06, 2023 Assessment & Plan (1) Gaseous abdominal distention: (2) Abdominal discomfort: Plan: Patient has noted improvement in her presenting symptoms although not completely resolved. She has been afebrile and hemodynamically stable. No acute surgical intervention Needs aggressive ambulation. Continue with IV fluids and n.p.o. consider adding D5 to IV fluids. Receives Acetaminophen and Ibuprofen for headaches. On Lovenox for DVT ppx. Admission and Anticipated Discharge Date Admission Date: September 04, 2023 Subjective Patient was seen and examined this a.m. She denies nausea complains of headache. States she walked around a little yesterday. She says she thinks she passed a little bit of flatus last night. Physical Exam Constitutional: + obese; not ill appearing, not in distr ess and not diaphoretic Respiratory: normal respiratory effort; no respiratory distress, no labored breathing and does not use accessory muscles Gastrointestinal (Abdomen): Abdomen is soft, obese, not distended. Mild TTP mid to right abdomen. NGT with green bilious drainage that appears to be getting braid cutter Results & Data Vital Signs (Past 12 Hours) Vital Signs Temp Pulse Pulse Resp BP Pulse Ox O2 Del Method 09/06/23 04:04 36.8 C 79 18 126/65 91 Room Air 09/05/23 23:02 36.8 C 91 H 18 123/53 L 91 Room Air 09/05/23 23:00 67 09/05/23 19:40 36.8 C 79 18 130/74 93 Room Air PG Care Time/CCT Total # of Minutes Spent Total Time Spent with Patient: Total time spent is greater than 50% in coordination of care (as documented) at patient's floor/unit and/or counseling patient: Coding Level of Care Code 48924 SUB INP/OBS CARE 25MIN Diagnoses Gaseous abdominal distention R14.0 Abdominal discomfort R10.9
[2023-09-06] MEDS: ACETAMINOPHEN 1,000 MG/100 ML VIAL IV PRN (07:49)
[2023-09-06] MEDS: PANTOprazole 40 MG in SYRINGE 0 ML IV SCH ×2 (07:51→20:39)
[2023-09-06] MEDS: POTASSIUM CHLORIDE / WTR 10 MEQ/100 ML PLCT IV SCH ×4 (10:50→14:43)
--- NOTE | 2023-09-06 14:36 | Hospitalist Progress Note ---
Date of Service September 06, 2023 Assessment & Plan (1) Abdominal bloating: (2) Abdominal discomfort: (3) Elevated lactic acid level: (4) Leukocytosis: Plan: Patient is a 48-year-old female with PMH DM II, HTN, HLD, history migraine, depression, ADHD, obesity presented to ER with complaint of abdominal pain, abdominal distension, vomiting, loose BMs and constipation. Recent admission at [facility] on 08/15/23-08/18/22 admitted at [facility] for partial small bowel obstruction treated conservatively with NG tube, IVF. Partial small bowel obstruction --CT abdomen pelvis: No bowel wall thickening or obstruction. Hepatic steatosis. Fluid-filled nondilated loops of large and small bowel likely corresponding to the patient's history of a diarrheal state. --KUB:A nasogastric tube terminates in the stomach. Borderline ileus. --Lactic acidosis --Blood cultures negative to date -- Discontinue Zosyn Continue bowel rest, IV fluids NG tube clamped today Appreciate surgery input + flatus today Hypokalemia Replete electrolytes as needed Monitor (5) Diabetes mellitus, type II: Plan: A1c: 6.8 on 07/05/2023 Hold home metformin, Trulicity NovoLog sliding scale correction only while NPO Monitor BSG's Trulicity may be contributing to patient's GI symptoms. May need to consider discontinuing an alternative agent outpatient (6) HTN (hypertension): Plan: Hold home lisinopril and Maxide Monitor BP (7) Dyslipidemia: Plan: Hold atorvastatin (8) Depression with anxiety: (9) ADD (attention deficit disorder): Plan: Hold home Adderall, Effexor, lamotrigine, Rexulti at this time (10) Tobacco use: Plan: Smokes half pack per day Denies nicotine patch at this time Smoking cessation encouraged (11) Obesity, morbid, BMI 40.0-49.9: Plan: BMI: 41 DVT Px Lovenox SQ Code Status Full Code Admission and Anticipated Discharge Date Admission Date: September 04, 2023 Subjective Patient is seen and examined at bedside States having some abdominal discomfort + Flatus but no BM this morning NG tube clamped per surgery Denies any chest pain, dyspnea, nausea, vomiting Review of Systems Review of Systems: All systems reviewed & are unremarkable except as noted in Subjective Physical Exam Physical Exam: Physical Exam: Vitals signs as noted above General Appearance:Obese, no apparent distress Head: normocephalic, Atraumatic Eyes: normal inspection, EOMI Neck: supple, Trachea midline Respiratory/Chest: Normal breath sounds, CTA, No accessory muscle use Cardiovascular: S1, S2, No murmur Abdomen/GI:Soft, Non tender, +distended, decreased Bowel sounds Extremities/Musculoskeletal:normal inspection, no edema Neurologic/Psych:AAOX3, grossly no focal neurological deficits Skin: normal color, warm Results & Data Results & Data Vital Signs (Past 12 Hours) Vital Signs Temp Pulse Resp BP Pulse Ox O2 Del Method 09/06/23 11:42 36.9 C 71 16 176/91 H 92 Room Air 09/06/23 08:00 Room Air 09/06/23 07:41 36.8 C 76 18 156/74 H 93 Room Air 09/06/23 04:04 36.8 C 79 18 126/65 91 Room Air Laboratory Results Short CBC 09/06/23 Range/Units 05:32 WBC 6.98 (4.8-10.8) K/ul Hgb 10.7 L (12.0-16.0) g/dl Hct 33.1 L (37.0-47.0) % Plt Count 208 (130-400) K/uL BMP 09/06/23 05:32 Sodium 142 Potassium 3.1 L Chloride 109 H Carbon Dioxide 26 BUN 12 Creatinine 0.44 L Glucose 107 H Calcium 7.8 L
[2023-09-06] MEDS: ENOXAPARIN INJ 40 MG/0.4 ML SYR SQ SCH (14:59)
[2023-09-06] MEDS: D5W AND 1/2NSS + 20MEQ KCL 20 MEQ/1,000 ML BAG IV SCH (17:27)
[2023-09-06] MEDS ORDERED: LORazepam 0.25 MG in SYRINGE 0.125 ML IV STA (21:33)
[2023-09-06] MEDS ORDERED: LORazepam 0.5 MG in SYRINGE 0.25 ML IV ONE (23:30)
[2023-09-07] MEDS: KETOROLAC TROMETHAMINE 15 MG/ML VIAL IV PRN (00:57)
[2023-09-07] MEDS: MoRPHine SULFATE 4 MG/ML 1 ML CARP\\VIAL IV PRN (04:51)
[2023-09-07] MEDS: INSULIN ASPART PER UNIT CHARGE SC SCH ×4 (06:07→20:43)
[2023-09-07 06:43] LABS: Hematocrit (blood only) 31.8 % (37.0-47.0); Hemoglobin 10.6 g/dl (12.0-16.0); Mean Corpuscular Hemoglobin 31.5 pg (25.0-34.0); Mean Corpuscular Hgb Conc 33.3 g/dL (32.0-36.0); Mean Corpuscular Volume 94.6 fL (80.0-100.0); Mean Platelet Volume 10.6 fL (9.4-12.4); Platelet Count 195 K/uL (130-400); RDW Standard Deviation 44.9 fL (36.4-46.3); Red Blood Count 3.36 M/uL (4.20-5.40); White Blood Count 7.43 K/ul (4.8-10.8)
[2023-09-07 07:22] LABS: BUN Creatinine Ratio 31.6 (10-20); Calcium 8.1 mg/dl (8.6-10.3); Creatinine Clr Calc Pharmacy 251.7 ml/min; Est GFR (African American) 147.2 ml/min; Magnesium 1.7 mg/dl (1.7-2.4); Potassium 3.5 mmol/L (3.5-5.1)
--- NOTE | 2023-09-07 07:50 | Surgery Progress Note ---
Date of Service September 07, 2023 Assessment & Plan (1) Gaseous abdominal distention: (2) Abdominal bloating: (3) Leukocytosis: Plan: Leukocytosis resolved. Patient remains afebrile hemodynamically stable overnight. Still complains of her abdomen not feeling back to normal. SBFT today NGT was clamped yesterday. Will removed after SBFT and then slowly advance the patient's diet as tolerated to low-fat if negative For now continue IVF hydration Admission and Anticipated Discharge Date Admission Date: September 04, 2023 Subjective Patient seen and examined this am. Denies N/V, passing a small amount of flatus. Still c/o some abdominal discomfort. No F/C or acute events o/n. Physical Exam Constitutional: + obese; not ill appearing, not in distr ess and not diaphoretic Respiratory: normal respiratory effort; no respiratory distress, no labored breathing and does not use accessory muscles Cardiovascular: Rate/Rhythm: regular rate; not tachycardic Gastrointestinal (Abdomen): Abdomen is soft, non-distended minimal TTP diffusely Results & Data Vital Signs (Past 12 Hours) Vital Signs Temp Pulse Pulse Resp BP BP Pulse Ox 09/07/23 07:00 79 09/07/23 01:54 36.8 C 73 18 155/71 H 90 09/06/23 22:46 36.6 C 73 18 144/71 H 93 09/06/23 21:55 74 O2 Del Method 09/07/23 07:00 09/07/23 01:54 Room Air 09/06/23 22:46 Room Air 09/06/23 21:55 Laboratory Results Leukocytosis, H&H stable PG Care Time/CCT Total # of Minutes Spent Total Time Spent with Patient: Total time spent is greater than 50% in coordination of care (as documented) at patient's floor/unit and/or counseling patient: Coding [place] [address] SUB INP/OBS CARE 125MIN Patient Type Established History Problem Focused Exam Problem Focused Medical Decision Making Low Complexity Diagnoses Gaseous abdominal distention R14.0 Abdominal bloating R14.0 Leukocytosis D72.829
[2023-09-07] MEDS ORDERED: ENALAPRILAT 0.625 MG in SYRINGE 9.5 ML IV PRN (09:14)
[2023-09-07 10:36] LABS: Adenovirus F 40/41 PCR Not Detected (NotDetected); Astrovirus PCR Not Detected (NotDetected); Campylobacter PCR Not Detected (NotDetected); Cryptosporidium PCR Not Detected (NotDetected); Cyclospora cayetanensis PCR Not Detected (NotDetected); Entamoeba histolytica PCR Not Detected (NotDetected); Enteroaggregative E.coli(EAEC) Not Detected (NotDetected); Enteropathogenic E.coli (EPEC) Not Detected (NotDetected); Enterotoxigenic E.coli (ETEC) Not Detected (NotDetected); Giardia lamblia PCR Not Detected (NotDetected); Norovirus GI/GII PCR Not Detected (NotDetected); Plesiomonas shigelloides PCR Not Detected (NotDetected); Rotavirus A PCR Not Detected (NotDetected); Salmonella PCR Not Detected (NotDetected); Sapovirus PCR Not Detected (NotDetected); Shiga-like Toxin E.coli (STEC) Not Detected (NotDetected); Shigella/Enteroinvasive E.coli Not Detected (NotDetected); Vibrio cholerae PCR Not Detected (NotDetected); Vibrio species PCR Not Detected (NotDetected); Yersinia enterocolitica PCR Not Detected (NotDetected)
[2023-09-07] MEDS: PANTOprazole 40 MG in SYRINGE 0 ML IV SCH (10:45)
--- NOTE | 2023-09-07 11:32 | Fluoroscopy Report ---
FL small bowel follow through CLINICAL HISTORY: Small bowel obstruction. COMPARISON STUDY: KUB 09/05/2023. Abdomen and pelvis CT 09/04/2023. FLUOROSCOPY TIME: None. FLUOROSCOPY IMAGES: None. Exposure dose: None. FINDINGS: 9 overhead images of the abdomen and pelvis were obtained for a total of 100 minutes. [employer] images demonstrate a few borderline dilated gas-filled loops of small bowel within the midabdomen. T here is gas within the nondistended colon. The patient swallowed barium without difficulty. There is nasogastric tube within the stomach. There are mildly dilated contrast-filled loops of duodenum and p roximal jejunum within the midabdomen. However, contrast extends throughout the remaining small bowel and cecum at 100 minutes. Therefore, no evidence for bowel obstruction. Questionable thickening of t he mildly dilated loops of proximal jejunum/duodenum. IMPRESSION: 1. A few mildly dilated contrast-filled loops of duodenum and proximal jejunum within the midabdomen. However, no evidence for a bowel obstruction. 2. There is questionable thickening of the mildly dilated loops of proximal jejunum/duodenum. This is consistent with a nonspecific enteritis. Clinical correlation recommended to assess for the possibil ity of celiac disease. ACT 112: Negative or not required by law. Electronically signed by: Nuno León M.D. 09/07/2023 11:31 AM
[2023-09-07] MEDS ORDERED: Nursing to Pharmacy Communication SCH (12:30)
[2023-09-07] MEDS: D5W AND 1/2NSS + 20MEQ KCL 20 MEQ/1,000 ML BAG IV SCH (13:58)
[2023-09-07] MEDS: ENOXAPARIN INJ 40 MG/0.4 ML SYR SQ SCH (13:59)
[2023-09-07] MEDS: lamoTRIgine 100 MG TAB PO SCH (15:22)
[2023-09-07] MEDS: lamoTRIgine 25 MG TAB PO SCH (15:22)
[2023-09-07] MEDS: FAMOTIDINE 20 MG TAB PO SCH (15:23)
[2023-09-07] MEDS: lisinopril 20 MG TAB PO SCH (15:23)
[2023-09-07] MEDS: PANTOprazole 40 MG TAB PO SCH (15:23)
--- NOTE | 2023-09-07 17:10 | Hospitalist Progress Note ---
Date of Service September 07, 2023 Assessment & Plan (1) Abdominal bloating: (2) Abdominal discomfort: (3) Elevated lactic acid level: (4) Leukocytosis: Plan: Patient is a 48-year-old female with PMH DM II, HTN, HLD, history migraine, depression, ADHD, obesity presented to ER with complaint of abdominal pain, abdominal distension, vomiting, loose BMs and constipation. Recent admission at [facility] on 08/15/23-08/18/22 admitted at [facility] for partial small bowel obstruction treated conservatively with NG tube, IVF. Partial small bowel obstruction --CT abdomen pelvis: No bowel wall thickening or obstruction. Hepatic steatosis. Fluid-filled nondilated loops of large and small bowel likely corresponding to the patient's history of a diarrheal state. --KUB:A nasogastric tube terminates in the stomach. Borderline ileus. --SBFT:A few mildly dilated contrast-filled loops of duodenum and proximal jejunum within the midabdomen. However, no evidence for a bowel obstruction. There is questionable thickening of the mildly dilated loops of proximal jejunu m/duodenum. This is consistent with a nonspecific enteritis. Clinical correlation recommended to assess for the possibility of celiac disease. --Lactic acidosis --Blood cultures negative to date -- Discontinued Zosyn Continue gentle IV fluids NG tube discontinued Appreciate surgery input Started on clear liquid diet today Will consider stool studies if develops diarrhea May benefit from colonoscopy as outpatient Hypokalemia Replete electrolytes as needed Monitor (5) Diabetes mellitus, type II: Plan: A1c: 6.8 on 07/05/2023 Hold home metformin, Trulicity NovoLog sliding scale correction only while NPO Monitor BSG's Trulicity may be contributing to patient's GI symptoms. May need to consider discontinuing an alternative agent outpatient (6) HTN (hypertension): Plan: Resume lisinopril Resume Maxide as able Monitor BP (7) Dyslipidemia: Plan: Continue atorvastatin (8) Depression with anxiety: (9) ADD (attention deficit disorder): Plan: Continue Adderall, Effexor, lamotrigine, Rexulti (10) Tobacco use: Plan: Smokes half pack per day Denies nicotine patch at this time Smoking cessation encouraged (11) Obesity, morbid, BMI 40.0-49.9: Plan: BMI: 41 DVT Px Lovenox SQ Code Status Full Code Admission and Anticipated Discharge Date Admission Date: September 04, 2023 Subjective Patient is seen and examined at bedside States feeling much better today Had bowel movement, flatus today NG tube discontinued Denies any abdominal pain, nausea, vomiting, chest pain, dyspnea Review of Systems Review of Systems: All systems reviewed & are unremarkable except as noted in Subjective Physical Exam Physical Exam: Physical Exam: Vitals signs as noted above General Appearance:Obese, no apparent distress Head: normocephalic, Atraumatic Eyes: normal inspection, EOMI Neck: supple, Trachea midline Respiratory/Chest: Normal breath sounds, CTA, No accessory muscle use Cardiovascular: S1, S2, No murmur Abdomen/GI:Soft, Non tender, decreased Bowel sounds Extremities/Musculoskeletal:normal inspection, no edema Neurologic/Psych:AAOX3, grossly no focal neurological deficits Skin: normal color, warm Results & Data Results & Data Vital Signs (Past 12 Hours) Vital Signs Temp Pulse Pulse Resp BP BP Pulse Ox 09/07/23 16:51 36.6 C 70 18 158/76 H 95 09/07/23 14:13 76 09/07/23 11:26 36.4 C L 72 18 167/95 H 94 09/07/23 07:48 36.7 C 70 17 173/78 H 93 09/07/23 07:30 09/07/23 07:00 79 O2 Del Method 09/07/23 16:51 Room Air 09/07/23 14:13 09/07/23 11:26 Room Air 09/07/23 07:48 Room Air 09/07/23 07:30 Room Air 09/07/23 07:00 Laboratory Results Short CBC 09/07/23 Range/Units 06:12 WBC 7.43 (4.8-10.8) K/ul Hgb 10.6 L (12.0-16.0) g/dl Hct 31.8 L (37.0-47.0) % Plt Count 195 (130-400) K/uL BMP 09/07/23 06:12 Sodium 141 Potassium 3.5 Chloride 109 H Carbon Dioxide 25 BUN 12 Creatinine 0.38 L Glucose 107 H Calcium 8.1 L
[2023-09-08] MEDS: MoRPHine SULFATE 4 MG/ML 1 ML CARP\\VIAL IV PRN (01:24)
[2023-09-08 07:23] LABS: BUN Creatinine Ratio 12.8 (10-20); Calcium 8.6 mg/dl (8.6-10.3); Creatinine Clr Calc Pharmacy 204.6 ml/min; Est GFR (African American) 137.3 ml/min; Est GFR (Non-African American) 118.5 ml/min; Magnesium 1.7 mg/dl (1.7-2.4); Potassium 3.5 mmol/L (3.5-5.1)
[2023-09-08] MEDS: D5W AND 1/2NSS + 20MEQ KCL 20 MEQ/1,000 ML BAG IV SCH (08:57)
[2023-09-08] MEDS: INSULIN ASPART PER UNIT CHARGE SC SCH ×3 (08:57→17:59)
[2023-09-08] MEDS: lamoTRIgine 100 MG TAB PO SCH (09:00)
[2023-09-08] MEDS ORDERED: ATORVASTATIN 20 MG TAB PO SCH (09:00)
[2023-09-08] MEDS ORDERED: VENLAFAXINE HCL XR 75 MG CAPXR PO SCH (09:00)
[2023-09-08] MEDS: FAMOTIDINE 20 MG TAB PO SCH (09:00)
[2023-09-08] MEDS ORDERED: VENLAFAXINE HCL XR 150 MG CAPXR PO SCH (09:00)
[2023-09-08] MEDS: lisinopril 20 MG TAB PO SCH (09:01)
[2023-09-08] MEDS: PANTOprazole 40 MG TAB PO SCH (09:01)
[2023-09-08] MEDS: lamoTRIgine 25 MG TAB PO SCH (09:01)
--- NOTE | 2023-09-08 11:08 | Surgery Progress Note ---
<Statement entered by Drea Andrade DO - 09/08/23 21:57> I examined this patient with the surgical PA and conveyed the recommendations. Please re-consult surgery if changes occur concerning for acute abdomen. Date of Service September 08, 2023 Assessment & Plan (1) Gaseous abdominal distention: Plan: Patient underwent SBFT yesterday that revealed no evidence of obstruction. there is question of enteritis and ?of celiac's disease She has been passing gas/BMs and denies any pain/n/v this AM tolerating clears thus far, will advance to full liquid diet. If tolerates may continue to advance to a low fiber/mechanical soft diet for home until her bowels normalize may benefit from outpt GI follow up for workup of celiac's from our standpoint stable for discharge when cleared by medicine (2) Abdominal bloating: Admission and Anticipated Discharge Date Admission Date: September 04, 2023 Subjective Patient feeling much better today. Says abdominal pain improved after her SBFT study as she has been passing lots of flatus and BMs. No nausea/vomiting. Physical Exam Physical Exam: awake/alert, no distress Gastrointestinal (Abdomen): Percussion/Palpation: abdomen soft; abdomen nontender Results & Data Vital Signs (Past 12 Hours) Vital Signs Temp Pulse Pulse Resp BP Pulse Ox O2 Del Method 09/08/23 08:01 37.0 C 67 18 147/74 H 92 Room Air 09/08/23 07:31 68 09/08/23 03:00 36.6 C 67 20 149/84 H 92 Room Air PG Care Time/CCT Total # of Minutes Spent Total Time Spent with Patient: Total time spent is greater than 50% in coordination of care (as documented) at patient's floor/unit and/or counseling patient: Coding Level of Care Code 24734 SUB INP/OBS CARE 1/25MIN Diagnoses Gaseous abdominal distention R14.0 Abdominal bloating R14.0
[2023-09-08] MEDS: ONDANSETRON INJ 2 MG/ML 2 ML VIAL IV PRN (12:25)
--- NOTE | 2023-09-08 13:42 | Hospitalist Progress Note ---
Date of Service September 08, 2023 Assessment & Plan (1) Abdominal bloating: (2) Abdominal discomfort: (3) Elevated lactic acid level: (4) Leukocytosis: Plan: Patient is a 48-year-old female with PMH DM II, HTN, HLD, history migraine, depression, ADHD, obesity presented to ER with complaint of abdominal pain, abdominal distension, vomiting, loose BMs and constipation. Recent admission at [facility] on 08/15/23-08/18/22 admitted at [facility] for partial small bowel obstruction treated conservatively with NG tube, IVF. Partial small bowel obstruction --CT abdomen pelvis: No bowel wall thickening or obstruction. Hepatic steatosis. Fluid-filled nondilated loops of large and small bowel likely corresponding to the patient's history of a diarrheal state. --KUB:A nasogastric tube terminates in the stomach. Borderline ileus. --SBFT:A few mildly dilated contrast-filled loops of duodenum and proximal jejunum within the midabdomen. However, no evidence for a bowel obstruction. There is questionable thickening of the mildly dilated loops of proximal jejunu m/duodenum. This is consistent with a nonspecific enteritis. Clinical correlation recommended to assess for the possibility of celiac disease. --Lactic acidosis --Blood cultures negative to date -- Discontinued Zosyn Continue gentle IV fluids NG tube discontinued Appreciate surgery input Advance to low fiber diet as tolerated No recurrence of diarrhea Advised to obtain colonoscopy as outpatient Hypokalemia Replete electrolytes as needed Monitor (5) Diabetes mellitus, type II: Plan: A1c: 6.8 on 07/05/2023 Hold home metformin, Trulicity NovoLog sliding scale correction only while NPO Monitor BSG's Trulicity may be contributing to patient's GI symptoms. Advised to discuss with PCP --need to consider discontinuing or look for alternative agent (6) HTN (hypertension): Plan: Continue lisinopril Resume Maxide as able Monitor BP (7) Dyslipidemia: Plan: Continue atorvastatin (8) Depression with anxiety: (9) ADD (attention deficit disorder): Plan: Continue Adderall, Effexor, lamotrigine, Rexulti (10) Tobacco use: Plan: Smokes half pack per day Denies nicotine patch at this time Smoking cessation encouraged (11) Obesity, morbid, BMI 40.0-49.9: Plan: BMI: 41 DVT Px Lovenox SQ Code Status Full Code Disposition Home Admission and Anticipated Discharge Date Admission Date: September 04, 2023 Subjective Patient is seen and examined at bedside Doing well today No new complaints Had multiple bowel movements Tolerating current diet Denies any abdominal pain, nausea, vomiting, chest pain, dyspnea Review of Systems Review of Systems: All systems reviewed & are unremarkable except as noted in Subjective Physical Exam Physical Exam: Physical Exam: Vitals signs as noted above General Appearance:Obese, no apparent distress Head: normocephalic, Atraumatic Eyes: normal inspection, EOMI Neck: supple, Trachea midline Respiratory/Chest: Normal breath sounds, CTA, No accessory muscle use Cardiovascular: S1, S2, No murmur Abdomen/GI:Soft, Non tender,+ Bowel sounds Extremities/Musculoskeletal:normal inspection, no edema Neurologic/Psych:AAOX3, grossly no focal neurological deficits Skin: normal color, warm Results & Data Results & Data Vital Signs (Past 12 Hours) Vital Signs Temp Pulse Pulse Resp BP Pulse Ox O2 Del Method 09/08/23 11:41 36.5 C 67 18 162/87 H 97 Room Air 09/08/23 08:01 37.0 C 67 18 147/74 H 92 Room Air 09/08/23 07:31 68 09/08/23 03:00 36.6 C 67 20 149/84 H 92 Room Air Laboratory Results BMP 09/08/23 06:09 Sodium 140 Potassium 3.5 Chloride 108 H Carbon Dioxide 24 BUN 6 Creatinine 0.47 L Glucose 111 H Calcium 8.6
--- NOTE | 2023-09-08 13:51 | Discharge Summary ---
Date of Service September 08, 2023 Admission HPI Per Admitting Provider Patient is a 48-year-old female with PMH DM II, HTN, HLD, history migraine, depression, ADHD, obesity presented to ER with complaint of abdominal pain. History obtained from patient as well as outpatient chart review. On 08/15/23- 08/18/22 admitted at [facility] for partial small bowel obstruction treated conservatively with NG tube, IVF, her diet was advanced and was tolerating and was discharged. Upon discharge her lisinopril was decreased to 10 mg daily, Maxide to 0.5 tablet daily, omeprazole and Pepcid were started. Had follow-up with PCP on 08/30/2023 and was still reporting some bloating and decreased frequency of BMs. It was suggested patient take laxatives and lisinopril was resumed at 20 mg daily and Maxide continued at 0.5 tablet daily. Patient states has continued to have abdominal bloating. Reports constipation. States will go several days without BM then will have increased abdominal bloating, nausea and vomiting. She states only having BMs if takes laxatives. Patient states then when takes laxatives has loose stools. She reports her Trulicity was increased approximately 6 months ago and has not had any further titration of this medication. Patient states last night had chicken and steamed vegetables for dinner. States later developed increased abdominal bloating, nausea, vomiting, multiple loose bowel movements and abdominal discomfort. Reports felt cold and had sweats however denies any fever. Denies fever/chills, diaphoresis, hematemesis, hematochezia, melena, BARBOSA, dizziness, syncope, vision changes, neck pain, CP, SOB, palpitations, cough, sore throat, rhinorrhea, weakness, increased extremity edema, rashes, urinary symptoms. Admission Exam Per Admitting Provider General: Appears uncomfortable, obese Head: normocephalic, atraumatic Eyes: conjunctiva non-injected, anicteric ENT: normal inspection external ears, nose, mucous membranes mildly dry Neck: supple, trachea midline Lungs: clear, no respiratory distress, no wheezing/rhonchi/rales CV: RRR, no murmur, no pretibial edema Abd: protuberant, +distended, normal BS, soft, slight diffuse tenderness to palpation without guarding or rebound Ext: no cyanosis, no calf tenderness Neuro: A&O x 3, no focal deficits noted, normal affect Skin: warm, dry Principal Diagnosis Partial small bowel obstruction Enteritis--Incidental finding on CT Discharge Data Allergies Allergy/AdvReac Type Severity Reaction Status Date / Time No Known Allergies Allergy Verified 08/10/23 16:04 Consultations 09/04/23 09:50 Consult General Surgery Routine 09/04/23 10:05 ED Decision to Admit Stat Procedures Performed Laboratory Results WBC 7.43 K/ul (4.8-10.8) 09/07/23 06:12 RBC 3.36 M/uL (4.20-5.40) L 09/07/23 06:12 Hgb 10.6 g/dl (12.0-16.0) L 09/07/23 06:12 Hct 31.8 % (37.0-47.0) L 09/07/23 06:12 MCV 94.6 fL (80.0-100.0) 09/07/23 06:12 MCH 31.5 pg (25.0-34.0) 09/07/23 06:12 MCHC 33.3 g/dL (32.0-36.0) 09/07/23 06:12 RDW Std Deviation 44.9 fL (36.4-46.3) 09/07/23 06:12 RDW Coeff of Daryl 13.0 % (11.5-14.5) 09/07/23 06:12 Plt Count 195 K/uL (130-400) 09/07/23 06:12 MPV 10.6 fL (9.4-12.4) 09/07/23 06:12 Immature Gran % (Auto) 0.1 % 09/05/23 05:53 Neut % (Auto) 44.3 % 09/05/23 05:53 Lymph % (Auto) 41.6 % 09/05/23 05:53 [place] % (Auto) 6.8 % 09/05/23 05:53 Eos % (Auto) 6.8 % 09/05/23 05:53 Baso % (Auto) 0.4 % 09/05/23 05:53 Neut # (Auto) 3.01 K/uL (1.40-6.50) 09/05/23 05:53 Lymph # (Auto) 2.83 K/uL (1.20-3.40) 09/05/23 05:53 [place] # (Auto) 0.46 K/uL (0.11-0.59) 09/05/23 05:53 Eos # (Auto) 0.46 K/uL (0.00-0.50) 09/05/23 05:53 Baso # (Auto) 0.03 K/uL (0.00-0.20) 09/05/23 05:53 Immature Gran # (Auto) 0.01 K/uL (0.01-0.20) 09/05/23 05:53 Sodium 140 mmol/L (136-145) 09/08/23 06:09 Potassium 3.5 mmol/L (3.5-5.1) 09/08/23 06:09 Chloride 108 mmol/L (98-107) H 09/08/23 06:09 Carbon Dioxide 24 mmol/L (21-32) 09/08/23 06:09 Anion Gap 8 (3-11) 09/08/23 06:09 BUN 6 mg/dl (6-23) 09/08/23 06:09 Creatinine 0.47 mg/dl (0.6-1.2) L 09/08/23 06:09 Est Cr Clr Drug Dosing 204.6 ml/min 09/08/23 06:09 Est GFR ( Amer) 137.3 ml/min 09/08/23 06:09 Est GFR (Non-Af Amer) 118.5 ml/min 09/08/23 06:09 BUN/Creatinine Ratio 12.8 (10-20) 09/08/23 06:09 Glucose 111 mg/dl (70-99(Fasting)) H 09/08/23 06:09 POC Glucose 117 mg/dl (70-99) H 09/08/23 12:16 Lactate 1.6 mmol/L (0.4-2.0) 09/04/23 12:38 Calcium 8.6 mg/dl (8.6-10.3) 09/08/23 06:09 Magnesium 1.7 mg/dl (1.7-2.4) 09/08/23 06:09 Total Bilirubin 0.4 mg/dl (0.2-1.0) 09/05/23 05:53 AST 10 U/L (13-39) L 09/05/23 05:53 ALT 16 U/L (7-52) 09/05/23 05:53 Alkaline Phosphatase 70 U/L (34-104) 09/05/23 05:53 Troponin I High Sens 7.1 pg/ml (0-14) 09/04/23 04:50 Total Protein 5.3 gm/dl (6.0-8.3) L D 09/05/23 05:53 Albumin 3.1 gm/dl (3.4-5.0) L 09/05/23 05:53 Globulin 2.2 gm/dl (2.5-4.0) L 09/05/23 05:53 Albumin/Globulin Ratio 1.4 (0.9-2) 09/05/23 05:53 Lipase 32 U/L (11-82) 09/04/23 04:50 HCG, Qual Negative (Negative) 09/04/23 04:50 Urine Color Yellow 09/04/23 09:00 Urine Appearance Clear (Clear) 09/04/23 09:00 Urine pH 5.0 (4.5-7.5) 09/04/23 09:00 Ur Specific [place] > 1.045 (1.000-1.030) H 09/04/23 09:00 Urine Protein Negative (Negative) 09/04/23 09:00 Urine Glucose (UA) Negative (Negative) 09/04/23 09:00 Urine Ketones Negative (Negative) 09/04/23 09:00 Urine Blood Negative (Negative) 09/04/23 09:00 Urine Nitrite Negative (Negative) 09/04/23 09:00 Urine Bilirubin Negative (Negative) 09/04/23 09:00 Urine Urobilinogen Negative (Negative) 09/04/23 09:00 Ur Leukocyte Esterase Negative (Negative) 09/04/23 09:00 Stl C. cayetanensis PCR Not Detected (NotDetected) 09/07/23 Unknown Stool Rotavirus A PCR Not Detected (NotDetected) 09/07/23 Unknown Stl Adenov F 40/41 PCR Not Detected (NotDetected) 09/07/23 Unknown Stool Astrovirus (PCR) Not Detected (NotDetected) 09/07/23 Unknown Stool Campylobacter PCR Not Detected (NotDetected) 09/07/23 Unknown Stl C. diff Tox B Gene TNP 09/07/23 Unknown Stool Cryptosporidium PCR Not Detected (NotDetected) 09/07/23 Unknown Stl E.coli Shiga Tox PCR Not Detected (NotDetected) 09/07/23 Unknown Stl Enterotoxigenic E PCR Not Detected (NotDetected) 09/07/23 Unknown Stool EPEC (PCR) Not Detected (NotDetected) 09/07/23 Unknown Stool EAEC (PCR) Not Detected (NotDetected) 09/07/23 Unknown Stl E. histolytica PCR Not Detected (NotDetected) 09/07/23 Unknown Stool Giardia Lamblia PCR Not Detected (NotDetected) 09/07/23 Unknown Stool Salmonella PCR Not Detected (NotDetected) 09/07/23 Unknown Stool Sapovirus (PCR) Not Detected (NotDetected) 09/07/23 Unknown Stl P. shigelloides PCR Not Detected (NotDetected) 09/07/23 Unknown Stl Shigella/EIEC PCR Not Detected (NotDetected) 09/07/[address].enterocolitica PCR Not Detected (NotDetected) 09/07/23 Unknown Stool Vibrio (PCR) Not Detected (NotDetected) 09/07/23 Unknown Stl Vibrio cholerae PCR Not Detected (NotDetected) 09/07/23 Unknown Stl Norovirus GI/GII PCR Not Detected (NotDetected) 09/07/23 Unknown Urine Opiates Screen Neg (Neg) 09/04/23 09:00 Ur Methadone, Qual Neg (Neg) 09/04/23 09:00 Urine Barbiturates Neg (Neg) 09/04/23 09:00 Ur Phencyclidine (PCP) Neg (Neg) 09/04/23 09:00 U Amphetamin/Meth Scrn Neg (Neg) 09/04/23 09:00 MDMA (Ecstasy) Screen Neg (Neg) 09/04/23 09:00 U Benzodiazepines Scrn Neg (Neg) 09/04/23 09:00 Ur Cocaine Metabolite Neg (Neg) 09/04/23 09:00 U Marijuana (THC) Screen Neg (Neg) 09/04/23 09:00 Ethyl Alcohol mg/dL < 10.0 mg/dl (<10.0) 09/04/23 04:50 Adenovirus (PCR) Not Detected (NotDetected) 09/04/23 05:30 B. pertussis DNA (PCR) Not Detected (NotDetected) 09/04/23 05:30 B.parapertussis DNA PCR Not Detected (NotDetected) 09/04/23 05:30 C. pneumoniae DNA (PCR) Not Detected (NotDetected) 09/04/23 05:30 Coronavirus OC43 (PCR) Not Detected (NotDetected) 09/04/23 05:30 Coronavirus HKU1 (PCR) Not Detected (NotDetected) 09/04/23 05:30 Coronavirus 229E (PCR) Not Detected (NotDetected) 09/04/23 05:30 SARS-CoV-2 (PCR) Not Detected (NotDetected) 09/04/23 05:30 Coronavirus NL63 (PCR) Not Detected (NotDetected) 09/04/23 05:30 Human Metapneumovir PCR Not Detected (NotDetected) 09/04/23 05:30 Influenza Type A (PCR) Not Detected (NotDetected) 09/04/23 05:30 Influenza Type B (PCR) Not Detected (NotDetected) 09/04/23 05:30 M. pneumoniae (PCR) Not Detected (NotDetected) 09/04/23 05:30 Parainfluenza 1 (PCR) Not Detected (NotDetected) 09/04/23 05:30 Parainfluenza 2 (PCR) Not Detected (NotDetected) 09/04/23 05:30 Parainfluenza 3 (PCR) Not Detected (NotDetected) 09/04/23 05:30 Parainfluenza 4 (PCR) Not Detected (NotDetected) 09/04/23 05:30 RSV (PCR) Not Detected (NotDetected) 09/04/23 05:30 Entero/Rhino (PCR) Not Detected (NotDetected) 09/04/23 05:30 Impressions Abdomen/Pelvis CT 09/04/23 04:[address] WITH IV CONTRAST CT DOSE: 1479.25 mGy.cm HISTORY: Lower abdominal pain. TECHNIQUE: Multiaxial CT images of the abdomen and pelvis were performed following the use of intravenous contrast. A dose lowering technique was utilized adhering to the principles of ALARA. COMPARISON STUDY: Abdomen and pelvis CT 08/10/2023. FINDINGS: The lung bases are clear. No pneumoperitoneum. No pneumatosis. No acute fractures identified. Stable 2 cm ovoid cystic focus with the ventral abdominal wall superficial to the abdominal wall musculature on image 265 remains unchanged. This may represent a small seroma. Hepatic steatosis again noted. The gallbladder, pancreas, spleen, adrenal glands, and kidneys are unremarkable. No hydronephrosis. The main portal vein is patent. Mild calcified plaque within the normal caliber abdominal aorta. No retroperitoneal or pelvic lymphadenopathy. No pelvic free fluid. Normal bladder. Prior hysterectomy. Fluid-filled nondilated loops of large and small bowel seen throughout the abdomen. This likely corresponds to the patient's history of a diarrheal state. No bowel wall thickening or obstruction. Normal appendix. IMPRESSION: 1. No bowel wall thickening or obstruction. 2. Hepatic steatosis. 3. Fluid-filled nondilated loops of large and small bowel likely corresponding to the patient's history of a diarrheal state. ACT 112: Negative or not required by law. Electronically signed by: Nuno León M.D. 09/04/2023 7:48 AM KUB X-Ray 09/05/23 08:00 XR KUB/Abdomen 1 view CLINICAL HISTORY: ileus TECHNIQUE: 1 view of the abdomen was obtained. Comparison: Comparison is made to abdomen radiograph 09/04/2023 FINDINGS: Stable enteric tube. The osseous structures are grossly unremarkable. Previously noted gastric distended loops of small bowel are less conspicuous on today's exam. Small stool burden is seen. IMPRESSION: Previously noted gas distended loops of small bowel are less conspicuous than on the prior exam. ACT 112: Negative or not required by law. Electronically signed by: Jose Maria Reyes M.D. 09/05/2023 1:52 PM Small Bowel X-Ray 09/07/23 07:23 FL small bowel follow through CLINICAL HISTORY: Small bowel obstruction. COMPARISON STUDY: KUB 09/05/2023. Abdomen and pelvis CT 09/04/2023. FLUOROSCOPY TIME: None. FLUOROSCOPY IMAGES: None. Exposure dose: None. FINDINGS: 9 overhead images of the abdomen and pelvis were obtained for a total of 100 minutes. Pattern Molder images demonstrate a few borderline dilated gas-filled loops of small bowel within the midabdomen. There is gas within the nondistended colon. The patient swallowed barium without difficulty. There is nasogastric tube within the stomach. There are mildly dilated contrast-filled loops of duodenum and proximal jejunum within the midabdomen. However, contrast extends throughout the remaining small bowel and cecum at 100 minutes. Therefore, no evidence for bowel obstruction. Questionable thickening of the mildly dilated loops of proximal jejunum/duodenum. IMPRESSION: 1. A few mildly dilated contrast-filled loops of duodenum and proximal jejunum within the midabdomen. However, no evidence for a bowel obstruction. 2. There is questionable thickening of the mildly dilated loops of proximal jejunum/duodenum. This is consistent with a nonspecific enteritis. Clinical correlation recommended to assess for the possibility of celiac disease. ACT 112: Negative or not required by law. Electronically signed by: Nuno León M.D. 09/07/2023 11:31 AM Ordered Studies 09/04/23 04:58 CT abd pelvis IV con only Stat 09/07/23 07:23 [place] small bowel follow through Urgent Hospital Course (1) Abdominal bloating: (2) Abdominal discomfort: (3) Elevated lactic acid level: (4) Leukocytosis: Patient is a 48-year-old female with PMH DM II, HTN, HLD, history migraine, depression, ADHD, obesity presented to ER with complaint of abdominal pain, abdominal distension, vomiting, loose BMs and constipation. Recent admission at [facility] on 08/15/23-08/18/22 admitted at [facility] for partial small bowel obstruction treated conservatively with NG tube, IVF. Partial small bowel obstruction --CT abdomen pelvis: No bowel wall thickening or obstruction. Hepatic steatosis. Fluid-filled nondilated loops of large and small bowel likely corresponding to the patient's history of a diarrheal state. --KUB:A nasogastric tube terminates in the stomach. Borderline ileus. --SBFT:A few mildly dilated contrast-filled loops of duodenum and proximal jejunum within the midabdomen. However, no evidence for a bowel obstruction. There is questionable thickening of the mildly dilated loops of proximal jejunum/duodenum. This is consistent with a nonspecific enteritis. Clinical correlation recommended to assess for the possibility of celiac disease. --Lactic acidosis --Blood cultures negative to date -- Discontinued Zosyn Continue gentle IV fluids NG tube discontinued Appreciate surgery input Advance to low fiber diet as tolerated No recurrence of diarrhea Advised to obtain colonoscopy as outpatient Hypokalemia Replete electrolytes as needed Monitor (5) Diabetes mellitus, type II: A1c: 6.8 on 07/05/2023 Hold home metformin, Trulicity NovoLog sliding scale correction only while NPO Monitor BSG's Trulicity may be contributing to patient's GI symptoms. Advised to discuss with PCP --need to consider discontinuing or look for alternative agent (6) HTN (hypertension): Continue lisinopril Resume Maxide as able Monitor BP (7) Dyslipidemia: Continue atorvastatin (8) Depression with anxiety: (9) ADD (attention deficit disorder): Continue Adderall, Effexor, lamotrigine, Rexulti (10) Tobacco use: Smokes half pack per day Denies nicotine patch at this time Smoking cessation encouraged (11) Obesity, morbid, BMI 40.0-49.9: BMI: 41 DVT Px Lovenox SQ Code Status Full Code Disposition Home Total Time Total Time Spent Total Time Spent (In Minutes): 58 minutes Discharge Plan Discharge Items Patient Disposition: Home - Self-Care Reason For Visit: ABD PAIN Discharge Diagnosis: Partial small bowel obstruction Enteritis Activity: Per Instructions section Exercise/Sports: Gradually increase as tolerated Non-emergency contact: Primary Care Provider, Surgeon and Budget Record Clerk Call non-emergency contact if: you have any medication questions, your symptoms worsen, your pain is concerning for you and you have a fever Follow-up/Referrals: Man Stovall DO [Primary Care Provider] - (Date & Time 09/16/2023 1:40 PM Provider Man Stovall DO [facility] ) Diet: Carb Consistent or DM2 and Low Fiber Addtl Attending Provider Instructions: Follow-up with your primary care physician on 09/16/2023 1:40 PM Follow-up with your surgeon Dr. Andrade as advised Follow-up with your attendant arcade for colonoscopy as advised. --Discuss with your physician for possible need for medication adjustment for diabetes management regarding Trulicity as advised. --Continue low fiber diet for now. Discuss with your physician for further instructions. Seek immediate medical attention if your symptoms reoccur or worsen Please take all medications as instructed on discharge list below. Please call if you have any questions or problems. You can reach a [facility] hospitalist on duty at [facility] 24 hours a day by calling [phone] Pending Studies at Discharge: No Stand-Alone Forms: My [facility], Smoking Cessation Medications and DC Order Prescriptions: Continued atorvastatin 20 mg tablet 20 mg PO QAM dextroamphetamine-amphetamine 10 mg capsule,extended release 24hr 10 mg PO QAM lamotrigine [Lamictal] 150 mg tablet 225 mg PO QAM lisinopril 20 mg tablet 20 mg PO QAM venlafaxine 75 mg capsule,extended release 24hr 75 mg PO DAILY Rx Instructions: Take 75mg +150mg capsule daily venlafaxine 150 mg capsule,extended release 24hr 150 mg PO DAILY Rx Instructions: Take 150mg +75mg capsule daily docusate sodium [Stool Softener] 100 mg capsule 100 mg PO BID PRN (Reason: Constipation) metformin 500 mg tablet extended release 24 hr 500 mg PO BID Rx Instructions: Prescribed 1000mg daily, however patient taking 500mg daily acetaminophen [Tylenol Extra Strength] 500 mg Tablet 1,000 mg PO Q6H PRN (Reason: Fever Or Pain) triamterene-hydrochlorothiazid 37.5-25 mg tablet 0.5 tab PO QAM diclofenac sodium 75 mg tablet,delayed release (DR/EC) 75 mg PO QAM Trulicity 1.5 mg/0.5 mL pen injector 1.5 mg SUBCUT WK Rx Instructions: Fri Rexulti 0.5 mg tablet 0.5 mg PO QAM ondansetron 4 mg tablet,disintegrating 4 mg PO Q6H PRN (Reason: nausea and vomiting) Qty: 10 0RF omeprazole 40 mg capsule,delayed release(DR/EC) 40 mg PO DAILY famotidine 20 mg tablet 20 mg PO DAILY Discharge Orders: Discharge Order (Routine); Ordered 09/08/23 Ordered By: Noah Jensen Admission Data Admit Date/Time: 09/04/23 10:29 Attending Provider: Noah Jensen Admit Provider: Danette Altamirano Primary Care Provider: Man Stovall Other Providers: Drea Andrade; Danette Altamirano
[2023-09-08] MEDS: ENOXAPARIN INJ 40 MG/0.4 ML SYR SQ SCH (14:24)
== END 2023-09-08 18:22 | disposition home or self-care (01) | DRG 389 ==
LOC: ED 04:31 → SUATTDRO 10:29 → EDINP 10:29 → 2N 13:45